=== PATIENT | male | born 1945 | race Caucasian/White ===

== ENCOUNTER → 2016-07-04 | Day surgery (SDC) | payer MEDICARE, BC ==
[2016-06-29 10:02] VITALS: BMI 27.8
[~2016-07-04] MED LIST: LACTATED RINGERS 1,000 ML IV SCH; PROPOFOL 10 MG/ML 20 ML VIAL IV ONE
[2016-07-04 11:37] VITALS: TEMP 97.5
--- NOTE | 2016-07-04 12:02 | P.PCN ---
Date of Procedure: 07/04/16 Procedure(s) Performed: BRIEF HISTORY: Patient is a 71-year-old pleasant white male, scheduled for an elective colonoscopy as a part of evaluation of prior history of colon polyps. His last colonoscopy was in 5 years ago. PROCEDURE PERFORMED: Colonoscopy. PREOPERATIVE DIAGNOSIS: History of colon polyps. IV sedation per Anesthesia. PROCEDURE: After informed consent was obtained, the patient, was brought into the endoscopy unit. IV conscious sedation was administered by Anesthesia under continuous monitoring. Digital rectal examination was normal. Initially the Olympus CF-160 flexible video colonoscope was then inserted in the rectum, gradually advanced into the cecum without any difficulty. Careful examination was performed as the scope was gradually being withdrawn. Ileocecal valve and the appendiceal orifice were visualized and appeared normal. Prep was excellent. Mucosa of the cecum, ascending colon, transverse colon, descending colon, sigmoid colon, and rectum appeared normal. Scattered sigmoid diverticulosis seen. Retroflexion was performed in the rectum and no lesions were seen. The patient tolerated the procedure well. IMPRESSION: Normal-appearing colon from rectum to cecum with no evidence of colorectal neoplasia . Scattered similar diverticulosis. RECOMMENDATIONS: Findings of this examination were discussed with the patient as well as his family. He was advised to have a repeat surveillance colonoscopy in 5 years.
[2016-07-04 14:55] VITALS: RESP 18
[2016-07-04 14:58] VITALS: BP 136/81; PULSE 66
== END ==
LOC: ORWHC2ENDO 10:16
PROVIDERS: ATTEND Internal Medicine Gastroenterology
DX: Z12.11 Encounter for screening for malignant neoplasm of colon (principal); Z86.010 Personal history of colon polyps; K57.30 Diverticulosis of large intestine without perforation or abscess without bleeding; K21.9 Gastro-esophageal reflux disease without esophagitis; E07.9 Disorder of thyroid, unspecified; Z79.82 Long term (current) use of aspirin; Z79.899 Other long term (current) drug therapy
CPT/HCPCS: J2704; G0105; 99153

== ENCOUNTER → 2016-08-04 | Outpatient (CLI) | payer MEDICARE, BC ==
[2016-08-04 08:48] LABS: Basophils % (A) 1 %; CH 33.1; CHCM 32.8; Eosinophils # (A) 0.2 k/uL (0-0.7); Eosinophils % (A) 4 %; HCT 48.6 % (39.0-53.0); HGB 15.2 gm/dL (13.0-17.5); Luc # (Auto) 0.15; Luc % (Auto) 3; Lymphocytes # (A) 1.1 k/uL (1.0-4.8); Lymphocytes % (A) 23 %; MCH 31.8 pg (25.0-35.0); MCHC 31.3 g/dL (31.0-37.0); MCV 101.8 fL (80.0-100.0); Macrocytosis Slight; Monocytes # (A) 0.4 k/uL (0-1.0); Monocytes % (A) 9 %; Neutrophils # (A) 2.9 k/uL (1.3-7.7); Neutrophils % (A) 60 %; RBC 4.77 m/uL (4.30-5.90); RDW 14.5 % (11.5-15.5); WBC 4.8 k/uL (3.8-10.6); WBC (Perox) 4.99
[2016-08-04 09:05] LABS: ALT 23 U/L (21-72); AST 21 U/L (17-59); Alkaline Phosphatase 46 U/L (38-126); Anion Gap 9 mmol/L; Blood Urea Nitrogen 13 mg/dL (9-20); Calcium 9.3 mg/dL (8.4-10.2); Carbon Dioxide 28 mmol/L (22-30); Chloride 103 mmol/L (98-107); Cholesterol 145 mg/dL (<200); Glucose 85 mg/dL (74-99); HDL Cholesterol 80 mg/dL (40-60); Non-African American GFR(MDRD) >60 (>60 ml/min/1.73 sqM); Potassium 4.8 mmol/L (3.5-5.1); Sodium 140 mmol/L (137-145); Total Bilirubin 0.9 mg/dL (0.2-1.3); Total Protein 6.8 g/dL (6.3-8.2); Triglycerides 48 mg/dL (<150); Uric Acid 3.9 mg/dL (3.5-8.5)
== END | disposition home or self-care (01) ==
LOC: LABWHC1 07:56
PROVIDERS: ATTEND Internal Medicine
DX: E03.9 Hypothyroidism, unspecified (principal); E78.5 Hyperlipidemia, unspecified; M10.9 Gout, unspecified
CPT/HCPCS: 36415; 80053; 80061; 84439; 84443; 84550; 85025

== ENCOUNTER → 2017-08-06 | Outpatient (CLI) | payer MEDICARE, BC ==
[2017-08-06 12:08] LABS: Basophils # (A) 0.1 k/uL (0-0.2); Basophils % (A) 1 %; Eosinophils # (A) 0.2 k/uL (0-0.7); Eosinophils % (A) 3 %; HCT 48.1 % (39.0-53.0); HGB 15.3 gm/dL (13.0-17.5); Lymphocytes # (A) 1.1 k/uL (1.0-4.8); Lymphocytes % (A) 20 %; MCH 32.9 pg (25.0-35.0); MCHC 31.9 g/dL (31.0-37.0); MCV 103.2 fL (80.0-100.0); Macrocytosis Slight; Mean Platelet Volume 7.7; Monocytes # (A) 0.4 k/uL (0-1.0); Monocytes % (A) 7 %; Neutrophils # (A) 3.5 k/uL (1.3-7.7); Neutrophils % (A) 66 %; Platelet Count 217 k/uL (150-450); RBC 4.66 m/uL (4.30-5.90); WBC 5.3 k/uL (3.8-10.6)
[2017-08-06 12:10] LABS: ALT 23 U/L (21-72); AST 26 U/L (17-59); Albumin 4.4 g/dL (3.5-5.0); Alkaline Phosphatase 56 U/L (38-126); Anion Gap 10 mmol/L; Blood Urea Nitrogen 11 mg/dL (9-20); Calcium 9.6 mg/dL (8.4-10.2); Carbon Dioxide 28 mmol/L (22-30); Chloride 102 mmol/L (98-107); Cholesterol 150 mg/dL (<200); Glucose 81 mg/dL (74-99); HDL Cholesterol 108 mg/dL (40-60); LDL Cholesterol,Calculated 33 mg/dL (0-99); Potassium 4.8 mmol/L (3.5-5.1); Sodium 140 mmol/L (137-145); Total Bilirubin 0.9 mg/dL (0.2-1.3); Total Protein 6.8 g/dL (6.3-8.2); Triglycerides 45 mg/dL (<150); Uric Acid 3.2 mg/dL (3.5-8.5)
[2017-08-06 12:23] LABS: T4, Free (Free Thyroxine) 0.98 ng/dL (0.78-2.19)
== END | disposition home or self-care (01) ==
LOC: LABWHC1 11:27
PROVIDERS: ATTEND Internal Medicine
DX: Z00.00 Encounter for general adult medical examination without abnormal findings (principal); E78.5 Hyperlipidemia, unspecified; T14.8XXA Other injury of unspecified body region, initial encounter; M10.9 Gout, unspecified; M19.90 Unspecified osteoarthritis, unspecified site
CPT/HCPCS: 36415; 80053; 80061; 84439; 84443; 84550; 85025

== ENCOUNTER → 2018-02-13 | Outpatient (CLI) | payer MEDICARE, BC ==
--- NOTE | 2018-02-13 17:30 | MR ---
EXAMINATION TYPE: MR knee RT wo con DATE OF EXAM: 02/13/2018 COMPARISON: Right knee 02/04/2018 HISTORY: Right knee pain TECHNIQUE: Multiplanar, multisequence imaging of the right knee is performed without IV contrast. FINDINGS: MEDIAL MENISCUS: Linear increased signal at the posterior horn of the medial meniscus extends the art icular surface, sagittal image #8 LATERAL MENISCUS: Some linear increased signal present within the body does not clearly communicate w ith the articular surface CRUCIATE LIGAMENTS: The anterior and posterior cruciate ligaments are intact and unremarkable. COLLATERAL LIGAMENTS: The medial collateral ligament and lateral collateral ligament complex are inta ct and unremarkable. EXTENSOR MECHANISM: Visualized quadriceps and patellar tendons are intact. EFFUSION: Minimal effusion POPLITEAL CYST: No popliteal/wheat cyst. TRICOMPARTMENT SPACES: Maintained CARTILAGE: Suspect some grade 3 to grade IV chondromalacia at the posterior patella, lateral femoral condyle BONE MARROW SIGNAL: No focal abnormal marrow signal is appreciated. OTHER: Possible small ganglion cysts present posterior to the posterior cruciate ligament measuring only 5 to 6 mm. IMPRESSION: Tear of the posterior horn of the medial meniscus. Osteoarthritis.
== END | disposition home or self-care (01) ==
LOC: RADMRIMAIN 05:54
PROVIDERS: ATTEND Orthopaedic Surgery
DX: M17.11 Unilateral primary osteoarthritis, right knee (principal); S83.241A Other tear of medial meniscus, current injury, right knee, initial encounter

== ENCOUNTER → 2018-03-18 | Outpatient (CLI) | payer MEDICARE, BC ==
[2018-03-18 11:30] LABS: Basophils # (A) 0.1 k/uL (0-0.2); Basophils % (A) 1 %; Eosinophils # (A) 0.2 k/uL (0-0.7); Eosinophils % (A) 4 %; HCT 48.1 % (39.0-53.0); HGB 15.7 gm/dL (13.0-17.5); Lymphocytes # (A) 1.1 k/uL (1.0-4.8); Lymphocytes % (A) 17 %; MCH 33.9 pg (25.0-35.0); MCHC 32.6 g/dL (31.0-37.0); MCV 104.1 fL (80.0-100.0); Macrocytosis Slight; Mean Platelet Volume 7.4; Monocytes # (A) 0.4 k/uL (0-1.0); Monocytes % (A) 7 %; Neutrophils # (A) 4.3 k/uL (1.3-7.7); Neutrophils % (A) 70 %; Platelet Count 219 k/uL (150-450); RBC 4.62 m/uL (4.30-5.90); RDW 14.2 % (11.5-15.5); WBC 6.2 k/uL (3.8-10.6)
[2018-03-18 11:49] LABS: Potassium 5.4 mmol/L (3.5-5.1)
== END | disposition home or self-care (01) ==
LOC: LABPAT 09:11
PROVIDERS: ATTEND Orthopaedic Surgery
DX: Z01.812 Encounter for preprocedural laboratory examination (principal); M23.91 Unspecified internal derangement of right knee
CPT/HCPCS: 36415; 80051; 85025

== ENCOUNTER 2018-03-20 11:15 | Day surgery (SDC) | payer MEDICARE, BC ==
[2018-03-17 09:58] VITALS: BMI 26.4
--- NOTE | 2018-03-19 19:28 | HP ---
HISTORY AND PHYSICAL DATE OF SURGERY: 03/20/2018 Bart Gentile is a 73-year-old patient seen with progressive right knee pain. After having treatment options discussed, he elected to proceed with arthroscopy. Consent was obtained. Clearance was provided by Dr. Delgado. PAST MEDICAL HISTORY: Hypothyroidism, hypertension. PAST SURGICAL HISTORY: Noncontributory. DAILY MEDICATIONS: Levothyroxine, Prilosec, Zyloprim. ALLERGIES: NONE REPORTED. SOCIAL HISTORY: Patient denies tobacco use. PHYSICAL EVALUATION OF THE RIGHT KNEE: His range of motion is 0 to 130 degrees. Tenderness, medial joint line. Positive medial Pablito's. Crepitus, medial patellofemoral compartment range of motion. Ligaments stable. Hip rotation without pain. Distal neurovascular exam intact. RADIOGRAPHS: Radiographs of the right knee revealed moderate osteoarthritis. An MRI of the right knee revealed a medial meniscal tear. IMPRESSION: Internal derangement of the right knee with medial meniscal tear. PLAN: Right knee arthroscopy with partial meniscectomy and debridement. MMODL / IJN: [id number] /
[~2018-03-20 11:15] MED LIST changes: -LACTATED RINGERS 1,000 ML IV SCH; -PROPOFOL 10 MG/ML 20 ML VIAL IV ONE; +ceFAZolin IN SWFI 2 GM/20 ML SYRINGE IVP ONE
[2018-03-20 12:12] VITALS: RESP 16
[2018-03-20] MEDS ORDERED: ONDANSETRON 4 MG/2 ML VIAL ONE (12:13)
[2018-03-20] MEDS ORDERED: LACTATED RINGERS 1,000 ML IV ONE ×3 (12:18→14:34)
[2018-03-20] MEDS ORDERED: LIDOCAINE 1% 20 ML VIAL (10MG/ML) FOR IV START INTRADERMA ONE (12:18)
[2018-03-20] MEDS ORDERED: ONDANSETRON 4 MG/2 ML VIAL IVP ONE (12:18)
[2018-03-20] MEDS ORDERED: DEXAMETHASONE SOD PHOSPHATE 10 MG/ML 1 ML VIAL IV ONE (12:19)
[2018-03-20] MEDS ORDERED: LIDOCAINE 1% INJ 10MG/ML (20 ML MDV) ONE (13:18)
[2018-03-20] MEDS ORDERED: MIDAZOLAM 2 MG/2 ML VIAL ONE (13:18)
[2018-03-20] MEDS ORDERED: KETOROLAC 30 MG/ML 1 ML VIAL ONE (13:18)
[2018-03-20] MEDS ORDERED: PROPOFOL 10 MG/ML 20 ML VIAL IV ONE (13:18)
[2018-03-20] MEDS ORDERED: fentaNYL (PF) 50 MCG/ML 2 ML AMP ONE (13:18)
[2018-03-20] MEDS ORDERED: BUPIVACAINE-EPI 0.5%-1:200,000 10 ML VIAL INTRAARTIC ONE (13:28)
--- NOTE | 2018-03-20 14:04 | P.OP ---
Date of Procedure: 03/20/18 Preoperative Diagnosis: Internal derangement right knee Postoperative Diagnosis: 1. Tear medial and lateral meniscus right knee 2. Grade 3 chondromalacia medial femoral condyle right knee 3. Grade 3 chondromalacia patella right knee 4. Reactive synovitis medial and suprapatellar compartments right knee Procedure(s) Performed: 1. Arthroscopic partial medial and lateral meniscectomy right knee 2. Arthroscopic chondroplasty medial femoral condyle right knee 3. Arthroscopic chondroplasty patella right knee 4. Arthroscopic partial synovectomy medial and suprapatellar compartments right knee Anesthesia: ARMENA, local Surgeon: Brian Ball Estimated Blood Loss (ml): 7 Pathology: none sent Condition: stable Disposition: PACU Indications for Procedure: 73-year-old patient seen with progressive right knee pain. After having treatment options discussed, he elected to proceed with arthroscopy. Operative Findings: See description of procedure Description of Procedure: Patient was taken to the operative suite. Patient underwent a general anesthetic by the department of anesthesia. Patient was given preoperative antibiotics. The right lower extremity was placed in a well-padded arthroscopic leg davalos. The right leg was prepped and draped in the normal sterile orthopedic fashion. A lateral parapatellar and suprapatellar incision was made. Trochars were inserted. Arthroscopy was initiated. Suprapatellar pouch revealed diffuse thick reactive synovitis. The patellofemoral joint appeared to articulate congruently. There was grade 3 chondromalacia of the patella with some osteochondral tears present. The scope was guided into the medial gutter. No loose bodies or plica were identified. The scope was then guided into the medial compartment. A medial parapatellar incision was made. Trocar inserted followed by probe. There was a radial tear posterior horn medial meniscus. There were grade 3 chondromalacia changes of the medial femoral condyle with osteochondral tears present. There was thick reactive synovitis anteriorly. I performed a partial medial meniscectomy down to stable tissue. I performed a chondroplasty of the medial femoral condyle down to stable tissue. I performed a partial synovectomy decompressing the reactive synovitis. The residual meniscus was stable. The residual osteochondral surface was stable. There was good decompression of the synovitis. Scope and probe were then guided into the intercondylar notch. Cruciates were identified , probed and found to be stable. The scope and probe were then guided into lateral compartment. There was a radial tear mid body lateral meniscus. There were mild grade 1 chondromalacia changes lateral compartment. No loose bodies. No synovitis. I performed a partial lateral meniscectomy down to stable tissue. The residual meniscus was found to be stable. The scope was in guided back into the suprapatellar compartment. I introduced a motorized shaver into the super patellar compartment. I debrided some piecemeal fragments of meniscus I encountered. I performed a chondroplasty of the patella down to stable tissue. I performed a partial synovectomy decompressing the reactive synovitis in the suprapatellar compartment. The residual osteochondral surface was stable. There was good decompression of the synovitis. Instruments were now removed from the joint. The joint was infiltrated with .25% Marcaine. Steri-Strips were applied to the portal sites. Sterile dressings were applied. The patient was placed into a CICI hose. No tourniquet was utilized. The patient was awakened, transferred to a bed and taken to recovery stable satisfactory condition.
[2018-03-20 14:15] VITALS: TEMP 97.4
[2018-03-20] MEDS: HYDROmorphone 1 MG/ML 1 ML SYRINGE IVP ONE ×2 (14:20→14:29)
[2018-03-20 15:28] VITALS: BP 133/79; PULSE 67
== END 2018-03-20 15:40 | disposition home or self-care (01) ==
LOC: OR 11:15
PROVIDERS: ATTEND Orthopaedic Surgery
DX: M23.321 Other meniscus derangements, posterior horn of medial meniscus, right knee (principal); M23.361 Other meniscus derangements, other lateral meniscus, right knee; M65.861 Other synovitis and tenosynovitis, right lower leg; M22.41 Chondromalacia patellae, right knee; E03.9 Hypothyroidism, unspecified; M10.9 Gout, unspecified; K21.9 Gastro-esophageal reflux disease without esophagitis; I45.2 Bifascicular block; M17.11 Unilateral primary osteoarthritis, right knee; M16.10 Unilateral primary osteoarthritis, unspecified hip; E78.5 Hyperlipidemia, unspecified; I10 Essential (primary) hypertension; Z79.890 Hormone replacement therapy; Z79.899 Other long term (current) drug therapy; Z79.891 Long term (current) use of opiate analgesic; Z79.82 Long term (current) use of aspirin; Z85.46 Personal history of malignant neoplasm of prostate; Z90.79 Acquired absence of other genital organ(s)
CPT/HCPCS: 29880; J2250; J1100; J2405; J2001; J3010; J1885; J1170; J2704

== ENCOUNTER → 2018-08-08 | Outpatient (CLI) | payer MEDICARE, BC ==
[2018-08-08 08:55] LABS: Basophils % (A) 1 %; Eosinophils # (A) 0.2 k/uL (0-0.7); Eosinophils % (A) 3 %; HGB 14.9 gm/dL (13.0-17.5); Lymphocytes # (A) 0.9 k/uL (1.0-4.8); Lymphocytes % (A) 19 %; MCH 34.1 pg (25.0-35.0); MCHC 32.4 g/dL (31.0-37.0); MCV 105.4 fL (80.0-100.0); Macrocytosis Moderate; Mean Platelet Volume 7.1; Monocytes # (A) 0.4 k/uL (0-1.0); Monocytes % (A) 8 %; Neutrophils # (A) 3.1 k/uL (1.3-7.7); Neutrophils % (A) 68 %; Platelet Count 211 k/uL (150-450); RBC 4.36 m/uL (4.30-5.90); RDW 15.1 % (11.5-15.5); WBC 4.5 k/uL (3.8-10.6)
[2018-08-08 10:51] LABS: Erythrocyte Sedimentation Rate 2 mm/hr (0-15)
[2018-08-08 18:38] LABS: ALT 19 U/L (10-49); AST 31 U/L (14-35); Albumin/Globulin Ratio 2.67 (1.60-3.17); Alkaline Phosphatase 54 U/L (41-126); Carbon Dioxide 25.2 mmol/L (21.6-31.8); Chloride 109 mmol/L (96-109); Cholesterol 125 mg/dL (0-200); Globulin 1.5 g/dL (1.6-3.3); Glucose 83 mg/dL (70-110); Potassium 4.7 mmol/L (3.5-5.5); Sodium 143 mmol/L (135-145); Total Bilirubin 0.6 mg/dL (0.2-1.2); Total Protein 5.5 g/dL (6.2-8.2); Triglycerides <50.0 mg/dL (0.0-149.0); Uric Acid 4.2 mg/dL (3.7-8.7); VLDL Calculation 9.98 mg/dL (5.00-40.00)
== END ==
LOC: LABWHC1 06:48
PROVIDERS: ATTEND Internal Medicine
DX: Z00.00 Encounter for general adult medical examination without abnormal findings (principal); M10.9 Gout, unspecified; M19.90 Unspecified osteoarthritis, unspecified site
CPT/HCPCS: 36415; 80053; 80061; 84439; 84443; 84550; 85025; 85652

== ENCOUNTER → 2018-09-10 | Outpatient (CLI) | payer MEDICARE, BC | LOC: LABPAT 10:02 | PROVIDERS: ATTEND Orthopaedic Surgery | DX: Z01.812 Encounter for preprocedural laboratory examination (principal) | CPT/HCPCS: 87070 ==

== ENCOUNTER → 2018-09-10 | Outpatient (CLI) | payer MEDICARE, BC ==
[2018-09-10 11:33] LABS: Basophils % (A) 1 %; Eosinophils # (A) 0.2 k/uL (0-0.7); Eosinophils % (A) 5 %; HCT 43.9 % (39.0-53.0); Lymphocytes # (A) 0.9 k/uL (1.0-4.8); Lymphocytes % (A) 19 %; MCHC 31.8 g/dL (31.0-37.0); MCV 103.9 fL (80.0-100.0); Macrocytosis Moderate; Mean Platelet Volume 7.8; Monocytes # (A) 0.4 k/uL (0-1.0); Monocytes % (A) 8 %; Neutrophils # (A) 3.2 k/uL (1.3-7.7); Neutrophils % (A) 65 %; Platelet Count 232 k/uL (150-450); RBC 4.22 m/uL (4.30-5.90); RDW 14.7 % (11.5-15.5); WBC 4.9 k/uL (3.8-10.6)
[2018-09-10 11:44] LABS: INR 0.9 (<1.2)
[2018-09-10 18:30] LABS: Potassium 4.6 mmol/L (3.5-5.5)
== END | disposition home or self-care (01) ==
LOC: LABWHC1 10:05
PROVIDERS: ATTEND Internal Medicine
DX: Z01.812 Encounter for preprocedural laboratory examination (principal); M19.90 Unspecified osteoarthritis, unspecified site; Z96.651 Presence of right artificial knee joint
CPT/HCPCS: 36415; 80048; 85025; 85610

== ENCOUNTER → 2018-09-23 | Outpatient (CLI) | payer MEDICARE, BC | END | disposition home or self-care (01) | LOC: LABWHC1 08:02 | PROVIDERS: ATTEND Orthopaedic Surgery | DX: Z01.818 Encounter for other preprocedural examination (principal); M17.12 Unilateral primary osteoarthritis, left knee | CPT/HCPCS: 93005 ==

== ENCOUNTER 2018-09-29 08:16 | Day surgery (SDC) | payer MEDICARE, BC ==
--- NOTE | 2018-09-28 12:32 | HP ---
HISTORY AND PHYSICAL REASON FOR ADMISSION: Surgery scheduled 09/29/2018 Bart Gentile is a 73-year-old patient seen with progressive right knee pain. We discussed treatment options. He elected to proceed with total knee arthroplasty. Consent regarding the procedure was obtained. Medical clearance was provided by Dr. Delgado. PAST MEDICAL HISTORY: Hypothyroidism, gastroesophageal reflux disease. PAST SURGICAL HISTORY: Noncontributory. DAILY MEDICATIONS: Aspirin, ibuprofen, levothyroxine, Prilosec, Zyloprim. ALLERGIES: None. SOCIAL HISTORY: He denies current tobacco use. PHYSICAL EXAMINATION: Evaluation of the right knee is range of motion 0 to 125 degrees. There is tenderness along the medial joint line. There is crepitus on the medial patellofemoral compartments with range of motion. Ligaments are stable. Hip rotation is without pain. Distal neurovascular exam is intact. RADIOGRAPHS: Radiographs of the right knee revealed osteoarthritic changes. IMPRESSION: 1. Right knee osteoarthritis. 2. Hypothyroidism. 3. Gastroesophageal reflux disease. PLAN: Right total knee arthroplasty. Surgery is scheduled for 09/29/2018. MMODL / IJN: [id number] /
[~2018-09-29 08:16] MED LIST changes: +ACETAMINOPHEN TAB 500 MG TAB PO ONE; +LIDOCAINE 1% 20 ML VIAL (10MG/ML) FOR IV START INTRADERMA PRN; +MELOXICAM 7.5 MG TAB PO ONE; +MIDAZOLAM 2 MG/2 ML VIAL IV PRN; +TRANEXAMIC ACID 1,000 MG in SODIUM CHLORIDE 0.9% 100 ML IVPB ONE; +fentaNYL (PF) 50 MCG/ML 2 ML AMP IV PRN
[2018-09-29] MEDS ORDERED: ONDANSETRON 4 MG/2 ML VIAL IVP ONE (09:00)
[2018-09-29] MEDS ORDERED: DEXAMETHASONE SOD PHOS (MDV) 100 MG/10 ML VIAL IVP ONE (09:00)
[2018-09-29 09:07] LABS: Glucose,Whole Blood 83 mg/dL (75-99)
[2018-09-29] MEDS: LACTATED RINGERS 1,000 ML IV SCH ×4 (09:11→22:14)
[2018-09-29] MEDS ORDERED: MIDAZOLAM (PF) 2 MG/2 ML VIAL IVP ONE (09:25)
[2018-09-29] MEDS ORDERED: ROPIVACAINE 1,100 MG, SODIUM CHLORIDE 0.9% 500 ML 330 ML MISCELLANE PRN ×2 (09:43)
--- NOTE | 2018-09-29 09:43 | P.ONQ ---
Anesthesiology Proc Note - PNB - Peripheral Nerve Block Performed Right Adductor Canal Infusion Time Out Performed: Yes Procedure Start Time: :25 Procedure Stop Time: :36 Indication: Acute Post-Operative Pain, Requested by physician (Dr Ball) Sedation Type: Sedate with meaningful contact maintained Preparation: Sterile Prep Position: Supine Catheter: Indwelling Needle Types: On-Q Needle Size: 100mm (4") Needle Gauge: 20 Technique: Ultrasound Injectate: 0.5% Ropivacaine (see comment for volume) (30 mls) Blood Aspirated: No Pain Paresthesia on Injection Noted: No Resistance on Injection: Normal Events: Uneventful and Well Tolerated
[2018-09-29] MEDS ORDERED: ROPIVACAINE 246.25 MG, EPINEPHrine 0.5 MG, KETOROLAC 30 MG, cloNIDine HCL/PF 80 MCG, WA... MISCELLANE ONE ×5 (09:58)
[2018-09-29] MEDS ORDERED: TRANEXAMIC ACID 1,000 MG/10 ML VIAL ONE (10:40)
[2018-09-29] MEDS ORDERED: PROPOFOL 10 MG/ML 20 ML VIAL IV ONE (10:40)
[2018-09-29] MEDS ORDERED: MIDAZOLAM 2 MG/2 ML VIAL ONE (10:40)
[2018-09-29] MEDS ORDERED: SODIUM CHLORIDE 0.9% 100 ML BAG ONE (10:40)
[2018-09-29] MEDS ORDERED: PHENYLEPHRINE-0.9% NACL SYG 1 MG/10 ML SYRINGE ONE (10:40)
[2018-09-29] MEDS ORDERED: fentaNYL (PF) 50 MCG/ML 2 ML AMP ONE (10:40)
[2018-09-29] MEDS ORDERED: ceFAZolin 3,000 MG in SODIUM CHLORIDE 0.9% IRRIGATIO 3,000 ML IRRIGATION ONE (11:17)
[2018-09-29] MEDS ORDERED: LACTATED RINGERS 1,000 ML IV ONE (12:21)
--- NOTE | 2018-09-29 12:28 | P.OP ---
Date of Procedure: 09/29/18 Preoperative Diagnosis: Right knee osteoarthritis Postoperative Diagnosis: Right knee osteoarthritis Procedure(s) Performed: Right total knee arthroplasty Implants: 1. Depuy Attune size 7 cruciate retaining cemented femur 2. Depuy Attune size 6 fixed bearing cemented tibial baseplate 3. Depuy Attune size 7 fixed-bearing 7 mm polyethylene tibial insert 4. Depuy Attune 41 mm all polyethylene patella Anesthesia: regional (Adductor canal catheter), local, spinal Surgeon: Brian Ball Boring And Filling Machine Operator #1: Vijay Alvarez Estimated Blood Loss (ml): 50 Pathology: other (Bone) Condition: stable Disposition: PACU Indications for Procedure: 73-year-old patient seen with symptomatic right knee osteoarthritis. After having treatment options discussed, he elected to proceed with total knee arthroplasty. Operative Findings: See description of procedure Description of Procedure: Patient was taken to the operative suite after having an adductor canal catheter placed by the department of anesthesia for postoperative pain management. Patient underwent a spinal anesthetic by the department of anesthesia. Patient was given preoperative IV intake antibiotics and TXA. A well-padded tourniquet was placed about the right lower extremity. The lower extremity was then prepped and draped in the normal sterile orthopedic fashion. The extremity was elevated, a tourniquet was insufflated to 300. A standard anterior incision was made sharply through skin. Dissection was taken down through the subcutaneous soft tissues down to the extensor mechanism. A medial arthrotomy was performed, patella was everted and knee was flexed. There was advanced osteoarthritis noted. I introduced my distal intramedullary femoral drill. I then introduced the distal femoral cutting jig. Tyler THOMPSON secured the cutting jig with 2 pins. I held retractors in position while Tyler THOMPSON performed the distal femoral resection through the guide area we now removed her distal femoral cutting guide. We now placed our 4-in-1 femoral cutting block and positioned and it was secured with 2 pins by Tyler THOMPSON while I held the block in position. The distal femoral finishing was now completed. A proximal tibial cutting guide was positioned. I held the guide in the appropriate position with both hands well Tyler THOMPSON inserted stabilizing pins into the guide. Proximal tibial cut was made. We now placed a trial femoral component into position, along with an appropriate size tibial tray and insert. We now took the knee through range of motion and had full extension good flexion and good overall soft tissue balance noted. The patella was everted and stabilized with 2 towel clips held by Tyler THOMPSON while I performed a flush with patellar quad tendon utilizing a fresh sawblade. We templated the patella, appropriate drill holes were made. An appropriate trial patella was positioned, knee was taken through full range of motion with the patella tracking very nicely. The trial patella was removed. Drill holes were made through the femoral component. All trial components were removed after marking off the appropriate rotation of the tibia. Retractors were now positioned along the proximal tibia. An appropriate keel punch was made with the appropriate size tibial guide by myself on Tyler THOMPSON assisted by holding retractors. At this point appropriate size implants were chosen and opened. The joint was irrigated copiously with pulse lavage mechanical irrigation. The posterior capsule was infiltrated with local analgesic. The wound was irrigated with pulse lavage mechanical irrigation. We mixed antibiotic methylmethacrylate. We placed the knee into flexion. We placed multiple retractors assisted by Tyler THOMPSON to expose the proximal tibia. Once the methyl methacrylate was ready, the tibial component was cemented into place removing any excess methylmethacrylate form by both myself and Tyler THOMPSON. The femoral component was cemented into place removing the removing any excess methylmethacrylate performed by both myself and Tyler THOMPSON. We then inserted the appropriate size polyethylene tibial insert. We made sure that it was locked into position. We took the knee into full extension, and then back in a flexion making sure we had removed any excess methylmethacrylate. The patellar component was then cemented down and secured with clamp. Excess methylmethacrylate removed. We kept the knee in full extension, patellar clamp in position until methylmethacrylate had hardened. Once it had hardened the patellar clamp was removed. The knee was taken through full range of motion. The patella tracked nicely. There was good soft tissue balancing. The tourniquet was now released. Additional hemostasis was achieved via electrocautery. A second gram of TXA was given. The wound again was irrigated with pulse lavage mechanical irrigation. The superficial soft tissues were infiltrated local analgesic. The extensor mechanism was repaired with Vicryl. We checked the repair with range of motion and it was stable. The subcutaneous soft tissues were repaired with Vicryl in layers. The skin was saida roximated with pernio/Dermabond. Sterile dressings were applied followed by loose web roll and Boy bandage. The patient was transferred to a bed, and taken to recovery in stable and satisfactory condition. Tyler THOMPSON assisted with this complex procedure.
[2018-09-29] MEDS ORDERED: HYDROcodone/APAP 5-325MG 1 EACH TAB PO PRN (12:30)
[2018-09-29] MEDS ORDERED: traMADol 50 MG TAB PO PRN (12:30)
[2018-09-29] MEDS ORDERED: HYDROmorphone 0.5 MG/0.5 ML SYRINGE IVP PRN ×3 (12:30)
[2018-09-29] MEDS ORDERED: NALOXONE 0.4 MG/ML 1 ML VIAL IV PRN (12:30)
[2018-09-29] MEDS ORDERED: ONDANSETRON 4 MG/2 ML VIAL IVP PRN (12:30)
--- NOTE | 2018-09-29 13:18 | XR ---
EXAMINATION TYPE: XR knee limited RT DATE OF EXAM: 09/29/2018 CLINICAL HISTORY: Postoperative evaluation Two views of the right knee are submitted. Identified are changes of total knee arthroplasty with femoral and tibial components appearing well seated. Postsurgical soft tissue changes are noted. Alignment is anatomic.
[2018-09-29 15:32] VITALS: BMI 26.4
[2018-09-29] MEDS ORDERED: clonazePAM 0.5 MG TAB PO PRN (16:31)
--- NOTE | 2018-09-29 16:31 | P.CNPUL ---
History of Present Illness Consult date: 09/29/18 Requesting physician: Brian Ball Reason for consult: other Chief complaint: Osteoarthritis, right knee pain, right total knee arthroplasty History of present illness: This is a 73-year-old white male patient who follows with Dr. Mascorro for primary care services, with past medical history of osteoarthritis, progressive right knee pain, gout, hypothyroidism, underwent elective right total knee arthroplasty today by Dr. Almonte. Patient was cleared for surgery by Dr. Mascorro. Patient is an ex-smoker, quit smoking 50 years ago. Other medical history includes prostate cancer with history of surgical resection. We were asked to see the patient in consultation for medical management. Patient is seen resting comfortably in bed, awake and alert, his is at the bedside, he denies any acute distress, currently on room air, pulse ox is 96%, afebrile, hemodynamically stable, lung sounds are clear, no complaints of shortness of breath or chest pain, right leg is Boy wrapped from foot to upper leg. No complaints of numbness or tingling, distal pulses are intact, no calf tenderness. Patient had the peripheral nerve block for pain control, and he currently denies any pain. Vital signs are stable, no specific. complaints. Review of Systems All systems: negative Constitutional: Denies chills, Denies fever Eyes: denies blurred vision, denies pain Ears, nose, mouth and throat: Denies headache, Denies sore throat Cardiovascular: Denies chest pain, Denies shortness of breath Respiratory: Denies cough Gastrointestinal: Denies abdominal pain, Denies diarrhea, Denies nausea, Denies vomiting Musculoskeletal: Denies myalgias Musculoskeletal: right: knee pain Integumentary: Denies pruritus, Denies rash Neurological: Denies numbness, Denies weakness Psychiatric: Denies anxiety, Denies depression Endocrine: Denies fatigue, Denies weight change Past Medical History Past Medical History: Cancer, Thyroid Disorder Additional Past Medical History / Comment(s): Prostate CA History of Any Multi-Drug Resistant Organisms: None Reported Past Surgical History: Prostate Surgery Additional Past Surgical History / Comment(s): mastoid surgery as child, vein stripping lt leg Past Anesthesia/Blood Transfusion Reactions: No Reported Reaction Past Psychological History: No Psychological Hx Reported Smoking Status: Former smoker Past Alcohol Use History: Daily Additional Past Alcohol Use History / Comment(s): smoker for 15 years <1ppd quit 1968 Past Drug Use History: None Reported - Past Family History Mother Family Medical History: No Reported History Father Family Medical History: No Reported History Medications and Allergies Home Medications Medication Instructions Recorded Confirmed Type Allopurinol [Zyloprim] 300 mg PO DAILY 01/18/14 09/29/18 History Levothyroxine Sodium [Synthroid] 50 mcg PO DAILY 01/18/14 09/29/18 History Aspirin [Adult Low Dose Aspirin EC] 81 mg PO DAILY 06/29/16 09/29/18 History Lysine 500 mg PO DAILY 06/29/16 09/29/18 History Ibuprofen [Motrin] 800 mg PO Q12HR PRN 03/17/18 09/29/18 History clonazePAM [KlonoPIN] 0.5 mg PO HS PRN 03/17/18 09/29/18 History Allergies Allergy/AdvReac Type Severity Reaction Status Date / Time No Known Allergies Allergy Verified 09/29/18 09:47 Physical Exam Vitals: Vital Signs Temp Pulse Resp BP Pulse Ox 09/29/18 13:27 73 16 113/60 96 09/29/18 13:13 83 16 120/70 97 09/29/18 13:00 87 16 116/61 96 09/29/18 12:49 97.6 F 86 18 112/61 95 09/29/18 09:40 69 16 115/75 97 09/29/18 08:46 97.3 F L 71 16 152/78 97 Intake and Output 09/29/18 09/29/18 09/29/18 06:59 14:59 22:59 Intake Total 1171 Output Total 50 Balance 1121 Intake: IV 1101 Intake, IV Titration 70 Amount Lactated Ringers 1,000 ml 70 @ 70 mls/hr IV .[id number] [facility] Rx#:[id number] Output: Estimated Blood Loss 50 GENERAL EXAM: Alert, pleasant, 73-year-old white male, comfortable in no apparent distress. HEAD: Normocephalic/atraumatic. EYES: Normal reaction of pupils, equal size. Conjunctiva pink, sclera white. NOSE: Clear with pink turbinates. THROAT: No erythema or exudates. NECK: No masses, no JVD, no thyroid enlargement, no adenopathy. CHEST: No chest wall deformity. Symmetrical expansion. LUNGS: Equal air entry with no crackles, wheeze, rhonchi or dullness. CVS: Regular rate and rhythm, normal S1 and S2, no gallops, no murmurs, no rubs ABDOMEN: Soft, nontender. No hepatosplenomegaly, normal bowel sounds, no guarding or rigidity. EXTREMITIES: No clubbing, no edema, no cyanosis, 2+ pulses and upper and lower extremities. Right leg is Boy wrapped, distal pulses are intact, no complaints of numbness or tingling in the foot. MUSCULOSKELETAL: Muscle strength and tone normal. SPINE: No scoliosis or deformity SKIN: No rashes CENTRAL NERVOUS SYSTEM: Alert and oriented -3. No focal deficits, tone is normal in all 4 extremities. PSYCHIATRIC: Alert and oriented -3. Appropriate affect. Intact judgment and insight. Assessment and Plan Plan: Assessment: #1. Right knee osteoarthritis, status post right total knee arthroplasty, postop day 0 #2. Hypothyroidism, on thyroid hormone replacement #3. Hyperlipidemia #4. History of malignant neoplasm of the prostate, status post surgical resection #5. GERD #6. Gout #7. Remote history of smoking, no history of COPD, preop PFTs were within normal limits, with FEV1 of 3.31 L, or 90% predicted Plan: Continue encouraging deep breathing and coughing, pain control, patient is calm and comfortable, denies any specific complaints, denies any shortness of breath or chest pain, no pain. Will reconcile patient's home medications. We'll continue to follow. I performed a history & physical examination of the patient and discussed their management with my nurse practitioner, Mirta Shannon. I reviewed the nurse practitioner's note and agree with the documented findings and plan of care. Lung sounds are positive for clear breath sounds. The findings and the impression was discussed with the patient. I attest to the documentation by the nurse practitioner. Time with Patient: Greater than 30
[2018-09-29] MEDS ORDERED: SENNOSIDES-DOCUSATE SODIUM 1 EACH TAB PO SCH (21:00)
[2018-09-29] MEDS: ceFAZolin IN SWFI 2 GM/20 ML SYRINGE IVP SCH (22:13)
[2018-09-29] MEDS: HYDROcodone/APAP 5-325MG 1 EACH TAB PO PRN (23:08)
[2018-09-30] MEDS: HYDROcodone/APAP 5-325MG 1 EACH TAB PO PRN ×2 (05:31→12:33)
[2018-09-30] MEDS: ceFAZolin IN SWFI 2 GM/20 ML SYRINGE IVP SCH (05:31)
[2018-09-30] MEDS ORDERED: LEVOTHYROXINE 50 MCG TAB PO SCH (06:30)
[2018-09-30 07:29] VITALS: BP 146/81; PULSE 75; RESP 14; TEMP 98
[2018-09-30 08:06] LABS: Basophils % (A) 0 %; Eosinophils # (A) 0.1 k/uL (0-0.7); Eosinophils % (A) 1 %; HCT 42.9 % (39.0-53.0); HGB 13.6 gm/dL (13.0-17.5); Lymphocytes % (A) 13 %; MCH 33.4 pg (25.0-35.0); MCHC 31.8 g/dL (31.0-37.0); MCV 104.9 fL (80.0-100.0); Macrocytosis Moderate; Mean Platelet Volume 7.9; Monocytes # (A) 0.5 k/uL (0-1.0); Monocytes % (A) 7 %; Neutrophils # (A) 6.2 k/uL (1.3-7.7); Neutrophils % (A) 78 %; Platelet Count 240 k/uL (150-450); RBC 4.09 m/uL (4.30-5.90); RDW 15.8 % (11.5-15.5)
[2018-09-30] MEDS: LACTATED RINGERS 1,000 ML IV SCH (08:33)
[2018-09-30] MEDS ORDERED: MELOXICAM 7.5 MG TAB PO SCH (09:00)
[2018-09-30] MEDS ORDERED: ASPIRIN 81 MG PO SCH (09:00)
[2018-09-30] MEDS ORDERED: ENOXAPARIN 30 MG/0.3 ML SYRINGE SQ SCH (09:00)
[2018-09-30] MEDS ORDERED: ALLOPURINOL 300 MG TAB PO SCH (09:00)
--- NOTE | 2018-09-30 10:17 | P.PN ---
Progress Note - Text 09/30 652am 73-year-old male status post total knee replacement by Dr. Ball. Patient has an On-Q pump for postop pain control with solution running at 8 mL an hour with a VAS of 4. Continue On-Q pain infusion for 3 days
--- NOTE | 2018-09-30 11:01 | P.PN ---
Subjective Progress Note Date: 09/30/18 Principal diagnosis: Right knee osteoarthritis, status post right total knee arthroplasty, postop day 1 This is a 73-year-old white male patient who follows with Dr. Mascorro for primary care services, with past medical history of osteoarthritis, progressive right knee pain, gout, hypothyroidism, underwent elective right total knee arthroplasty today by Dr. Almonte. Patient was cleared for surgery by Dr. Mascorro. Patient is an ex-smoker, quit smoking 50 years ago. Other medical history includes prostate cancer with history of surgical resection. We were asked to see the patient in consultation for medical management. Patient is seen resting comfortably in bed, awake and alert, his is at the bedside, he denies any acute distress, currently on room air, pulse ox is 96%, afebrile, hemodynamically stable, lung sounds are clear, no complaints of shortness of abdullahi ath or chest pain, right leg is Boy wrapped from foot to upper leg. No complaints of numbness or tingling, distal pulses are intact, no calf tenderness. Patient had the peripheral nerve block for pain control, and he currently denies any pain. Vital signs are stable, no specific. complaints. On 09/30/2017 patient seen in follow-up on medical surgical floor. He is awake and alert, in no acute distress, urine he has been up out of bed, ambulating. No acute distress, some tenderness in the right knee, patient still has the peripheral nerve block for pain control. Complains of difficulty breathing, no chest pain, vital signs are stable. Lung sounds are clear, he is working on the incentive spirometer. His labs have been noted. Objective - Vital Signs Vital signs: Vital Signs Temp 98.0 F 09/30/18 07:00 Pulse 75 09/30/18 07:00 Resp 14 09/30/18 07:00 BP 146/81 09/30/18 07:00 Pulse Ox 96 09/30/18 07:00 Intake & Output 09/29/18 09/30/18 09/30/18 18:59 06:59 18:59 Intake Total 1407 Output Total 50 Balance 1357 Intake: IV 1101 Intake, IV Titration 70 Amount Lactated Ringers 1,000 ml 70 @ 70 mls/hr IV .[id number] PENNIE Rx#:[id number] Oral 236 Output: Estimated Blood Loss 50 Other: # Voids 1 - Exam GENERAL EXAM: Alert, pleasant, 73-year-old white male, comfortable in no apparent distress. HEAD: Normocephalic/atraumatic. EYES: Normal reaction of pupils, equal size. Conjunctiva pink, sclera white. NOSE: Clear with pink turbinates. THROAT: No erythema or exudates. NECK: No masses, no JVD, no thyroid enlargement, no adenopathy. CHEST: No chest wall deformity. Symmetrical expansion. LUNGS: Equal air entry with no crackles, wheeze, rhonchi or dullness. CVS: Regular rate and rhythm, normal S1 and S2, no gallops, no murmurs, no rubs ABDOMEN: Soft, nontender. No hepatosplenomegaly, normal bowel sounds, no guarding or rigidity. EXTREMITIES: No clubbing, no edema, no cyanosis, 2+ pulses and upper and lower extremities. Right knee with ice pack,, distal pulses are intact, no complaints of numbness or tingling in the foot. Peripheral nerve block catheter is in place in the right upper thigh MUSCULOSKELETAL: Muscle strength and tone normal. SPINE: No scoliosis or deformity SKIN: No rashes CENTRAL NERVOUS SYSTEM: Alert and oriented -3. No focal deficits, tone is normal in all 4 extremities. PSYCHIATRIC: Alert and oriented -3. Appropriate affect. Intact judgment and insight. - Labs CBC & Chem 7: 09/30/18 07:25 Labs: Abnormal Lab Results - Last 24 Hours (Table) 09/30/18 Range/Units 07:25 RBC 4.09 L (4.30-5.90) m/uL MCV 104.9 H (80.0-100.0) fL RDW 15.8 H (11.5-15.5) % Assessment and Plan Plan: Assessment: #1. Right knee osteoarthritis, status post right total knee arthroplasty, postop day 1 #2. Hypothyroidism, on thyroid hormone replacement #3. Hyperlipidemia #4. History of malignant neoplasm of the prostate, status post surgical resection #5. GERD #6. Gout #7. Remote history of smoking, no history of COPD, preop PFTs were within normal limits, with FEV1 of 3.31 L, or 90% predicted Plan: Continue encouraging deep breathing and coughing, no specific complaints, his pain is well controlled. No shortness of breath or chest pain, vitals are stable. Anticipate discharge home today. Follow-up with Dr. Mascorro in the office in 7-10 days. I performed a history & physical examination of the patient and discussed their management with my nurse practitioner, Mirta Shannon. I reviewed the nurse practitioner's note and agree with the documented findings and plan of care. Lung sounds are positive for clear breath sounds. The findings and the impression was discussed with the patient. I attest to the documentation by the nurse practitioner. Time with Patient: Less than 30
--- NOTE | 2018-09-30 11:01 | P.PN ---
Subjective Progress Note Date: 09/30/18 Principal diagnosis: Status post right total knee arthroplasty Patient evaluated at bedside, as well as present. He's ambulate well with therapy. His pain is well-controlled. He denies any chest pain shortness of breath, fever chills. Objective - Vital Signs Vital signs: Vital Signs Temp 98.0 F 09/30/18 07:00 Pulse 75 09/30/18 07:00 Resp 14 09/30/18 07:00 BP 146/81 09/30/18 07:00 Pulse Ox 96 09/30/18 07:00 Intake & Output 09/29/18 09/30/18 09/30/18 18:59 06:59 18:59 Intake Total 1407 Output Total 50 Balance 1357 Intake: IV 1101 Intake, IV Titration 70 Amount Lactated Ringers 1,000 ml 70 @ 70 mls/hr IV .[id number] PENNIE Rx#:[id number] Oral 236 Output: Estimated Blood Loss 50 Other: # Voids 1 - Exam Right lower extremity: Incision is clean, dry, and intact. The exofin fusion tape is in good condition. There is minimal soft tissue swelling and ecchymosis surrounding the medial and lateral aspects of the incision. Calf is soft, no tenderness with pa lpation. Plantar flexion, dorsiflexion, EHL, FHL are intact. Sensory exam to light touch throughout the extremity is intact, dorsal pedis pulses 2+. - Labs CBC & Chem 7: 09/30/18 07:25 Labs: Abnormal Lab Results - Last 24 Hours (Table) 09/30/18 Range/Units 07:25 RBC 4.09 L (4.30-5.90) m/uL MCV 104.9 H (80.0-100.0) fL RDW 15.8 H (11.5-15.5) % Assessment and Plan Plan: Assessment: Postoperative day #1 status post right total knee arthroplasty Plan: Pain control, we'll discharge home on oral medication GI and DVT prophylaxis, aspirin 81 mg twice a day Wound care instructions discussed Home physical therapy and nursing Medical recommendations Patient will be discharged home today Time with Patient: Less than 30
--- NOTE | 2018-09-30 11:06 | P.DS ---
Providers Date of admission: 09/29/2018 Expected date of discharge: 09/30/18 Attending physician: Brian Ball Consults: 09/29/18 12:30 Consult Physician Routine Consulting Provider: Marilou Delgado Consult Reason/Comments: Medical management Do you want consulting provider notified?: Yes Primary care physician: Marilou Delgado [facility] Course: Date of admission: 09/29/2018 Date of discharge: 09/30/2018 Admission diagnosis: Status post right total knee arthroplasty Discharge diagnosis: Same Attending physician: Dr. Joiner Surgical procedures: Right total knee arthroplasty Brief history: Patient is a 73-year-old male with a history of with progressive primary right knee osteoarthritis. At this point patient has failed conservative treatment measures and has opted to proceed with a elective right total knee arthroplasty. Hospital course: Details of patient's surgery can be found in operative report. Patient tolerated the procedure well and was subsequently transported to orthopedic floor. Patient's orthopeidc and medical care was provided daily. Patient had daily laboratory tests performed for evaluation of overall blood counts. Patient had daily physical therapy to include strengthening range of motion as well as education with walker ambulation. Patient had daily CPM usage as part of their physical therapy program. Patient was treated with Lovenox for their postoperative DVT prophylaxis during their inpatient stay. Patient was noted to have a relatively uneventful postoperative course. Patient reported satisfactory pain control with oral pain medications by postoperative day 0. Patient showed satisfactory progress with physical therapy. Patient moved steadily through the program and had no difficulty meeting the goals by postoperative day 1. Given patient's otherwise satisfactory course and having met physical therapy goals, plan is to discharge patient home on postoperative day 1. Discharge condition/disposition: Patient will be discharged home in stable condition. Discharge medications: Instructions are given on resumption of patient's normal daily medications per primary care recommendation, in addition patient will be prescribed Windom 75 mg/325 mg, tramadol 50 mg, Colace 100 mg, aspirin 81 mg. Discharge instructions: 1. Wound care and infection precautions, keep incision dry and covered while showering, no lotions, creams, moisturizers. No soaking, tubs, pools, hottubs. Do not scrub over the incision. 2. Weight-bear as tolerated with walker / cane until follow-up. 3. Ice and elevate when necessary. Do not exceed 20 minutes per hour with ice pack. 4. Utilize compression sleeve until seen at first follow up appointment. 5. Visiting nursing care. 6. Home physical therapy including home CPM. 7. Pain meds and anticoagulants per prescription. 8. Pain medication has potential to cause constipation. Increase oral fluid and fiber intake. Contact primary care provider if you have not had a bowel movement within 48 hours after discharge 9. No anti-inflammatory medication until discussed at first post operative visit, this including Motrin, Aleve, Mobic, Diclofenac. 10. Follow up in office at 2 weeks postop with Tyler Alvarez PA-C 11. Follow up with your primary care doctor 7-10 days after discharge. 12. Contact [facility] with any questions, . Procedures: Right total knee arthroplasty Patient Condition at Discharge: Good Plan - Discharge Summary Discharge Rx Participant: No New Discharge Prescriptions: New Aspirin [Adult Low Dose Aspirin EC] 81 mg PO BID #60 tablet. Docusate [Colace] 100 mg PO DAILY #30 capsule HYDROcodone/APAP 7.5-325MG [Windom 7.5] 1 - 2 each PO Q6HR PRN #56 tab PRN Reason: Pain traMADol HCl [Ultram] 50 mg PO Q6H PRN #28 tab PRN Reason: Pain No Action Levothyroxine Sodium [Synthroid] 50 mcg PO DAILY Allopurinol [Zyloprim] 300 mg PO DAILY Lysine 500 mg PO DAILY clonazePAM [KlonoPIN] 0.5 mg PO HS PRN PRN Reason: sleep Ibuprofen [Motrin] 800 mg PO Q12HR PRN PRN Reason: Pain Discharge Medication List Allopurinol [Zyloprim] 300 mg PO DAILY 01/18/14 [History] Levothyroxine Sodium [Synthroid] 50 mcg PO DAILY 01/18/14 [History] Lysine 500 mg PO DAILY 06/29/16 [History] Ibuprofen [Motrin] 800 mg PO Q12HR PRN 03/17/18 [History] clonazePAM [KlonoPIN] 0.5 mg PO HS PRN 03/17/18 [History] Aspirin [Adult Low Dose Aspirin EC] 81 mg PO BID #60 tablet. 09/30/18 [Rx] Docusate [Colace] 100 mg PO DAILY #30 capsule 09/30/18 [Rx] HYDROcodone/APAP 7.5-325MG [Windom 7.5] 1 - 2 each PO Q6HR PRN #56 tab 09/30/18 [Rx] traMADol HCl [Ultram] 50 mg PO Q6H PRN #28 tab 09/30/18 [Rx] Follow up Appointment(s)/Referral(s): Marilou Delgado MD [Primary Care Provider] - 10/07/18 9:30 am [facility],Equipment [NON-STAFF] - As Needed (Walker and Continuous Passive Motion (CPM) knee machine) [facility], [NON-STAFF] - As Needed Vijay Alvarez PAC [PHYSICIAN BURRER MACHINE] - 10/15/18 2:30 pm Patient Instructions/Handouts: Knee Replacement (DC) Activity/Diet/Wound Care/Special Instructions: Orthopedic Discharge Instructions: 1. Wound care and infection precautions, keep incision dry and covered while showering, no lotions, creams, moisturizers. No soaking, pools, hot tubs. Do not scrub over incision. 2. Weight-bear as tolerated with walker / cane until follow-up. 3. Ice and elevate when necessary. Do not exceed 20 minutes per hour with ice pack. 4. Utilize compression sleeve until seen at first follow up appointment. 5. Pain meds and anticoagulants per prescription. 6. Pain medication has potential to cause constipation. Increase oral fluid and fiber intake. Contact primary care provider if you have not had a bowel movement within 48 hours after discharge. 7. No anti-inflammatory medication until discussed at first post operative visit, this including Motrin, Aleve, Mobic, Diclofenac. 8. Follow up in office at 2 weeks postop with Tyler Alvarez PA-C 9. Follow up with your primary care doctor 7-10 days after discharge. 10. Contact [facility] with any questions, . Discharge Disposition: HOME WITH HOME HEALTH SERVICES
== END 2018-09-30 13:35 | disposition home health service (06) ==
LOC: OR 08:16 → 4SSUR 12:57 → OR 09-30 13:35
PROVIDERS: ATTEND Orthopaedic Surgery
DX: M17.11 Unilateral primary osteoarthritis, right knee (principal); E03.9 Hypothyroidism, unspecified; K21.9 Gastro-esophageal reflux disease without esophagitis; E78.5 Hyperlipidemia, unspecified; M10.9 Gout, unspecified; Z87.891 Personal history of nicotine dependence; Z85.46 Personal history of malignant neoplasm of prostate; Z79.82 Long term (current) use of aspirin; Z79.1 Long term (current) use of non-steroidal anti-inflammatories (NSAID); Z79.890 Hormone replacement therapy; Z79.899 Other long term (current) drug therapy
CPT/HCPCS: 27447; 97161; 64448; 88305; 85025; 88311; 73560; C1776; C1713; C1772; J2250 ×2; J0171; J2405; J0690 ×3; J3010; J1885; J1650; J1100; J2795; J2370; J2704; J0735

== ENCOUNTER → 2018-10-17 | Outpatient (CLI) | payer MEDICARE, BC | END | disposition home or self-care (01) | LOC: LABWHC1 06:36 | PROVIDERS: ATTEND Urology | DX: R97.20 Elevated prostate specific antigen [PSA] (principal) | CPT/HCPCS: 36415; 84153 ==

== ENCOUNTER → 2020-01-29 | Outpatient (CLI) | payer MEDICARE, BC ==
[2020-01-29 11:19] LABS: Basophils % (A) 1 %; Eosinophils # (A) 0.2 k/uL (0-0.7); Eosinophils % (A) 5 %; HCT 43.1 % (39.0-53.0); HGB 13.5 gm/dL (13.0-17.5); Hypochromasia Slight; Lymphocytes # (A) 1.1 k/uL (1.0-4.8); Lymphocytes % (A) 25 %; MCH 33.3 pg (25.0-35.0); MCHC 31.3 g/dL (31.0-37.0); MCV 106.3 fL (80.0-100.0); Macrocytosis Moderate; Mean Platelet Volume 8.9; Monocytes # (A) 0.4 k/uL (0-1.0); Monocytes % (A) 9 %; Neutrophils # (A) 2.4 k/uL (1.3-7.7); Neutrophils % (A) 57 %; Platelet Count 194 k/uL (150-450); RBC 4.06 m/uL (4.30-5.90); WBC 4.3 k/uL (3.8-10.6)
[2020-01-29 16:44] LABS: ALT 14 U/L (10-49); AST 26 U/L (14-35); African American GFR (CKD) 100.6 (60.0-200.0); Albumin/Globulin Ratio 2.41 (1.60-3.17); Alkaline Phosphatase 62 U/L (41-126); BUN/Creat Ratio 13.75 Ratio (12.00-20.00); Calcium 9.2 mg/dL (8.7-10.3); Chloride 107 mmol/L (96-109); Chol/HDL Ratio 1.33; Cholesterol 141 mg/dL (0-200); Globulin 1.7 g/dL (1.6-3.3); Glucose 80 mg/dL (70-110); Non-African American GFR(CKD) 86.8 (60.0-200.0); Potassium 5.7 mmol/L (3.5-5.5); Sodium 141 mmol/L (135-145); Total Bilirubin 0.5 mg/dL (0.2-1.2); Total Protein 5.8 g/dL (6.2-8.2); Triglycerides <50.0 mg/dL (0.0-149.0)
== END | disposition home or self-care (01) ==
LOC: LABWHC1 09:05
PROVIDERS: ATTEND Internal Medicine
DX: Z00.00 Encounter for general adult medical examination without abnormal findings (principal); E78.5 Hyperlipidemia, unspecified
CPT/HCPCS: 36415; 80053; 80061; 84439; 84443; 85025

== ENCOUNTER → 2020-10-12 | Outpatient (CLI) | payer MEDICARE | END | disposition home or self-care (01) | LOC: LABWHC1 08:06 | PROVIDERS: ATTEND Urology | DX: C61 Malignant neoplasm of prostate (principal) | CPT/HCPCS: 36415; 84153 ==

== ENCOUNTER → 2021-05-06 | Outpatient (CLI) | payer MEDICARE ==
[2021-05-06 11:27] LABS: Basophils # (A) 0.07 X 10*3/uL (0.00-0.10); Basophils % (A) 1.5 %; Eosinophils # (A) 0.22 X 10*3/uL (0.04-0.35); Eosinophils % (A) 4.6 %; HCT 44.5 % (39.6-50.0); HGB 14.5 g/dL (13.0-17.0); Lymphocytes # (A) 1.46 X 10*3/uL (0.90-5.00); Lymphocytes % (A) 30.7 %; MCH 32.5 pg (27.0-32.0); MCHC 32.6 g/dL (32.0-37.0); MCV 99.8 fL (80.0-97.0); Mean Platelet Volume 11.4 fL (9.5-12.2); Monocytes # (A) 0.61 X 10*3/uL (0.20-1.00); Monocytes % (A) 12.8 %; Neutrophils # (A) 2.38 X 10*3/uL (1.80-7.70); Neutrophils % (A) 50.2 %; Platelet Count 236 X 10*3/uL (140-440); RBC 4.46 X 10*6/uL (4.40-5.60); WBC 4.75 X 10*3/uL (4.50-10.00)
[2021-05-07 05:41] LABS: Chol/HDL Ratio 1.6 Ratio; HDL Cholesterol 94.4 mg/dL (40.00-60.00); LDL Cholesterol,Calculated 47.6 mg/dL (0.0-131.0); Triglycerides 44.8 mg/dL (0.00-149.00); Uric Acid 3.4 mg/dL (3.7-8.7); VLDL Calculation 8.96 mg/dL (5.00-40.00)
[2021-05-07 05:52] LABS: LDL Cholesterol,Direct Reflex 50.8 mg/dL (0.00-129.00)
[2021-05-07 08:17] LABS: T4, Free (Free Thyroxine) 1.04 ng/dL (0.800-1.800)
[2021-05-07 08:28] LABS: African American GFR (CKD) 95.1 (60.0-200.0); Albumin 4.4 g/dL (3.8-4.9); Albumin/Globulin Ratio 2.32 (1.60-3.17); Anion Gap 12.5 mmol/L (10.00-18.00); BUN/Creat Ratio 21.22 Ratio (12.00-20.00); Blood Urea Nitrogen 19.1 mg/dL (9.0-27.0); Calcium 9.2 mg/dL (8.7-10.3); Carbon Dioxide 24.5 mmol/L (20.0-27.5); Globulin 1.9 g/dL (1.6-3.3); Non-African American GFR(CKD) 82.1 (60.0-200.0); Potassium 4.2 mmol/L (3.5-5.5); Total Bilirubin 0.5 mg/dL (0.30-1.20); Total Protein 6.3 g/dL (6.2-8.2)
== END ==
LOC: LABWHC1 08:01
PROVIDERS: ATTEND Internal Medicine
DX: Z00.00 Encounter for general adult medical examination without abnormal findings (principal); E78.5 Hyperlipidemia, unspecified; M10.9 Gout, unspecified
CPT/HCPCS: 36415; 80053; 80061; 83721; 84439; 84443; 84550; 85025

== ENCOUNTER → 2021-10-09 | Outpatient (CLI) | payer MEDICARE | END | disposition home or self-care (01) | LOC: LABWHC1 08:06 | PROVIDERS: ATTEND Urology | DX: C61 Malignant neoplasm of prostate (principal) | CPT/HCPCS: 36415; 84153 ==

== ENCOUNTER → 2022-10-08 | Outpatient (CLI) | payer MEDICARE | END | disposition home or self-care (01) | LOC: LABWHC1 07:54 | PROVIDERS: ATTEND Urology | DX: C61 Malignant neoplasm of prostate (principal) | CPT/HCPCS: 36415; 84153 ==

== ENCOUNTER → 2023-01-03 | Outpatient (CLI) | payer MEDICARE ==
[2023-01-03 18:22] LABS: Basophils # (A) 0.07 X 10*3/uL (0.00-0.10); Basophils % (A) 1.4 %; Eosinophils # (A) 0.08 X 10*3/uL (0.04-0.35); Eosinophils % (A) 1.6 %; HCT 43.6 % (39.6-50.0); HGB 14.5 d/dL (13.0-17.0); Lymphocytes # (A) 1.04 X 10*3/uL (0.90-5.00); Lymphocytes % (A) 21.2 %; MCH 33.8 pg (27.0-32.0); MCHC 33.3 d/dL (32.0-37.0); MCV 101.6 FL (80.0-97.0); Mean Platelet Volume 11.5 FL (9.5-12.2); Monocytes # (A) 0.67 X 10*3/uL (0.20-1.00); Monocytes % (A) 13.7 %; NRBC Per 100 WBC 0 X 10*3/uL (0.00-0.01); Neutrophils # (A) 3.03 X 10*3/uL (1.80-7.70); Neutrophils % (A) 61.9 %; Platelet Count 246 X 10*3/uL (140-440); RBC 4.29 X 10*6/uL (4.40-5.60); RDW 15.4 % (11.5-14.5)
[2023-01-03 18:49] LABS: ALT 13 U/L (10-49); AST 23 U/L (14-35); Albumin 4.4 d/dL (3.8-4.9); Albumin/Globulin Ratio 2.59 Ratio (1.60-3.17); Alkaline Phosphatase 52 U/L (41-126); BUN/Creat Ratio 11.44 Ratio (12.00-20.00); Blood Urea Nitrogen 10.3 mg/dL (9.0-27.0); Calcium 9.9 mg/dL (8.7-10.3); Carbon Dioxide 27.3 mmol/L (21.6-31.8); Chloride 104 mmol/L (96-109); Chol/HDL Ratio 1.32 Ratio; Globulin 1.7 d/dL (1.6-3.3); Glucose 95 mg/dL (70-110); LDL Cholesterol,Calculated 29.4 mg/dL (0.0-131.0); Potassium 5.5 mmol/L (3.5-5.5); Sodium 140 mmol/L (135-145); T4, Free (Free Thyroxine) 1.22 ng/dL (0.80-1.80); Total Bilirubin 0.5 mg/dL (0.3-1.2); Total Protein 6.1 d/dL (6.2-8.2); VLDL Calculation 6.56 mg/dL (5.00-40.00)
[2023-01-03 20:20] LABS: Vitamin B12 <150.0 pg/mL (200.0-944.0)
== END | disposition home or self-care (01) ==
LOC: LABWHC1 10:15
PROVIDERS: ATTEND Internal Medicine
DX: R53.1 Weakness (principal); R42 Dizziness and giddiness
CPT/HCPCS: 36415; 80053; 80061; 82306; 82533; 82607; 84439; 84443; 85025

== ENCOUNTER → 2023-07-15 | Outpatient (CLI) | payer MEDICARE ==
[2023-07-15 15:49] LABS: Basophils # (A) 0.05 X 10*3/uL (0.00-0.10); Basophils % (A) 1.1 %; Eosinophils # (A) 0.13 X 10*3/uL (0.04-0.35); Eosinophils % (A) 2.8 %; HCT 40.1 % (39.6-50.0); HGB 13.2 g/dL (13.0-17.0); Lymphocytes # (A) 0.95 X 10*3/uL (0.90-5.00); Lymphocytes % (A) 20.1 %; MCH 33.3 pg (27.0-32.0); MCHC 32.9 g/dL (32.0-37.0); MCV 101.3 FL (80.0-97.0); Mean Platelet Volume 12.3 FL (9.5-12.2); Monocytes # (A) 0.51 X 10*3/uL (0.20-1.00); Monocytes % (A) 10.8 %; NRBC Per 100 WBC 0 X 10*3/uL (0.00-0.01); Neutrophils # (A) 3.05 X 10*3/uL (1.80-7.70); Neutrophils % (A) 64.6 %; Platelet Count 259 X 10*3/uL (140-440); RBC 3.96 X 10*6/uL (4.40-5.60); RDW 14.6 % (11.5-14.5); WBC 4.72 X 10*3/uL (4.50-10.00)
== END | disposition home or self-care (01) ==
LOC: LABWHC1 09:46
PROVIDERS: ATTEND Internal Medicine
DX: D51.9 Vitamin B12 deficiency anemia, unspecified (principal)
CPT/HCPCS: 36415; 82607; 85025

== ENCOUNTER → 2023-10-09 | Outpatient (CLI) | payer MEDICARE | END | disposition home or self-care (01) | LOC: LABWHC1 08:01 | PROVIDERS: ATTEND Urology | DX: C61 Malignant neoplasm of prostate (principal) | CPT/HCPCS: 36415; 84153 ==

== ENCOUNTER → 2024-05-22 | Outpatient (CLI) | payer MEDICARE ==
[2024-05-22 15:35] LABS: ALT 12 U/L (10-49); AST 23 U/L (14-35); Albumin 4.5 g/dL (3.8-4.9); Albumin/Globulin Ratio 2.25 Ratio (1.60-3.17); Alkaline Phosphatase 72 U/L (41-126); Blood Urea Nitrogen 11.3 mg/dL (9.0-27.0); Calcium 9.4 mg/dL (8.7-10.3); Chloride 102 mmol/L (96-109); Chol/HDL Ratio 1.49 Ratio; Glucose 102 mg/dL (70-110); LDL Cholesterol,Calculated 37.8 mg/dL (0.0-131.0); Potassium 4.7 mmol/L (3.5-5.5); Sodium 140 mmol/L (135-145); T4, Free (Free Thyroxine) 1.14 ng/dL (0.80-1.80); Total Bilirubin 0.8 mg/dL (0.3-1.2); Total Protein 6.5 g/dL (6.2-8.2); VLDL Calculation 14.16 mg/dL (5.00-40.00)
[2024-05-22 17:07] LABS: Basophils # (A) 0.06 X 10*3/uL (0.00-0.10); Basophils % (A) 0.9 %; Eosinophils # (A) 0.13 X 10*3/uL (0.04-0.35); Eosinophils % (A) 1.9 %; HCT 46.9 % (39.6-50.0); HGB 15.9 g/dL (13.0-17.0); Lymphocytes # (A) 1.46 X 10*3/uL (0.90-5.00); Lymphocytes % (A) 21.5 %; MCH 34.3 pg (27.0-32.0); MCHC 33.9 g/dL (32.0-37.0); MCV 101.3 FL (80.0-97.0); Mean Platelet Volume 11.7 FL (9.5-12.2); Monocytes # (A) 0.73 X 10*3/uL (0.20-1.00); Monocytes % (A) 10.8 %; NRBC Per 100 WBC 0 X 10*3/uL (0.00-0.01); Neutrophils # (A) 4.37 X 10*3/uL (1.80-7.70); Neutrophils % (A) 64.5 %; Platelet Count 247 X 10*3/uL (140-440); RBC 4.63 X 10*6/uL (4.40-5.60); RDW 16.1 % (11.5-14.5); WBC 6.78 X 10*3/uL (4.50-10.00)
== END | disposition home or self-care (01) ==
LOC: LABWHC1 09:23
PROVIDERS: ATTEND Internal Medicine
DX: I10 Essential (primary) hypertension (principal); E78.5 Hyperlipidemia, unspecified; E55.9 Vitamin D deficiency, unspecified; D51.9 Vitamin B12 deficiency anemia, unspecified
CPT/HCPCS: 36415; 80053; 80061; 82306; 82607; 83036; 84439; 84443; 85025

== ENCOUNTER 2024-08-21 21:49 | Emergency (ER) | payer MEDICARE ==
[2024-08-21 21:57] VITALS: TEMP 98
[2024-08-21] MEDS: MORPHINE SULFATE 4 MG/ML SYRINGE IVP STA ×2 (22:11→23:03)
[2024-08-21] MEDS: ONDANSETRON 4 MG/2 ML VIAL IVP STA ×2 (22:11→23:03)
[2024-08-21 22:12] LABS: Glucose,Whole Blood 124 mg/dL (70-110)
--- NOTE | 2024-08-21 22:16 | ED ---
General Adult HPI - General Chief complaint: Abdominal Pain Stated complaint: chest pain Time Seen by Provider: 08/21/24 22:05 Source: patient Mode of arrival: ambulatory Limitations: no limitations - History of Present Illness Initial comments: Significantly patient is an 79-year-old gentleman presenting today for sudden onset left upper quadrant pain and bulging. 1 week ago patient took a Benadryl before bed, along with his home clonazepam, woke up in middle of the night tripped and fell in the dark. He did state he hit his left upper quadrant on something but is unsure what. He has had mild pain there over the last week however today upon standing up from the dinner table had sudden onset severe pain and bulging in the left upper quadrant. He denies chest pain or shortness of breath. Endorses nausea but no vomiting. Is not on blood thinners. - Related Data Home Medications Medication Instructions Recorded Confirmed Levothyroxine Sodium [Synthroid] 50 mcg PO DAILY 01/18/14 09/29/18 allopurinoL [Zyloprim] 300 mg PO DAILY 01/18/14 09/29/18 Lysine 500 mg PO DAILY 06/29/16 09/29/18 Ibuprofen [Motrin] 800 mg PO Q12HR PRN 03/17/18 09/29/18 clonazePAM [KlonoPIN] 0.5 mg PO HS PRN 03/17/18 09/29/18 Previous Rx's Medication Instructions Recorded Aspirin [Adult Low Dose Aspirin EC] 81 mg PO BID #60 tablet. 09/30/18 Docusate [Colace] 100 mg PO DAILY #30 capsule 09/30/18 HYDROcodone/APAP 7.5-325MG [[place] 1 - 2 each PO Q6HR PRN #56 tab 09/30/18 7.5] traMADol HCl [Ultram] 50 mg PO Q6H PRN #28 tab 09/30/18 Allergies Allergy/AdvReac Type Severity Reaction Status Date / Time No Known Allergies Allergy Verified 08/21/24 21:57 Review of Systems ROS Statement: Those systems with pertinent positive or pertinent negative responses have been documented in the HPI. ROS Other: All systems not noted in ROS Statement are negative. Past Medical History Past Medical History: Cancer, Thyroid Disorder Additional Past Medical History / Comment(s): Prostate CA History of Any Multi-Drug Resistant Organisms: None Reported Past Surgical History: Prostate Surgery Additional Past Surgical History / Comment(s): mastoid surgery as child, vein stripping lt leg Past Anesthesia/Blood Transfusion Reactions: No Reported Reaction Past Psychological History: No Psychological Hx Reported Smoking Status: Never smoker Past Alcohol Use History: Daily Past Drug Use History: None Reported - Past Family History Mother Family Medical History: No Reported History Father Family Medical History: No Reported History General Exam - General Exam Comments Initial Comments: PE: CONSTITUTIONAL: No apparent distress, uncomcortable appearing, not ill appearring nontoxic SKIN: Warm, dry, no jaundice, hives or petechiae no abrasions or hematomas EYES: Pupils are equally round, extraocular movements intact without nystagmus, clear conjunctiva, non-icteric sclera HENT: Normocephalic, atraumatic, moist mucus membranes, oropharynx clear without exudates NECK: , Full range of motion, normal appearance PULMONARY: Clear to auscultation without wheezes, rhonchi, or rales, normal excursion, no accessory muscle use and no stridor CARDIOVASCULAR: Tachycardia, irregularly irregular rhythm, normal S1 and S2. No appreciated murmurs, rubs or gallops. Strong radial pulses with intact distal perfusion. No lower extremity edema GASTROINTESTINAL: Firm palpable mass in the left upper quadrant, tender to palpation, nonpulsatile and is abdomen otherwise soft, active bowel sounds throughout, non-distended, No hepatomegaly GENITOURINARY: MUSCULOSKELETAL: Extremities have no gross deformity, no edema, redness, or swelling. NEUROLOGIC:_a/o x 3, GCS 15, normal mentation and speech. Moves all extremities x 4 without motor or sensory deficit PSYCHIATRIC:_normal mood and affect, thought process is clear and linear Limitations: no limitations Course Vital Signs 08/21/24 08/21/24 08/21/24 21:54 23:06 23:41 Temperature 98 F Pulse Rate 106 H 122 H 128 H Respiratory 20 18 16 Rate Blood Pressure 157/111 138/107 O2 Sat by Pulse 97 96 98 Oximetry 08/21/24 23:59 Temperature Pulse Rate 117 H Respiratory 16 Rate Blood Pressure 125/95 O2 Sat by Pulse 96 Oximetry EKG Findings - EKG Comments: EKG Findings:: A-fib with RVR, rate 157 bpm QT/QTc 307/395, left axis deviation, right bundle branch block, no STEMI Medical Decision Making - Medical Decision Making Was pt. sent in by a medical professional or institution (, PA, [employer], urgent care, hospital, or shelter...) When possible be specific @ -No Did you speak to anyone other than the patient for history (EMS, parent, family, police, friend...)? What history was obtained from this source Yes, patient's daughter assisted in providing history stating the patient typically takes on the clonazepam to help with sleep at night however last week took a Benadryl tablet Did you review nursing and triage notes (agree or disagree)? Why? @ -I reviewed nursing and triage notes triage note states that abdominal pain that goes into the chest, I disagree, patient abdominal pain is quadrant Were old charts reviewed (outside hosp., previous admission, EMS record, old EKG, old radiological studies, urgent care reports/EKG's, shelter records)? Report findings @ -Medical records reviewed- Differential Diagnosis (chest pain, altered mental status, abdominal pain women, abdominal pain men, vaginal bleeding, weakness, fever, dyspnea, syncope, headache, dizziness, GI bleed, back pain, seizure, CVA, palpatations, mental health, musculoskeletal)? Differential diagnose remains broad however top considerations include diaphragmatic rupture, pneumothorax, abdominal wall hernia, abdominal wall hematoma, splenic laceration, bowel obstruction, bowel perforation, this is not a inclusive list EKG interpreted by me (3pts min.). @ -As above X-rays interpreted by me (1pt min.). @ -None done CT interpreted by me (1pt min.). @Personally reviewed CT C/A/P, no pneumothorax, no hernia, visible Abdominal wall hematoma, Final read by radiologist states "Left rectus sheath hematoma without evidence of active arterial extravesation, contrast blush within the left rectus sheath hematoma closer to the superior arterial vasculature within the inferior of the contrast does not definitively track to a vessel". U/S interpreted by me (1pt. min.). @ -None done What testing was considered but not performed or refused? (CT, X-rays, U/S, labs)? Why? @Chest x-ray was considered however patient was not hypoxic, breath sounds are clear and equal bilaterally, bedside ultrasound showed positive lung sliding and patient was stable for and able to expediently taken for CT chest abdomen pelvis so chest x-ray is not necessary What meds were considered but not given or refused? Why? @Heparin drip was considered due to A-fib with RVR however per radiologist, patient has active contrast extravasation into abdominal wall hematoma and heparin would only worsen this. Full 0.25 mg/kg cardizem bolus was also considered however want to avoid sudden hypotension or labile BPs w/ patient potentially having active bleeding into hematoma Did you discuss the management of the patient with other professionals (professionals i.e. DrTin, PA, [employer], lab, RT, psych nurse, social insurance specialist, recep, teacher, grants officer, trimming caser)? Give summary Yes, Dr. Santana, radiology, called regarding CT, states active contrast extranvesation into abdomional wall hematoma, unable to identify source; Dr. Wheat, general surgery, states patient will likely need IR, so will need transfer, Dr. Fish cardiology, recs on cardizem bolus/gtt in setting of patient with recent traumatic injury, recommended proceeding with 5 mg cardizem bolus, gtt and increase to 10 mg cardizem bolus if needed Was smoking cessation discussed for >3mins.? @ -No Was critical care preformed (if so, how long)? @Yes, 45 minutes Were there social determinants of health that impacted care today? How? (Homelessness, low income, unemployed, alcoholism, drug addiction, transportation, low edu. Level, literacy, decrease access to med. care, residential, rehab)? @ -No Was there de-escalation of care discussed even if they declined (Discuss DNR or withdrawal of care, Hospice)? @ -No What co-morbidities impacted this encounter? (DM, HTN, Smoking, COPD, CAD, Cancer, CVA, ARF, Chemo, Hep., AIDS, mental health diagnosis, sleep apnea, morbid obesity)? @ -None Was patient admitted / discharged? Hospital course, mention meds given and route, prescriptions, significant lab abnormalities, going to OR and other pertinent info. @Transfer to [facility]- This is a pleasant 79-year-old gentleman no significant medical history presenting today for sudden onset left upper quadrant abdominal pain and swelling 1 week after trip and fall with resultant left abdominal injury. Patient not on thinners. Patient seen and assessed immediately in triage and moved to a trauma bay due to tachycardia and palpable firm swelling in the left upper quadrant. E-FAST exam negative. BP stable, 157/111, , tachycardia appears to be in a fib w/ RvR, no hx of the same, no respiratory distress, pulse ox w/in acceptable limits on room air, no hx a fib. Patient was taken for stat CT chest abdomen pelvis which appeared to show abdominal wall hematoma. I was called by radiologist, Dr. Santana regarding concern for active arterial extravasation into the hematoma. Patient was placed in abdominal binder, 1G TXA bolus and gtt ordered, discussed with Dr. Wheat, recommends transfer to facility with interventional radiology. Of note patient did arrive in A-fib with RVR, is not on blood thinners, at this time we will treat pain, injury and fluid resuscitate and will hold off on Cardizem administration. Blood pressure is mildly hypertensive but otherwise stable. Updated pt and family to findings on CT and likely need for transfer, they are understanding and agreeable w/ POC. Pt's pain improved but still present, additional pain control ordered. HR not improved with pain control and fluids. Considered cardizem gtt, however will reach out to cardiology, Dr. Fish, for further recs for rate control in setting of pt's current injury. Consulted w/ Dr. Fish, cardiology, recommends 5 mg Cardizem bolus, can progress to 10 mg if rate still not controlled and Cardizem drip. Pt's labs show hgb wnl, 16.1, lactic 1.3. Patient given 5 mg Cardizem bolus, on Cardizem drip, on my reassessment rate between 101- 120, blood pressure 125/ 95. Will hold on additional cardizem bolus at this time as pt's rate appears to be responding to first bolus and gtt. Patient is abdominal binder in place. On reassessment remainder of abdomen is soft, palpable firm hematoma, is not rapidly expanding and has not significantly changed since arrival. Patient endorses improvement in pain and is currently comfortable. Discussed with patient plan for transfer to [facility], he is agreeable plan of care. Case was discussed with Dr. Sanchez, [facility] ED, kindly accepts patient for transfer. Patient transferred to [facility] ED. Undiagnosed new problem with uncertain prognosis? @ -No Drug Therapy requiring intensive monitoring for toxicity (Heparin, Nitro, Insulin, Cardizem)? @ -No Were any procedures done? @ -No Diagnosis/symptom? @ -Rectus sheath hematoma, atrial fibrillation with RVR Acute, or Chronic, or Acute on Chronic? @Acute Uncomplicated (without systemic symptoms) or Complicated (systemic symptoms)? @Complicated Side effects of treatment? @ -No Exacerbation, Progression, or Severe Exacerbation? @ -No Poses a threat to life or bodily function? How? (Chest pain, [place], [place], pneumonia, PE, COPD, DKA, ARF, appy, cholecystitis, CVA, Diverticulitis, Homicidal, Suicidal, threat to staff... and all critical care pts) @Yes - Lab Data Result diagrams: 08/21/24 22:15 08/21/24 22:15 Lab Results 08/21/24 08/21/24 08/21/24 Range/Units 22:10 22:10 22:15 WBC 4.9 (3.8-10.6) k/uL RBC 4.85 (4.30-5.90) m/uL Hgb 16.0 (13.0-17.5) gm/dL Hct 49.9 (39.0-53.0) % MCV 102.9 H (80.0-100.0) fL MCH 33.0 (25.0-35.0) pg MCHC 32.1 (31.0-37.0) g/dL RDW 14.4 (11.5-15.5) % Plt Count 197 (150-450) k/uL MPV 8.9 Neutrophils % 54 % Lymphocytes % 33 % Monocytes % 8 % Eosinophils % 2 % Basophils % 0 % Neutrophils # 2.7 (1.3-7.7) k/uL Lymphocytes # 1.6 (1.0-4.8) k/uL Monocytes # 0.4 (0-1.0) k/uL Eosinophils # 0.1 (0-0.7) k/uL Basophils # 0.0 (0-0.2) k/uL Macrocytosis Slight PT (10.0-12.5) sec INR (<1.2) APTT (22.0-30.0) sec Sodium (137-145) mmol/L Potassium (3.5-5.1) mmol/L Chloride (98-107) mmol/L Carbon Dioxide (22-30) mmol/L Anion Gap mmol/L BUN (9-20) mg/dL Creatinine (0.66-1.25) mg/dL Est GFR (CKD-EPI)AfAm (>60 ml/min/1.73 sqM) Est GFR (CKD-EPI)NonAf (>60 ml/min/1.73 sqM) Glucose (74-99) mg/dL POC Glucose (mg/dL) 124 H (70-110) mg/dL POC Glu Drying Oven Attendant ID Dominic Shafer Plasma Lactic Acid Jake (0.7-2.0) mmol/L Calcium (8.4-10.2) mg/dL Magnesium (1.6-2.3) mg/dL Total Bilirubin (0.2-1.3) mg/dL AST (17-59) U/L ALT (4-49) U/L Alkaline Phosphatase (38-126) U/L Troponin I (0.000-0.034) ng/mL Total Protein (6.3-8.2) g/dL Albumin (3.5-5.0) g/dL Blood Type A Positive Blood Type Recheck A Pos Bld Type Recheck Status No Antibody Screen NEGATIVE Spec Expiration Date 08/24/2024 - 230908/21/24 08/21/24 08/21/24 Range/Units 22:15 22:15 22:15 WBC (3.8-10.6) k/uL RBC (4.30-5.90) m/uL Hgb (13.0-17.5) gm/dL Hct (39.0-53.0) % MCV (80.0-100.0) fL MCH (25.0-35.0) pg MCHC (31.0-37.0) g/dL RDW (11.5-15.5) % Plt Count (150-450) k/uL MPV Neutrophils % % Lymphocytes % % Monocytes % % Eosinophils % % Basophils % % Neutrophils # (1.3-7.7) k/uL Lymphocytes # (1.0-4.8) k/uL Monocytes # (0-1.0) k/uL Eosinophils # (0-0.7) k/uL Basophils # (0-0.2) k/uL Macrocytosis PT 10.4 (10.0-12.5) sec INR 0.9 (<1.2) APTT 24.2 (22.0-30.0) sec Sodium 136 L (137-145) mmol/L Potassium 4.3 (3.5-5.1) mmol/L Chloride 105 (98-107) mmol/L Carbon Dioxide 20 L (22-30) mmol/L Anion Gap 11 mmol/L BUN 11 (9-20) mg/dL Creatinine 0.64 L (0.66-1.25) mg/dL Est GFR (CKD-EPI)AfAm >90 (>60 ml/min/1.73 sqM) Est GFR (CKD-EPI)NonAf >90 (>60 ml/min/1.73 sqM) Glucose 128 H (74-99) mg/dL POC Glucose (mg/dL) (70-110) mg/dL POC Glu Drying Oven Attendant ID Plasma Lactic Acid Jake 1.3 (0.7-2.0) mmol/L Calcium 9.3 (8.4-10.2) mg/dL Magnesium (1.6-2.3) mg/dL Total Bilirubin 0.6 (0.2-1.3) mg/dL AST 60 H (17-59) U/L ALT 25 (4-49) U/L Alkaline Phosphatase 80 (38-126) U/L Troponin I (0.000-0.034) ng/mL Total Protein 6.7 (6.3-8.2) g/dL Albumin 4.2 (3.5-5.0) g/dL Blood Type Blood Type Recheck Bld Type Recheck Status Antibody Screen Spec Expiration Date 08/21/24 08/21/24 Range/Units 22:15 22:15 WBC (3.8-10.6) k/uL RBC (4.30-5.90) m/uL Hgb (13.0-17.5) gm/dL Hct (39.0-53.0) % MCV (80.0-100.0) fL MCH (25.0-35.0) pg MCHC (31.0-37.0) g/dL RDW (11.5-15.5) % Plt Count (150-450) k/uL MPV Neutrophils % % Lymphocytes % % Monocytes % % Eosinophils % % Basophils % % Neutrophils # (1.3-7.7) k/uL Lymphocytes # (1.0-4.8) k/uL Monocytes # (0-1.0) k/uL Eosinophils # (0-0.7) k/uL Basophils # (0-0.2) k/uL Macrocytosis PT (10.0-12.5) sec INR (<1.2) APTT (22.0-30.0) sec Sodium (137-145) mmol/L Potassium (3.5-5.1) mmol/L Chloride (98-107) mmol/L Carbon Dioxide (22-30) mmol/L Anion Gap mmol/L BUN (9-20) mg/dL Creatinine (0.66-1.25) mg/dL Est GFR (CKD-EPI)AfAm (>60 ml/min/1.73 sqM) Est GFR (CKD-EPI)NonAf (>60 ml/min/1.73 sqM) Glucose (74-99) mg/dL POC Glucose (mg/dL) (70-110) mg/dL POC Glu Drying Oven Attendant ID Plasma Lactic Acid Jake (0.7-2.0) mmol/L Calcium (8.4-10.2) mg/dL Magnesium 1.3 L (1.6-2.3) mg/dL Total Bilirubin (0.2-1.3) mg/dL AST (17-59) U/L ALT (4-49) U/L Alkaline Phosphatase (38-126) U/L Troponin I 0.019 (0.000-0.034) ng/mL Total Protein (6.3-8.2) g/dL Albumin (3.5-5.0) g/dL Blood Type Blood Type Recheck Bld Type Recheck Status Antibody Screen Spec Expiration Date Disposition Clinical Impression: Rectus sheath hematoma, Atrial fibrillation with RVR Disposition: OTHER INSTITUTION NOT DEFINED Condition: Stable Referrals: Marilou Delgado MD [Primary Care Provider] - 1-2 days - Out of Hospital Transfer - Req. Specs Out of Hospital Transfer - Requested Specifics: Other Emergency Center ([facility] ED)
[2024-08-21] MEDS: SODIUM CHLORIDE 0.9% 1,000 ML IV STA (22:20)
[2024-08-21 22:25] LABS: Basophils % (A) 0 %; Eosinophils # (A) 0.1 k/uL (0-0.7); Eosinophils % (A) 2 %; HCT 49.9 % (39.0-53.0); Lymphocytes # (A) 1.6 k/uL (1.0-4.8); Lymphocytes % (A) 33 %; MCHC 32.1 g/dL (31.0-37.0); MCV 102.9 fL (80.0-100.0); Macrocytosis Slight; Mean Platelet Volume 8.9; Monocytes # (A) 0.4 k/uL (0-1.0); Monocytes % (A) 8 %; Neutrophils # (A) 2.7 k/uL (1.3-7.7); Neutrophils % (A) 54 %; Platelet Count 197 k/uL (150-450); RBC 4.85 m/uL (4.30-5.90); RDW 14.4 % (11.5-15.5); WBC 4.9 k/uL (3.8-10.6)
[2024-08-21 22:35] LABS: INR 0.9 (<1.2); Partial Thromboplastin Time 24.2 sec (22.0-30.0); Prothrombin Time 10.4 sec (10.0-12.5)
[2024-08-21 23:03] LABS: ALT 25 U/L (4-49); AST 60 U/L (17-59); African American GFR (CKD) >90 (>60 ml/min/1.73 sqM); Albumin 4.2 g/dL (3.5-5.0); Alkaline Phosphatase 80 U/L (38-126); Anion Gap 11 mmol/L; Blood Urea Nitrogen 11 mg/dL (9-20); Calcium 9.3 mg/dL (8.4-10.2); Carbon Dioxide 20 mmol/L (22-30); Chloride 105 mmol/L (98-107); Glucose 128 mg/dL (74-99); Non-African American GFR(CKD) >90 (>60 ml/min/1.73 sqM); Potassium 4.3 mmol/L (3.5-5.1); Sodium 136 mmol/L (137-145); Total Bilirubin 0.6 mg/dL (0.2-1.3); Total Protein 6.7 g/dL (6.3-8.2)
--- NOTE | 2024-08-21 23:17 | CT ---
EXAMINATION TYPE: CT ChestAbdPelvis w con DATE OF EXAM: 08/21/2024 11:02 PM COMPARISON: 02/16/2010 CLINICAL INDICATION: Male, 79 years old with history of fall 1 week. stood, now pain, bulge LUQ; [facility], Upper abdominal pain that goes in the chest, fall 1 week. stood, now pain, bulge LUQ Technique: CT ChestAbdPelvis w con; Multiple axial images were obtained. Two-dimensional coronal and sagittal reconstructions were obtained. Contrast used:100ml mL of Isovue 300 with IV Contrast, (None if empty) Oral contrast used: without Oral Contrast CT DLP: 1104.4 mGycm, Automated exposure control for dose reduction was used. Findings: CHEST: LUNGS/ PLEURA: No focal consolidation, pneumothorax or pleural effusion. AIRWAY: Patent and unremarkable. HEART: Size within normal limits. No significant coronary artery calcifications. MEDIASTINUM: No gross evidence of adenopathy. VASCULATURE: No aortic aneurysm. MUSCULOSKELETAL: Moderate disc degeneration changes are present throughout the thoracolumbar spine. SOFT TISSUES/LYMPH NODES: Unremarkable. LOWER NECK: No significant findings. ABDOMEN: ABDOMEN LIVER: Unremarkable GALLBLADDER AND BILE DUCTS: Layering increased densities within the lumen consistent with gallstones are present. PANCREAS: Unremarkable. SPLEEN: Unremarkable. ADRENAL GLANDS: Unremarkable. KIDNEYS AND URETERS: No evidence of hydronephrosis or renal calculus. The ureters are unremarkable. Multiloculated complex right renal cyst. PELVIS BLADDER: Unremarkable REPRODUCTIVE: The prostate gland is surgically absent with surgical clips present. ABDOMEN & PELVIS STOMACH AND BOWEL: No evidence of bowel obstruction. PERITONEUM/RETROPERITONEUM: No evidence of pneumoperitoneum or free fluid. VASCULATURE: No evidence of aortic aneurysm. There is contrast blush within the left rectus sheath he matoma closer to the superior arterial vasculature, contrast does not definitively track back to a ar terial vessel however likely due to its diminutive size. Rectus sheath hematoma measuring up to 10.9 cm x 9.6 x 5.7 cm. MUSCULOSKELETAL: No acute osseous abnormalities. Moderate disc degeneration changes are present throu ghout the thoracolumbar spine. LYMPH NODES: No gross evidence for lymphadenopathy. SOFT TISSUE/ABDOMINAL WALL: Rectus sheath hematoma measuring up to 10.9 cm x 9.6 x 5.7 cm. IMPRESSION: 1. Left rectus sheath hematoma without evidence of active arterial extravasation.There is contrast b lush within the left rectus sheath hematoma closer to the superior arterial vasculature within the in ferior the contrast does not definitively track to a vessel however. 2. Cholelithiasis. 3. Right renal complicated cyst. 4. Postprostatomegaly changes. Findings communicated to Mily Ziegler MD on 08/21/2024 11:[address] Alexey Santana [facility], , 08/21/2024 11:14 PM
[2024-08-21] MEDS: TRANEXAMIC 1,000 MG/100ML-NACL 1,000 MG in SALINE 1 100ML.BAG IV STA (23:31)
[2024-08-21] MEDS: TRANEXAMIC ACID 1,000 MG in SODIUM CHLORIDE 0.9% 250 ML IV ONE (23:32)
[2024-08-21 23:42] VITALS: RESP 16
[2024-08-21] MEDS: DILTIAZEM 125 MG in SODIUM CHLORIDE 0.9% 100 ML IV SCH (23:46)
[2024-08-21] MEDS: DILTIAZEM DRIP BOLUS FROM BAG 1 MG SOLN IV ONE (23:46)
[2024-08-22 00:02] VITALS: BP 125/95; PULSE 117
[2024-08-22] MEDS: MORPHINE SULFATE 4 MG/ML SYRINGE IVP STA (00:17)
== END 2024-08-22 00:24 | disposition other institution (70) ==
LOC: EC 21:49
DX: S30.1XXA Contusion of abdominal wall, initial encounter (principal); I48.20 Chronic atrial fibrillation, unspecified; W01.190A Fall on same level from slipping, tripping and stumbling with subsequent striking against furniture, initial encounter
CPT/HCPCS: 36415; 93005; 86900; 86901; 80053; 83605; 83735; 84484; 85025; 85610; 85730; 86850; 71260; 74177; 99291; 96365; 96368; 96375 ×2; 96376 ×3; 96361; J2270 ×2; J2405; Q9967

== ENCOUNTER → 2024-09-01 | Outpatient (CLI) | payer MEDICARE ==
[2024-09-01 16:49] LABS: HCT 37.7 % (39.6-50.0); HGB 11.9 g/dL (13.0-17.0); MCH 33.4 pg (27.0-32.0); MCHC 31.6 g/dL (32.0-37.0); MCV 105.9 FL (80.0-97.0); Mean Platelet Volume 11.1 FL (9.5-12.2); NRBC Per 100 WBC 0 X 10*3/uL (0.00-0.01); Platelet Count 606 X 10*3/uL (140-440); RBC 3.56 X 10*6/uL (4.40-5.60); RDW 20.3 % (11.5-14.5); WBC 8.78 X 10*3/uL (4.50-10.00)
[2024-09-01 17:25] LABS: Basophils # (A) 0.06 X 10*3/uL (0.00-0.10); Basophils % (A) 0.7 %; Eosinophils # (A) 0.11 X 10*3/uL (0.04-0.35); Eosinophils % (A) 1.3 %; Lymphocytes # (A) 1.11 X 10*3/uL (0.90-5.00); Lymphocytes % (A) 12.6 %; Macrocytosis (M) 2+ (None Seen); Monocytes # (A) 0.78 X 10*3/uL (0.20-1.00); Monocytes % (A) 8.9 %; Neutrophils # (A) 6.68 X 10*3/uL (1.80-7.70)
[2024-09-01 22:54] LABS: ALT 28 U/L (10-49); AST 45 U/L (14-35); Albumin 4.2 g/dL (3.8-4.9); Albumin/Globulin Ratio 1.83 Ratio (1.60-3.17); Alkaline Phosphatase 124 U/L (41-126); BUN/Creat Ratio 9.46 Ratio (12.00-20.00); Blood Urea Nitrogen 12.3 mg/dL (9.0-27.0); Calcium 9.6 mg/dL (8.7-10.3); Carbon Dioxide 22.6 mmol/L (21.6-31.8); Chloride 102 mmol/L (96-109); Globulin 2.3 g/dL (1.6-3.3); Glucose 105 mg/dL (70-110); Sodium 137 mmol/L (135-145); Total Bilirubin 2.7 mg/dL (0.3-1.2); Total Protein 6.5 g/dL (6.2-8.2)
== END | disposition home or self-care (01) ==
LOC: LABWHC1 09:45
PROVIDERS: ATTEND Internal Medicine
DX: D62 Acute posthemorrhagic anemia (principal); R10.9 Unspecified abdominal pain; R29.6 Repeated falls
CPT/HCPCS: 36415; 80053; 85025

== ENCOUNTER → 2024-09-01 | Outpatient (CLI) | payer MEDICARE ==
--- NOTE | 2024-09-01 17:53 | CT ---
EXAMINATION TYPE: CT abdomen pelvis w con CT DLP: 964.3 mGycm, Automated exposure control for dose reduction was used. DATE OF EXAM: 09/01/2024 5:38 PM COMPARISON: CT chest abdomen and pelvis 08/21/2024 CLINICAL INDICATION:Male, 79 years old with history of R10.9 UNSPECIFIED ABDOMINAL PAIN; abdominal pa in, hematoma to left side, recent fall TECHNIQUE: Standard CT of the abdomen and pelvis following the administration of 100 cc of Isovue 3 00 IV contrast material and oral contrast. Coronal and sagittal reformats were performed. FINDINGS: LOWER CHEST: Development of trace left pleural effusion. Otherwise the visualized lung bases are mick r. No pericardial effusion. Metallic coil embolization clips densities the anterior left pericardial space. ABDOMEN LIVER: Unremarkable GALLBLADDER AND BILE DUCTS: Layering increased densities within the lumen consistent with gallstones are present. No biliary ductal dilatation. PANCREAS: Lipomatous pseudohypertrophy changes. SPLEEN: Unremarkable. ADRENAL GLANDS: Unremarkable. KIDNEYS AND URETERS: No evidence of hydronephrosis or renal calculus. The kidneys enhance symmetrical ly. Couple of adjacent right renal lower pole cyst measuring up to 3.1 cm. Contrast is demonstrated w ithin both collecting systems on the delayed phase. PELVIS BLADDER: Incompletely distended but grossly unremarkable. REPRODUCTIVE: Prostate is surgically absent. Additional surgical clips within the bilateral inguinal regions from lymph node resection. ABDOMEN & PELVIS STOMACH AND BOWEL: Stomach appears unremarkable. Small periampullary duodenal diverticulum. Enteric c ontrast reaches the mid to distal small bowel. No focal bowel wall thickening or surrounding inflamma tory changes. Distal colonic diverticulosis without evidence for acute diverticulitis. The appendix i s within normal limits. No evidence of bowel obstruction. PERITONEUM: No evidence of pneumoperitoneum or free fluid. VASCULATURE: No evidence of aortic aneurysm. MUSCULOSKELETAL: No acute osseous abnormalities LYMPH NODES: No evidence for lymphadenopathy. SOFT TISSUE/ABDOMINAL WALL: Increased size of left rectus sheath hematoma demonstrating heterogenous attenuation. No evidence for active extravasation. This measures grossly 16.8 x 7.2 x 18.9 cm in TV, AP, CC dimensions. Previously measured 9.6 x 5.7 x 10.9 cm. IMPRESSION: 1. Increasing size of large left rectus sheath hematoma without visualized active extravasation. 2. Colonic diverticulosis without evidence for acute diverticulitis. 3. Postsurgical changes. 4. Development of trace left pleural effusion. A [place] level critical message alert has been initiated for Marilou Delgado MD via the [facility] Critical Results System on 09/01/2024 5:51 PM. This message alert has been sent to Marilou Delgado MD via the preferences provided by the clinician for the receipt of Radiology Critical Findings. Message ID [id number]. [facility], , 09/01/2024 5:51 PM
== END | disposition home or self-care (01) ==
LOC: RADCTMAIN 15:32
PROVIDERS: ATTEND Internal Medicine
DX: S30.1XXA Contusion of abdominal wall, initial encounter (principal); K57.30 Diverticulosis of large intestine without perforation or abscess without bleeding; J90 Pleural effusion, not elsewhere classified; Z98.890 Other specified postprocedural states
CPT/HCPCS: 74177; Q9967

== ENCOUNTER 2024-09-14 | Inpatient (IN) | payer MEDICARE ==
[2024-09-14 00:44] LABS: Anisocytosis Slight; Basophils % (A) 0 %; Eosinophils # (A) 0.1 k/uL (0-0.7); Eosinophils % (A) 1 %; HCT 46.7 % (39.0-53.0); HGB 14.1 gm/dL (13.0-17.5); Hypochromasia Slight; Lymphocytes # (A) 0.7 k/uL (1.0-4.8); Lymphocytes % (A) 9 %; MCH 33.6 pg (25.0-35.0); MCHC 30.3 g/dL (31.0-37.0); Macrocytosis Marked; Mean Platelet Volume 9.7; Monocytes # (A) 0.3 k/uL (0-1.0); Monocytes % (A) 4 %; Neutrophils # (A) 7.3 k/uL (1.3-7.7); Neutrophils % (A) 85 %; Platelet Count 272 k/uL (150-450); RDW 17.9 % (11.5-15.5); WBC 8.6 k/uL (3.8-10.6)
[2024-09-14] MEDS ORDERED: DILTIAZEM 125 MG in SODIUM CHLORIDE 0.9% 100 ML IV SCH (00:45)
[2024-09-14] MEDS: SODIUM CHLORIDE 0.9% 500 ML 500 ML IV STA (00:48)
--- NOTE | 2024-09-14 00:52 | ED ---
Fall HPI - General Chief Complaint: Fall Stated Complaint: Weakness Time Seen by Provider: 09/14/24 00:18 Source: patient, EMS Mode of arrival: EMS - History of Present Illness Initial Comments: 79-year-old male presenting for evaluation post fall. Patient lives alone. He reports that he was feeling dizzy and this caused him to have a fall. When he fell he hit his right sided lower chest and upper abdomen. He is having some pain over this region. At 1 point he denied head injury but at another he admitted to head injury. He denies any loss of consciousness. He was taken off Xarelto by his PCP recently. He is also having some right shoulder pain. He denies nausea or vomiting. No lower extremity swelling. He reports that he has been feeling very weak. - Related Data Home Medications Medication Instructions Recorded Confirmed allopurinoL [Zyloprim] 300 mg PO DAILY 01/18/14 09/14/24 Lysine 1,000 mg PO DAILY 06/29/16 09/14/24 Ibuprofen [Motrin] 800 mg PO BID PRN 03/17/18 09/14/24 Acetaminophen Tab [Tylenol Tab] 1,000 mg PO Q6H PRN 09/14/24 09/14/24 Ascorbic Acid [Vitamin C] 250 mg PO BID 09/14/24 09/14/24 Cholecalciferol (Vitamin D3) 75 mcg PO DAILY 09/14/24 09/14/24 [Vitamin D3 (3000 Iu)] Cyanocobalamin (Vitamin B-12) 5,000 mcg PO WEEKLY 09/14/24 09/14/24 [Vitamin B-12] Escitalopram [Lexapro] 10 mg PO DAILY 09/14/24 09/14/24 Ferrous Sulfate [Feosol] 325 mg PO BID 09/14/24 09/14/24 Levothyroxine Sodium [Synthroid] 75 mcg PO DAILY 09/14/24 09/14/24 Metoprolol Tartrate [Lopressor] 50 mg PO BID 09/14/24 09/14/24 clonazePAM [KlonoPIN] 1 mg PO HS 09/14/24 09/14/24 Allergies Allergy/AdvReac Type Severity Reaction Status Date / Time No Known Allergies Allergy Verified 09/15/24 14:00 Review of Systems ROS Statement: Those systems with pertinent positive or pertinent negative responses have been documented in the HPI. ROS Other: All systems not noted in ROS Statement are negative. Past Medical History Past Medical History: Cancer, Thyroid Disorder Additional Past Medical History / Comment(s): Prostate CA History of Any Multi-Drug Resistant Organisms: None Reported Past Surgical History: Prostate Surgery Additional Past Surgical History / Comment(s): mastoid surgery as child, vein stripping lt leg Past Anesthesia/Blood Transfusion Reactions: No Reported Reaction Past Psychological History: No Psychological Hx Reported Smoking Status: Never smoker Past Alcohol Use History: Daily Past Drug Use History: None Reported - Past Family History Mother Family Medical History: No Reported History Father Family Medical History: No Reported History General Exam Limitations: no limitations General appearance: alert, in no apparent distress Head exam: Present: atraumatic, normocephalic, normal inspection Eye exam: Present: normal appearance, EOMI. Absent: periorbital swelling Neck exam: Present: normal inspection. Absent: meningismus Respiratory exam: Present: wheezes. Absent: respiratory distress, rales, rhonchi, stridor Cardiovascular Exam: Present: tachycardia, irregular rhythm, normal heart sounds. Absent: systolic murmur, diastolic murmur, rubs, gallop, clicks GI/Abdominal exam: Present: soft, tenderness (Right-sided). Absent: distended, guarding, rebound, rigid Extremities exam: Present: normal inspection. Absent: pedal edema Neurological exam: Present: alert, oriented X3 Psychiatric exam: Present: normal affect, normal mood Skin exam: Present: warm, dry, normal color Course Vital Signs 09/14/24 09/14/24 09/14/24 00:03 01:02 01:18 Temperature 97.8 F Pulse Rate 60 128 H 122 H Respiratory 18 16 16 Rate Blood Pressure 91/74 93/70 89/53 O2 Sat by Pulse 94 L 97 97 Oximetry 09/14/24 09/14/24 09/14/24 01:46 01:52 02:04 Temperature Pulse Rate 113 H 115 H 109 H Respiratory 16 16 16 Rate Blood Pressure 104/67 98/67 93/71 O2 Sat by Pulse 98 100 98 Oximetry 09/14/24 09/14/24 09/14/24 02:10 02:36 02:58 Temperature Pulse Rate 102 H 105 H 112 H Respiratory 16 18 16 Rate Blood Pressure 94/68 107/77 110/81 O2 Sat by Pulse 99 97 98 Oximetry 09/14/24 09/14/24 09/14/24 03:42 04:03 04:32 Temperature Pulse Rate 110 H 110 H 105 H Respiratory 16 16 16 Rate Blood Pressure 133/97 137/96 125/86 O2 Sat by Pulse 97 97 95 Oximetry 09/14/24 09/14/24 04:48 05:21 Temperature Pulse Rate 89 96 Respiratory 16 16 Rate Blood Pressure 114/83 120/73 O2 Sat by Pulse 95 97 Oximetry Medical Decision Making - Medical Decision Making Was pt. sent in by a medical professional or institution (, PA, CUT OFF WORKER, urgent care, hospital, or longterm...) When possible be specific @ -No Did you speak to anyone other than the patient for history (EMS, parent, family, police, friend...)? What history was obtained from this source @ -No Did you review nursing and triage notes (agree or disagree)? Why? @ -I reviewed and agree with nursing and triage notes Were old charts reviewed (outside hosp., previous admission, EMS record, old EKG, old radiological studies, urgent care reports/EKG's, longterm records)? Report findings @ -No old charts were reviewed Differential Diagnosis (chest pain, altered mental status, abdominal pain women, abdominal pain men, vaginal bleeding, weakness, fever, dyspnea, syncope, headache, dizziness, GI bleed, back pain, seizure, CVA, palpatations, mental health, musculoskeletal)? @ -MDM Differential Dizziness: Benign paroxysmal positional Vertigo, Meniere’s disease, otitis media, acoustic neuroma, vertebrobasilar insufficiency, cerebellar stroke, encephalitis, hypovolemic, arrhythmia, coronary artery syndrome, anemia… this is not meant to be an all-inclusive list EKG interpreted by me (3pts min.). @ -EKG shows A-fib with RVR ventricular rate 122. QRS 164. QT 369. QTc 442 X-rays interpreted by me (1pt min.). @ -None done CT interpreted by me (1pt min.). @ -CT shows no acute intracranial hemorrhage midline shift or mass effect. No acute fracture or subluxation of the cervical spine No acute findings in the chest. Cholelithiasis with gallbladder wall thickening findings concerning for acute cholecystitis. Large left abdominal wall intramuscular hematoma which measures approximately 11.6 x 15.3 x 5.3 cm no definite contrast blush to indicate active bleeding. Diverticulosis without acute diverticulitis. No small bowel obstruction. No free intraperitoneal air. U/S interpreted by me (1pt. min.). @ -None done What testing was considered but not performed or refused? (CT, X-rays, U/S, lab s)? Why? @ -None What meds were considered but not given or refused? Why? @ -None Did you discuss the management of the patient with other professionals (professionals i.e. DrTin, PA, CUT OFF WORKER, lab, RT, psych nurse, social insurance analyst, salesperson surgical appliances, teacher, dispatch officer, housing case manager)? Give summary @ -Spoke with Dr. Grant who states that the patient can be admitted to medicine with surgery on consult My attending spoke with the [facility] provider on-call who accepts admission Was smoking cessation discussed for >3mins.? @ -No Was critical care preformed (if so, how long)? @ -No Were there social determinants of health that impacted care today? How? (Homelessness, low income, unemployed, alcoholism, drug addiction, transportation, low edu. Level, literacy, decrease access to med. care, care home, rehab)? @ -No Was there de-escalation of care discussed even if they declined (Discuss DNR or withdrawal of care, Hospice)? DNR status @ -No What co-morbidities impacted this encounter? (DM, HTN, Smoking, COPD, CAD, Cancer, CVA, ARF, Chemo, Hep., AIDS, mental health diagnosis, sleep apnea, morbid obesity)? @ -None Was patient admitted / discharged? Hospital course, mention meds given and route, prescriptions, significant lab abnormalities, going to OR and other pertinent info. @ -79-year-old male presenting for evaluation after a fall. He was at home when he got dizzy causing him to fall. He is complaining of pain to the right sided abdomen. Patient was on Xarelto but taken off of it by his PCP after obtaining a large intramuscular hematoma. History and physical examination are conducted. Patient is in A-fib with RVR. We will not resume anticoagulation given the patient's recent falls and injuries. He is given 2 boluses of Cardizem and started on a drip at 10 mg/h. Negative CT of the brain and cervical spine. CT of the abdomen pelvis and chest does show evidence of cholelithiasis with evidence of cholecystitis. Patient is started on antibiotics. He will be admitted to medicine with surgery on consult. Patient is agreeable with this plan. I discussed this case with my attending Dr. Ziegler Undiagnosed new problem with uncertain prognosis? @ -No Drug Therapy requiring intensive monitoring for toxicity (Heparin, Nitro, Insulin, Cardizem)? @ -No Were any procedures done? @ -No Diagnosis/symptom? @ -A-fib with RVR, acute cholecystitis Acute, or Chronic, or Acute on Chronic? @ -Acute Uncomplicated (without systemic symptoms) or Complicated (systemic symptoms)? @ -Complicated Side effects of treatment? @ -No Exacerbation, Progression, or Severe Exacerbation? @ -No Poses a threat to life or bodily function? How? (Chest pain, [place], [place], pneumonia, PE, COPD, DKA, ARF, appy, cholecystitis, CVA, Diverticulitis, Homicidal, Suicidal, threat to staff... and all critical care pts) @ -Yes - Lab Data Result diagrams: 09/17/24 04:26 09/17/24 04:26 Lab Results 09/14/24 09/14/24 09/14/24 Range/Units 00:20 00:20 00:20 WBC 8.6 (3.8-10.6) k/uL RBC 4.20 L (4.30-5.90) m/uL Hgb 14.1 (13.0-17.5) gm/dL Hct 46.7 (39.0-53.0) % MCV 111.0 H D (80.0-100.0) fL MCH 33.6 (25.0-35.0) pg MCHC 30.3 L (31.0-37.0) g/dL RDW 17.9 H (11.5-15.5) % Plt Count 272 (150-450) k/uL MPV 9.7 Neutrophils % 85 % Lymphocytes % 9 % Monocytes % 4 % Eosinophils % 1 % Basophils % 0 % Neutrophils # 7.3 (1.3-7.7) k/uL Lymphocytes # 0.7 L (1.0-4.8) k/uL Monocytes # 0.3 (0-1.0) k/uL Eosinophils # 0.1 (0-0.7) k/uL Basophils # 0.0 (0-0.2) k/uL Manual Slide Review Performed Hypochromasia Slight Anisocytosis Slight Macrocytosis Marked A PT 11.1 (10.0-12.5) sec INR 1.0 (<1.2) Sodium 136 L (137-145) mmol/L Potassium 5.0 (3.5-5.1) mmol/L Chloride 103 (98-107) mmol/L Carbon Dioxide 21 L (22-30) mmol/L Anion Gap 12 mmol/L BUN 22 H (9-20) mg/dL Creatinine 1.17 (0.66-1.25) mg/dL Est GFR (CKD-EPI)AfAm 68 (>60 ml/min/1.73 sqM) Est GFR (CKD-EPI)NonAf 59 (>60 ml/min/1.73 sqM) Glucose 139 H (74-99) mg/dL Calcium 10.3 H (8.4-10.2) mg/dL Total Bilirubin 3.6 H (0.2-1.3) mg/dL AST 38 (17-59) U/L ALT 15 (4-49) U/L Alkaline Phosphatase 74 (38-126) U/L Troponin I (0.000-0.034) ng/mL Total Protein 7.1 (6.3-8.2) g/dL Albumin 4.3 (3.5-5.0) g/dL TSH (0.465-4.680) mIU/L Free T4 (0.78-2.19) ng/dL Urine Color Urine Appearance (Clear) Urine pH (5.0-8.0) Ur Specific [place] (1.001-1.035) Urine Protein (Negative) Urine Glucose (UA) (Negative) Urine Ketones (Negative) Urine Blood (Negative) Urine Nitrite (Negative) Urine Bilirubin (Negative) Urine Urobilinogen (<2.0) mg/dL Ur Leukocyte Esterase (Negative) Urine RBC (0-5) /hpf Urine WBC (0-5) /hpf Urine Mucus (None) /hpf 09/14/24 09/14/24 09/14/24 Range/Units 00:20 00:20 00:33 WBC (3.8-10.6) k/uL RBC (4.30-5.90) m/uL Hgb (13.0-17.5) gm/dL Hct (39.0-53.0) % MCV (80.0-100.0) fL MCH (25.0-35.0) pg MCHC (31.0-37.0) g/dL RDW (11.5-15.5) % Plt Count (150-450) k/uL MPV Neutrophils % % Lymphocytes % % Monocytes % % Eosinophils % % Basophils % % Neutrophils # (1.3-7.7) k/uL Lymphocytes # (1.0-4.8) k/uL Monocytes # (0-1.0) k/uL Eosinophils # (0-0.7) k/uL Basophils # (0-0.2) k/uL Manual Slide Review Hypochromasia Anisocytosis Macrocytosis PT (10.0-12.5) sec INR (<1.2) Sodium (137-145) mmol/L Potassium (3.5-5.1) mmol/L Chloride (98-107) mmol/L Carbon Dioxide (22-30) mmol/L Anion Gap mmol/L BUN (9-20) mg/dL Creatinine (0.66-1.25) mg/dL Est GFR (CKD-EPI)AfAm (>60 ml/min/1.73 sqM) Est GFR (CKD-EPI)NonAf (>60 ml/min/1.73 sqM) Glucose (74-99) mg/dL Calcium (8.4-10.2) mg/dL Total Bilirubin (0.2-1.3) mg/dL AST (17-59) U/L ALT (4-49) U/L Alkaline Phosphatase (38-126) U/L Troponin I 0.054 H* (0.000-0.034) ng/mL Total Protein (6.3-8.2) g/dL Albumin (3.5-5.0) g/dL TSH 20.000 H (0.465-4.680) mIU/L Free T4 1.38 (0.78-2.19) ng/dL Urine Color Yellow Urine Appearance Cloudy (Clear) Urine pH 5.5 (5.0-8.0) Ur Specific [place] 1.040 H (1.001-1.035) Urine Protein Trace H (Negative) Urine Glucose (UA) Negative (Negative) Urine Ketones Negative (Negative) Urine Blood Small H (Negative) Urine Nitrite Negative (Negative) Urine Bilirubin Negative (Negative) Urine Urobilinogen 2.0 (<2.0) mg/dL Ur Leukocyte Esterase Negative (Negative) Urine RBC 1 (0-5) /hpf Urine WBC 21 H (0-5) /hpf Urine Mucus Rare H (None) /hpf Disposition Clinical Impression: Atrial fibrillation with RVR, Acute cholecystitis Disposition: ADMITTED IP TO THIS HOSP Condition: Fair Time of Disposition: 04:35
[2024-09-14 00:53] LABS: Prothrombin Time 11.1 sec (10.0-12.5)
[2024-09-14] MEDS: DILTIAZEM 125 MG in SODIUM CHLORIDE 0.9% 100 ML IV SCH (01:02)
[2024-09-14 01:10] LABS: ALT 15 U/L (4-49); AST 38 U/L (17-59); African American GFR (CKD) 68 (>60 ml/min/1.73 sqM); Albumin 4.3 g/dL (3.5-5.0); Alkaline Phosphatase 74 U/L (38-126); Anion Gap 12 mmol/L; Blood Urea Nitrogen 22 mg/dL (9-20); Calcium 10.3 mg/dL (8.4-10.2); Carbon Dioxide 21 mmol/L (22-30); Chloride 103 mmol/L (98-107); Glucose 139 mg/dL (74-99); Non-African American GFR(CKD) 59 (>60 ml/min/1.73 sqM); Sodium 136 mmol/L (137-145); Total Bilirubin 3.6 mg/dL (0.2-1.3); Total Protein 7.1 g/dL (6.3-8.2)
[2024-09-14] MEDS: DILTIAZEM 5 MG/ML 5 ML VIAL IVP STA ×2 (01:50→04:32)
--- NOTE | 2024-09-14 01:54 | CT ---
EXAM: CT Head Without Intravenous Contrast CLINICAL HISTORY: ITS.REASON CT Reason: fall TECHNIQUE: Axial computed tomography images of the head/brain without intravenous contrast. CTDI is 22.6 mGy and DLP is 544 mGy-cm. This CT exam was performed using one or more of the following dose reduction techniques: automated exposure control, adjustment of the mA and/or kV according to patient size, and/or use of iterative reconstruction technique. COMPARISON: No relevant prior studies available. FINDINGS: No acute intracranial hemorrhage. No midline shift or mass effect. The territorial russo-white matter differentiation is maintained throughout. Age-related cerebral volume loss. Periventricular and subcortical white matter hypoattenuation, consistent with chronic microangiopathy. The visualized orbits appear grossly unremarkable. The calvarium is intact. The visualized paranasal sinuses and mastoid air cells are grossly clear. IMPRESSION: No acute intracranial hemorrhage, midline shift, or mass effect. EXAM: CT Cervical Spine Without Intravenous Contrast CLINICAL HISTORY: ITS.REASON CT Reason: fall TECHNIQUE: Axial computed tomography images of the cervical spine without intravenous contrast. CTDI is 22.6 mGy and DLP is 544 mGy-cm. This CT exam was performed using one or more of the following dose reduction techniques: automated exposure control, adjustment of the mA and/or kV according to patient size, and/or use of iterative reconstruction technique. COMPARISON: No relevant prior studies available. FINDINGS: The vertebral body heights are maintained. The craniocervical junction is intact. The atlanto-dens interval is maintained. The dens is intact. There is no spondylolisthesis. Multilevel cervical spondylosis and degenerative disc disease. Straightening of the cervical lordosis. IMPRESSION: No acute fracture or subluxation of the cervical spine.
[2024-09-14] MEDS: MORPHINE SULFATE 4 MG/ML SYRINGE IVP STA (02:56)
--- NOTE | 2024-09-14 04:13 | CT ---
EXAM: CT Chest With Intravenous Contrast CLINICAL HISTORY: ITS.REASON CT Reason: fall TECHNIQUE: Axial computed tomography images of the chest with intravenous contrast. CTDI is 4.4 mGy and DLP is 122.1 mGy-cm. This CT exam was performed using one or more of the following dose reduction techniques: automated exposure control, adjustment of the mA and/or kV according to patient size, and/or use of iterative reconstruction technique. COMPARISON: No relevant prior studies available. FINDINGS: Lungs: Unremarkable. No mass. No consolidation. Pleural space: Unremarkable. No pneumothorax. No significant effusion. Heart: Cardiomegaly. No significant pericardial effusion. No significant coronary artery calcifications. Bones/joints: Degenerative changes of the spine. No acute fracture. No dislocation. Soft tissues: Unremarkable. Vasculature: Atherosclerotic changes of the aorta. No thoracic aortic aneurysm. Lymph nodes: Unremarkable. No enlarged lymph nodes. IMPRESSION: No acute findings in the chest. EXAM: CT Abdomen and Pelvis With Intravenous Contrast CLINICAL HISTORY: ITS.REASON CT Reason: fall TECHNIQUE: Axial computed tomography images of the abdomen and pelvis with intravenous contrast. CTDI is 4.4 mGy and DLP is 122.1 mGy-cm. This CT exam was performed using one or more of the following dose reduction techniques: automated exposure control, adjustment of the mA and/or kV according to patient size, and/or use of iterative reconstruction technique. COMPARISON: No relevant prior studies available. FINDINGS: Lung bases: Unremarkable. No mass. No consolidation. ABDOMEN: Liver: Unremarkable. No mass. Gallbladder and bile ducts: Cholelithiasis with gallbladder wall thickening. Findings are concerning for acute cholecystitis. No ductal dilation. Pancreas: Unremarkable. No mass. No ductal dilation. Spleen: Unremarkable. No splenomegaly. Adrenals: Unremarkable. No mass. Kidneys and ureters: Unremarkable. No solid mass. No hydronephrosis. Stomach and bowel: Diverticulosis, without acute diverticulitis. No small bowel obstruction. No free intraperitoneal air. PELVIS: Appendix: No findings to suggest acute appendicitis. Bladder: Unremarkable. No mass. Reproductive: Unremarkable as visualized. ABDOMEN and PELVIS: Intraperitoneal space: Unremarkable. No free air. No significant fluid collection. Bones/joints: No acute fracture. No dislocation. Soft tissues: Large LEFT abdominal wall intramuscular hematoma, which measures approximately 11.6 x 15.3 x 5.3 cm. No definite contrast blush to indicate active bleed. Vasculature: Unremarkable. No abdominal aortic aneurysm. Lymph nodes: Unremarkable. No enlarged lymph nodes. IMPRESSION: 1. Cholelithiasis with gallbladder wall thickening. Findings are concerning for acute cholecystitis. 2. Large LEFT abdominal wall intramuscular hematoma, which measures approximately 11.6 x 15.3 x 5.3 cm. No definite contrast blush to indicate active bleed. 3. Diverticulosis, without acute diverticulitis. No small bowel obstruction. No free intraperitoneal air.
[2024-09-14] MEDS ORDERED: NALOXONE 0.4 MG/ML 1 ML VIAL IV PRN (04:33)
[2024-09-14] MEDS: PIPERACILLIN-TAZOBACTAM 3.375 GM in SODIUM CHLORIDE 0.9% 100 ML IVPB STA (04:48)
[2024-09-14] MEDS: SODIUM CHLORIDE 0.9% 1,000 ML IV SCH (04:48)
[2024-09-14 07:25] LABS: Appearance,Urine Cloudy (Clear); Bilirubin,Urine Negative (Negative); Blood,Urine Small (Negative); Color,Urine Yellow; Glucose,Urine (UA) Negative (Negative); Ketones,Urine Negative (Negative); Leukocyte Esterase,Urine Negative (Negative); Mucus,Urine Rare /hpf; Nitrite,Urine Negative (Negative); PH, Urine 5.5 (5.0-8.0); Protein,Urine Trace (Negative); RBC,Urine 1 /hpf (0-5); WBC,Urine 21 /hpf (0-5)
[2024-09-14] MEDS: FOLIC ACID 1 MG TAB PO SCH (09:27)
[2024-09-14] MEDS: METOPROLOL TARTRATE 50 MG TAB PO SCH (09:27)
[2024-09-14 09:46] LABS: ALT 14 U/L (4-49); AST 34 U/L (17-59); African American GFR (CKD) >90 (>60 ml/min/1.73 sqM); Albumin 3.7 g/dL (3.5-5.0); Alkaline Phosphatase 66 U/L (38-126); Anion Gap 8 mmol/L; Blood Urea Nitrogen 23 mg/dL (9-20); Calcium 9.4 mg/dL (8.4-10.2); Carbon Dioxide 21 mmol/L (22-30); Chloride 107 mmol/L (98-107); Glucose 130 mg/dL (74-99); Non-African American GFR(CKD) 81 (>60 ml/min/1.73 sqM); Potassium 3.9 mmol/L (3.5-5.1); Sodium 136 mmol/L (137-145); Total Bilirubin 3.9 mg/dL (0.2-1.3); Total Protein 6.4 g/dL (6.3-8.2)
[2024-09-14 09:51] LABS: Anisocytosis Slight; Basophils % (A) 0 %; Eosinophils % (A) 1 %; HCT 43.4 % (39.0-53.0); HGB 14.1 gm/dL (13.0-17.5); Hypochromasia Moderate; Lymphocytes # (A) 0.5 k/uL (1.0-4.8); Lymphocytes % (A) 8 %; MCH 34.8 pg (25.0-35.0); MCHC 32.4 g/dL (31.0-37.0); MCV 107.2 fL (80.0-100.0); Macrocytosis Marked; Monocytes # (A) 0.2 k/uL (0-1.0); Monocytes % (A) 4 %; Neutrophils # (A) 4.8 k/uL (1.3-7.7); Neutrophils % (A) 86 %; Platelet Count 256 k/uL (150-450); RBC 4.05 m/uL (4.30-5.90); RDW 17.3 % (11.5-15.5); WBC 5.6 k/uL (3.8-10.6)
[2024-09-14] MEDS: LEVOTHYROXINE 75 MCG TAB PO SCH (09:53)
[2024-09-14] MEDS: ASCORBIC ACID 500 MG TAB PO SCH (09:53)
[2024-09-14] MEDS: ESCITALOPRAM 10 MG TAB PO SCH (09:53)
[2024-09-14] MEDS: allopurinoL 300 MG TAB PO SCH (09:53)
[2024-09-14] MEDS: CHOLECALCIFEROL 25 MCG (1000 IU) TABLET PO SCH (09:53)
[2024-09-14] MEDS: FERROUS SULFATE 325 MG TAB PO SCH (09:53)
--- NOTE | 2024-09-14 10:57 | P.CRDCN ---
History of Present Illness Consult date: 09/14/24 Reason for Consult (text): Atrial fibrillation with RVR History of present illness: This is an 79-year-old male with past medical history of prostate cancer, arthritis, hypothyroidism GERD, RBBB. Patient does not follow with a release of information clerk. Previously seen Dr. Ann in 2018 for preop surgical clearance for knee surgery. Patient recently presented to [facility] emergency center on 08/21 at which time he had had a fall with pain in the abdomen. He underwent a CAT scan that showed a left rectus sheath hematoma without arterial extravasation. He was transferred to [facility] where he underwent angioembolization with IR on 08/23. Patient was also treated for new onset of A-fib with RVR and was started on Xarelto and metoprolol. He subsequently had an outpatient CT of the abdomen pelvis done on 09/01 ordered by his PCP, Dr. Delgado. This revealed increasing size of large left rectus sheath hematoma without active extravasation. Patient was taken off Xarelto by Dr. Delgado. Patient now presents because he has had another fall where he hit his right chest and right shoulder on the table. He was trying to grab a medication that had slipped and was falling out of his hand. He denies any loss of consciousness. He does complain of abdominal pain in the right lower quadrant mostly but also on the right upper quadrant. Patient states he has also had some nausea for the last couple of days. He complains of significant weakness and decreased appetite. He denies any cough, no fever no wheezing. He denies having blood in his stool or urine. Patient presented to the hospital was found to be in A-fib with RVR and was started on Cardizem drip. No anticoagulation was started. Patient also underwent CT of the abdomen pelvis that did show possible cholecystitis as well as the continued presence of the large left abdominal wall hematoma. He is currently n.p.o. status post IV antibiotics and a general surgery consult is in place. Regarding atrial fibrillation, heart rate is currently controlled. Patient drinks alcohol 6 beers every day but he has abstained for the past 10 days. He drinks 1 cup of coffee per day. He states that he is a non-smoker and has not been diagnosed with COPD. He denies history of diabetes and hypertension. Patient is status post Cardizem bolus of 15 mg and 18 mg and has been started on Cardizem drip at 5 mg/h. Patient remains in atrial fibrillation with rate controlled. Blood pressure 131/73, heart rate 98, pulse ox 95% on room air, afebrile. -EKG: Atrial fibrillation at 122 bpm, RBBB -Chest and abdominal CT: Cholelithiasis with gallbladder wall thickening concerning for acute cholecystitis. Large left abdominal wall intramuscular hematoma measuring 11.6 x 15.3 x 5.3. Diverticulosis. -CT of the head no acute findings. -Laboratory studies: Troponin 0.054. Hemoglobin 14.1. Sodium 136, potassium 3.9, BUN 23 creatinine 0.88. -Home cardiac medications: Metoprolol tartrate 50 mg twice daily, Xarelto was discontinued recently -Echocardiogram performed and Micahrony Elizalde on 08/22/2024 revealed EF of 60 to 65%, small left ventricular cavity, mild concentric left ventricular hypertrophy. Right atrial dilatation. Moderate left atrial dilatation. Mild mitral regurgitation. Mild tricuspid regurgitation. Review Of Systems: At the time of my exam: CONSTITUTIONAL: Denies fever or chills. HEENT: Denies blurred vision, vision changes, or eye pain. Denies hemoptysis CARDIOVASCULAR: Denies chest pain. Denies orthopnea. Denies PND. Denies palpitat ions RESPIRATORY: Denies shortness of breath. GASTROINTESTINAL: Reports abdominal pain. Denies nausea or vomiting. HEMATOLOGIC: Denies bleeding disorders. GENITOURINARY: Denies any blood in urine. SKIN: Denies puritis. Denies rash. Physical examination: Gen: This is an 79-year-old male in no acute respiratory distress. VS: reviewed HEENT: Head is atraumatic, normocephalic. Pupils equal, round. Sclerae is anicteric. NECK: Supple. No JVD. LUNGS: Clear to auscultation. No wheezes or rhonchi. No intercostal retractions. HEART: Irregular rate and rhythm. Systolic o murmur. ABDOMEN: Soft right upper quadrant and right lower quadrant tenderness. Ecchymosis to the left flank. EXTREMITIES: No pedal edema. No calf tenderness. NEUROLOGICAL: Patient is awake, alert and oriented x3. Assessment: Paroxysmal atrial fibrillation with RVR, currently rate controlled Acute cholecystitis Recent left rectus sheath hematoma following mechanical fall without loss of consciousness History of prostate cancer Arthritis Hypothyroidism GERD Right bundle branch block Daily alcohol use, 6 beers per day, last intake 10 days ago Plan: Resume patient's home medication of metoprolol 50 mg twice daily Continue Cardizem drip Hold on anticoagulation at this time Obtain TSH No need to repeat echocardiogram as this was done at [facility] last month Records have been obtained from [facility] and reviewed. Further recommendations to follow based upon clinical course Thank you kindly for this consultation. Nurse practitioner note has been reviewed, I agree with documented findings and plan of care. Patient was seen and examined. Past Medical History Past Medical History: Cancer, Thyroid Disorder Additional Past Medical History / Comment(s): Prostate CA History of Any Multi-Drug Resistant Organisms: None Reported Past Surgical History: Prostate Surgery Additional Past Surgical History / Comment(s): mastoid surgery as child, vein stripping lt leg, right knee replacement Past Anesthesia/Blood Transfusion Reactions: No Reported Reaction Past Psychological History: No Psychological Hx Reported Smoking Status: Never smoker Past Alcohol Use History: Daily Additional Past Alcohol Use History / Comment(s): smoker for 15 years <1ppd quit 1968 Past Drug Use History: None Reported - Past Family History Mother Family Medical History: No Reported History Father Family Medical History: No Reported History Medications and Allergies Home Medications Medication Instructions Recorded Confirmed Type allopurinoL [Zyloprim] 300 mg PO DAILY 01/18/14 09/14/24 History Lysine 1,000 mg PO DAILY 06/29/16 09/14/24 History Ibuprofen [Motrin] 800 mg PO BID PRN 03/17/18 09/14/24 History Acetaminophen Tab [Tylenol Tab] 1,000 mg PO Q6H PRN 09/14/24 09/14/24 History Ascorbic Acid [Vitamin C] 250 mg PO BID 09/14/24 09/14/24 History Cholecalciferol (Vitamin D3) 75 mcg PO DAILY 09/14/24 09/14/24 History [Vitamin D3 (3000 Iu)] Cyanocobalamin (Vitamin B-12) 5,000 mcg PO WEEKLY 09/14/24 09/14/24 History [Vitamin B-12] Escitalopram [Lexapro] 10 mg PO DAILY 09/14/24 09/14/24 History Ferrous Sulfate [Feosol] 325 mg PO BID 09/14/24 09/14/24 History Levothyroxine Sodium [Synthroid] 75 mcg PO DAILY 09/14/24 09/14/24 History Metoprolol Tartrate [Lopressor] 50 mg PO BID 09/14/24 09/14/24 History clonazePAM [KlonoPIN] 1 mg PO HS 09/14/24 09/14/24 History Allergies Allergy/AdvReac Type Severity Reaction Status Date / Time No Known Allergies Allergy Verified 09/14/24 06:31 Physical Exam Vitals: Vital Signs Temp Pulse Pulse Resp BP BP Pulse Ox 09/14/24 05:53 98 18 131/73 95 09/14/24 05:21 96 16 120/73 97 09/14/24 04:48 89 16 114/83 95 09/14/24 04:32 105 H 16 125/86 95 09/14/24 04:03 110 H 16 137/96 97 09/14/24 03:42 110 H 16 133/97 97 09/14/24 02:58 112 H 16 110/81 98 09/14/24 02:36 105 H 18 107/77 97 09/14/24 02:10 102 H 16 94/68 99 09/14/24 02:04 109 H 16 93/71 98 09/14/24 01:52 115 H 16 98/67 100 09/14/24 01:46 113 H 16 104/67 98 09/14/24 01:18 122 H 16 89/53 97 09/14/24 01:02 128 H 16 93/70 97 09/14/24 00:03 97.8 F 60 18 91/74 94 L Intake and Output 09/13/24 09/14/24 09/14/24 22:59 06:59 14:59 Intake Total 11.167 Output Total 300 Balance -288.833 Intake: Intake, IV Titration 11.167 Amount Diltiazem 125 mg In 11.167 Sodium Chloride 0.9% 100 ml @ 5 MG/HR 5 mls/hr IV .Q24H [facility] Rx#:[id number] Output: Urine 300 Other: Weight 73.482 kg Results 09/14/24 09:18 09/14/24 09:18 Cardiac Enzymes 09/14/24 09/14/24 Range/Units 00:20 00:20 AST 38 (17-59) U/L Troponin I 0.054 H* (0.000-0.034) ng/mL Coagulation 09/14/24 Range/Units 00:20 PT 11.1 (10.0-12.5) sec CBC 09/14/24 Range/Units 00:20 WBC 8.6 (3.8-10.6) k/uL RBC 4.20 L (4.30-5.90) m/uL Hgb 14.1 (13.0-17.5) gm/dL Hct 46.7 (39.0-53.0) % Plt Count 272 (150-450) k/uL Comprehensive Metabolic Panel 09/14/24 Range/Units 00:20 Sodium 136 L (137-145) mmol/L Potassium 5.0 (3.5-5.1) mmol/L Chloride 103 (98-107) mmol/L Carbon Dioxide 21 L (22-30) mmol/L BUN 22 H (9-20) mg/dL Creatinine 1.17 (0.66-1.25) mg/dL Glucose 139 H (74-99) mg/dL Calcium 10.3 H (8.4-10.2) mg/dL AST 38 (17-59) U/L ALT 15 (4-49) U/L Alkaline Phosphatase 74 (38-126) U/L Total Protein 7.1 (6.3-8.2) g/dL Albumin 4.3 (3.5-5.0) g/dL Current Medications Generic Name Dose Route Start Last Admin Trade Name Freq PRN Reason Stop Dose Admin Diltiazem HCl 125 mg/ Sodium 125 mls @ 5 mls/hr 09/14/24 00:55 09/14/24 03:16 Chloride IV 10 mg/hr .Q24H PENNIE 10 mls/hr Titration Protocol 5 MG/HR Sodium Chloride 1,000 mls @ 75 mls/hr 09/14/24 04:45 09/14/24 04:48 Saline 0.9% IV 75 mls/hr .[id number] PENNIE Administration Morphine Sulfate 4 mg 09/14/24 04:33 Morphine Sulfate 4 Mg/Ml Syringe IV Q4HR PRN Severe Pain (Scale 7 to 10) Naloxone HCl 0.2 mg 09/14/24 04:33 Naloxone 0.4 Mg/Ml 1 Ml Vial IV Q2M PRN Opioid Reversal Ondansetron HCl 4 mg 09/14/24 04:33 Ondansetron 4 Mg/2 Ml Vial IVP Q8HR PRN Nausea And Vomiting Intake and Output 09/13/24 09/14/24 09/14/24 22:59 06:59 14:59 Intake Total 11.167 Output Total 300 Balance -288.833 Intake: Intake, IV Titration 11.167 Amount Diltiazem 125 mg In 11.167 Sodium Chloride 0.9% 100 ml @ 5 MG/HR 5 mls/hr IV .Q24H [facility] Rx#:[id number] Output: Urine 300 Other: Weight 73.482 kg 09/14/24 00:20 09/14/24 00:20
--- NOTE | 2024-09-14 12:00 | P.PN ---
Progress Note - Text Progress Note Date: 09/14/24 The primary team notified me that Neurology is not needed and they will discontinue the consult.
--- NOTE | 2024-09-14 12:53 | P.GSCN ---
History of Present Illness Consult date: 09/14/24 History of present illness: CHIEF COMPLAINT: Fall with chest pain and abdominal pain HISTORY OF PRESENT ILLNESS: This is a 79-year-old male who lives alone. He presented to the hospital after having a couple of falls. He does report hitting the right side of his abdomen and chest. He complains of chest pain and right upper quadrant abdominal pain. Patient denies any nausea or vomiting. He had a CT scan abdomen pelvis completed that had reported gallstones and gallbladder wall thickening. Also had reported a large left abdominal wall hematoma. Total bilirubin was elevated at 3.6 and MRCP was ordered. Patient also followed by cardiology service in regards to his atrial fibrillation. Patient was complaining of a headache this morning. PAST MEDICAL HISTORY: Prostate cancer and thyroid disease PAST SURGICAL HISTORY: Prostate surgery MEDICATIONS: See below ALLERGIES: See below SOCIAL HISTORY: No illicit drug use. Daily EtOH use REVIEW OF SYSTEMS: CONSTITUTIONAL: Denies fever or chills. HEENT: Denies blurred vision, vision changes, or eye pain. Denies hemoptysis CARDIOVASCULAR: Denies chest pain or pressure. RESPIRATORY: No shortness of breath. GASTROINTESTINAL: See HPI for pertinent findings HEMATOLOGIC: Denies bleeding disorders. GENITOURINARY: Denies any blood in urine or increased urinary frequency. SKIN: Denies pruitis. Denies rash. PHYSICAL EXAM: VITAL SIGNS: Reviewed GENERAL: Well-developed in no acute distress. HEENT: No sclera icterus. Extraocular movements grossly intact. Moist buccal mucosa. Head is atraumatic, normocephalic. No nasal drainage. ABDOMEN: Soft. Nondistended. Tenderness with palpation to the right upper quadrant with guarding. Patient has ecchymosis noted along the left lower flank and left hip NEUROLOGIC: Alert and oriented. Cranial nerves II through XII grossly intact. LABORATORY DATA: WBCs 5.6 Hgb 14.1 platelets 256 Sodium is 136 potassium 3.9 creatinine 0.88 Total bilirubin 3.6 up to 3.9 AST and ALT normal alk phos normal Mildly elevated troponin IMAGING: CT scan chest abdomen pelvis reports no acute findings on the chest. Cholelithiasis with gallbladder wall thickening. Findings are concerning for acute cholecystitis. Large left abdominal wall intramuscular hematoma which measures 11.6 x 15.3 x 5.3 cm. No evidence of active bleeding. Diverticulosis without acute diverticulitis. ASSESSMENT: 1. Acute cholecystitis. CT reporting gallstones and gallbladder wall thickening 2. Elevated total bilirubin 3. Large left abdominal wall hematoma 4. Atrial fibrillation PLAN: - MRCP ordered for evaluation of choledocholithiasis - Continue antibiotics - Continue pain management. 1 dose of IV Tylenol ordered while patient is n.p.o. - Recommend neurology consult due to frequent falls - Keep patient n.p.o. for MRCP - Repeat labs in a.m. Physician Sourcing Coordinator note has been reviewed by physician. Signing provider agrees with the documented findings, assessment, and plan of care. Attestation Patient seen and examined at bedside on 09/14/2024 in early a.m. Patient admitted secondary to recent falls and patient states that he has let himself go after his has been in rehab facility. He does complain of some abdominal pain and appears to have significant pain in the epigastric and right upper quadrant. CT of the abdomen is showing concerning signs of acute cholecystitis and large left abdominal wall intramuscular hematoma. He is also found to be in atrial fibrillation. Cardiology is following and he is currently on Cardizem drip. Total bilirubin is quite elevated at 3.6. We will obtain an MRCP for further evaluation prior to any further surgical recommendations. Continue IV antibiotics. I do recommend cardiology clearance prior to any surgical intervention as well. Further recommendations based on patient's clinical progress. Adilene Grant DO Past Medical History Past Medical History: Cancer, Thyroid Disorder Additional Past Medical History / Comment(s): Prostate CA History of Any Multi-Drug Resistant Organisms: None Reported Past Surgical History: Prostate Surgery Additional Past Surgical History / Comment(s): mastoid surgery as child, vein stripping lt leg, right knee replacement Past Anesthesia/Blood Transfusion Reactions: No Reported Reaction Past Psychological History: No Psychological Hx Reported Smoking Status: Never smoker Past Alcohol Use History: Daily Additional Past Alcohol Use History / Comment(s): smoker for 15 years <1ppd quit 1969 Past Drug Use History: None Reported - Past Family History Mother Family Medical History: No Reported History Father Family Medical History: No Reported History Medications and Allergies Home Medications Medication Instructions Recorded Confirmed Type allopurinoL [Zyloprim] 300 mg PO DAILY 01/18/14 09/14/24 History Lysine 1,000 mg PO DAILY 06/29/16 09/14/24 History Ibuprofen [Motrin] 800 mg PO BID PRN 03/17/18 09/14/24 History Acetaminophen Tab [Tylenol Tab] 1,000 mg PO Q6H PRN 09/14/24 09/14/24 History Ascorbic Acid [Vitamin C] 250 mg PO BID 09/14/24 09/14/24 History Cholecalciferol (Vitamin D3) 75 mcg PO DAILY 09/14/24 09/14/24 History [Vitamin D3 (3000 Iu)] Cyanocobalamin (Vitamin B-12) 5,000 mcg PO WEEKLY 09/14/24 09/14/24 History [Vitamin B-12] Escitalopram [Lexapro] 10 mg PO DAILY 09/14/24 09/14/24 History Ferrous Sulfate [Feosol] 325 mg PO BID 09/14/24 09/14/24 History Levothyroxine Sodium [Synthroid] 75 mcg PO DAILY 09/14/24 09/14/24 History Metoprolol Tartrate [Lopressor] 50 mg PO BID 09/14/24 09/14/24 History clonazePAM [KlonoPIN] 1 mg PO HS 09/14/24 09/14/24 History Allergies Allergy/AdvReac Type Severity Reaction Status Date / Time No Known Allergies Allergy Verified 09/15/24 14:00 Surgical - Exam Osteopathic Statement: *. No significant issues noted on an osteopathic structural exam other than those noted in the History and Physical/Consult. Vital Signs Temp Pulse Resp BP Pulse Ox 97.8 F 60 18 91/74 94 L 09/14/24 00:03 09/14/24 00:03 09/14/24 00:03 09/14/24 00:03 09/14/24 00:03 Results - Labs 09/16/24 04:42 09/16/24 04:42 Abnormal Lab Results - Last 24 Hours (Table) 09/14/24 09/14/24 09/14/24 Range/Units 00:20 00:20 00:20 RBC 4.20 L (4.30-5.90) m/uL MCV 111.0 H D (80.0-100.0) fL MCHC 30.3 L (31.0-37.0) g/dL RDW 17.9 H (11.5-15.5) % Lymphocytes # 0.7 L (1.0-4.8) k/uL Macrocytosis Marked A Sodium 136 L (137-145) mmol/L Carbon Dioxide 21 L (22-30) mmol/L BUN 22 H (9-20) mg/dL Glucose 139 H (74-99) mg/dL Calcium 10.3 H (8.4-10.2) mg/dL Total Bilirubin 3.6 H (0.2-1.3) mg/dL Troponin I 0.054 H* (0.000-0.034) ng/mL Ur Specific [place] (1.001-1.035) Urine Protein (Negative) Urine Blood (Negative) Urine WBC (0-5) /hpf Urine Mucus (None) /hpf 09/14/24 09/14/24 09/14/24 Range/Units 00:33 09:18 09:18 RBC 4.05 L (4.30-5.90) m/uL MCV 107.2 H (80.0-100.0) fL MCHC (31.0-37.0) g/dL RDW 17.3 H (11.5-15.5) % Lymphocytes # 0.5 L (1.0-4.8) k/uL Macrocytosis Marked A Sodium 136 L (137-145) mmol/L Carbon Dioxide 21 L (22-30) mmol/L BUN 23 H (9-20) mg/dL Glucose 130 H (74-99) mg/dL Calcium (8.4-10.2) mg/dL Total Bilirubin 3.9 H (0.2-1.3) mg/dL Troponin I (0.000-0.034) ng/mL Ur Specific [place] 1.040 H (1.001-1.035) Urine Protein Trace H (Negative) Urine Blood Small H (Negative) Urine WBC 21 H (0-5) /hpf Urine Mucus Rare H (None) /hpf Diabetes panel 09/14/24 09/14/24 Range/Units 00:20 09:18 Sodium 136 L 136 L (137-145) mmol/L Potassium 5.0 3.9 (3.5-5.1) mmol/L Chloride 103 107 (98-107) mmol/L Carbon Dioxide 21 L 21 L (22-30) mmol/L BUN 22 H 23 H (9-20) mg/dL Creatinine 1.17 0.88 (0.66-1.25) mg/dL Glucose 139 H 130 H (74-99) mg/dL Calcium 10.3 H 9.4 (8.4-10.2) mg/dL AST 38 34 (17-59) U/L ALT 15 14 (4-49) U/L Alkaline Phosphatase 74 66 (38-126) U/L Total Protein 7.1 6.4 (6.3-8.2) g/dL Albumin 4.3 3.7 (3.5-5.0) g/dL Calcium panel 09/14/24 09/14/24 Range/Units 00:20 09:18 Calcium 10.3 H 9.4 (8.4-10.2) mg/dL Albumin 4.3 3.7 (3.5-5.0) g/dL Pituitary panel 09/14/24 09/14/24 Range/Units 00:20 09:18 Sodium 136 L 136 L (137-145) mmol/L Potassium 5.0 3.9 (3.5-5.1) mmol/L Chloride 103 107 (98-107) mmol/L Carbon Dioxide 21 L 21 L (22-30) mmol/L BUN 22 H 23 H (9-20) mg/dL Creatinine 1.17 0.88 (0.66-1.25) mg/dL Glucose 139 H 130 H (74-99) mg/dL Calcium 10.3 H 9.4 (8.4-10.2) mg/dL Adrenal panel 09/14/24 09/14/24 Range/Units 00:20 09:18 Sodium 136 L 136 L (137-145) mmol/L Potassium 5.0 3.9 (3.5-5.1) mmol/L Chloride 103 107 (98-107) mmol/L Carbon Dioxide 21 L 21 L (22-30) mmol/L BUN 22 H 23 H (9-20) mg/dL Creatinine 1.17 0.88 (0.66-1.25) mg/dL Glucose 139 H 130 H (74-99) mg/dL Calcium 10.3 H 9.4 (8.4-10.2) mg/dL Total Bilirubin 3.6 H 3.9 H (0.2-1.3) mg/dL AST 38 34 (17-59) U/L ALT 15 14 (4-49) U/L Alkaline Phosphatase 74 66 (38-126) U/L Total Protein 7.1 6.4 (6.3-8.2) g/dL Albumin 4.3 3.7 (3.5-5.0) g/dL
[2024-09-14] MEDS: ACETAMINOPHEN IV (For NPO) 1,000 MG in EMPTY BAG 1 BAG IVPB ONE (14:05)
--- NOTE | 2024-09-14 14:44 | MR ---
MR MRCP INDICATION: Patient age:Male; 79 years old; Reason for study: abdominal pain, acute tony, elevated total Bili; PHH. COMPARISON: CT chest abdomen and pelvis 09/14/2024, 08/21/2024, CT abdomen and pelvis 09/01/2024 TECHNIQUE: Multi planar, T2-weighted imaging with and without fat saturation and chemical shift imag ing was performed of the abdomen. Then, heavily T2 weighted imaging was utilized in order to study th e biliary system. Maximum intensity projection images were reconstructed from the original data of t he biliary tree. No Gadolinium given. FINDINGS: MRCP: The intrahepatic ducts have a normal appearance. The common bile duct at the level of the [place] creatic head measures 9 mm in size. The common hepatic duct measures 6 mm in size. No filling defects or strictures identified. The pancreatic duct is normal. The gallbladder appears mildly distended with circumferential wall thickening measuring up to 5 mm. M ultiple layering gallstones are identified. Abdomen: The liver, spleen, and adrenal glands have a normal noncontrast appearance. Mild atrophy of the pancreas. No hydronephrosis. Left renal upper pole 0.7 cm T2 hyperintense cyst. Complex right meron al lower pole cyst measuring up to 5.3 cm with thin septations versus abutting cysts. No mural nodula rity identified. Other: Redemonstration of heterogenous T1 hyperintense large left rectus sheath hematoma. This measur es grossly 16.4 x 5.4 cm in transverse and AP dimensions. It measures grossly 12.7 cm in CC dimension . Trace right pleural effusion. Trace ascites. IMPRESSION: 1. Prominent gallbladder with gallstones and circumferential wall thickening. Findings are concernin g for acute cholecystitis. This can be further evaluated with nuclear medicine HIDA scan as clinicall y indicated. 2. Borderline dilated extrahepatic biliary ducts for patient's age. No evidence to suggest ductal st ricture or choledocholithiasis. 3. Redemonstration of large left rectus sheath hematoma. 4. Bilateral renal cysts with a right renal lower pole complex cyst with thin septations versus abut ting cysts. (Bosniak IIF) . Follow-up CT or MR abdomen renal mass protocol in 6-12 months is recommen ded. 5. Trace ascites. 6. Trace right pleural effusion. [facility], , 09/14/2024 2:41 PM
[2024-09-14] MEDS: PIPERACILLIN-TAZOBACTAM 3.375 GM in SODIUM CHLORIDE 0.9% 100 ML IVPB SCH (14:48)
[2024-09-14 15:38] LABS: T4, Free (Free Thyroxine) 1.38 ng/dL (0.78-2.19)
[2024-09-14] MEDS: THIAMINE 100 MG TAB PO SCH (17:50)
--- NOTE | 2024-09-14 18:04 | P.HPIM ---
History of Present Illness H&P Date: 09/14/24 History of present illness; Patient is an 79-year-old male with history of alcohol use disorder, hypo thyroidism, anxiety depression, A-fib with RVR who presents after a fall. Patient states that yesterday he fell on his right shoulder after reaching for his medication while seated in his chair. He felt dizzy and lightheaded but reports he did not lose consciousness. He had no other symptoms at that time. He discontinued blood thinners roughly 1 month ago. He does admit to wanting a walker but only uses it intermittently. He also admits to having a poor appetite for some time since his last fall 1 month ago when he was transferred from this hospital to [facility]. He also notes that he began to have right-sided abdominal pain which he first noticed after he fell yesterday. He also states that he has roughly 8 beers daily, however has not had drink for the last 10 days. Patient reports absence of fever, chills, chest pain, palpitations, diaphoresis, dyspnea, cough, nausea, vomiting, myalgia, headache, and dysuria. Spoke with the ER physician, patient admission was accepted by internal medicine service for treatment. REVIEW OF SYSTEMS: Pertinent positives and negatives noted in HPI. PHYSICAL EXAMINATION: Vitals reviewed GENERAL: Resting comfortably in bed. EYES: PERRL, mild icterus. No gross vision loss HENT: Normocephalic, atraumatic, hearing grossly intact, moist mucous membranes NECK: No tracheal deviation, full range of motion. CARDIOVASCULAR: S1 and S2 present. No murmurs, rubs, or gallops. PULMONARY: Chest is clear to auscultation, no wheezing, rhonchi, or crackles. ABDOMEN: Soft, right upper quadrant tenderness, nondistended. No palpable organomegaly. MUSCULOSKELETAL: No apparent joint swelling and deformities. EXTREMITIES: No apparent cyanosis, clubbing. No pedal edema. NEUROLOGICAL: Alert and oriented. Gross neurological examination with no apparent focal deficits. SKIN: abdominal hematoma ER FINDINGS: Labs significant for hemoglobin 14.1, MCV 107.2, RDW 17.3, sodium 136, bicarb 21, BUN 23, glucose 130, total bilirubin 3.9, UA with specific gravity 1.040, TSH 20.0, free T4 1.38 EKG independently interpreted showed atrial fibrillation with RVR heart rate of 122, QTc 442, with right bundle uziel block and lateral and inferior leads, no ST segment elevation or depression seen, no T-wave inversions seen. CT chest abdomen pelvis independently interpreted reveals cholelithiasis with gallbladder wall thickening and large left abdominal wall intramuscular hematoma with no apparent active bleed, 11.6 X15.3X 5.[address] head independently interpreted showed no acute intracranial process. Assessment and Plan: In summary, patient is an 79-year-old male with history of alcohol use disorder, hypothyroidism, anxiety depression, A-fib with RVR who presents after a fall. #Pre-syncope without loss of consciousness #Recurrent fall, likely combination of orthostatic hypotension due to poor nutritional intake, vitamin deficiency, and A-fib with RVR #Left rectus sheath hematoma -TSH 20.0, free T4 1.38 WNL - UA specific gravity 1.040 - Fall precautions -continue IV NS at 130 ml/hr - No neurology consult needed - PT OT consulted Cardiology consulted #Acute cholecystitis CT abdomen with concern for acute cholecystitis Total bilirubin 3.9 Begin Zosyn 3.375 g IVPB every 8 hours Begin morphine 4 mg IV every 4 hours as needed for pain MRCP pending Surgery consulted Consider GI consultation for ERCP if indicated #Paroxysmal atrial fibrillation with RVR, currently rate controlled #Right bundle branch block #Elevated troponin Continue Cardizem drip Hold anticoagulation - Continue cardiac monitoring Resume home metoprolol 50 mg twice daily Cardiology consulted # Hypothyroidism -TSH 20.0, free T4 1.38 WNL Continue Synthroid 75 mcg daily #Alcohol use disorder #Macrocytic anemia Last intake 10 days ago Begin daily thiamine and folate supplementation Monitor CBC Chronic Medical Conditions #Anxiety/Depression #Arthritis Resume home medications DVT ppx: Subq Lovenox 40 meq daily Code status: No code F: IV Normal saline 130 mL/hr E: Replete as needed N: Clear liquid diet, n.p.o. after midnight A: Ambulatory uses walker at baseline, PT assessment Anticipated discharge place: Pending clinical course Anticipated discharge time: Pending clinical course Dictation was produced using [employer] dictation software. Please excuse any grammatical, word or spelling errors. Attestation I have seen and examined this patient with my resident , discussed the same with the resident/MAYA, and agree with the dictator's assessment and plan as written Dr. John ali Past Medical History Past Medical History: Cancer, Thyroid Disorder Additional Past Medical History / Comment(s): Prostate CA History of Any Multi-Drug Resistant Organisms: None Reported Past Surgical History: Prostate Surgery Additional Past Surgical History / Comment(s): mastoid surgery as child, vein stripping lt leg, right knee replacement Past Anesthesia/Blood Transfusion Reactions: No Reported Reaction Past Psychological History: No Psychological Hx Reported Smoking Status: Never smoker Past Alcohol Use History: Daily Additional Past Alcohol Use History / Comment(s): smoker for 15 years <1ppd quit 1968 Past Drug Use History: None Reported - Past Family History Mother Family Medical History: No Reported History Father Family Medical History: No Reported History Medications and Allergies Home Medications Medication Instructions Recorded Confirmed Type allopurinoL [Zyloprim] 300 mg PO DAILY 01/18/14 09/14/24 History Lysine 1,000 mg PO DAILY 06/29/16 09/14/24 History Ibuprofen [Motrin] 800 mg PO BID PRN 03/17/18 09/14/24 History Acetaminophen Tab [Tylenol] 1,000 mg PO Q6H PRN 09/14/24 09/14/24 History Ascorbic Acid [Vitamin C] 250 mg PO BID 09/14/24 09/14/24 History Cholecalciferol (Vitamin D3) 75 mcg PO DAILY 09/14/24 09/14/24 History [Vitamin D3 (3000 Iu)] Cyanocobalamin (Vitamin B-12) 5,000 mcg PO WEEKLY 09/14/24 09/14/24 History [Vitamin B-12] Escitalopram [Lexapro] 10 mg PO DAILY 09/14/24 09/14/24 History Ferrous Sulfate [Feosol] 325 mg PO BID 09/14/24 09/14/24 History Levothyroxine Sodium [Synthroid] 75 mcg PO DAILY 09/14/24 09/14/24 History clonazePAM [KlonoPIN] 1 mg PO HS 09/14/24 09/14/24 History Piperacillin-Tazobactam [Zosyn] 3.375 gm IVPB Q8HR #42 each 09/24/24 Rx Apixaban [Eliquis] 5 mg PO BID #60 tab 09/25/24 Rx Diltiazem Oral [Cardizem*] 60 mg PO TID #90 tab 09/25/24 Rx Fluconazole [Diflucan] 100 mg PO DAILY #14 tab 09/25/24 Rx Folic Acid 1 mg PO DAILY #30 tab 09/25/24 Rx Metoprolol Tartrate [Lopressor] 50 mg PO TID tab 09/25/24 Rx Thiamine [Vitamin B-1] 100 mg PO DAILY #30 tab 09/25/24 Rx Allergies Allergy/AdvReac Type Severity Reaction Status Date / Time No Known Allergies Allergy Verified 09/15/24 14:00 Physical Exam Vitals: Vital Signs Temp Pulse Pulse Resp BP BP Pulse Ox 09/14/24 08:00 97.7 F 113 H 18 124/77 98 09/14/24 05:53 98 18 131/73 95 09/14/24 05:21 96 16 120/73 97 09/14/24 04:48 89 16 114/83 95 09/14/24 04:32 105 H 16 125/86 95 09/14/24 04:03 110 H 16 137/96 97 09/14/24 03:42 110 H 16 133/97 97 09/14/24 02:58 112 H 16 110/81 98 09/14/24 02:36 105 H 18 107/77 97 09/14/24 02:10 102 H 16 94/68 99 09/14/24 02:04 109 H 16 93/71 98 09/14/24 01:52 115 H 16 98/67 100 09/14/24 01:46 113 H 16 104/67 98 09/14/24 01:18 122 H 16 89/53 97 09/14/24 01:02 128 H 16 93/70 97 09/14/24 00:03 97.8 F 60 18 91/74 94 L Intake and Output 09/14/24 09/14/24 09/14/24 06:59 14:59 22:59 Intake Total 11.167 108.333 Output Total 300 Balance -288.833 108.333 Intake: Intake, IV Titration 11.167 108.333 Amount Diltiazem 125 mg In 11.167 108.333 Sodium Chloride 0.9% 100 ml @ 5 MG/HR 5 mls/hr IV .Q24H [facility] Rx#:[id number] Output: Urine 300 Other: Voiding Method Toilet Urinal Weight 73.482 kg Results CBC & Chem 7: 09/25/24 05:46 09/25/24 05:46 Labs: Abnormal Lab Results - Last 24 Hours (Table) 09/14/24 09/14/24 09/14/24 Range/Units 00:20 00:20 00:20 RBC 4.20 L (4.30-5.90) m/uL MCV 111.0 H D (80.0-100.0) fL MCHC 30.3 L (31.0-37.0) g/dL RDW 17.9 H (11.5-15.5) % Lymphocytes # 0.7 L (1.0-4.8) k/uL Macrocytosis Marked A Sodium 136 L (137-145) mmol/L Carbon Dioxide 21 L (22-30) mmol/L BUN 22 H (9-20) mg/dL Glucose 139 H (74-99) mg/dL Calcium 10.3 H (8.4-10.2) mg/dL Total Bilirubin 3.6 H (0.2-1.3) mg/dL Troponin I 0.054 H* (0.000-0.034) ng/mL TSH (0.465-4.680) mIU/L Ur Specific [place] (1.001-1.035) Urine Protein (Negative) Urine Blood (Negative) Urine WBC (0-5) /hpf Urine Mucus (None) /hpf 09/14/24 09/14/24 09/14/24 Range/Units 00:20 00:33 09:18 RBC 4.05 L (4.30-5.90) m/uL MCV 107.2 H (80.0-100.0) fL MCHC (31.0-37.0) g/dL RDW 17.3 H (11.5-15.5) % Lymphocytes # 0.5 L (1.0-4.8) k/uL Macrocytosis Marked A Sodium (137-145) mmol/L Carbon Dioxide (22-30) mmol/L BUN (9-20) mg/dL Glucose (74-99) mg/dL Calcium (8.4-10.2) mg/dL Total Bilirubin (0.2-1.3) mg/dL Troponin I (0.000-0.034) ng/mL TSH 20.000 H (0.465-4.680) mIU/L Ur Specific [place] 1.040 H (1.001-1.035) Urine Protein Trace H (Negative) Urine Blood Small H (Negative) Urine WBC 21 H (0-5) /hpf Urine Mucus Rare H (None) /hpf 09/14/24 Range/Units 09:18 RBC (4.30-5.90) m/uL MCV (80.0-100.0) fL MCHC (31.0-37.0) g/dL RDW (11.5-15.5) % Lymphocytes # (1.0-4.8) k/uL Macrocytosis Sodium 136 L (137-145) mmol/L Carbon Dioxide 21 L (22-30) mmol/L BUN 23 H (9-20) mg/dL Glucose 130 H (74-99) mg/dL Calcium (8.4-10.2) mg/dL Total Bilirubin 3.9 H (0.2-1.3) mg/dL Troponin I (0.000-0.034) ng/mL TSH (0.465-4.680) mIU/L Ur Specific [place] (1.001-1.035) Urine Protein (Negative) Urine Blood (Negative) Urine WBC (0-5) /hpf Urine Mucus (None) /hpf Thrombosis Risk Factor Assmnt - Choose All That Apply Any of the Below Risk Factors Present?: No Other Risk Factors: Yes Each Risk Factor Represents 3 Points: Age 75 years or older Thrombosis Risk Factor Assessment Total Risk Factor Score: 3 Thrombosis Risk Factor Assessment Level: Moderate Risk
[2024-09-14] MEDS: ACETAMINOPHEN TAB 500 MG TAB PO PRN (19:53)
[2024-09-14] MEDS: clonazePAM 1 MG TAB PO SCH (19:53)
[2024-09-15] MEDS: MORPHINE SULFATE 4 MG/ML SYRINGE IV PRN (03:42)
[2024-09-15 07:40] LABS: HGB 12.3 g/dL (13.0-17.0); MCH 35.3 pg (27.0-32.0); MCHC 35.1 g/dL (32.0-37.0); MCV 100.6 fL (80.0-97.0); Mean Platelet Volume 11.9 fL (9.5-12.2); Platelet Count 236 10*3/uL (140-440); RBC 3.48 10*6/uL (4.40-5.60); RDW 19.8 % (11.5-14.5); WBC 6.13 10*3/uL (4.50-10.00)
[2024-09-15 08:01] LABS: ALT 11 U/L (4-49); AST 24 U/L (17-59); African American GFR (CKD) 65 (>60 ml/min/1.73 sqM); Alkaline Phosphatase 56 U/L (38-126); Anion Gap 8 mmol/L; Blood Urea Nitrogen 34 mg/dL (9-20); Calcium 9.2 mg/dL (8.4-10.2); Carbon Dioxide 21 mmol/L (22-30); Chloride 106 mmol/L (98-107); Glucose 107 mg/dL (74-99); Non-African American GFR(CKD) 56 (>60 ml/min/1.73 sqM); Potassium 4.1 mmol/L (3.5-5.1); Sodium 135 mmol/L (137-145); Total Protein 5.6 g/dL (6.3-8.2)
[2024-09-15 09:25] LABS: Band Neutrophils % 21 %; Basophils # (M) 0.06 k/uL (0-0.2); Lymphocytes # (M) 0.49 k/uL (1.0-4.8); Metamyelocytes # (M) 0.49 k/uL (0); Metamyelocytes % 8 %; Monocytes # (M) 0.12 k/uL (0-1.0); Myelocytes # (M) 0.06 k/uL (0); Myelocytes % 1 %; Neutrophils # (M) 5.08 k/uL (1.3-7.7); Neutrophils % (M) 62 %; Nucleated Red Blood Cells 0 /100 WBC (0-0); Total Cells Counted 200
[2024-09-15 09:26] LABS: Crenated RBC Present; Poikilocytosis (M) Present
[2024-09-15] MEDS: ENOXAPARIN 40 MG/0.4 ML SYRINGE SQ SCH (09:28)
[2024-09-15] MEDS: IV FLUID CONTINUATION 800 ML IV ONE (14:02)
[2024-09-15] MEDS: ONDANSETRON 4 MG/2 ML VIAL IVP PRN (14:29)
[2024-09-15] MEDS: DEXAMETHASONE SOD PHOSPHATE 4 MG/ML 1 ML VIAL IVP ONE (14:30)
--- NOTE | 2024-09-15 15:20 | P.PN ---
Subjective Progress Note Date: 09/15/24 Reason for Consult (text): Atrial fibrillation with RVR History of present illness: This is an 79-year-old male with past medical history of prostate cancer, arthritis, hypothyroidism GERD, RBBB. Patient does not follow with a padder. Previously seen Dr. Ann in 2018 for preop surgical clearance for knee surgery. Patient recently presented to [facility] emergency center on 08/21 at which time he had had a fall with pain in the abdomen. He underwent a CAT scan that showed a left rectus sheath hematoma without arterial extravasation. He was transferred to [facility] where he underwent angioembolization with IR on 08/23. Patient was also treated for new onset of A-fib with RVR and was started on Xarelto and metoprolol. He subsequently had an outpatient CT of the abdomen pelvis done on 09/01 ordered by his PCP, Dr. Delgado. This revealed increasing size of large left rectus sheath hematoma without active extravasation. Patient was taken off Xarelto by Dr. Delgado. Patient now presents because he has had another fall where he hit his right chest and right shoulder on the table. He was trying to grab a medication that had slipped and was falling out of his hand. He denies any loss of consciousness. He does complain of abdominal pain in the right lower quadrant mostly but also on the right upper quadrant. Patient states he has also had some nausea for the last couple of days. He complains of significant weakness and decreased appetite. He denies any cough, no fever no wheezing. He denies having blood in his stool or urine. Patient presented to the hospital was found to be in A-fib with RVR and was started on Cardizem drip. No anticoagulation was started. Patient also underwent CT of the abdomen pelvis that did show possible cholecystitis as well as the continued presence of the large left abdominal wall hematoma. He is currently n.p.o. status post IV antibiotics and a general surgery consult is in place. Regarding atrial fibrillation, heart rate is currently controlled. Patient drinks alcohol 6 beers every day but he has abstained for the past 10 days. He drinks 1 cup of coffee per day. He states that he is a non-smoker and has not been diagnosed with COPD. He denies history of diabetes and hypertension. Patient is status post Cardizem bolus of 15 mg and 18 mg and has been started on Cardizem drip at 5 mg/h. Patient remains in atrial fibrillation with rate controlled. Blood pressure 131/73, heart rate 98, pulse ox 95% on room air, afebrile. -EKG: Atrial fibrillation at 122 bpm, RBBB -Chest and abdominal CT: Cholelithiasis with gallbladder wall thickening lee rning for acute cholecystitis. Large left abdominal wall intramuscular hematoma measuring 11.6 x 15.3 x 5.3. Diverticulosis. -CT of the head no acute findings. -Laboratory studies: Troponin 0.054. Hemoglobin 14.1. Sodium 136, potassium 3.9, BUN 23 creatinine 0.88. -Home cardiac medications: Metoprolol tartrate 50 mg twice daily, Xarelto was discontinued recently -Echocardiogram performed and Micah Elizalde on 08/22/2024 revealed EF of 60 to 65%, small left ventricular cavity, mild concentric left ventricular hypertrophy. Right atrial dilatation. Moderate left atrial dilatation. Mild mitral regurgitation. Mild tricuspid regurgitation. 09/15 Patient seen and examined. He remains in atrial fibrillation with rate controlled. He states he is feeling more short of breath and having more abdominal pain. He is scheduled for cholecystectomy later this afternoon. Patient has been maintained on a Cardizem drip which we are planning to maintain until following surgery when he will be switched over to oral medications. Blood pressure 103/70, heart rate 104, pulse ox 97% on room air. Repeat blood work reveals WBC 6.1, hemoglobin 12.3, BUN 34 creatinine 1.21, sodium 135. Physical examination: Gen: This is an 79-year-old male in no acute respiratory distress. VS: reviewed HEENT: Head is atraumatic, normocephalic. Pupils equal, round. Sclerae is anicteric. NECK: Supple. No JVD. LUNGS: Clear to auscultation. No wheezes or rhonchi. No intercostal retractions. HEART: Irregular rate and rhythm. Systolic o murmur. ABDOMEN: Soft right upper quadrant and right lower quadrant tenderness. Ecchymosis to the left flank. EXTREMITIES: No pedal edema. No calf tenderness. NEUROLOGICAL: Patient is awake, alert and oriented x3. Assessment: Paroxysmal atrial fibrillation with RVR, currently rate controlled Acute cholecystitis Recent left rectus sheath hematoma following mechanical fall without loss of consciousness History of prostate cancer Arthritis Hypothyroidism GERD Right bundle branch block Daily alcohol use, 6 beers per day, last intake 10 days ago Plan: Resume patient's home medication of metoprolol 50 mg twice daily Continue Cardizem drip Hold on anticoagulation at this time Obtain TSH No need to repeat echocardiogram as this was done at [facility] last month Records have been obtained from [facility] and reviewed. Further recommendations to follow based upon clinical course Nurse practitioner note has been reviewed, I agree with documented findings and plan of care. Patient was seen and examined. Objective - Vital Signs Vital signs: Vital Signs Temp 97.4 F L 09/15/24 08:00 Pulse 86 09/15/24 08:00 Resp 18 09/15/24 08:00 BP 95/62 09/15/24 08:00 Pulse Ox 96 09/15/24 08:00 FiO2 Intake & Output 09/14/24 09/15/24 09/15/24 18:59 06:59 18:59 Intake Total 348.333 110.5 84.167 Output Total 250 300 Balance 98.333 -189.5 84.167 Weight 78.2 kg Intake: Intake, IV Titration 108.333 110.5 84.167 Amount Diltiazem 125 mg In 108.333 110.5 84.167 Sodium Chloride 0.9% 100 ml @ 5 MG/HR 5 mls/hr IV .Q24H [facility] Rx#:[id number] Oral 240 Output: Urine 250 300 Other: Voiding Method Toilet Toilet Urinal Urinal # Voids 2 - Labs CBC & Chem 7: 09/15/24 06:58 09/15/24 06:58 Labs: Abnormal Lab Results - Last 24 Hours (Table) 09/14/24 09/15/24 09/15/24 Range/Units 00:20 06:58 06:58 RBC 3.48 L (4.40-5.60) 10*6/uL Hgb 12.3 L (13.0-17.0) g/dL Hct 35.0 L (39.6-50.0) % MCV 100.6 H (80.0-97.0) fL MCH 35.3 H (27.0-32.0) pg Lymphocytes # (Manual) 0.49 L (1.0-4.8) k/uL Metamyelocytes # (Man) 0.49 H (0) k/uL Myelocytes # (Manual) 0.06 H (0) k/uL Sodium 135 L (137-145) mmol/L Carbon Dioxide 21 L (22-30) mmol/L BUN 34 H (9-20) mg/dL Glucose 107 H (74-99) mg/dL Total Bilirubin 3.0 H (0.2-1.3) mg/dL Total Protein 5.6 L (6.3-8.2) g/dL Albumin 3.0 L (3.5-5.0) g/dL TSH 20.000 H (0.465-4.680) mIU/L Microbiology - Last 24 Hours (Table) 09/14/24 00:33 Urine Culture - Final Urine,Voided
[2024-09-15] MEDS ORDERED: ROCURONIUM 10 MG/ML (5 ML VIAL) IV ONE (15:41)
[2024-09-15] MEDS ORDERED: SUCCINYLCHOLINE CHLORIDE 200 MG/10 ML VIAL IV ONE (15:41)
[2024-09-15] MEDS ORDERED: PHENYLEPHRINE 10 MG/ML VIAL ONE (15:41)
[2024-09-15] MEDS ORDERED: fentaNYL (PF) 50 MCG/ML 2 ML AMP ONE (15:41)
[2024-09-15] MEDS ORDERED: ALBUMIN HUMAN 5% (25gm) 500 ML VIAL IVPB ONE (15:41)
[2024-09-15] MEDS ORDERED: NEOSTIGMINE 1 MG/ML 10 ML VIAL ONE (15:41)
[2024-09-15] MEDS ORDERED: GLYCOPYRROLATE 0.2 MG/ML 2 ML VIAL ONE (15:41)
[2024-09-15] MEDS ORDERED: PROPOFOL 10 MG/ML 20 ML VIAL IV ONE (15:41)
[2024-09-15] MEDS ORDERED: LIDOCAINE 1% INJ 10MG/ML (20 ML MDV) ONE (15:41)
[2024-09-15] MEDS ORDERED: VASOPRESSIN 20 UNIT/ML 1 ML VIAL ONE (15:41)
[2024-09-15] MEDS ORDERED: LORazepam 1 MG TAB PO PRN ×2 (15:45)
[2024-09-15] MEDS: LIDOCAINE 1%-EPI 1:100,000 20 ML VIAL SQ ONE (16:13)
[2024-09-15 16:15] LABS: Bilirubin, Conjugated 0.6 mg/dL (0.0-0.3); Bilirubin,Unconjugated 1.2 mg/dL (0.0-1.1); Total Bilirubin 2.8 mg/dL (0.2-1.3)
[2024-09-15] MEDS: LACTATED RINGERS 1,000 ML IV ONE ×2 (17:15→18:15)
--- NOTE | 2024-09-15 17:49 | P.PN ---
Subjective Progress Note Date: 09/15/24 History of present illness; Patient is an 79-year-old male with history of alcohol use disorder, hypothyroi dism, anxiety depression, A-fib with RVR who presents after a fall. Patient states that yesterday he fell on his right shoulder after reaching for his medication while seated in his chair. He felt dizzy and lightheaded but reports he did not lose consciousness. He had no other symptoms at that time. He discontinued blood thinners roughly 1 month ago. He does admit to wanting a walker but only uses it intermittently. He also admits to having a poor appetite for some time since his last fall 1 month ago when he was transferred from this hospital to [facility]. He also notes that he began to have right-sided abdominal pain which he first noticed after he fell yesterday. He also states that he has roughly 8 beers daily, however has not had drink for the last 10 days. Patient reports absence of fever, chills, chest pain, palpitations, diaphoresis, dyspnea, cough, nausea, vomiting, myalgia, headache, and dysuria. 09/15/2024 Patient seen and examined at bedside. Plan for cholecystectomy today. He is having increased abdominal pain and shortness of breath. He remains in atrial fibrillation with rate controlled. REVIEW OF SYSTEMS: Pertinent positives and negatives noted in HPI. PHYSICAL EXAMINATION: Vitals reviewed GENERAL: Resting comfortably in bed. EYES: PERRL, mild icterus. No gross vision loss HENT: Normocephalic, atraumatic, hearing grossly intact, moist mucous membranes NECK: No tracheal deviation, full range of motion. CARDIOVASCULAR: S1 and S2 present. No murmurs, rubs, or gallops. PULMONARY: Chest is clear to auscultation, no wheezing, rhonchi, or crackles. ABDOMEN: Soft, right upper quadrant tenderness, nondistended. No palpable organomegaly. MUSCULOSKELETAL: No apparent joint swelling and deformities. EXTREMITIES: No apparent cyanosis, clubbing. No pedal edema. NEUROLOGICAL: Alert and oriented. Gross neurological examination with no appa rent focal deficits. SKIN: abdominal hematoma Today's significant findings: Labs significant for hemoglobin 12.3, MCV 100.6, sodium 135, bicarb 21, BUN 34, creatinine 1.21, glucose 107, total bilirubin 3.0 MRCP independently interpreted as prominent gallbladder with gallstones with circumferential wall thickening, borderline dilated extrahepatic biliary ducts, no evidence of choledocholithiasis, large left rectus sheath hematoma. Assessment and Plan: In summary, patient is an 79-year-old male with history of alcohol use disorder, hypothyroidism, anxiety depression, A-fib with RVR who presents after a fall. #Pre-syncope without loss of consciousness #Recurrent fall, likely combination of orthostatic hypotension due to poor nutritional intake, vitamin deficiency, and A-fib with RVR #Left rectus sheath hematoma -TSH 20.0, free T4 1.38 WNL - UA specific gravity 1.040 - Fall precautions - Continue IV NS at 75 ml/hr - No neurology consult needed - PT OT consulted Cardiology consulted #Acute cholecystitis CT abdomen with concern for acute cholecystitis Total bilirubin 3.9, fractionated bilirubin ordered Begin Zosyn 3.375 g IVPB every 8 hours Begin morphine 4 mg IV every 4 hours as needed for pain MRCP suggestive of acute cholecystitis, dilated extrahepatic biliary ducts, no evidence of choledocholithiasis Monitor CMP Surgery following #Paroxysmal atrial fibrillation with RVR, currently rate controlled #Right bundle branch block #Elevated troponin Discontinue Cardizem drip Hold anticoagulation - Continue cardiac monitoring Resume home metoprolol 50 mg twice daily Cardiology following # Hypothyroidism -TSH 20.0, free T4 1.38 WNL Continue Synthroid 75 mcg daily #Alcohol use disorder #Macrocytic anemia Last intake 10 days before admission Begin daily thiamine and folate supplementation CIWA protocol initiated, Ativan per protocol Monitor CBC Chronic Medical Conditions #Anxiety/Depression #Arthritis Resume home medications DVT ppx: Subq Lovenox 40 meq daily Code status: No code F: IV Normal saline 75 mL/hr E: Replete as needed N: n.p.o. after midnight A: Ambulatory uses walker at baseline, PT assessment Anticipated discharge place: Pending clinical course Anticipated discharge time: Pending clinical course Dictation was produced using [employer] dictation software. Please excuse any grammatical, word or spelling errors. Objective - Vital Signs Vital signs: Vital Signs Temp 97.6 F 09/15/24 03:33 Pulse 90 09/15/24 03:33 Resp 17 09/15/24 03:33 BP 105/68 09/15/24 03:33 Pulse Ox 96 09/15/24 03:33 FiO2 Intake & Output 09/14/24 09/15/24 09/15/24 18:59 06:59 18:59 Intake Total 348.333 110.5 Output Total 250 300 Balance 98.333 -189.5 Weight 78.2 kg Intake: Intake, IV Titration 108.333 110.5 Amount Diltiazem 125 mg In 108.333 110.5 Sodium Chloride 0.9% 100 ml @ 5 MG/HR 5 mls/hr IV .Q24H [facility] Rx#:[id number] Oral 240 Output: Urine 250 300 Other: Voiding Method Toilet Toilet Urinal Urinal # Voids 2 - Labs CBC & Chem 7: 09/15/24 06:58 09/15/24 06:58 Labs: Abnormal Lab Results - Last 24 Hours (Table) 09/14/24 09/14/24 09/14/24 Range/Units 00:20 09:18 09:18 RBC 4.05 L (4.30-5.90) m/uL MCV 107.2 H (80.0-100.0) fL RDW 17.3 H (11.5-15.5) % Lymphocytes # 0.5 L (1.0-4.8) k/uL Macrocytosis Marked A Sodium 136 L (137-145) mmol/L Carbon Dioxide 21 L (22-30) mmol/L BUN 23 H (9-20) mg/dL Glucose 130 H (74-99) mg/dL Total Bilirubin 3.9 H (0.2-1.3) mg/dL Total Protein (6.3-8.2) g/dL Albumin (3.5-5.0) g/dL TSH 20.000 H (0.465-4.680) mIU/L 09/15/24 Range/Units 06:58 RBC (4.30-5.90) m/uL MCV (80.0-100.0) fL RDW (11.5-15.5) % Lymphocytes # (1.0-4.8) k/uL Macrocytosis Sodium 135 L (137-145) mmol/L Carbon Dioxide 21 L (22-30) mmol/L BUN 34 H (9-20) mg/dL Glucose 107 H (74-99) mg/dL Total Bilirubin 3.0 H (0.2-1.3) mg/dL Total Protein 5.6 L (6.3-8.2) g/dL Albumin 3.0 L (3.5-5.0) g/dL TSH (0.465-4.680) mIU/L
[2024-09-15] MEDS: IV FLUID CONTINUATION 400 ML IV ONE (19:08)
--- NOTE | 2024-09-15 19:13 | XR ---
EXAMINATION TYPE: XR chest 1V portable DATE OF EXAM: 09/15/2024 7:05 PM COMPARISON: Chest radiographs from 09/11/2018, CT chest abdomen and pelvis 09/14/2024 TECHNIQUE: XR chest 1V portable Portable AP radiograph of the chest. CLINICAL INDICATION:Male, 79 years old with history of dyspnea; FINDINGS: Lungs/Pleura: There is no evidence of pleural effusion, focal consolidation, or pneumothorax. Elevat ion the right hemidiaphragm. Pulmonary vascularity: Unremarkable. Heart/mediastinum: Cardiomediastinal silhouette is enlarged. Atherosclerotic calcifications are seen in the aorta. Musculoskeletal: No acute osseous pathology. Other findings: Right lateral chest wall subcutaneous emphysema which extends into the right clavicul ar region. Surgical clips in the left upper quadrant from coil embolization. Lines/Tubes: Nasogastric tube with its distal tip and side-port projecting under the diaphragm and projecting over the gastric lumen. IMPRESSION: 1. Development of right lateral chest wall subcutaneous emphysema extending into the right clavicula r region. No discrete pneumothorax. Correlate for recent surgical intervention. 2. Cardiomegaly. [facility], , 09/15/2024 7:10 PM
[2024-09-15 20:32] LABS: Glucose,Whole Blood 114 mg/dL (70-110)
[2024-09-15] MEDS: DEXAMETHASONE SOD PHOSPHATE 4 MG/ML 1 ML VIAL IV ONE (21:33)
[2024-09-15] MEDS: LACTATED RINGERS 1,000 ML IV SCH (21:34)
[2024-09-15] MEDS: ONDANSETRON 4 MG/2 ML VIAL IVP ONE (21:34)
[2024-09-15] MEDS: PANTOPRAZOLE 40 MG/10 ML VIAL IVP SCH (21:52)
--- NOTE | 2024-09-15 22:26 | P.OP ---
Date of Procedure: 09/15/24 Preoperative Diagnosis: Acute cholecystitis Postoperative Diagnosis: Perforated acute cholecystitis Procedure(s) Performed: Robotic assisted and cholecystectomy Anesthesia: FABBY Surgeon: John Acosta Pathology: other (Gallbladder) Condition: stable Disposition: ICU Indications for Procedure: Acute cholecystitis Operative Findings: A large amount of bile sitting in the right upper quadrant and inflamed gallbladder Description of Procedure: Patient was brought to the operating suite where she was cleaned and draped in sterile fashion a timeout was performed and everyone agreed with the information recited next a 15 blade was used to make an incision in the left upper quadrant and a 5 mm Visiport was then used to gain access to the abdomen once the abdomen was insufflated 3 more 8 mm ports were placed and the 5 mm port was then exchanged for an 8 the robot was then docked. There was a large amount of bile in the right upper quadrant and the omentum was stuck over the liver. The omentum was taken down carefully and the gallbladder was identified the gallbladder was then grafts and retracted cephalad. We carefully dissected from lateral to medial. I skeletonized the cystic duct and artery once this was done identify the critical view of safety and verified with IC-Green I doubly clipped the cystic duct and artery distally and proximally and ligated using electrocautery the gallbladder was taken off of the gallbladder fossa in a co ntrolled manner there was some spillage and appeared to be purulent material. Once the gallbladder was taken off the gallbladder fossa was placed in Endo Catch bag and removed out of the patient's abdomen intact there was some stones left behind and this was cleaned up using suction fire technology instructor, grasper, placed in Endo Catch bag and removed out of the patient's abdomen intact. I suction the remaining bile out of the right upper quadrant I attempted to survey the small bowel however I was unable to do so with the robot I then discussed with the patient's family as I wanted to explore more of the reason why there was so much bile after getting permission I went back to the operating room and made a mini exploratory laparotomy incision of the which I surveyed the small bowel from terminal ileum to ligament of Treitz. There was no enterotomies or perforations identified the abdomen was then thoroughly irrigated with greater than 6 L of normal saline until clear I placed a MADDIE drain and closed the exploratory laparotomy incision using PDS suture in a cephalad to caudad in a caudad to cephalad fashion. The skin was closed using ronan and the patient was transported to ICU in stable condition
--- NOTE | 2024-09-15 22:27 | P.PN ---
Progress Note - Text The robotic gallbladder portion of the surgery went very well however I cannot explain why there was so was bile and converted to an open procedure after the gallbladder was removed. The small bowel was ran and there was no perforations or enterotomies identified the abdomen was irrigated and then a MADDIE drain was placed and then closed. Patient was transported to the ICU secondary to patient requiring pressor support and appearing septic.
--- NOTE | 2024-09-16 04:08 | P.CNPUL ---
History of Present Illness Consult date: 09/16/24 Requesting physician: Alexey Green Reason for consult: other (ICU management) Chief complaint: Frequent falls History of present illness: Patient is an 79-year-old male with past medical history significant for gout, prostate cancer, hypothyroidism, and alcohol abuse. Patient does follow-up with Dr. Mascorro for his primary care needs. Patient has been suffering from frequent falls, was evaluated emergency department back on 08/21/2024, found to have a traumatic large left rectus sheath hematoma. He was also found to be in new onset atrial fibrillation at this time. Transferred to [facility] for vascular embolization. Patient was discharged home on metoprolol and Xarelto. He was seen by Dr. Mascorro on 09/01/2024 in follow-up. CT of the abdomen and pelvis showing increasing size of large left rectus sheath hematoma without visualized active extravasation. Dr. Mascorro advised the patient to stop his Xarelto. Patient had a subsequent fall on 09/14/2024. Reportedly dizzy which caused him to fall. Also, endorsed some right-sided chest and abdominal pain. Appetite has been poor. Abdominal/pelvis CT showing cholelithiasis with gallbladder wall thickening concerning for acute cholecystitis. Redemonstration of the large left abdominal wall intramuscular hematoma measuring approximately 11.6 x 15.3 x 5.3 cm. No indication of active bleeding. Diverticulosis without acute diverticulitis. No small bowel obstructions. No free intraperitoneal air. Follow-up MRCP demonstrated prominent gallbladder with gallstones and circumferential wall thickening. Borderline dilated extrahepatic biliary ducts no evidence of choledocholithiasis. Last night patient was taken for robotic assisted cholecystectomy converted to open procedure with a large amount of bilious fluid collection. Did briefly require vasopressor support in the operating room. Patient was extubated in the postanesthesia care unit and transferred to the intensive care unit. Patient currently being evaluated in room 265. He is awake and alert. Heart rhythm is atrial fibrillation with rapid ventricular response ranging from 100 to 120 bpm. Cardizem is infusing at 5 mg/h. Blood pressure is normotensive. He did receive a 1 L LR bolus earlier. Normal saline continues at 75 mm/h. No longer requiring any vasopressor support. Endorsing some incisional abdominal pain, rated 7 on a 10 point n umerical scale. There is a midline abdominal incision with some additional laparoscopic incisions. Right upper quadrant MADDIE drain with small amount of serosanguineous output. Patient is on 2 L/min nasal cannula. Resting comfortably not in any respiratory distress. Chest x-ray with low lung volumes, right lateral chest wall subcutaneous emphysema extending the right clavicular region in the setting of recent laparoscopic procedure. No discrete pneumothorax. No pleural effusions. No focal consolidations. CBC: WBC count 6, hemoglobin 12, platelets 236. CMP: Sodium 135, potassium 4.1, chloride 106, serum bicarb 21, BUN 34, creatinine 1.21, glucose 107. Total bilirubin 2.8. AST 24, ALT 11, ALP 56. Troponin elevated 0.054. Patient empirically covered on Zosyn. Current vital signs: Afebrile, heart rate 108 bpm, blood pressure 108/74 mmHg, nontachypneic, on 2 L/min nasal cannula, SpO2 reading 97% on bedside monitor. Review of Systems REVIEW OF SYSTEMS: CONSTITUTIONAL: Endorses recent weight loss, reduced appetite, generalized fatigue EYES: Denies change in vision. EARS, NOSE, MOUTH, THROAT: Denies headaches, denies sore throat. CARDIOVASCULAR: Denies chest pain, palpitations or syncopal episodes. RESPIRATORY: Denies shortness of breath, cough, congestion or hemoptysis. GASTROINTESTINAL: Denies nausea and vomiting, or diarrhea. Postsurgical inci sional pain as described in HPI GENITOURINARY: Denies hematuria, denies infections. MUSKULOSKELETAL: Denies pain, denies swelling. INTEGUMENTARY: Denies rash, denies eczema. NEUROLOGICAL: Denies recent memory loss, no recent seizure activity. PSYCHIATRIC: Denies anxiety, denies depression. HEMATOLOGIC/LYMPHATIC: Denies anemia, denies enlarged lymph node Past Medical History Past Medical History: Cancer, Thyroid Disorder Additional Past Medical History / Comment(s): Prostate CA History of Any Multi-Drug Resistant Organisms: None Reported Past Surgical History: Prostate Surgery Additional Past Surgical History / Comment(s): mastoid surgery as child, vein stripping lt leg, right knee replacement Past Anesthesia/Blood Transfusion Reactions: No Reported Reaction Past Psychological History: No Psychological Hx Reported Smoking Status: Never smoker Past Alcohol Use History: Daily Additional Past Alcohol Use History / Comment(s): smoker for 15 years <1ppd quit 1969 Past Drug Use History: None Reported - Past Family History Mother Family Medical History: No Reported History Father Family Medical History: No Reported History Medications and Allergies Home Medications Medication Instructions Recorded Confirmed Type allopurinoL [Zyloprim] 300 mg PO DAILY 01/18/14 09/14/24 History Lysine 1,000 mg PO DAILY 06/29/16 09/14/24 History Ibuprofen [Motrin] 800 mg PO BID PRN 03/17/18 09/14/24 History Acetaminophen Tab [Tylenol Tab] 1,000 mg PO Q6H PRN 09/14/24 09/14/24 History Ascorbic Acid [Vitamin C] 250 mg PO BID 09/14/24 09/14/24 History Cholecalciferol (Vitamin D3) 75 mcg PO DAILY 09/14/24 09/14/24 History [Vitamin D3 (3000 Iu)] Cyanocobalamin (Vitamin B-12) 5,000 mcg PO WEEKLY 09/14/24 09/14/24 History [Vitamin B-12] Escitalopram [Lexapro] 10 mg PO DAILY 09/14/24 09/14/24 History Ferrous Sulfate [Feosol] 325 mg PO BID 09/14/24 09/14/24 History Levothyroxine Sodium [Synthroid] 75 mcg PO DAILY 09/14/24 09/14/24 History Metoprolol Tartrate [Lopressor] 50 mg PO BID 09/14/24 09/14/24 History clonazePAM [KlonoPIN] 1 mg PO HS 09/14/24 09/14/24 History Allergies Allergy/AdvReac Type Severity Reaction Status Date / Time No Known Allergies Allergy Verified 09/15/24 14:00 Physical Exam Vitals: Vital Signs Temp Pulse Pulse Resp BP BP Pulse Ox 09/15/24 19:50 95 22 115/76 97 09/15/24 19:35 101 H 24 122/71 94 L 09/15/24 19:20 93 24 119/71 99 09/15/24 19:05 96 22 133/74 99 09/15/24 18:51 107 H 16 128/76 93 L 09/15/24 18:36 98.1 F 100 15 121/72 98 09/15/24 14:41 110 H 15 106/64 97 09/15/24 14:00 97.8 F 110 H 15 103/70 97 09/15/24 11:05 97.6 F 90 17 102/69 90 L 09/15/24 08:00 97.4 F L 86 18 95/62 96 09/15/24 07:55 97.4 F L 86 17 95/62 96 09/15/24 03:33 97.6 F 90 17 105/68 96 Intake and Output 09/15/24 09/15/24 09/16/24 14:59 22:59 06:59 Intake Total 744.231 2614 Output Total 400 Balance 903.224 0578 Intake: IV 1950 Intake, IV Titration 100.750 Amount Diltiazem 125 mg In 100.750 Sodium Chloride 0.9% 100 ml @ 5 MG/HR 5 mls/hr IV .Q24H [facility] Rx#:[id number] Output: Urine 350 Estimated Blood Loss 50 GENERAL EXAM: Alert, 79-year-old male, fairly comfortable in no apparent distress. HEAD: Normocephalic and atraumatic EYES: Normal reaction of pupils, equal size. NOSE: Clear with pink turbinates. Nasogastric tube to low intermittent suction with small amount of green bilious drainage THROAT: No erythema or exudates. NECK: No masses, no JVD. CHEST: Right lateral chest subcutaneous emphysema. No crepitus or deformities noted. LUNGS: Equal air entry with no crackles, wheeze, rhonchi or dullness. On 2 L/min nasal cannula. No conversational dyspnea or accessory muscle use.. CVS: S1 and S2 normal with no audible murmur, irregular rhythm. No extra heart sounds ABDOMEN: Postsurgical abdomen with midline abdominal incision and laparoscopic incisions with postsurgical dressings clean, dry, intact. Right upper quadrant MADDIE drain with bulb compressed and minimal amount of serosanguineous output. Hypoactive bowel sounds. Abdomen is soft. No guarding or rigidity. SPINE: No scoliosis or deformity SKIN: Scrotal ecchymosis. CENTRAL NERVOUS SYSTEM: No focal deficits, tone is normal in all 4 extremities. EXTREMITIES: There is no peripheral edema, clubbing, or cyanosis. Peripheral pulses are intact. SCDs on. Results - Laboratory Findings CBC and BMP: 09/15/24 06:58 09/15/24 06:58 PT/INR, D-dimer PT 11.1 sec (10.0-12.5) 09/14/24 00:20 INR 1.0 (<1.2) 09/14/24 00:20 Abnormal lab findings: Abnormal Labs 09/14/24 09/14/24 09/14/24 00:20 00:20 00:20 RBC 4.20 L Hgb Hct MCV 111.0 H D MCH MCHC 30.3 L RDW 17.9 H Lymphocytes # 0.7 L Lymphocytes # (Manual) Metamyelocytes # (Man) Myelocytes # (Manual) Macrocytosis Marked A Sodium 136 L Carbon Dioxide 21 L BUN 22 H Glucose 139 H POC Glucose (mg/dL) Calcium 10.3 H Total Bilirubin 3.6 H Conjugated Bilirubin Unconjugated Bilirubin Delta Bilirubin Troponin I 0.054 H* Total Protein Albumin TSH Ur Specific [facility] Urine Protein Urine Blood Urine WBC Urine Mucus 09/14/24 09/14/24 09/14/24 00:20 00:33 09:18 RBC 4.05 L Hgb Hct MCV 107.2 H MCH MCHC RDW 17.3 H Lymphocytes # 0.5 L Lymphocytes # (Manual) Metamyelocytes # (Man) Myelocytes # (Manual) Macrocytosis Marked A Sodium Carbon Dioxide BUN Glucose POC Glucose (mg/dL) Calcium Total Bilirubin Conjugated Bilirubin Unconjugated Bilirubin Delta Bilirubin Troponin I Total Protein Albumin TSH 20.000 H Ur Specific [facility] 1.040 H Urine Protein Trace H Urine Blood Small H Urine WBC 21 H Urine Mucus Rare H 09/14/24 09/15/24 09/15/24 09:18 06:58 06:58 RBC 3.48 L Hgb 12.3 L Hct 35.0 L MCV 100.6 H MCH 35.3 H MCHC RDW Lymphocytes # Lymphocytes # (Manual) 0.49 L Metamyelocytes # (Man) 0.49 H Myelocytes # (Manual) 0.06 H Macrocytosis Sodium 136 L 135 L Carbon Dioxide 21 L 21 L BUN 23 H 34 H Glucose 130 H 107 H POC Glucose (mg/dL) Calcium Total Bilirubin 3.9 H 3.0 H Conjugated Bilirubin Unconjugated Bilirubin Delta Bilirubin Troponin I Total Protein 5.6 L Albumin 3.0 L TSH Ur Specific [facility] Urine Protein Urine Blood Urine WBC Urine Mucus 09/15/24 09/15/24 06:58 20:31 RBC Hgb Hct MCV MCH MCHC RDW Lymphocytes # Lymphocytes # (Manual) Metamyelocytes # (Man) Myelocytes # (Manual) Macrocytosis Sodium Carbon Dioxide BUN Glucose POC Glucose (mg/dL) 114 H Calcium Total Bilirubin 2.8 H Conjugated Bilirubin 0.6 H Unconjugated Bilirubin 1.2 H Delta Bilirubin 1.0 H Troponin I Total Protein Albumin TSH Ur Specific [facility] Urine Protein Urine Blood Urine WBC Urine Mucus - Diagnostic Findings Chest x-ray: image reviewed Assessment and Plan Assessment: Acute complicated cholecystitis status post robotic assisted cholecystectomy converted to open procedure and evacuation of large amount of bilious drainage in the right upper quadrant. Atrial fibrillation with rapid ventricular response, currently on Cardizem infusion at 5 mg/h Large left rectus sheath hematoma redemonstrated and measuring approximately 11.6 x 15.3 x 5.3 cm. No indication of active bleeding. Xarelto previously placed on hold. Previous reported vascular embolization performed at [facility] Frequent falls Acute hypoxemic respiratory failure, currently on 2 L/min nasal cannula, chest x-ray showing low lung volumes, right lateral chest wall subcutaneous emphysema extending the right clavicular region in the setting of recent laparoscopic procedure. No discrete pneumothorax. No pleural effusions. No focal consolidations. History of gout History of prostate cancer History of hypothyroidism History of alcohol abuse, last reported drink approximately 10 days ago Anxiety/depression Plan: Patient transferred to the intensive care unit following surgical procedure, reported hypotension while in the OR, and briefly requiring vasopressors which is subsequently been weaned off. Continues to be in atrial fibrillation with RVR and Cardizem is infusing at 5 mg/h. Xarelto is currently on hold. Continue empiric antibiotics Monitor MADDIE drain output Analgesia ordered for postoperative pain Encourage incentive spirometer and pulmonary toileting Monitor CIWA per protocol SCDs on and Lovenox was ordered for DVT prophylaxis GI prophylaxis: Protonix We will continue to follow patient while in the intensive care unit. I have personally seen and examined the patient, performed the documentation and the assessment and plan as written. Number of minutes spent on the visit:20 Time with Patient: Greater than 30
[2024-09-16 05:08] LABS: Basophils # (A) 0.02 10*3/uL (0.00-0.10); Basophils % (A) 0.3 %; HCT 34.3 % (39.6-50.0); HGB 11.5 g/dL (13.0-17.0); Lymphocytes # (A) 0.35 10*3/uL (0.90-5.00); MCH 34.8 pg (27.0-32.0); MCHC 33.5 g/dL (32.0-37.0); MCV 103.9 fL (80.0-97.0); Mean Platelet Volume 11.8 fL (9.5-12.2); Monocytes # (A) 0.28 10*3/uL (0.20-1.00); Monocytes % (A) 4.8 %; Neutrophils # (A) 5.15 10*3/uL (1.80-7.70); Neutrophils % (A) 88.6 %; Platelet Count 189 10*3/uL (140-440); RDW 20.1 % (11.5-14.5); WBC 5.82 10*3/uL (4.50-10.00)
[2024-09-16 05:29] LABS: ALT 17 U/L (4-49); AST 48 U/L (17-59); African American GFR (CKD) >90 (>60 ml/min/1.73 sqM); Albumin 2.8 g/dL (3.5-5.0); Alkaline Phosphatase 49 U/L (38-126); Anion Gap 7 mmol/L; Blood Urea Nitrogen 32 mg/dL (9-20); Calcium 8.8 mg/dL (8.4-10.2); Carbon Dioxide 21 mmol/L (22-30); Chloride 110 mmol/L (98-107); Glucose 103 mg/dL (74-99); Magnesium 1.4 mg/dL (1.6-2.3); Non-African American GFR(CKD) 85 (>60 ml/min/1.73 sqM); Potassium 3.8 mmol/L (3.5-5.1); Sodium 138 mmol/L (137-145); Total Bilirubin 2.3 mg/dL (0.2-1.3); Total Protein 5.1 g/dL (6.3-8.2)
[2024-09-16] MEDS ORDERED: Potassium Replacement Protocol 1 EACH MISC MISCELLANE PRN (05:55)
[2024-09-16] MEDS ORDERED: Magnesium Replacement Protocol 1 EACH MISC MISCELLANE PRN (05:55)
--- NOTE | 2024-09-16 06:34 | XR ---
EXAMINATION TYPE: XR chest 1V portable DATE OF EXAM: 09/16/2024 CLINICAL INDICATION: Male, 79 years old with history of ICU, post op emphysema re check, progress roya dy. TECHNIQUE: Single AP portable semiupright view of the chest is obtained. COMPARISON: Chest x-ray from one day earlier FINDINGS: Stable nasogastric tube. Improving right-sided subcutaneous emphysema. Persistent cardiomegaly with central vascular congestio n and small right greater than left pleural effusions. Osseous structures are intact. Surgical suture s epigastric region are redemonstrated. IMPRESSION: Findings suggest continued CHF exacerbation/fluid overload state. Correlate clinically. I mproving right-sided subcutaneous emphysema noted. [facility], , 09/16/2024 6:32 AM
[2024-09-16] MEDS: MAGNESIUM SULFATE-D5W PMX 1 GM in DEXTROSE/WATER 1 100ML.BAG IVPB SCH (06:38)
[2024-09-16] MEDS: POTASSIUM CHLORIDE 10 MEQ in WATER FOR INJECTION 1 100ML.BAG IVPB SCH (06:43)
[2024-09-16] MEDS ORDERED: HYDROmorphone 0.5 MG/0.5 ML SYRINGE IVP PRN (07:00)
--- NOTE | 2024-09-16 08:16 | P.PN ---
Subjective Progress Note Date: 09/16/24 PROGRESS NOTE The patient is an 79-year-old male who presented with abdominal discomfort, had a recent left rectus sheath hematoma with arterial extravasation underwent angioembolization on August 23 was diagnosed with acute cholecystitis and underwent cholecystectomy yesterday. He is extubated and feels better today. He continues to have some abdominal discomfort but improved. He continues to be in atrial fibrillation, on IV Cardizem, with controlled ventricular response. He denies any dyspnea, dizziness or palpitations. He has an NG tube in place. He denies any nausea or vomiting. His echocardiogram showed a preserved systolic function with mild mitral and tricuspid regurgitation. He is off anticoagulation because of the recent bleed. He has a prior history of alcohol intake but has not had any drink for over 10 days. Medications: IV Cardizem,Lovenox, metoprolol tartrate 50 mg twice a day, Protonix, thiamine, Lexapro PHYSICAL EXAMINATION: Blood pressure 104/70 heart rate 90-110, afebrile LUNGS: Clear to auscultation HEART: Irregular rate and rhythm, S1, S2. No S3. Systolic ejection murmur ABDOMEN: Soft, dressing in place, dry and clean, no organomegaly EXTREMETIES: No edema LAB: Hemoglobin 11.5, potassium 3.8, BUN 32, creatinine 0.79. Magnesium 1.4. IMPRESSION: 1. Status post open cholecystectomy 2. Atrial fibrillation with episodes of rapid ventricular response, not anticoagulated because of recent bleed 3. Recent rectus sheath hematoma with angioembolization, following a fall. 4. Prior history of alcohol intake PLAN: 1. Continue IV Cardizem for now 2. If rate is stable stop IV Cardizem and continue beta-livier 3. Initiate anticoagulation when agreeable with surgery 4. Depending on his progress further recommendations will be made Objective - Vital Signs Vital signs: Vital Signs Temp 97.5 F L 09/16/24 07:00 Pulse 101 H 09/16/24 07:00 Resp 19 09/16/24 07:00 BP 104/75 09/16/24 07:00 Pulse Ox 96 09/16/24 07:00 FiO2 Intake & Output 09/15/24 09/16/24 09/16/24 18:59 06:59 18:59 Intake Total 5521.347 0730 169.167 Output Total 50 1145 50 Balance 1850.750 -95 119.167 Intake: IV 1800 150 Intake, IV Titration 100.750 900 169.167 Amount Diltiazem 125 mg In 100.750 94.167 Sodium Chloride 0.9% 100 ml @ 5 MG/HR 5 mls/hr IV .Q24H [facility] Rx#:[id number] Magnesium Sulfate-D5w Pmx 100 1 gm In Dextrose/Water 1 100ml.bag @ 100 mls/hr IVPB Q1H [facility] Rx#: [id number] Piperacillin-Tazobactam 3 100 .375 gm In Sodium Chloride 0.9% 100 ml @ 25 mls/hr IVPB Q8H [facility] Rx#: [id number] Potassium Chloride 10 meq 100 In Water For Injection 1 100ml.bag @ 100 mls/hr IVPB Q1H [facility] Rx#: [id number] Sodium Chloride 0.9% 1, 600 75 000 ml @ 75 mls/hr IV . [id number] [facility] Rx#:[id number] Output: Gastric Drainage 200 Drainage 30 0 Right Medial Abdomen 30 0 Urine 915 50 Estimated Blood Loss 50 Other: Voiding Method Indwelling Catheter - Labs CBC & Chem 7: 09/16/24 04:42 09/16/24 04:42 Labs: Abnormal Lab Results - Last 24 Hours (Table) 09/15/24 09/15/24 09/15/24 Range/Units 06:58 06:58 20:31 RBC 3.48 L (4.40-5.60) 10*6/uL Hgb 12.3 L (13.0-17.0) g/dL Hct 35.0 L (39.6-50.0) % MCV 100.6 H (80.0-97.0) fL MCH 35.3 H (27.0-32.0) pg Lymphocytes # (0.90-5.00) 10*3/uL Lymphocytes # (Manual) 0.49 L (1.0-4.8) k/uL Eosinophils # (0.04-0.35) 10*3/uL Metamyelocytes # (Man) 0.49 H (0) k/uL Myelocytes # (Manual) 0.06 H (0) k/uL Chloride (98-107) mmol/L Carbon Dioxide (22-30) mmol/L BUN (9-20) mg/dL Glucose (74-99) mg/dL POC Glucose (mg/dL) 114 H (70-110) mg/dL Magnesium (1.6-2.3) mg/dL Total Bilirubin 2.8 H (0.2-1.3) mg/dL Conjugated Bilirubin 0.6 H (0.0-0.3) mg/dL Unconjugated Bilirubin 1.2 H (0.0-1.1) mg/dL Delta Bilirubin 1.0 H (0.0-0.2) mg/dL Total Protein (6.3-8.2) g/dL Albumin (3.5-5.0) g/dL 09/16/24 09/16/24 Range/Units 04:42 04:42 RBC 3.30 L (4.40-5.60) 10*6/uL Hgb 11.5 L (13.0-17.0) g/dL Hct 34.3 L (39.6-50.0) % MCV 103.9 H (80.0-97.0) fL MCH 34.8 H (27.0-32.0) pg Lymphocytes # 0.35 L (0.90-5.00) 10*3/uL Lymphocytes # (Manual) (1.0-4.8) k/uL Eosinophils # 0.00 L (0.04-0.35) 10*3/uL Metamyelocytes # (Man) (0) k/uL Myelocytes # (Manual) (0) k/uL Chloride 110 H (98-107) mmol/L Carbon Dioxide 21 L (22-30) mmol/L BUN 32 H (9-20) mg/dL Glucose 103 H (74-99) mg/dL POC Glucose (mg/dL) (70-110) mg/dL Magnesium 1.4 L (1.6-2.3) mg/dL Total Bilirubin 2.3 H (0.2-1.3) mg/dL Conjugated Bilirubin (0.0-0.3) mg/dL Unconjugated Bilirubin (0.0-1.1) mg/dL Delta Bilirubin (0.0-0.2) mg/dL Total Protein 5.1 L (6.3-8.2) g/dL Albumin 2.8 L (3.5-5.0) g/dL Microbiology - Last 24 Hours (Table) 09/14/24 04:40 Blood Culture - Preliminary Blood 09/14/24 00:33 Urine Culture - Final Urine,Voided
[2024-09-16] MEDS: ACETAMINOPHEN IV (For NPO) 1,000 MG in EMPTY BAG 1 BAG IVPB SCH (10:34)
--- NOTE | 2024-09-16 13:11 | P.PN ---
Progress Note - Text Progress Note Date: 09/16/24 Patient seen and examined. No acute events overnight. Patient denies fevers and chills. Abdominal pain is controlled. Patient is not passing gas. MADDIE is serosang VSS General-NAD CVS-RRR Lungs-NLB Abdomen-soft, NTND 79 year old s/p Robotic Cholecystectomy -NPO -NGT-LIS -Zosyn -Monitor MADDIE drain -ICU care [facility] [phone]
--- NOTE | 2024-09-16 16:23 | P.PN ---
Subjective Progress Note Date: 09/16/24 History of present illness; Patient is an 79-year-old male with history of alcohol use disorder, hypothyroi dism, anxiety depression, A-fib with RVR who presents after a fall. Patient states that yesterday he fell on his right shoulder after reaching for his medication while seated in his chair. He felt dizzy and lightheaded but reports he did not lose consciousness. He had no other symptoms at that time. He discontinued blood thinners roughly 1 month ago. He does admit to wanting a walker but only uses it intermittently. He also admits to having a poor appetite for some time since his last fall 1 month ago when he was transferred from this hospital to [facility]. He also notes that he began to have right-sided abdominal pain which he first noticed after he fell yesterday. He also states that he has roughly 8 beers daily, however has not had drink for the last 10 days. Patient reports absence of fever, chills, chest pain, palpitations, diaphoresis, dyspnea, cough, nausea, vomiting, myalgia, headache, and dysuria. REVIEW OF SYSTEMS: Pertinent positives and negatives noted in HPI. 09/15/2024 Patient seen and examined at bedside. Plan for cholecystectomy today. He is having increased abdominal pain and shortness of breath. He remains in atrial fibrillation with rate controlled. 09/16/2024 Patient seen and examined at bedside. He has a mild abdominal pain but otherwise is feeling well. He is postop day 1 laparoscopic cholecystectomy which was converted to open procedure. Postprocedure patient became hypotensive and appeared septic. He was placed on pressors for short time, and is now, off pressor support. PHYSICAL EXAMINATION: Vitals reviewed GENERAL: Resting comfortably in bed. NG tube in place EYES: PERRL, mild icterus. No gross vision loss HENT: Normocephalic, atraumatic, hearing grossly intact, moist mucous membranes NECK: No tracheal deviation, full range of motion. CARDIOVASCULAR: S1 and S2 present. No murmurs, rubs, or gallops. PULMONARY: Chest is clear to auscultation, no wheezing, rhonchi, or crackles. ABDOMEN: Soft, nontender, nondistended. No palpable organomegaly. MADDIE drain serosanguineous fluid MUSCULOSKELETAL: No apparent joint swelling and deformities. EXTREMITIES: No apparent cyanosis, clubbing. No pedal edema. NEUROLOGICAL: Alert and oriented. Gross neurological examination with no apparent focal deficits. SKIN: abdominal hematoma Today's significant findings: Labs significant for hemoglobin 11.5, chloride 110, bicarb 21, BUN 32, glucose 1 3, magnesium 1.4, total bilirubin 2.3 Chest x-ray independently interpreted with findings of continued CHF exacerbation fluid overload state. Improving right sided subcutaneous emphysema noted. Assessment and Plan: In summary, patient is an 79-year-old male with history of alcohol use disorder, hypothyroidism, anxiety depression, A-fib with RVR who presents after a fall. #Pre-syncope without loss of consciousness #Recurrent fall, likely combination of orthostatic hypotension due to poor nutritional intake, vitamin deficiency, and A-fib with RVR #Left rectus sheath hematoma -TSH 20.0, free T4 1.38 WNL - UA specific gravity 1.040 - Fall precautions - Continue IV normal saline - PT OT consulted Cardiology consulted #Acute cholecystitis, status post cholecystectomy on 09/15/2024 CT abdomen with concern for acute cholecystitis Total bilirubin 3.9, fractionated bilirubin ordered Continue Zosyn 3.375 g IVPB every 8 hours Continue morphine 4 mg IV every 4 hours as needed for pain MRCP suggestive of acute cholecystitis, dilated extrahepatic biliary ducts, no evidence of choledocholithiasis Monitor CMP Surgery following #Paroxysmal atrial fibrillation with RVR, currently rate controlled #Right bundle branch block #Elevated troponin Continue Cardizem drip Hold anticoagulation - Continue cardiac monitoring Resume home metoprolol 50 mg twice daily Cardiology following # Hypothyroidism -TSH 20.0, free T4 1.38 WNL Continue Synthroid 75 mcg daily #Alcohol use disorder #Macrocytic anemia Last intake 10 days before admission Begin daily thiamine and folate supplementation CIWA protocol initiated, Ativan per protocol Monitor CBC Chronic Medical Conditions #Anxiety/Depression #Arthritis Resume home medications DVT ppx: Subq Lovenox 40 meq daily Code status: No code F: IV Normal saline E: Replete as needed N: n.p.o. A: Ambulatory uses walker at baseline, PT assessment Anticipated discharge place: Pending clinical course Anticipated discharge time: Pending clinical course Dictation was produced using [employer] dictation software. Please excuse any grammatical, word or spelling errors. Objective - Vital Signs Vital signs: Vital Signs Temp 97.5 F L 09/16/24 07:00 Pulse 101 H 09/16/24 07:00 Resp 19 09/16/24 07:00 BP 104/75 09/16/24 07:00 Pulse Ox 96 09/16/24 07:00 FiO2 Intake & Output 09/15/24 09/16/24 09/16/24 18:59 06:59 18:59 Intake Total 1067.562 9558 169.167 Output Total 50 1145 50 Balance 1850.750 -95 119.167 Intake: IV 1800 150 Intake, IV Titration 100.750 900 169.167 Amount Diltiazem 125 mg In 100.750 94.167 Sodium Chloride 0.9% 100 ml @ 5 MG/HR 5 mls/hr IV .Q24H [facility] Rx#:[id number] Magnesium Sulfate-D5w Pmx 100 1 gm In Dextrose/Water 1 100ml.bag @ 100 mls/hr IVPB Q1H [facility] Rx#: [id number] Piperacillin-Tazobactam 3 100 .375 gm In Sodium Chloride 0.9% 100 ml @ 25 mls/hr IVPB Q8H [facility] Rx#: [id number] Potassium Chloride 10 meq 100 In Water For Injection 1 100ml.bag @ 100 mls/hr IVPB Q1H [facility] Rx#: [id number] Sodium Chloride 0.9% 1, 600 75 000 ml @ 75 mls/hr IV . [id number] [facility] Rx#:[id number] Output: Gastric Drainage 200 Drainage 30 0 Right Medial Abdomen 30 0 Urine 915 50 Estimated Blood Loss 50 Other: Voiding Method Indwelling Catheter - Labs CBC & Chem 7: 09/16/24 04:42 09/16/24 04:42 Labs: Abnormal Lab Results - Last 24 Hours (Table) 09/15/24 09/15/24 09/15/24 Range/Units 06:58 06:58 20:31 RBC 3.48 L (4.40-5.60) 10*6/uL Hgb 12.3 L (13.0-17.0) g/dL Hct 35.0 L (39.6-50.0) % MCV 100.6 H (80.0-97.0) fL MCH 35.3 H (27.0-32.0) pg Lymphocytes # (0.90-5.00) 10*3/uL Lymphocytes # (Manual) 0.49 L (1.0-4.8) k/uL Eosinophils # (0.04-0.35) 10*3/uL Metamyelocytes # (Man) 0.49 H (0) k/uL Myelocytes # (Manual) 0.06 H (0) k/uL Chloride (98-107) mmol/L Carbon Dioxide (22-30) mmol/L BUN (9-20) mg/dL Glucose (74-99) mg/dL POC Glucose (mg/dL) 114 H (70-110) mg/dL Magnesium (1.6-2.3) mg/dL Total Bilirubin 2.8 H (0.2-1.3) mg/dL Conjugated Bilirubin 0.6 H (0.0-0.3) mg/dL Unconjugated Bilirubin 1.2 H (0.0-1.1) mg/dL Delta Bilirubin 1.0 H (0.0-0.2) mg/dL Total Protein (6.3-8.2) g/dL Albumin (3.5-5.0) g/dL 09/16/24 09/16/24 Range/Units 04:42 04:42 RBC 3.30 L (4.40-5.60) 10*6/uL Hgb 11.5 L (13.0-17.0) g/dL Hct 34.3 L (39.6-50.0) % MCV 103.9 H (80.0-97.0) fL MCH 34.8 H (27.0-32.0) pg Lymphocytes # 0.35 L (0.90-5.00) 10*3/uL Lymphocytes # (Manual) (1.0-4.8) k/uL Eosinophils # 0.00 L (0.04-0.35) 10*3/uL Metamyelocytes # (Man) (0) k/uL Myelocytes # (Manual) (0) k/uL Chloride 110 H (98-107) mmol/L Carbon Dioxide 21 L (22-30) mmol/L BUN 32 H (9-20) mg/dL Glucose 103 H (74-99) mg/dL POC Glucose (mg/dL) (70-110) mg/dL Magnesium 1.4 L (1.6-2.3) mg/dL Total Bilirubin 2.3 H (0.2-1.3) mg/dL Conjugated Bilirubin (0.0-0.3) mg/dL Unconjugated Bilirubin (0.0-1.1) mg/dL Delta Bilirubin (0.0-0.2) mg/dL Total Protein 5.1 L (6.3-8.2) g/dL Albumin 2.8 L (3.5-5.0) g/dL Microbiology - Last 24 Hours (Table) 09/14/24 04:40 Blood Culture - Preliminary Blood 09/14/24 00:33 Urine Culture - Final Urine,Voided
--- NOTE | 2024-09-16 22:23 | P.CONS ---
History of Present Illness - Reason for Consult Consult date: 09/16/24 Sepsis Requesting physician: Faith Kasper - Chief Complaint Weakness and fall x 1 day on admission - History of Present Illness Patient is a 79-year-old male with a past medical history significant for prostate cancer hypothyroidism, who was brought into the hospital after the patient did have a fall at home patient complaining of weakness and did have multiple falls recently with the symptoms that the patient has been evaluated on presentation to the hospital patient was afebrile and no fever have recorded subsequently patient was tachycardic not hypotensive mildly hypoxic currently on 2 L nasal oxygen patient did have white count of 5.6 creatinine is 1.21 liver enzymes mildly elevated urine has been negative patient did have chest abdominal pelvis CT no acute findings in the chest abdominal pelvis CT was concerning for cholelithiasis with gallbladder wall thickening left abdominal wall intramuscular hematoma and diverticulosis patient did have a MRCP, this was suggestive of acute cholecystitis patient subsequently was taken to the OR last night and the patient is status post robotic assisted cholecystectomy with evidence of perforated acute cholecystitis patient has been started on Zosyn infectious disease was consulted today for further management of antibiotic therapy patient did have blood cultures on admission currently pending no OR culture has been done at the time of evaluation the patient denies having any fever or any chills has been breathing comfortably patient denies having any chest pain or cough did have a mild abdominal pain some nausea but no vomiting or diarrhea no urinary symptoms Review of Systems Positive point and negatives has been mentioned in the HPI, complete review of systems was performed and all other systems are negative Past Medical History Past Medical History: Cancer, Thyroid Disorder Additional Past Medical History / Comment(s): Prostate CA History of Any Multi-Drug Resistant Organisms: None Reported Past Surgical History: Prostate Surgery Additional Past Surgical History / Comment(s): mastoid surgery as child, vein stripping lt leg, right knee replacement Past Anesthesia/Blood Transfusion Reactions: No Reported Reaction Past Psychological History: No Psychological Hx Reported Smoking Status: Never smoker Past Alcohol Use History: Daily Additional Past Alcohol Use History / Comment(s): smoker for 15 years <1ppd quit 1968 Past Drug Use History: None Reported - Past Family History Mother Family Medical History: No Reported History Father Family Medical History: No Reported History Medications and Allergies Home Medications Medication Instructions Recorded Confirmed Type allopurinoL [Zyloprim] 300 mg PO DAILY 01/18/14 09/14/24 History Lysine 1,000 mg PO DAILY 06/29/16 09/14/24 History Ibuprofen [Motrin] 800 mg PO BID PRN 03/17/18 09/14/24 History Acetaminophen Tab [Tylenol Tab] 1,000 mg PO Q6H PRN 09/14/24 09/14/24 History Ascorbic Acid [Vitamin C] 250 mg PO BID 09/14/24 09/14/24 History Cholecalciferol (Vitamin D3) 75 mcg PO DAILY 09/14/24 09/14/24 History [Vitamin D3 (3000 Iu)] Cyanocobalamin (Vitamin B-12) 5,000 mcg PO WEEKLY 09/14/24 09/14/24 History [Vitamin B-12] Escitalopram [Lexapro] 10 mg PO DAILY 09/14/24 09/14/24 History Ferrous Sulfate [Feosol] 325 mg PO BID 09/14/24 09/14/24 History Levothyroxine Sodium [Synthroid] 75 mcg PO DAILY 09/14/24 09/14/24 History Metoprolol Tartrate [Lopressor] 50 mg PO BID 09/14/24 09/14/24 History clonazePAM [KlonoPIN] 1 mg PO HS 09/14/24 09/14/24 History Allergies Allergy/AdvReac Type Severity Reaction Status Date / Time No Known Allergies Allergy Verified 09/15/24 14:00 Physical Exam Vitals: Vital Signs Temp Pulse Pulse Pulse Resp BP BP 09/16/24 10:30 106 H 26 H 118/82 09/16/24 10:00 96 20 113/83 09/16/24 09:30 97 18 123/78 09/16/24 09:00 112 H 15 112/70 09/16/24 08:30 92 20 111/71 09/16/24 08:00 92 18 111/77 09/16/24 07:30 98 19 111/77 09/16/24 07:00 97.5 F L 101 H 19 104/75 09/16/24 06:00 97.5 F L 103 H 18 110/76 09/16/24 05:00 107 H 18 119/76 09/16/24 04:00 101 H 22 113/72 09/16/24 03:29 104 H 16 09/16/24 03:00 101 H 21 108/73 09/16/24 02:00 101 H 23 108/74 09/16/24 01:30 109 H 21 108/74 09/16/24 01:00 97.7 F 97 21 121/77 09/16/24 00:00 116 H 111 H 16 123/71 09/15/24 23:30 96 19 09/15/24 23:00 96 18 123/86 09/15/24 22:30 106 H 17 123/82 09/15/24 22:00 89 24 118/71 09/15/24 21:30 90 24 123/72 09/15/24 21:00 98 23 127/102 09/15/24 20:30 98.4 F 107 H 25 H 120/77 09/15/24 19:50 95 22 09/15/24 19:35 101 H 24 09/15/24 19:20 93 24 09/15/24 19:05 96 22 09/15/24 18:51 107 H 16 09/15/24 18:36 98.1 F 100 15 09/15/24 14:41 110 H 15 106/64 09/15/24 14:00 97.8 F 110 H 15 103/70 BP Pulse Ox 09/16/24 10:30 95 09/16/24 10:00 97 09/16/24 09:30 96 09/16/24 09:00 95 09/16/24 08:30 96 09/16/24 08:00 96 09/16/24 07:30 96 09/16/24 07:00 96 09/16/24 06:00 96 09/16/24 05:00 96 09/16/24 04:00 98 09/16/24 03:29 09/16/24 03:00 97 09/16/24 02:00 97 09/16/24 01:30 97 09/16/24 01:00 97 09/16/24 00:00 97 09/15/24 23:30 97 09/15/24 23:00 96 09/15/24 22:30 96 09/15/24 22:00 96 09/15/24 21:30 96 09/15/24 21:00 96 09/15/24 20:30 96 09/15/24 19:50 115/76 97 09/15/24 19:35 122/71 94 L 09/15/24 19:20 119/71 99 09/15/24 19:05 133/74 99 09/15/24 18:51 128/76 93 L 09/15/24 18:36 121/72 98 09/15/24 14:41 97 09/15/24 14:00 97 Intake and Output 09/15/24 09/16/24 09/16/24 22:59 06:59 14:59 Intake Total 2100 750 594.167 Output Total 580 615 215 Balance 1520 135 379.167 Intake: IV 1950 Intake, IV Titration 150 750 594.167 Amount Diltiazem 125 mg In 94.167 Sodium Chloride 0.9% 100 ml @ 5 MG/HR 5 mls/hr IV .Q24H [facility] Rx#:[id number] Magnesium Sulfate-D5w Pmx 100 100 1 gm In Dextrose/Water 1 100ml.bag @ 100 mls/hr IVPB Q1H [facility] Rx#: [id number] Piperacillin-Tazobactam 3 100 .375 gm In Sodium Chloride 0.9% 100 ml @ 25 mls/hr IVPB Q8H [facility] Rx#: [id number] Potassium Chloride 10 meq 100 100 In Water For Injection 1 100ml.bag @ 100 mls/hr IVPB Q1H [facility] Rx#: [id number] Sodium Chloride 0.9% 1, 150 450 300 000 ml @ 75 mls/hr IV . [id number] [facility] Rx#:[id number] Output: Gastric Drainage 50 150 Drainage 20 10 0 Right Medial Abdomen 20 10 0 Urine 460 455 215 Estimated Blood Loss 50 Other: Voiding Method Indwelling Catheter Indwelling Catheter GENERAL DESCRIPTION: Elderly male lying in bed, no distress. No tachypnea or accessory muscle of respiration use. HEENT: Shows Pallor , no scleral icterus. Oral mucous membrane is dry. NECK: Trachea central, no thyromegaly. LUNGS: Unlabored breathing. Decreased breath sound at the base HEART: S1, S2, regular rate and rhythm. No loud murmur ABDOMEN: Soft, mild tenderness EXTREMITIES: No edema of feet. SKIN: No rash, no masses palpable. NEUROLOGICAL: The patient is awake, alert, oriented x3, mood and affect normal. Results CBC & Chem 7: 09/16/24 04:42 09/16/24 04:42 Labs: Abnormal Lab Results - Last 24 Hours (Table) 09/15/24 09/15/24 09/16/24 Range/Units 06:58 20:31 04:42 RBC 3.30 L (4.40-5.60) 10*6/uL Hgb 11.5 L (13.0-17.0) g/dL Hct 34.3 L (39.6-50.0) % MCV 103.9 H (80.0-97.0) fL MCH 34.8 H (27.0-32.0) pg Lymphocytes # 0.35 L (0.90-5.00) 10*3/uL Eosinophils # 0.00 L (0.04-0.35) 10*3/uL Chloride (98-107) mmol/L Carbon Dioxide (22-30) mmol/L BUN (9-20) mg/dL Glucose (74-99) mg/dL POC Glucose (mg/dL) 114 H (70-110) mg/dL Magnesium (1.6-2.3) mg/dL Total Bilirubin 2.8 H (0.2-1.3) mg/dL Conjugated Bilirubin 0.6 H (0.0-0.3) mg/dL Unconjugated Bilirubin 1.2 H (0.0-1.1) mg/dL Delta Bilirubin 1.0 H (0.0-0.2) mg/dL Total Protein (6.3-8.2) g/dL Albumin (3.5-5.0) g/dL 09/16/24 Range/Units 04:42 RBC (4.40-5.60) 10*6/uL Hgb (13.0-17.0) g/dL Hct (39.6-50.0) % MCV (80.0-97.0) fL MCH (27.0-32.0) pg Lymphocytes # (0.90-5.00) 10*3/uL Eosinophils # (0.04-0.35) 10*3/uL Chloride 110 H (98-107) mmol/L Carbon Dioxide 21 L (22-30) mmol/L BUN 32 H (9-20) mg/dL Glucose 103 H (74-99) mg/dL POC Glucose (mg/dL) (70-110) mg/dL Magnesium 1.4 L (1.6-2.3) mg/dL Total Bilirubin 2.3 H (0.2-1.3) mg/dL Conjugated Bilirubin (0.0-0.3) mg/dL Unconjugated Bilirubin (0.0-1.1) mg/dL Delta Bilirubin (0.0-0.2) mg/dL Total Protein 5.1 L (6.3-8.2) g/dL Albumin 2.8 L (3.5-5.0) g/dL Microbiology - Last 24 Hours (Table) 09/14/24 04:40 Blood Culture - Preliminary Blood 09/14/24 00:33 Urine Culture - Final Urine,Voided Assessment and Plan (1) Peritonitis Current Visit: Yes Status: Acute Code(s): K65.9 - PERITONITIS, UNSPECIFIED SNOMED Code(s): 45955204 (2) Acute cholecystitis Current Visit: Yes Status: Acute Code(s): K81.0 - ACUTE CHOLECYSTITIS SNOMED Code(s): 46578103 Plan: 1patient presented to hospital with weakness and a fall on a workup did have evidence of acute cholecystitis that was seen on the CT as well as MRCP in this patient who is status post cholecystectomy completed on 09/15/2024 with operative report mention perforated acute cholecystitis no operative culture blood cultures are currently pending likely arguably recovery with enteric gram- negative more likely anaerobes and less likely anaerobes 2-patient was empirically treated with Zosyn while waiting for the condition to stabilize Multiple question concern answered We will follow on clinical condition and cultures to further adjust medication if needed Thank you for this consultation we will follow the patient along with you Dictation was produced using [employer] dictation software. please excuse any grammatical, word or spelling errors. Time with Patient: Greater than 30
[2024-09-17 05:09] LABS: Basophils # (A) 0.01 10*3/uL (0.00-0.10); Basophils % (A) 0.1 %; Eosinophils # (A) 0.01 10*3/uL (0.04-0.35); Eosinophils % (A) 0.1 %; HCT 32.7 % (39.6-50.0); HGB 10.8 g/dL (13.0-17.0); Lymphocytes # (A) 0.42 10*3/uL (0.90-5.00); Lymphocytes % (A) 5.7 %; MCH 34.4 pg (27.0-32.0); MCV 104.1 fL (80.0-97.0); Mean Platelet Volume 11.6 fL (9.5-12.2); Monocytes # (A) 0.52 10*3/uL (0.20-1.00); Neutrophils # (A) 6.39 10*3/uL (1.80-7.70); Neutrophils % (A) 86.3 %; Platelet Count 198 10*3/uL (140-440); RBC 3.14 10*6/uL (4.40-5.60); RDW 20.1 % (11.5-14.5); WBC 7.41 10*3/uL (4.50-10.00)
[2024-09-17] MEDS ORDERED: Potassium Replacement Protocol 1 EACH MISC MISCELLANE PRN (05:15)
[2024-09-17 05:36] LABS: ALT 21 U/L (4-49); AST 46 U/L (17-59); African American GFR (CKD) >90 (>60 ml/min/1.73 sqM); Albumin 2.6 g/dL (3.5-5.0); Alkaline Phosphatase 57 U/L (38-126); Anion Gap 5 mmol/L; Blood Urea Nitrogen 31 mg/dL (9-20); Calcium 8.9 mg/dL (8.4-10.2); Carbon Dioxide 23 mmol/L (22-30); Chloride 110 mmol/L (98-107); Glucose 96 mg/dL (74-99); Magnesium 1.9 mg/dL (1.6-2.3); Non-African American GFR(CKD) 88 (>60 ml/min/1.73 sqM); Potassium 3.9 mmol/L (3.5-5.1); Sodium 138 mmol/L (137-145); Total Bilirubin 1.9 mg/dL (0.2-1.3); Total Protein 4.9 g/dL (6.3-8.2)
[2024-09-17] MEDS ORDERED: Magnesium Replacement Protocol 1 EACH MISC MISCELLANE PRN (05:43)
[2024-09-17] MEDS: MAGNESIUM SULFATE-D5W PMX 1 GM in DEXTROSE/WATER 1 100ML.BAG IVPB ONE (05:50)
[2024-09-17] MEDS: POTASSIUM BICARBONATE/CIT AC 20 MEQ TABLET.EFF NG-TUBE SCH (05:51)
--- NOTE | 2024-09-17 07:53 | P.PN ---
Subjective Progress Note Date: 09/17/24 PROGRESS NOTE The patient is an 79-year-old male who presented with abdominal discomfort, had a recent left rectus sheath hematoma with arterial extravasation underwent angioembolization on August 23 was diagnosed with acute cholecystitis and underwent cholecystectomy yesterday. He is extubated and feels better today. He continues to have some abdominal discomfort but improved. He continues to be in atrial fibrillation, on IV Cardizem, with controlled ventricular response. He denies any dyspnea, dizziness or palpitations. He has an NG tube in place. He denies any nausea or vomiting. His echocardiogram showed a preserved systolic function with mild mitral and tricuspid regurgitation. He is off anticoagulation because of the recent bleed. He has a prior history of alcohol intake but has not had any drink for over 10 days. September 17: The patient is feeling better today, he has some dryness in the throat. He continues to be in atrial fibrillation on IV Cardizem and his rate is controlled . He denies any chest discomfort, dizziness or palpitations. He denies any nausea or vomiting. He has no flatus yet. He was up in the chair yesterday. He is on no vasopressors. He continues to be on IV Cardizem 5 mg an hour drip. Medications: IV Cardizem,Lovenox, metoprolol tartrate 50 mg twice a day, Protonix, thiamine, Lexapro PHYSICAL EXAMINATION: Blood pressure 127/70 heart rate 85, afebrile LUNGS: Clear to auscultation HEART: Irregular rate and rhythm, S1, S2. No S3. Systolic ejection murmur ABDOMEN: Soft, dressing in place, dry and clean, no organomegaly EXTREMETIES: No edema LAB: Hemoglobin 10.8, potassium 3.9, BUN 31, creatinine 0.73 IMPRESSION: 1. Status post open cholecystectomy 2. Atrial fibrillation with episodes of rapid ventricular response, not anticoagulated because of recent bleed 3. Recent rectus sheath hematoma with angioembolization, following a fall. 4. Prior history of alcohol intake PLAN: 1. Start oral Cardizem and stop IV Cardizem 2. Start anticoagulation if acceptable by surgery 3. Increase physical activity 4. Incentive spirometry Objective - Vital Signs Vital signs: Vital Signs Temp 97.4 F L 09/17/24 04:00 Pulse 85 09/17/24 07:00 Resp 18 09/17/24 07:00 BP 127/74 09/17/24 07:00 Pulse Ox 98 09/17/24 07:00 FiO2 Intake & Output 09/16/24 09/17/24 09/17/24 18:59 06:59 18:59 Intake Total 2068.115 6796 300 Output Total 885 540 30 Balance 809.167 860 270 Weight 86.4 kg Intake: Intake, IV Titration 4218.652 8728 300 Amount ACETAMINOPHEN IV (For NPO 200 100 100 ) 1,000 mg In Empty Bag 1 bag @ 400 mls/hr IVPB Q6H [facility] Rx#:[id number] Diltiazem 125 mg In 94.167 Sodium Chloride 0.9% 100 ml @ 5 MG/HR 5 mls/hr IV .Q24H [facility] Rx#:[id number] Magnesium Sulfate-D5w Pmx 100 1 gm In Dextrose/Water 1 100ml.bag @ 100 mls/hr IVPB ONCE ONE Rx#: [id number] Magnesium Sulfate-D5w Pmx 100 1 gm In Dextrose/Water 1 100ml.bag @ 100 mls/hr IVPB Q1H [facility] Rx#: [id number] Piperacillin-Tazobactam 3 100 100 .375 gm In Sodium Chloride 0.9% 100 ml @ 25 mls/hr IVPB Q8H [facility] Rx#: [id number] Potassium Chloride 10 meq 100 In Water For Injection 1 100ml.bag @ 100 mls/hr IVPB Q1H [facility] Rx#: [id number] Sodium Chloride 0.9% 1, 1100 1200 100 000 ml @ 100 mls/hr IV . Q10H [facility] Rx#:[id number] Output: Gastric Drainage 300 Drainage 30 30 Right Medial Abdomen 30 30 Urine 555 510 30 Other: Voiding Method Indwelling Catheter Indwelling Catheter - Labs CBC & Chem 7: 09/17/24 04:26 09/17/24 04:26 Labs: Abnormal Lab Results - Last 24 Hours (Table) 09/17/24 09/17/24 Range/Units 04:26 04:26 RBC 3.14 L (4.40-5.60) 10*6/uL Hgb 10.8 L (13.0-17.0) g/dL Hct 32.7 L (39.6-50.0) % MCV 104.1 H (80.0-97.0) fL MCH 34.4 H (27.0-32.0) pg Immature Gran # 0.06 H (0.00-0.04) 10*3/uL Lymphocytes # 0.42 L (0.90-5.00) 10*3/uL Eosinophils # 0.01 L (0.04-0.35) 10*3/uL Chloride 110 H (98-107) mmol/L BUN 31 H (9-20) mg/dL Total Bilirubin 1.9 H (0.2-1.3) mg/dL Total Protein 4.9 L (6.3-8.2) g/dL Albumin 2.6 L (3.5-5.0) g/dL Microbiology - Last 24 Hours (Table) 09/14/24 04:40 Blood Culture - Preliminary Blood
[2024-09-17] MEDS: DILTIAZEM ORAL 30 MG TAB PO SCH (08:20)
[2024-09-17] MEDS: ACETAMINOPHEN IV (For NPO) 1,000 MG in EMPTY BAG 1 BAG IVPB SCH (11:39)
[2024-09-17] MEDS: DOCUSATE 283 MG/5 ML ENEMA RECTAL PRN (12:16)
--- NOTE | 2024-09-17 13:15 | P.PN ---
Subjective Progress Note Date: 09/17/24 Principal diagnosis: Acute cholecystitis status post robotic assisted cholecystectomy converted to open procedure and evacuation of large amount of bilious drainage in the right upper quadrant. Patient is an 79-year-old male with past medical history significant for gout, prostate cancer, hypothyroidism, and alcohol abuse. Patient does follow-up with Dr. Mascorro for his primary care needs. Patient has been suffering from frequent falls, was evaluated emergency department back on 08/21/2024, found to have a traumatic large left rectus sheath hematoma. He was also found to be in new onset atrial fibrillation at this time. Transferred to [facility] for vascular embolization. Patient was discharged home on metoprolol and Xarelto. He was seen by Dr. Mascorro on 09/01/2024 in follow-up. CT of the abdomen and pelvis showing increasing size of large left rectus sheath hematoma without visualized active extravasation. Dr. Mascorro advised the patient to stop his Xar elto. Patient had a subsequent fall on 09/14/2024. Reportedly dizzy which caused him to fall. Also, endorsed some right-sided chest and abdominal pain. Appetite has been poor. Abdominal/pelvis CT showing cholelithiasis with gallbladder wall thickening concerning for acute cholecystitis. Redemonstration of the large left abdominal wall intramuscular hematoma measuring approximately 11.6 x 15.3 x 5.3 cm. No indication of active bleeding. Diverticulosis without acute diverticulitis. No small bowel obstructions. No free intraperitoneal air. Follow-up MRCP demonstrated prominent gallbladder with gallstones and circumferential wall thickening. Borderline dilated extrahepatic biliary ducts no evidence of choledocholithiasis. Last night patient was taken for robotic assisted cholecystectomy converted to open procedure with a large amount of bilious fluid collection. Did briefly require vasopressor support in the operating room. Patient was extubated in the postanesthesia care unit and transferred to the intensive care unit. Patient currently being evaluated in room 265. He is awake and alert. Heart rhythm is atrial fibrillation with rapid ventricular response ranging from 100 to 120 bpm. Cardizem is infusing at 5 mg/h. Blood pressure is normotensive. He did receive a 1 L LR bolus earlier. Normal saline continues at 75 mm/h. No longer requiring any vasopressor suppo rt. Endorsing some incisional abdominal pain, rated 7 on a 10 point numerical scale. There is a midline abdominal incision with some additional laparoscopic incisions. Right upper quadrant MADDIE drain with small amount of serosanguineous output. Patient is on 2 L/min nasal cannula. Resting comfortably not in any respiratory distress. Chest x-ray with low lung volumes, right lateral chest wall subcutaneous emphysema extending the right clavicular region in the setting of recent laparoscopic procedure. No discrete pneumothorax. No pleural effusions. No focal consolidations. CBC: WBC count 6, hemoglobin 12, platelets 236. CMP: Sodium 135, potassium 4.1, chloride 106, serum bicarb 21, BUN 34, creatinine 1.21, glucose 107. Total bilirubin 2.8. AST 24, ALT 11, ALP 56. Troponin elevated 0.054. Patient empirically covered on Zosyn. Current vital signs: Afebrile, heart rate 108 bpm, blood pressure 108/74 mmHg, nontachypneic, on 2 L/min nasal cannula, SpO2 reading 97% on bedside monitor. Patient was seen today on 09/17/2024, remains in the ICU, patient is feeling better today compared to yesterday and the day prior. No shortness of breath, complaining mostly of dry sore throat, continues to have nasogastric tube in place, patient was transition from IV Cardizem to oral Cardizem, his atrial fibrillation seems to be controlled. Rate is in the 80s. Patient remains on CIWA protocol for his history of alcoholism. Overall I believe the patient is doing well, and I will plan to transfer the patient out of the ICU to a monitored bed and selective. WBC count is 7.4 hemoglobin 10.8, basic metabolic profile is normal renal profile is normal Objective - Vital Signs Vital signs: Vital Signs Temp 97.4 F L 09/17/24 04:00 Pulse 79 09/17/24 12:00 Resp 19 09/17/24 12:00 BP 134/85 09/17/24 12:00 Pulse Ox 97 09/17/24 12:00 FiO2 Intake & Output 09/16/24 09/17/24 09/17/24 18:59 06:59 18:59 Intake Total 3918.346 1318 1123.083 Output Total 885 540 320 Balance 809.167 860 803.083 Weight 86.4 kg Intake: Intake, IV Titration 7009.191 1341 1123.083 Amount ACETAMINOPHEN IV (For NPO 200 100 100 ) 1,000 mg In Empty Bag 1 bag @ 400 mls/hr IVPB Q6H [facility] Rx#:[id number] ACETAMINOPHEN IV (For NPO 100 ) 1,000 mg In Empty Bag 1 bag @ 400 mls/hr IVPB Q6HR [facility] Rx#:[id number] Diltiazem 125 mg In 94.167 123.083 Sodium Chloride 0.9% 100 ml @ 5 MG/HR 5 mls/hr IV .Q24H [facility] Rx#:[id number] Magnesium Sulfate-D5w Pmx 100 1 gm In Dextrose/Water 1 100ml.bag @ 100 mls/hr IVPB ONCE ONE Rx#: [id number] Magnesium Sulfate-D5w Pmx 100 1 gm In Dextrose/Water 1 100ml.bag @ 100 mls/hr IVPB Q1H [facility] Rx#: [id number] Piperacillin-Tazobactam 3 100 100 100 .375 gm In Sodium Chloride 0.9% 100 ml @ 25 mls/hr IVPB Q8H [facility] Rx#: [id number] Potassium Chloride 10 meq 100 In Water For Injection 1 100ml.bag @ 100 mls/hr IVPB Q1H [facility] Rx#: [id number] Sodium Chloride 0.9% 1, 1100 1200 600 000 ml @ 100 mls/hr IV . Q10H [facility] Rx#:[id number] Output: Gastric Drainage 300 Drainage 30 30 Right Medial Abdomen 30 30 Urine 555 510 320 Other: Voiding Method Indwelling Catheter Indwelling Catheter Indwelling Catheter - Exam GENERAL EXAM: Revealed 79-year-old white male in no distress, daughter is at bedside. HEAD: Normocephalic and atraumatic EYES: Normal reaction of pupils, equal size. NOSE: Clear with pink turbinates. Nasogastric tube to low intermittent suction with small amount of green bilious drainage THROAT: No erythema or exudates. NECK: No masses, no JVD. CHEST: Right lateral chest subcutaneous emphysema. No crepitus or deformities noted. LUNGS: Equal air entry with no crackles, wheeze, rhonchi or dullness. On 2 L/min nasal cannula. No conversational dyspnea or accessory muscle use.. CVS: S1 and S2 normal with no audible murmur, irregular rhythm. No extra heart sounds ABDOMEN: Postsurgical abdomen with midline abdominal incision and laparoscopic incisions with postsurgical dressings clean, dry, intact. Right upper quadrant MADDIE drain with bulb compressed and minimal amount of serosanguineous output. Hypoactive bowel sounds. Abdomen is soft. No guarding or rigidity. SKIN: Scrotal ecchymosis. CENTRAL NERVOUS SYSTEM: Alert and oriented x 3 no gross focal deficit EXTREMITIES: Trace of bipedal edema no clubbing or cyanosis - Labs CBC & Chem 7: 09/17/24 04:26 09/17/24 04:26 Labs: Abnormal Lab Results - Last 24 Hours (Table) 09/17/24 09/17/24 Range/Units 04:26 04:26 RBC 3.14 L (4.40-5.60) 10*6/uL Hgb 10.8 L (13.0-17.0) g/dL Hct 32.7 L (39.6-50.0) % MCV 104.1 H (80.0-97.0) fL MCH 34.4 H (27.0-32.0) pg Immature Gran # 0.06 H (0.00-0.04) 10*3/uL Lymphocytes # 0.42 L (0.90-5.00) 10*3/uL Eosinophils # 0.01 L (0.04-0.35) 10*3/uL Chloride 110 H (98-107) mmol/L BUN 31 H (9-20) mg/dL Total Bilirubin 1.9 H (0.2-1.3) mg/dL Total Protein 4.9 L (6.3-8.2) g/dL Albumin 2.6 L (3.5-5.0) g/dL Microbiology - Last 24 Hours (Table) 09/14/24 04:40 Blood Culture - Preliminary Blood Assessment and Plan Assessment: Impression: Acute complicated cholecystitis status post robotic assisted cholecystectomy converted to open procedure and evacuation of large amount of bilious drainage in the right upper quadrant. Atrial fibrillation with rapid ventricular response, on oral Cardizem, rate seems to be better controlled today Large left rectus sheath hematoma redemonstrated and measuring approximately 11 .6 x 15.3 x 5.3 cm. No indication of active bleeding. Xarelto previously placed on hold. Previous reported vascular embolization performed at [facility] Frequent falls Acute hypoxemic respiratory failure, currently on 2 L/min nasal cannula, chest x-ray showing low lung volumes, right lateral chest wall subcutaneous emphysema extending the right clavicular region in the setting of recent laparoscopic procedure. No discrete pneumothorax. No pleural effusions. No focal consolidations. History of gout History of prostate cancer History of hypothyroidism History of alcohol abuse, last reported drink approximately 10 days ago Anxiety/depression Recommendation: Continue present supportive care measures Continue oral Cardizem Continue antibiotics Continue pain control management Continue CIWA protocol Continue GI DVT prophylaxis Transfer patient to a monitored bed and selective today/cardiac floor Discussed and updated his daughter who is at bedside and his overall clinical condition Will continue to follow Time with Patient: Less than 30
--- NOTE | 2024-09-17 14:05 | P.PN ---
Subjective Progress Note Date: 09/17/24 History of present illness; Patient is an 79-year-old male with history of alcohol use disorder, hypothyroi dism, anxiety depression, A-fib with RVR who presents after a fall. Patient states that yesterday he fell on his right shoulder after reaching for his medication while seated in his chair. He felt dizzy and lightheaded but reports he did not lose consciousness. He had no other symptoms at that time. He discontinued blood thinners roughly 1 month ago. He does admit to wanting a walker but only uses it intermittently. He also admits to having a poor appetite for some time since his last fall 1 month ago when he was transferred from this hospital to [facility]. He also notes that he began to have right-sided abdominal pain which he first noticed after he fell yesterday. He also states that he has roughly 8 beers daily, however has not had drink for the last 10 days. Patient reports absence of fever, chills, chest pain, palpitations, diaphoresis, dyspnea, cough, nausea, vomiting, myalgia, headache, and dysuria. REVIEW OF SYSTEMS: Pertinent positives and negatives noted in HPI. 09/15/2024 Patient seen and examined at bedside. Plan for cholecystectomy today. He is having increased abdominal pain and shortness of breath. He remains in atrial fibrillation with rate controlled. 09/16/2024 Patient seen and examined at bedside. He has a mild abdominal pain but otherwise is feeling well. He is postop day 1 laparoscopic cholecystectomy which was converted to open procedure. Postprocedure patient became hypotensive and appeared septic. He was placed on pressors for short time, and is now, off pressor support. 09/17/2024 Patient seen and examined at bedside in the ICU. He continues to have dry sore throat with irritation with nasogastric tube in place. MADDIE drain in place with serosanguineous fluid. He is transition from IV to oral Cardizem. Abdominal pain is improved. Likely transfer out of ICU. No other complaints. PHYSICAL EXAMINATION: Vitals reviewed GENERAL: Resting comfortably in bed. NG tube in place CARDIOVASCULAR: S1 and S2 present. No murmurs, rubs, or gallops. PULMONARY: Chest is clear to auscultation, no wheezing, rhonchi, or crackles. ABDOMEN: Soft, nontender, nondistended. No palpable organomegaly. MADDIE drain serosanguineous fluid EXTREMITIES: No apparent cyanosis, clubbing. No pedal edema. NEUROLOGICAL: Alert and oriented. Gross neurological examination with no apparent focal deficits. SKIN: abdominal hematoma Today's significant findings: Labs significant for hemoglobin 10.8, MCV 104.1, BUN 31, creatinine 0.73, bilirubin 1.9. Urine culture negative, blood culture negative. No new imaging Assessment and Plan: In summary, patient is an 79-year-old male with history of alcohol use disorder, hypothyroidism, anxiety depression, A-fib with RVR who presents after a fall. #Pre-syncope without loss of consciousness #Recurrent fall, likely due to hypotension #Left rectus sheath hematoma - Fall precautions - Continue IV normal saline - PT OT following Cardiology consulted #Acute cholecystitis, status post cholecystectomy on 09/15/2024 CT abdomen with concern for acute cholecystitis Initial total bilirubin 3.9, conjugated 0.6, unconjugated 1.2, delta 1.0, now downtrending Continue Zosyn 3.375 g IVPB every 8 hours Continue morphine 4 mg IV every 4 hours as needed for pain MRCP suggestive of acute cholecystitis, dilated extrahepatic biliary ducts, no evidence of choledocholithiasis Monitor CMP Surgery following #Paroxysmal atrial fibrillation with RVR, currently rate controlled #Right bundle branch block #Elevated troponin Begin oral Cardizem Hold anticoagulation - Continue cardiac monitoring Resume home metoprolol 50 mg twice daily Cardiology following # Hypothyroidism -TSH 20.0, free T4 1.38 WNL Continue Synthroid 75 mcg daily #Alcohol use disorder #Macrocytic anemia Last intake 10 days before admission Begin daily thiamine and folate supplementation CIWA protocol initiated, Ativan per protocol Monitor CBC Chronic Medical Conditions #Anxiety/Depression #Arthritis Resume home medications DVT ppx: Subq Lovenox 40 meq daily Code status: No code F: IV Normal saline E: Replete as needed N: n.p.o. A: Ambulatory uses walker at baseline, PT assessment Anticipated discharge place: ECF versus home with home care Anticipated discharge time: Pending clinical course Dictation was produced using [employer] software. Please excuse any gramma tical, word or spelling errors. Objective - Vital Signs Vital signs: Vital Signs Temp 97.4 F L 09/17/24 04:00 Pulse 85 09/17/24 07:00 Resp 18 09/17/24 07:00 BP 127/74 09/17/24 07:00 Pulse Ox 98 09/17/24 07:00 FiO2 Intake & Output 09/16/24 09/17/24 09/17/24 18:59 06:59 18:59 Intake Total 5753.810 2928 300 Output Total 885 540 30 Balance 809.167 860 270 Weight 86.4 kg Intake: Intake, IV Titration 5922.198 6638 300 Amount ACETAMINOPHEN IV (For NPO 200 100 100 ) 1,000 mg In Empty Bag 1 bag @ 400 mls/hr IVPB Q6H [facility] Rx#:[id number] Diltiazem 125 mg In 94.167 Sodium Chloride 0.9% 100 ml @ 5 MG/HR 5 mls/hr IV .Q24H [facility] Rx#:[id number] Magnesium Sulfate-D5w Pmx 100 1 gm In Dextrose/Water 1 100ml.bag @ 100 mls/hr IVPB ONCE ONE Rx#: [id number] Magnesium Sulfate-D5w Pmx 100 1 gm In Dextrose/Water 1 100ml.bag @ 100 mls/hr IVPB Q1H [facility] Rx#: [id number] Piperacillin-Tazobactam 3 100 100 .375 gm In Sodium Chloride 0.9% 100 ml @ 25 mls/hr IVPB Q8H [facility] Rx#: [id number] Potassium Chloride 10 meq 100 In Water For Injection 1 100ml.bag @ 100 mls/hr IVPB Q1H [facility] Rx#: [id number] Sodium Chloride 0.9% 1, 1100 1200 100 000 ml @ 100 mls/hr IV . Q10H [facility] Rx#:[id number] Output: Gastric Drainage 300 Drainage 30 30 Right Medial Abdomen 30 30 Urine 555 510 30 Other: Voiding Method Indwelling Catheter Indwelling Catheter - Labs CBC & Chem 7: 09/17/24 04:26 09/17/24 04:26 Labs: Abnormal Lab Results - Last 24 Hours (Table) 09/17/24 09/17/24 Range/Units 04:26 04:26 RBC 3.14 L (4.40-5.60) 10*6/uL Hgb 10.8 L (13.0-17.0) g/dL Hct 32.7 L (39.6-50.0) % MCV 104.1 H (80.0-97.0) fL MCH 34.4 H (27.0-32.0) pg Immature Gran # 0.06 H (0.00-0.04) 10*3/uL Lymphocytes # 0.42 L (0.90-5.00) 10*3/uL Eosinophils # 0.01 L (0.04-0.35) 10*3/uL Chloride 110 H (98-107) mmol/L BUN 31 H (9-20) mg/dL Total Bilirubin 1.9 H (0.2-1.3) mg/dL Total Protein 4.9 L (6.3-8.2) g/dL Albumin 2.6 L (3.5-5.0) g/dL Microbiology - Last 24 Hours (Table) 09/14/24 04:40 Blood Culture - Preliminary Blood
--- NOTE | 2024-09-17 14:43 | P.PN ---
Subjective Progress Note Date: 09/17/24 SURGICAL PROGRESS NOTE CHIEF COMPLAINT: Fall HISTORY OF PRESENT ILLNESS: Postop day #2 status post robotic cholecystectomy with exploratory laparotomy with washout. Patient remains in the ICU. He has NG tube in place with 300 mL bilious output. MADDIE drain 30 mL serosanguineous output. Patient does complain of abdominal pain at the incision site. He does report that the IV Tylenol helped yesterday. He denies any nausea. He is not having any flatus or BM. Patient usually takes a Dulcolax depository daily at home. Afebrile. WBC 7.4 Hgb 10.8 total bilirubin is down from 2.3-1.9. PHYSICAL EXAM: VITAL SIGNS: Reviewed. GENERAL: Well-developed in no acute distress. ABDOMEN: Soft. Nondistended. Tender at incision site. Midline incision dressing clean dry and intact. MADDIE drain serosanguineous NEUROLOGIC: Alert and oriented. Cranial nerves II through XII grossly intact. ASSESSMENT: 1. Perforated acute cholecystitis PLAN: - Recommend to hold off restarting oral anticoagulation for another 24 hours - IV Tylenol restarted for pain management - Encourage patient to increase activity level - Encourage patient to use incentive spirometer - Repeat labs in a.m. - Continue NG tube to low intermittent suction - Agree with Dulcolax suppository Physician Supervisor [employer] note has been reviewed by physician. Signing provider agrees with the documented findings, assessment, and plan of care. Attestation Patient seen and examined at bedside in the ICU on 09/17/2024. Status post robotic cholecystectomy and exploratory laparotomy. Overall, patient doing well. Nasogastric tube in place and no bowel function as of yet. MADDIE drain with minimal serosanguineous output. Recommended increasing activity. Total bilirubin downward trending. No leukocytosis. Continue IV antibiotics. Continue pain management. Shishirley Grant, DO Objective - Vital Signs Vital signs: Vital Signs Temp 97.4 F L 09/17/24 04:00 Pulse 82 09/17/24 13:00 Resp 18 09/17/24 13:00 BP 128/84 09/17/24 13:00 Pulse Ox 98 09/17/24 13:00 FiO2 Intake & Output 09/16/24 09/17/24 09/17/24 18:59 06:59 18:59 Intake Total 2265.677 4166 1223.083 Output Total 885 540 380 Balance 809.167 860 843.083 Weight 86.4 kg Intake: Intake, IV Titration 4002.061 4541 1223.083 Amount ACETAMINOPHEN IV (For NPO 200 100 100 ) 1,000 mg In Empty Bag 1 bag @ 400 mls/hr IVPB Q6H [facility] Rx#:[id number] ACETAMINOPHEN IV (For NPO 100 ) 1,000 mg In Empty Bag 1 bag @ 400 mls/hr IVPB Q6HR [facility] Rx#:[id number] Diltiazem 125 mg In 94.167 123.083 Sodium Chloride 0.9% 100 ml @ 5 MG/HR 5 mls/hr IV .Q24H [facility] Rx#:[id number] Magnesium Sulfate-D5w Pmx 100 1 gm In Dextrose/Water 1 100ml.bag @ 100 mls/hr IVPB ONCE ONE Rx#: [id number] Magnesium Sulfate-D5w Pmx 100 1 gm In Dextrose/Water 1 100ml.bag @ 100 mls/hr IVPB Q1H [facility] Rx#: [id number] Piperacillin-Tazobactam 3 100 100 100 .375 gm In Sodium Chloride 0.9% 100 ml @ 25 mls/hr IVPB Q8H [facility] Rx#: [id number] Potassium Chloride 10 meq 100 In Water For Injection 1 100ml.bag @ 100 mls/hr IVPB Q1H [facility] Rx#: [id number] Sodium Chloride 0.9% 1, 1100 1200 700 000 ml @ 100 mls/hr IV . Q10H [facility] Rx#:[id number] Output: Gastric Drainage 300 Drainage 30 30 Right Medial Abdomen 30 30 Urine 555 510 380 Other: Voiding Method Indwelling Catheter Indwelling Catheter Indwelling Catheter - Labs CBC & Chem 7: 09/18/24 06:09 09/18/24 06:09 Labs: Abnormal Lab Results - Last 24 Hours (Table) 09/17/24 09/17/24 Range/Units 04:26 04:26 RBC 3.14 L (4.40-5.60) 10*6/uL Hgb 10.8 L (13.0-17.0) g/dL Hct 32.7 L (39.6-50.0) % MCV 104.1 H (80.0-97.0) fL MCH 34.4 H (27.0-32.0) pg Immature Gran # 0.06 H (0.00-0.04) 10*3/uL Lymphocytes # 0.42 L (0.90-5.00) 10*3/uL Eosinophils # 0.01 L (0.04-0.35) 10*3/uL Chloride 110 H (98-107) mmol/L BUN 31 H (9-20) mg/dL Total Bilirubin 1.9 H (0.2-1.3) mg/dL Total Protein 4.9 L (6.3-8.2) g/dL Albumin 2.6 L (3.5-5.0) g/dL Microbiology - Last 24 Hours (Table) 09/14/24 04:40 Blood Culture - Preliminary Blood
[2024-09-17] MEDS: METOCLOPRAMIDE 5 MG/ML 2 ML VIAL IVP SCH (16:25)
[2024-09-18 07:08] LABS: HCT 35.6 % (39.6-50.0); HGB 11.5 g/dL (13.0-17.0); MCH 34.4 pg (27.0-32.0); MCHC 32.3 g/dL (32.0-37.0); MCV 106.6 fL (80.0-97.0); Mean Platelet Volume 11.5 fL (9.5-12.2); Platelet Count 243 10*3/uL (140-440); RBC 3.34 10*6/uL (4.40-5.60); WBC 8.13 10*3/uL (4.50-10.00)
[2024-09-18 07:56] LABS: African American GFR (CKD) >90 (>60 ml/min/1.73 sqM); Anion Gap 5 mmol/L; Blood Urea Nitrogen 22 mg/dL (9-20); Calcium 8.6 mg/dL (8.4-10.2); Carbon Dioxide 24 mmol/L (22-30); Chloride 110 mmol/L (98-107); Glucose 77 mg/dL (74-99); Non-African American GFR(CKD) >90 (>60 ml/min/1.73 sqM); Sodium 139 mmol/L (137-145)
[2024-09-18 09:34] LABS: Albumin 2.5 g/dL (3.5-5.0); Bilirubin, Delta 0.8 mg/dL (0.0-0.2); Bilirubin,Unconjugated 0.8 mg/dL (0.0-1.1); Total Bilirubin 1.6 mg/dL (0.2-1.3); Total Protein 4.9 g/dL (6.3-8.2)
--- NOTE | 2024-09-18 13:39 | P.PN ---
Subjective Progress Note Date: 09/18/24 History of present illness; Patient is an 79-year-old male with history of alcohol use disorder, hypothyroi dism, anxiety depression, A-fib with RVR who presents after a fall. Patient states that yesterday he fell on his right shoulder after reaching for his medication while seated in his chair. He felt dizzy and lightheaded but reports he did not lose consciousness. He had no other symptoms at that time. He discontinued blood thinners roughly 1 month ago. He does admit to wanting a walker but only uses it intermittently. He also admits to having a poor appetite for some time since his last fall 1 month ago when he was transferred from this hospital to [facility]. He also notes that he began to have right-sided abdominal pain which he first noticed after he fell yesterday. He also states that he has roughly 8 beers daily, however has not had drink for the last 10 days. Patient reports absence of fever, chills, chest pain, palpitations, diaphoresis, dyspnea, cough, nausea, vomiting, myalgia, headache, and dysuria. REVIEW OF SYSTEMS: Pertinent positives and negatives noted in HPI. 09/15/2024 Patient seen and examined at bedside. Plan for cholecystectomy today. He is having increased abdominal pain and shortness of breath. He remains in atrial fibrillation with rate controlled. 09/16/2024 Patient seen and examined at bedside. He has a mild abdominal pain but otherwise is feeling well. He is postop day 1 laparoscopic cholecystectomy which was converted to open procedure. Postprocedure patient became hypotensive and appeared septic. He was placed on pressors for short time, and is now, off pressor support. 09/17/2024 Patient seen and examined at bedside in the ICU. He continues to have dry sore throat with irritation with nasogastric tube in place. MADDIE drain in place with serosanguineous fluid. He is transition from IV to oral Cardizem. Abdominal pain is improved. Likely transfer out of ICU. No other complaints. 09/18/2024 Patient seen and examined at bedside. He continues to have dry sore throat with irritation with nasogastric tube in place. MADDIE drain in place with serosanguineous fluid. Abdominal pain improved and now passing gas. PHYSICAL EXAMINATION: Vitals reviewed GENERAL: Resting comfortably in bed. NG tube in place CARDIOVASCULAR: S1 and S2 present. Irregular pulse. No murmurs, rubs, or gallops. PULMONARY: Chest is clear to auscultation, no wheezing, rhonchi, or crackles. ABDOMEN: Soft, nontender, nondistended. No palpable organomegaly. MADDIE drain serosanguineous fluid EXTREMITIES: No apparent cyanosis, clubbing. No pedal edema. NEUROLOGICAL: Alert and oriented. Gross neurological examination with no apparent focal deficits. SKIN: Abdominal hematoma Today's significant findings: Labs significant for hemoglobin 11.5, MCV 106.6, BUN 22, creatinine 0.58 No new imaging Assessment and Plan: In summary, patient is an 79-year-old male with history of alcohol use disorder, hypothyroidism, anxiety depression, A-fib with RVR who presents after a fall. #Pre-syncope without loss of consciousness #Recurrent fall, likely due to hypotension #Left rectus sheath hematoma - Fall precautions - Continue IV normal saline - PT OT following #Acute cholecystitis, status post cholecystectomy on 09/15/2024 Continue Zosyn 3.375 g IVPB every 8 hours Continue morphine 4 mg IV every 4 hours as needed for pain NG tube in place Monitor CMP Surgery following #Paroxysmal atrial fibrillation with RVR, currently rate controlled #Right bundle branch block #Elevated troponin Continue oral Cardizem Hold anticoagulation - Continue cardiac monitoring Resume home metoprolol 50 mg twice daily Cardiology following # Hypothyroidism -TSH 20.0, free T4 1.38 WNL Continue Synthroid 75 mcg daily #Alcohol use disorder #Macrocytic anemia Last intake 10 days before admission Begin daily thiamine and folate supplementation CIWA protocol initiated, Ativan per protocol Monitor CBC Chronic Medical Conditions #Anxiety/Depression #Arthritis Resume home medications DVT ppx: Subq Lovenox 40 meq daily Code status: No code F: IV Normal saline E: Replete as needed N: n.p.o. A: Ambulatory uses walker at baseline, PT assessment Anticipated discharge place: ECF versus home with home care Anticipated discharge time: Pending clinical course Dr. Bronson seen patient with resident, present during exam, and agreed with findings. Dictation was produced using [employer] dictation software. Please excuse any grammatical, word or spelling errors. Objective - Vital Signs Vital signs: Vital Signs Temp 98.5 F 09/17/24 19:50 Pulse 103 H 09/18/24 04:51 Resp 17 09/18/24 04:51 BP 138/96 09/18/24 04:51 Pulse Ox 100 09/18/24 04:51 FiO2 Intake & Output 09/17/24 09/18/24 09/18/24 18:59 06:59 18:59 Intake Total 2323.083 240 Output Total 1240 500 Balance 1083.083 -260 Intake: IV 1100 ACETAMINOPHEN IV (For NPO 400 ) 1,000 mg In Empty Bag 1 bag @ 400 mls/hr IVPB Q6H [facility] Rx#:[id number] Piperacillin-Tazobactam 3 100 .375 gm In Sodium Chloride 0.9% 100 ml @ 25 mls/hr IVPB Q8H [facility] Rx#: [id number] Sodium Chloride 0.9% 1, 600 000 ml @ 100 mls/hr IV . Q10H [facility] Rx#:[id number] Intake, IV Titration 1223.083 Amount ACETAMINOPHEN IV (For NPO 100 ) 1,000 mg In Empty Bag 1 bag @ 400 mls/hr IVPB Q6H [facility] Rx#:[id number] ACETAMINOPHEN IV (For NPO 100 ) 1,000 mg In Empty Bag 1 bag @ 400 mls/hr IVPB Q6HR [facility] Rx#:[id number] Diltiazem 125 mg In 123.083 Sodium Chloride 0.9% 100 ml @ 5 MG/HR 5 mls/hr IV .Q24H [facility] Rx#:[id number] Magnesium Sulfate-D5w Pmx 100 1 gm In Dextrose/Water 1 100ml.bag @ 100 mls/hr IVPB ONCE ONE Rx#: [id number] Piperacillin-Tazobactam 3 100 .375 gm In Sodium Chloride 0.9% 100 ml @ 25 mls/hr IVPB Q8H [facility] Rx#: [id number] Sodium Chloride 0.9% 1, 700 000 ml @ 100 mls/hr IV . Q10H [facility] Rx#:[id number] Oral 240 Output: Gastric Drainage 450 Drainage 40 Right Medial Abdomen 40 Urine 750 500 Other: Voiding Method Indwelling Catheter Indwelling Catheter - Labs CBC & Chem 7: 09/18/24 06:09 09/18/24 06:09 Labs: Abnormal Lab Results - Last 24 Hours (Table) 09/18/24 09/18/24 Range/Units 06:09 06:09 RBC 3.34 L (4.40-5.60) 10*6/uL Hgb 11.5 L (13.0-17.0) g/dL Hct 35.6 L (39.6-50.0) % MCV 106.6 H (80.0-97.0) fL MCH 34.4 H (27.0-32.0) pg Chloride 110 H (98-107) mmol/L BUN 22 H (9-20) mg/dL Creatinine 0.58 L (0.66-1.25) mg/dL Microbiology - Last 24 Hours (Table) 09/14/24 04:40 Blood Culture - Preliminary Blood
--- NOTE | 2024-09-18 14:40 | P.PN ---
Subjective Progress Note Date: 09/18/24 SURGICAL PROGRESS NOTE CHIEF COMPLAINT: Fall HISTORY OF PRESENT ILLNESS: Postop day #3 status post robotic cholecystectomy with exploratory laparotomy with washout. Patient was transferred out of the ICU to the cardiac floor. He is having flatus. No bowel movement. Denies any nausea. No output through NG tube. Pain is controlled. MADDIE drain 40 mL serosanguineous output. Afebrile. WBCs 8 hemoglobin 11 total bilirubin is down from 1.9-1.6. LFTs are normal. PHYSICAL EXAM: VITAL SIGNS: Reviewed. GENERAL: Well-developed in no acute distress. ABDOMEN: Soft. Nondistended. Tender at incision site. Midline incision dressing clean dry and intact. MADDIE drain serosanguineous NEUROLOGIC: Alert and oriented. Cranial nerves II through XII grossly intact. ASSESSMENT: 1. Perforated acute cholecystitis 2. Abdominal ileus PLAN: - Discontinue NG tube - Start clear liquid diet - Add oral [place] for pain management. Also option of oral Tylenol - Okay to start oral anticoagulation from surgical standpoint - Encourage patient to increase activity level - Encourage patient to use incentive spirometer - Repeat labs in a.m. - Continue Reglan for ileus - Continue antibiotics - DVT prophylaxis Lovenox Physician Sawyer Cork Slabs note has been reviewed by physician. Signing provider agrees with the documented findings, assessment, and plan of care. Attestation Patient seen and examined at bedside. Having flatus. Appears to be improving. Plan for discontinuing nasogastric tube and starting on clear liquid diet today. Bilirubin continues to downtrend. Leukocytosis resolved. Recommending in creasing activity for the patient. Adilene Grant, Objective - Vital Signs Vital signs: Vital Signs Temp 97.6 F 09/18/24 11:30 Pulse 99 09/18/24 11:30 Resp 22 09/18/24 11:30 BP 131/87 09/18/24 11:30 Pulse Ox 100 09/18/24 11:30 FiO2 Intake & Output 09/17/24 09/18/24 09/18/24 18:59 06:59 18:59 Intake Total 2323.083 240 Output Total 1240 500 Balance 1083.083 -260 Weight 86.4 kg Intake: IV 1100 ACETAMINOPHEN IV (For NPO 400 ) 1,000 mg In Empty Bag 1 bag @ 400 mls/hr IVPB Q6H [facility] Rx#:[id number] Piperacillin-Tazobactam 3 100 .375 gm In Sodium Chloride 0.9% 100 ml @ 25 mls/hr IVPB Q8H [facility] Rx#: [id number] Sodium Chloride 0.9% 1, 600 000 ml @ 100 mls/hr IV . Q10H [facility] Rx#:[id number] Intake, IV Titration 1223.083 Amount ACETAMINOPHEN IV (For NPO 100 ) 1,000 mg In Empty Bag 1 bag @ 400 mls/hr IVPB Q6H [facility] Rx#:[id number] ACETAMINOPHEN IV (For NPO 100 ) 1,000 mg In Empty Bag 1 bag @ 400 mls/hr IVPB Q6HR [facility] Rx#:[id number] Diltiazem 125 mg In 123.083 Sodium Chloride 0.9% 100 ml @ 5 MG/HR 5 mls/hr IV .Q24H [facility] Rx#:[id number] Magnesium Sulfate-D5w Pmx 100 1 gm In Dextrose/Water 1 100ml.bag @ 100 mls/hr IVPB ONCE ONE Rx#: [id number] Piperacillin-Tazobactam 3 100 .375 gm In Sodium Chloride 0.9% 100 ml @ 25 mls/hr IVPB Q8H [facility] Rx#: [id number] Sodium Chloride 0.9% 1, 700 000 ml @ 100 mls/hr IV . Q10H [facility] Rx#:[id number] Oral 240 Output: Gastric Drainage 450 Drainage 40 Right Medial Abdomen 40 Urine 750 500 Other: Voiding Method Indwelling Catheter Indwelling Catheter Indwelling Catheter - Labs CBC & Chem 7: 09/18/24 06:09 09/18/24 06:09 Labs: Abnormal Lab Results - Last 24 Hours (Table) 09/18/24 09/18/24 09/18/24 Range/Units 06:09 06:09 08:21 RBC 3.34 L (4.40-5.60) 10*6/uL Hgb 11.5 L (13.0-17.0) g/dL Hct 35.6 L (39.6-50.0) % MCV 106.6 H (80.0-97.0) fL MCH 34.4 H (27.0-32.0) pg Chloride 110 H (98-107) mmol/L BUN 22 H (9-20) mg/dL Creatinine 0.58 L (0.66-1.25) mg/dL Total Bilirubin 1.6 H (0.2-1.3) mg/dL Delta Bilirubin 0.8 H (0.0-0.2) mg/dL Total Protein 4.9 L (6.3-8.2) g/dL Albumin 2.5 L (3.5-5.0) g/dL Microbiology - Last 24 Hours (Table) 09/14/24 04:40 Blood Culture - Preliminary Blood
--- NOTE | 2024-09-18 14:48 | P.PN ---
Subjective Progress Note Date: 09/18/24 Principal diagnosis: Reason for follow-up is acute ruptured cholecystitis and peritonitis Patient is a 79-year-old male with a past medical history significant for prostate cancer hypothyroidism, who was brought into the hospital after the patient did have a fall at home patient has been diagnosed with a ruptured cholecystitis status post cholecystectomy. On today's evaluation that is 09/18/2024, the patient continues to be afebrile, the patient is on 3 L current oxygen and breathing comfortably, the Pt denies having any chest pain or cough, the patient denies having any abdominal pain no vomiting or any diarrhea, has been complaining of feeling weak. Patient white count is 8.13 creatinine 0.58 blood culture negative Objective - Vital Signs Vital signs: Vital Signs Temp 97.6 F 09/18/24 11:30 Pulse 99 09/18/24 11:30 Resp 22 09/18/24 11:30 BP 131/87 09/18/24 11:30 Pulse Ox 100 09/18/24 11:30 FiO2 Intake & Output 09/17/24 09/18/24 09/18/24 18:59 06:59 18:59 Intake Total 2323.083 240 Output Total 1240 500 Balance 1083.083 -260 Intake: IV 1100 ACETAMINOPHEN IV (For NPO 400 ) 1,000 mg In Empty Bag 1 bag @ 400 mls/hr IVPB Q6H [facility] Rx#:[id number] Piperacillin-Tazobactam 3 100 .375 gm In Sodium Chloride 0.9% 100 ml @ 25 mls/hr IVPB Q8H [facility] Rx#: [id number] Sodium Chloride 0.9% 1, 600 000 ml @ 100 mls/hr IV . Q10H [facility] Rx#:[id number] Intake, IV Titration 1223.083 Amount ACETAMINOPHEN IV (For NPO 100 ) 1,000 mg In Empty Bag 1 bag @ 400 mls/hr IVPB Q6H [facility] Rx#:[id number] ACETAMINOPHEN IV (For NPO 100 ) 1,000 mg In Empty Bag 1 bag @ 400 mls/hr IVPB Q6HR [facility] Rx#:[id number] Diltiazem 125 mg In 123.083 Sodium Chloride 0.9% 100 ml @ 5 MG/HR 5 mls/hr IV .Q24H [facility] Rx#:[id number] Magnesium Sulfate-D5w Pmx 100 1 gm In Dextrose/Water 1 100ml.bag @ 100 mls/hr IVPB ONCE ONE Rx#: [id number] Piperacillin-Tazobactam 3 100 .375 gm In Sodium Chloride 0.9% 100 ml @ 25 mls/hr IVPB Q8H [facility] Rx#: [id number] Sodium Chloride 0.9% 1, 700 000 ml @ 100 mls/hr IV . Q10H [facility] Rx#:[id number] Oral 240 Output: Gastric Drainage 450 Drainage 40 Right Medial Abdomen 40 Urine 750 500 Other: Voiding Method Indwelling Catheter Indwelling Catheter Indwelling Catheter - Exam GENERAL DESCRIPTION: An elderly male lying in bed in no distress RESPIRATORY SYSTEM: Unlabored breathing , decreased breath sounds at bases HEART: S1 S2 regular rate and rhythm , ABDOMEN: Soft , no tenderness EXTREMITIES: No edema feet - Labs CBC & Chem 7: 09/18/24 06:09 09/18/24 06:09 Labs: Abnormal Lab Results - Last 24 Hours (Table) 09/18/24 09/18/24 09/18/24 Range/Units 06:09 06:09 08:21 RBC 3.34 L (4.40-5.60) 10*6/uL Hgb 11.5 L (13.0-17.0) g/dL Hct 35.6 L (39.6-50.0) % MCV 106.6 H (80.0-97.0) fL MCH 34.4 H (27.0-32.0) pg Chloride 110 H (98-107) mmol/L BUN 22 H (9-20) mg/dL Creatinine 0.58 L (0.66-1.25) mg/dL Total Bilirubin 1.6 H (0.2-1.3) mg/dL Delta Bilirubin 0.8 H (0.0-0.2) mg/dL Total Protein 4.9 L (6.3-8.2) g/dL Albumin 2.5 L (3.5-5.0) g/dL Microbiology - Last 24 Hours (Table) 09/14/24 04:40 Blood Culture - Preliminary Blood Assessment and Plan (1) Peritonitis Current Visit: Yes Status: Acute Code(s): K65.9 - PERITONITIS, UNSPECIFIED SNOMED Code(s): 95483314 (2) Acute cholecystitis Current Visit: Yes Status: Acute Code(s): K81.0 - ACUTE CHOLECYSTITIS SNOMED Code(s): 29514881 Plan: 1patient presented to hospital with weakness and a fall on a workup did have evidence of acute cholecystitis that was seen on the CT as well as MRCP in this patient who is status post cholecystectomy completed on 09/15/2024 with operative report mention perforated acute cholecystitis no operative culture blood cultures are currently pending likely arguably recovery with enteric gram- negative more likely anaerobes and less likely anaerobes 2- patient is afebrile and white count is normal blood cultures has been negative so far 3patient will be treated with the Zosyn while inpatient hopefully transition to oral antibiotic on discharge Dictation was produced using [employer] dictation software. please excuse any grammatical, word or spelling errors. Time with Patient: Less than 30
--- NOTE | 2024-09-18 14:48 | P.PN ---
Subjective Progress Note Date: 09/17/24 Principal diagnosis: Reason for follow-up is acute ruptured cholecystitis and peritonitis Patient is a 79-year-old male with a past medical history significant for prostate cancer hypothyroidism, who was brought into the hospital after the patient did have a fall at home patient has been diagnosed with a ruptured cholecystitis status post cholecystectomy. On today's evaluation that is 09/17/2024,the patient remains to be afebrile, patient is requiring 3 L nasal cannula supplemental oxygen and denies any shortness of breath no chest pain or cough.Patient denies having any nausea or vomiting, no abdominal pain and no diarrhea has been reported. Patient white count 7.41, creatinine 0.73 Objective - Vital Signs Vital signs: Vital Signs Temp 98.5 F 09/17/24 19:50 Pulse 83 09/17/24 20:00 Resp 17 09/17/24 19:50 BP 115/81 09/17/24 16:00 Pulse Ox 100 09/17/24 19:50 FiO2 Intake & Output 09/17/24 09/17/24 09/18/24 06:59 18:59 06:59 Intake Total 1400 2323.083 Output Total 540 1240 Balance 860 1083.083 Weight 86.4 kg Intake: IV 1100 ACETAMINOPHEN IV (For NPO 400 ) 1,000 mg In Empty Bag 1 bag @ 400 mls/hr IVPB Q6H [facility] Rx#:[id number] Piperacillin-Tazobactam 3 100 .375 gm In Sodium Chloride 0.9% 100 ml @ 25 mls/hr IVPB Q8H [facility] Rx#: [id number] Sodium Chloride 0.9% 1, 600 000 ml @ 100 mls/hr IV . Q10H [facility] Rx#:[id number] Intake, IV Titration 1400 1223.083 Amount ACETAMINOPHEN IV (For NPO 100 100 ) 1,000 mg In Empty Bag 1 bag @ 400 mls/hr IVPB Q6H [facility] Rx#:[id number] ACETAMINOPHEN IV (For NPO 100 ) 1,000 mg In Empty Bag 1 bag @ 400 mls/hr IVPB Q6HR [facility] Rx#:[id number] Diltiazem 125 mg In 123.083 Sodium Chloride 0.9% 100 ml @ 5 MG/HR 5 mls/hr IV .Q24H [facility] Rx#:[id number] Magnesium Sulfate-D5w Pmx 100 1 gm In Dextrose/Water 1 100ml.bag @ 100 mls/hr IVPB ONCE ONE Rx#: [id number] Piperacillin-Tazobactam 3 100 100 .375 gm In Sodium Chloride 0.9% 100 ml @ 25 mls/hr IVPB Q8H [facility] Rx#: [id number] Sodium Chloride 0.9% 1, 1200 700 000 ml @ 100 mls/hr IV . Q10H [facility] Rx#:[id number] Output: Gastric Drainage 450 Drainage 30 40 Right Medial Abdomen 30 40 Urine 510 750 Other: Voiding Method Indwelling Catheter Indwelling Catheter Indwelling Catheter - Exam GENERAL DESCRIPTION: An elderly male lying in bed in no distress RESPIRATORY SYSTEM: Unlabored breathing , decreased breath sounds at bases HEART: S1 S2 regular rate and rhythm , ABDOMEN: Soft , no tenderness EXTREMITIES: No edema feet - Labs CBC & Chem 7: 09/18/24 06:09 09/18/24 06:09 Labs: Abnormal Lab Results - Last 24 Hours (Table) 09/17/24 09/17/24 Range/Units 04:26 04:26 RBC 3.14 L (4.40-5.60) 10*6/uL Hgb 10.8 L (13.0-17.0) g/dL Hct 32.7 L (39.6-50.0) % MCV 104.1 H (80.0-97.0) fL MCH 34.4 H (27.0-32.0) pg Immature Gran # 0.06 H (0.00-0.04) 10*3/uL Lymphocytes # 0.42 L (0.90-5.00) 10*3/uL Eosinophils # 0.01 L (0.04-0.35) 10*3/uL Chloride 110 H (98-107) mmol/L BUN 31 H (9-20) mg/dL Total Bilirubin 1.9 H (0.2-1.3) mg/dL Total Protein 4.9 L (6.3-8.2) g/dL Albumin 2.6 L (3.5-5.0) g/dL Microbiology - Last 24 Hours (Table) 09/14/24 04:40 Blood Culture - Preliminary Blood Assessment and Plan (1) Peritonitis Current Visit: Yes Status: Acute Code(s): K65.9 - PERITONITIS, UNSPECIFIED SNOMED Code(s): 86324606 (2) Acute cholecystitis Current Visit: Yes Status: Acute Code(s): K81.0 - ACUTE CHOLECYSTITIS SNOMED Code(s): 76021600 Plan: 1patient presented to hospital with weakness and a fall on a workup did have evidence of acute cholecystitis that was seen on the CT as well as MRCP in this patient who is status post cholecystectomy completed on 09/15/2024 with operative report mention perforated acute cholecystitis no operative culture blood cultures are currently pending likely arguably recovery with enteric gram- negative more likely anaerobes and less likely anaerobes 2- patient is afebrile and white count is normal blood cultures pending we will treat with Zosyn and monitor clinical course closely Dictation was produced using [employer] dictation software. please excuse any grammatical, word or spelling errors. Time with Patient: Less than 30
--- NOTE | 2024-09-18 14:59 | P.PN ---
Subjective Progress Note Date: 09/18/24 PROGRESS NOTE The patient is an 79-year-old male who presented with abdominal discomfort, had a recent left rectus sheath hematoma with arterial extravasation underwent angioembolization on August 23 was diagnosed with acute cholecystitis and underwent cholecystectomy yesterday. He is extubated and feels better today. He continues to have some abdominal discomfort but improved. He continues to be in atrial fibrillation, on IV Cardizem, with controlled ventricular response. He denies any dyspnea, dizziness or palpitations. He has an NG tube in place. He denies any nausea or vomiting. His echocardiogram showed a preserved systolic function with mild mitral and tricuspid regurgitation. He is off anticoagulation because of the recent bleed. He has a prior history of alcohol intake but has not had any drink for over 10 days. September 17: The patient is feeling better today, he has some dryness in the throat. He continues to be in atrial fibrillation on IV Cardizem and his rate is controlled . He denies any chest discomfort, dizziness or palpitations. He denies any nausea or vomiting. He has no flatus yet. He was up in the chair yesterday. He is on no vasopressors. He continues to be on IV Cardizem 5 mg an hour drip. 09/18 Patient has been transferred out of the intensive care unit and seen today on the cardiac stepdown unit. He continues to have NG tube in place. He states he is passing gas. He denies chest pain or chest pressure. Shortness of breath is stable. He states he has not been out of bed. Blood pressure 131/91, heart rate 106, pulse ox 100% on 3 L nasal cannula. Repeat blood work reveals hemoglobin 9.5, BUN 22 creatinine 0.58, sodium 139 and potassium 4. Yesterday IV Cardizem was discontinued patient started on oral. General surgery has cleared the patient to start anticoagulation. Medications: P.o. Cardizem,Lovenox, metoprolol tartrate 50 mg twice a day, Protonix, thiamine, Lexapro PHYSICAL EXAMINATION: Vital signs reviewed LUNGS: Clear to auscultation HEART: Irregular rate and rhythm, S1, S2. No S3. Systolic ejection murmur ABDOMEN: Soft, dressing in place, dry and clean, no organomegaly EXTREMETIES: No edema LAB: Hemoglobin 10.8, potassium 3.9, BUN 31, creatinine 0.73 IMPRESSION: 1. Status post open cholecystectomy 2. Atrial fibrillation with episodes of rapid ventricular response, not anticoagulated because of recent bleed 3. Recent rectus sheath hematoma with angioembolization, following a fall. 4. Prior history of alcohol intake PLAN: 1. Continue oral Cardizem 2. Start Eliquis 5 mg twice daily 3. Increase physical activity 4. Incentive spirometry Nurse practitioner note has been reviewed, I agree with documented findings and plan of care. Patient was seen and examined. Objective - Vital Signs Vital signs: Vital Signs Temp 97.1 F L 09/18/24 07:10 Pulse 107 H 09/18/24 08:50 Resp 16 09/18/24 08:50 BP 131/91 09/18/24 07:10 Pulse Ox 100 09/18/24 07:10 FiO2 Intake & Output 09/17/24 09/18/24 09/18/24 18:59 06:59 18:59 Intake Total 2323.083 240 Output Total 1240 500 Balance 1083.083 -260 Intake: IV 1100 ACETAMINOPHEN IV (For NPO 400 ) 1,000 mg In Empty Bag 1 bag @ 400 mls/hr IVPB Q6H [facility] Rx#:[id number] Piperacillin-Tazobactam 3 100 .375 gm In Sodium Chloride 0.9% 100 ml @ 25 mls/hr IVPB Q8H [facility] Rx#: [id number] Sodium Chloride 0.9% 1, 600 000 ml @ 100 mls/hr IV . Q10H [facility] Rx#:[id number] Intake, IV Titration 1223.083 Amount ACETAMINOPHEN IV (For NPO 100 ) 1,000 mg In Empty Bag 1 bag @ 400 mls/hr IVPB Q6H [facility] Rx#:[id number] ACETAMINOPHEN IV (For NPO 100 ) 1,000 mg In Empty Bag 1 bag @ 400 mls/hr IVPB Q6HR [facility] Rx#:[id number] Diltiazem 125 mg In 123.083 Sodium Chloride 0.9% 100 ml @ 5 MG/HR 5 mls/hr IV .Q24H [facility] Rx#:[id number] Magnesium Sulfate-D5w Pmx 100 1 gm In Dextrose/Water 1 100ml.bag @ 100 mls/hr IVPB ONCE ONE Rx#: [id number] Piperacillin-Tazobactam 3 100 .375 gm In Sodium Chloride 0.9% 100 ml @ 25 mls/hr IVPB Q8H [facility] BEDS AT [facility] Rx#: [id number] Sodium Chloride 0.9% 1, 700 000 ml @ 100 mls/hr IV . Q10H [facility] Rx#:[id number] Oral 240 Output: Gastric Drainage 450 Drainage 40 Right Medial Abdomen 40 Urine 750 500 Other: Voiding Method Indwelling Catheter Indwelling Catheter Indwelling Catheter - Labs CBC & Chem 7: 09/18/24 06:09 09/18/24 06:09 Labs: Abnormal Lab Results - Last 24 Hours (Table) 09/18/24 09/18/24 09/18/24 Range/Units 06:09 06:09 08:21 RBC 3.34 L (4.40-5.60) 10*6/uL Hgb 11.5 L (13.0-17.0) g/dL Hct 35.6 L (39.6-50.0) % MCV 106.6 H (80.0-97.0) fL MCH 34.4 H (27.0-32.0) pg Chloride 110 H (98-107) mmol/L BUN 22 H (9-20) mg/dL Creatinine 0.58 L (0.66-1.25) mg/dL Total Bilirubin 1.6 H (0.2-1.3) mg/dL Delta Bilirubin 0.8 H (0.0-0.2) mg/dL Total Protein 4.9 L (6.3-8.2) g/dL Albumin 2.5 L (3.5-5.0) g/dL Microbiology - Last 24 Hours (Table) 09/14/24 04:40 Blood Culture - Preliminary Blood
--- NOTE | 2024-09-18 15:01 | P.PN ---
Subjective Progress Note Date: 09/18/24 Principal diagnosis: Acute cholecystitis status post robotic assisted cholecystectomy converted to open procedure and evacuation of large amount of bilious drainage in the right upper quadrant. Patient is an 79-year-old male with past medical history significant for gout, prostate cancer, hypothyroidism, and alcohol abuse. Patient does follow-up with Dr. Mascorro for his primary care needs. Patient has been suffering from frequent falls, was evaluated emergency department back on 08/21/2024, found to have a traumatic large left rectus sheath hematoma. He was also found to be in new onset atrial fibrillation at this time. Transferred to [facility] for vascular embolization. Patient was discharged home on metoprolol and Xarelto. He was seen by Dr. Mascorro on 09/01/2024 in follow-up. CT of the abdomen and pelvis showing increasing size of large left rectus sheath hematoma without visualized active extravasation. Dr. Mascorro advised the patient to stop his Xar elto. Patient had a subsequent fall on 09/14/2024. Reportedly dizzy which caused him to fall. Also, endorsed some right-sided chest and abdominal pain. Appetite has been poor. Abdominal/pelvis CT showing cholelithiasis with gallbladder wall thickening concerning for acute cholecystitis. Redemonstration of the large left abdominal wall intramuscular hematoma measuring approximately 11.6 x 15.3 x 5.3 cm. No indication of active bleeding. Diverticulosis without acute diverticulitis. No small bowel obstructions. No free intraperitoneal air. Follow-up MRCP demonstrated prominent gallbladder with gallstones and circumferential wall thickening. Borderline dilated extrahepatic biliary ducts no evidence of choledocholithiasis. Last night patient was taken for robotic assisted cholecystectomy converted to open procedure with a large amount of bilious fluid collection. Did briefly require vasopressor support in the operating room. Patient was extubated in the postanesthesia care unit and transferred to the intensive care unit. Patient currently being evaluated in room 265. He is awake and alert. Heart rhythm is atrial fibrillation with rapid ventricular response ranging from 100 to 120 bpm. Cardizem is infusing at 5 mg/h. Blood pressure is normotensive. He did receive a 1 L LR bolus earlier. Normal saline continues at 75 mm/h. No longer requiring any vasopressor suppo rt. Endorsing some incisional abdominal pain, rated 7 on a 10 point numerical scale. There is a midline abdominal incision with some additional laparoscopic incisions. Right upper quadrant MADDIE drain with small amount of serosanguineous output. Patient is on 2 L/min nasal cannula. Resting comfortably not in any respiratory distress. Chest x-ray with low lung volumes, right lateral chest wall subcutaneous emphysema extending the right clavicular region in the setting of recent laparoscopic procedure. No discrete pneumothorax. No pleural effusions. No focal consolidations. CBC: WBC count 6, hemoglobin 12, platelets 236. CMP: Sodium 135, potassium 4.1, chloride 106, serum bicarb 21, BUN 34, creatinine 1.21, glucose 107. Total bilirubin 2.8. AST 24, ALT 11, ALP 56. Troponin elevated 0.054. Patient empirically covered on Zosyn. Current vital signs: Afebrile, heart rate 108 bpm, blood pressure 108/74 mmHg, nontachypneic, on 2 L/min nasal cannula, SpO2 reading 97% on bedside monitor. Patient was seen today on 09/17/2024, remains in the ICU, patient is feeling better today compared to yesterday and the day prior. No shortness of breath, complaining mostly of dry sore throat, continues to have nasogastric tube in place, patient was transition from IV Cardizem to oral Cardizem, his atrial fibrillation seems to be controlled. Rate is in the 80s. Patient remains on CIWA protocol for his history of alcoholism. Overall I believe the patient is doing well, and I will plan to transfer the patient out of the ICU to a monitored bed and selective. WBC count is 7.4 hemoglobin 10.8, basic metabolic profile is normal renal profile is normal Patient was seen today on 09/18/2024, doing well, continues to have nasogastric tube in place, does not seem to be in any distress, remains on the CIWA protocol. Patient is passing some gas, however no bowel movements yet, nasogastric tube is being addressed by surgery on the case, I believe he will be started on clear liquid diet today, and the nasogastric tube will likely be removed today, he is also on oral [place] for pain, he is compliant with incentive spirometry, and he remains on antibiotics as per ID on the case. No active pulmonary symptoms no cough no wheezing no shortness of breath. WBC count is 8.13 hemoglobin 11.5 electrolytes are normal renal profile is normal Objective - Vital Signs Vital signs: Vital Signs Temp 97.6 F 04/11/25 11:30 Pulse 99 09/18/24 11:30 Resp 22 09/18/24 11:30 BP 131/87 09/18/24 11:30 Pulse Ox 100 09/18/24 11:30 FiO2 Intake & Output 09/17/24 09/18/24 09/18/24 18:59 06:59 18:59 Intake Total 2323.083 240 Output Total 1240 500 Balance 1083.083 -260 Weight 86.4 kg Intake: IV 1100 ACETAMINOPHEN IV (For NPO 400 ) 1,000 mg In Empty Bag 1 bag @ 400 mls/hr IVPB Q6H [facility] Rx#:[id number] Piperacillin-Tazobactam 3 100 .375 gm In Sodium Chloride 0.9% 100 ml @ 25 mls/hr IVPB Q8H [facility] Rx#: [id number] Sodium Chloride 0.9% 1, 600 000 ml @ 100 mls/hr IV . Q10H [facility] Rx#:[id number] Intake, IV Titration 1223.083 Amount ACETAMINOPHEN IV (For NPO 100 ) 1,000 mg In Empty Bag 1 bag @ 400 mls/hr IVPB Q6H [facility] Rx#:[id number] ACETAMINOPHEN IV (For NPO 100 ) 1,000 mg In Empty Bag 1 bag @ 400 mls/hr IVPB Q6HR [facility] Rx#:[id number] Diltiazem 125 mg In 123.083 Sodium Chloride 0.9% 100 ml @ 5 MG/HR 5 mls/hr IV .Q24H [facility] Rx#:[id number] Magnesium Sulfate-D5w Pmx 100 1 gm In Dextrose/Water 1 100ml.bag @ 100 mls/hr IVPB ONCE ONE Rx#: [id number] Piperacillin-Tazobactam 3 100 .375 gm In Sodium Chloride 0.9% 100 ml @ 25 mls/hr IVPB Q8H [facility] Rx#: [id number] Sodium Chloride 0.9% 1, 700 000 ml @ 100 mls/hr IV . Q10H [facility] Rx#:[id number] Oral 240 Output: Gastric Drainage 450 Drainage 40 Right Medial Abdomen 40 Urine 750 500 Other: Voiding Method Indwelling Catheter Indwelling Catheter Indwelling Catheter - Exam GENERAL EXAM: Revealed 79-year-old white male in no distress HEAD: Normocephalic and atraumatic EYES: Normal reaction of pupils, equal size. NOSE: Clear with pink turbinates. Nasogastric tube to low intermittent suction THROAT: No erythema or exudates. NECK: No masses, no JVD. CHEST: Right lateral chest subcutaneous emphysema. No crepitus or deformities noted. LUNGS: Equal air entry with no crackles, wheeze, rhonchi or dullness. On 2 L/min nasal cannula. No conversational dyspnea or accessory muscle use.. CVS: S1 and S2 normal with no audible murmur, irregular rhythm. No extra heart sounds ABDOMEN: Postsurgical abdomen with midline abdominal incision and laparoscopic incisions with postsurgical dressings clean, dry, intact. Right upper quadrant MADDIE drain with bulb compressed and minimal amount of serosanguineous output. Hypoactive bowel sounds. Abdomen is soft. No guarding or rigidity. SKIN: Scrotal ecchymosis. CENTRAL NERVOUS SYSTEM: Alert and oriented x 3 no gross focal deficit EXTREMITIES: Trace of bipedal edema no clubbing or cyanosis - Labs CBC & Chem 7: 09/18/24 06:09 09/18/24 06:09 Labs: Abnormal Lab Results - Last 24 Hours (Table) 09/18/24 09/18/24 09/18/24 Range/Units 06:09 06:09 08:21 RBC 3.34 L (4.40-5.60) 10*6/uL Hgb 11.5 L (13.0-17.0) g/dL Hct 35.6 L (39.6-50.0) % MCV 106.6 H (80.0-97.0) fL MCH 34.4 H (27.0-32.0) pg Chloride 110 H (98-107) mmol/L BUN 22 H (9-20) mg/dL Creatinine 0.58 L (0.66-1.25) mg/dL Total Bilirubin 1.6 H (0.2-1.3) mg/dL Delta Bilirubin 0.8 H (0.0-0.2) mg/dL Total Protein 4.9 L (6.3-8.2) g/dL Albumin 2.5 L (3.5-5.0) g/dL Microbiology - Last 24 Hours (Table) 09/14/24 04:40 Blood Culture - Preliminary Blood Assessment and Plan Assessment: Impression: Acute complicated cholecystitis status post robotic assisted cholecystectomy converted to open procedure and evacuation of large amount of bilious drainage in the right upper quadrant. Atrial fibrillation with rapid ventricular response, on oral Cardizem, rate seems to be better controlled today Large left rectus sheath hematoma redemonstrated and measuring approximately 11.6 x 15.3 x 5.3 cm. No indication of active bleeding. Xarelto previously placed on hold. Previous reported vascular embolization performed at [facility] Frequent falls Acute hypoxemic respiratory failure, currently on 2 L/min nasal cannula, chest x-ray showing low lung volumes, right lateral chest wall subcutaneous emphysema extending the right clavicular region in the setting of recent laparoscopic procedure. No discrete pneumothorax. No pleural effusions. No focal consolidations. History of gout History of prostate cancer History of hypothyroidism History of alcohol abuse, last reported drink approximately 10 days ago Anxiety/depression Recommendation: Patient will likely have his nasogastric tube removed today by surgery and then he can be placed on clear liquid diet Continue present supportive care measures Continue oral Cardizem Continue antibiotics Continue pain control management Continue CIWA protocol Continue GI DVT prophylaxis Will continue to follow Time with Patient: Less than 30
[2024-09-18] MEDS: MAGNESIUM SULFATE-D5W PMX 1 GM in DEXTROSE/WATER 1 100ML.BAG IVPB ONE (16:55)
[2024-09-18] MEDS: APIXABAN 5 MG TAB PO SCH (20:24)
[2024-09-19] MEDS: HYDROcodone/APAP 5-325MG 1 EACH TAB PO PRN (05:42)
[2024-09-19 07:28] LABS: Basophils # (A) 0.02 10*3/uL (0.00-0.10); Basophils % (A) 0.2 %; Eosinophils # (A) 0.22 10*3/uL (0.04-0.35); Eosinophils % (A) 2.7 %; HGB 11.1 g/dL (13.0-17.0); Lymphocytes # (A) 0.64 10*3/uL (0.90-5.00); MCHC 33.6 g/dL (32.0-37.0); MCV 104.1 fL (80.0-97.0); Mean Platelet Volume 11.1 fL (9.5-12.2); Monocytes # (A) 0.74 10*3/uL (0.20-1.00); Monocytes % (A) 9.2 %; Neutrophils # (A) 6.25 10*3/uL (1.80-7.70); Platelet Count 276 10*3/uL (140-440); RBC 3.17 10*6/uL (4.40-5.60); RDW 19.1 % (11.5-14.5); WBC 8.02 10*3/uL (4.50-10.00)
[2024-09-19 08:21] LABS: ALT 19 U/L (4-49); AST 29 U/L (17-59); African American GFR (CKD) >90 (>60 ml/min/1.73 sqM); Albumin 2.3 g/dL (3.5-5.0); Alkaline Phosphatase 118 U/L (38-126); Anion Gap 4 mmol/L; Blood Urea Nitrogen 11 mg/dL (9-20); Carbon Dioxide 25 mmol/L (22-30); Chloride 105 mmol/L (98-107); Glucose 85 mg/dL (74-99); Non-African American GFR(CKD) >90 (>60 ml/min/1.73 sqM); Potassium 3.4 mmol/L (3.5-5.1); Sodium 134 mmol/L (137-145); Total Bilirubin 1.7 mg/dL (0.2-1.3); Total Protein 4.5 g/dL (6.3-8.2)
[2024-09-19] MEDS: POTASSIUM CHLORIDE ER 20 MEQ TAB.ER PO STA (09:03)
--- NOTE | 2024-09-19 12:45 | P.PN ---
Subjective Progress Note Date: 09/19/24 History of present illness; Patient is an 79-year-old male with history of alcohol use disorder, hypothyroi dism, anxiety depression, A-fib with RVR who presents after a fall. Patient states that yesterday he fell on his right shoulder after reaching for his medication while seated in his chair. He felt dizzy and lightheaded but reports he did not lose consciousness. He had no other symptoms at that time. He discontinued blood thinners roughly 1 month ago. He does admit to wanting a walker but only uses it intermittently. He also admits to having a poor appetite for some time since his last fall 1 month ago when he was transferred from this hospital to [facility]. He also notes that he began to have right-sided abdominal pain which he first noticed after he fell yesterday. He also states that he has roughly 8 beers daily, however has not had drink for the last 10 days. Patient reports absence of fever, chills, chest pain, palpitations, diaphoresis, dyspnea, cough, nausea, vomiting, myalgia, headache, and dysuria. REVIEW OF SYSTEMS: Pertinent positives and negatives noted in HPI. 09/15/2024 Patient seen and examined at bedside. Plan for cholecystectomy today. He is having increased abdominal pain and shortness of breath. He remains in atrial fibrillation with rate controlled. 09/16/2024 Patient seen and examined at bedside. He has a mild abdominal pain but otherwise is feeling well. He is postop day 1 laparoscopic cholecystectomy which was converted to open procedure. Postprocedure patient became hypotensive and appeared septic. He was placed on pressors for short time, and is now, off pressor support. 09/17/2024 Patient seen and examined at bedside in the ICU. He continues to have dry sore throat with irritation with nasogastric tube in place. MADDIE drain in place with serosanguineous fluid. He is transition from IV to oral Cardizem. Abdominal pain is improved. Likely transfer out of ICU. No other complaints. 09/18/2024 Patient seen and examined at bedside. He continues to have dry sore throat with irritation with nasogastric tube in place. MADDIE drain in place with serosanguineous fluid. Abdominal pain improved and now passing gas. 09/19/2024 Patient seen and examined at bedside. NG tube removed. Tolerating liquid diet well. Abdominal pain improved and now passing gas, no bowel movement. MADDIE drain in place with serosanguineous fluid. Continue with PT. PHYSICAL EXAMINATION: Vitals reviewed GENERAL: Resting comfortably in bed. CARDIOVASCULAR: S1 and S2 present. Irregular pulse. No murmurs, rubs, or gallops. PULMONARY: Chest is clear to auscultation, no wheezing, rhonchi, or crackles. ABDOMEN: Soft, nontender, nondistended. No palpable organomegaly. MADDIE drain serosanguineous fluid EXTREMITIES: No apparent cyanosis, clubbing. No pedal edema. NEUROLOGICAL: Alert and oriented. Gross neurological examination with no apparent focal deficits. SKIN: Abdominal hematoma Today's significant findings: Labs significant for hemoglobin 11.1, MCV 104.1, sodium 134, potassium 3.4, tot al bilirubin 1.7 No new imaging Assessment and Plan: In summary, patient is an 79-year-old male with history of alcohol use disorder, hypothyroidism, anxiety depression, A-fib with RVR who presents after a fall. #Pre-syncope without loss of consciousness #Recurrent fall, likely due to hypotension #Left rectus sheath hematoma - Fall precautions - Continue IV normal saline - PT OT following #Acute cholecystitis, status post cholecystectomy on 09/15/2024 Continue Zosyn 3.375 g IVPB every 8 hours Continue morphine 4 mg IV every 4 hours as needed for pain Monitor CMP Surgery following #Hypokalemia Given potassium chloride 40 mEq Monitor CMP #Paroxysmal atrial fibrillation with RVR, currently rate controlled #Right bundle branch block #Elevated troponin Continue oral Cardizem Hold anticoagulation - Continue cardiac monitoring Resume home metoprolol 50 mg twice daily Cardiology following # Hypothyroidism -TSH 20.0, free T4 1.38 WNL Continue Synthroid 75 mcg daily #Alcohol use disorder #Macrocytic anemia Last intake 10 days before admission Begin daily thiamine and folate supplementation CIWA protocol initiated, Ativan per protocol Monitor CBC Chronic Medical Conditions #Anxiety/Depression #Arthritis Resume home medications DVT ppx: Subq Lovenox 40 meq daily Code status: No code F: IV Normal saline E: Replete as needed N: n.p.o. A: Ambulatory uses walker at baseline, PT assessment Anticipated discharge place: ECF versus home with home care Anticipated discharge time: Pending clinical course Dr. Bronson seen patient with resident, present during exam, and agreed with findings. Dictation was produced using [employer] dictation software. Please excuse any grammatical, word or spelling errors. Objective - Vital Signs Vital signs: Vital Signs Temp 97.7 F 09/19/24 08:00 Pulse 113 H 09/19/24 08:00 Resp 16 09/19/24 08:00 BP 128/83 09/19/24 08:00 Pulse Ox 98 09/19/24 08:00 FiO2 Intake & Output 09/18/24 09/19/24 09/19/24 18:59 06:59 18:59 Intake Total 600 Output Total 625 600 Balance -25 -600 Weight 86.4 kg 86 kg Intake: Oral 600 Output: Urine 625 600 Other: Voiding Method Indwelling Catheter Indwelling Catheter - Labs CBC & Chem 7: 09/19/24 06:49 09/19/24 06:49 Labs: Abnormal Lab Results - Last 24 Hours (Table) 09/18/24 09/19/24 09/19/24 Range/Units 08:21 06:49 06:49 RBC 3.17 L (4.40-5.60) 10*6/uL Hgb 11.1 L (13.0-17.0) g/dL Hct 33.0 L (39.6-50.0) % MCV 104.1 H (80.0-97.0) fL MCH 35.0 H (27.0-32.0) pg Immature Gran # 0.15 H (0.00-0.04) 10*3/uL Lymphocytes # 0.64 L (0.90-5.00) 10*3/uL Sodium 134 L (137-145) mmol/L Potassium 3.4 L (3.5-5.1) mmol/L Creatinine 0.51 L (0.66-1.25) mg/dL Calcium 8.0 L (8.4-10.2) mg/dL Total Bilirubin 1.6 H 1.7 H (0.2-1.3) mg/dL Delta Bilirubin 0.8 H (0.0-0.2) mg/dL Total Protein 4.9 L 4.5 L (6.3-8.2) g/dL Albumin 2.5 L 2.3 L (3.5-5.0) g/dL
--- NOTE | 2024-09-19 13:22 | P.PN ---
Subjective Progress Note Date: 09/19/24 Principal diagnosis: Acute cholecystitis status post robotic assisted cholecystectomy converted to open procedure and evacuation of large amount of bilious drainage in the right upper quadrant. Patient is an 79-year-old male with past medical history significant for gout, prostate cancer, hypothyroidism, and alcohol abuse. Patient does follow-up with Dr. Mascorro for his primary care needs. Patient has been suffering from frequent falls, was evaluated emergency department back on 08/21/2024, found to have a traumatic large left rectus sheath hematoma. He was also found to be in new onset atrial fibrillation at this time. Transferred to [facility] for vascular embolization. Patient was discharged home on metoprolol and Xarelto. He was seen by Dr. Mascorro on 09/01/2024 in follow-up. CT of the abdomen and pelvis showing increasing size of large left rectus sheath hematoma without visualized active extravasation. Dr. Mascorro advised the patient to stop his Xar elto. Patient had a subsequent fall on 09/14/2024. Reportedly dizzy which caused him to fall. Also, endorsed some right-sided chest and abdominal pain. Appetite has been poor. Abdominal/pelvis CT showing cholelithiasis with gallbladder wall thickening concerning for acute cholecystitis. Redemonstration of the large left abdominal wall intramuscular hematoma measuring approximately 11.6 x 15.3 x 5.3 cm. No indication of active bleeding. Diverticulosis without acute diverticulitis. No small bowel obstructions. No free intraperitoneal air. Follow-up MRCP demonstrated prominent gallbladder with gallstones and circumferential wall thickening. Borderline dilated extrahepatic biliary ducts no evidence of choledocholithiasis. Last night patient was taken for robotic assisted cholecystectomy converted to open procedure with a large amount of bilious fluid collection. Did briefly require vasopressor support in the operating room. Patient was extubated in the postanesthesia care unit and transferred to the intensive care unit. Patient currently being evaluated in room 265. He is awake and alert. Heart rhythm is atrial fibrillation with rapid ventricular response ranging from 100 to 120 bpm. Cardizem is infusing at 5 mg/h. Blood pressure is normotensive. He did receive a 1 L LR bolus earlier. Normal saline continues at 75 mm/h. No longer requiring any vasopressor suppo rt. Endorsing some incisional abdominal pain, rated 7 on a 10 point numerical scale. There is a midline abdominal incision with some additional laparoscopic incisions. Right upper quadrant MADDIE drain with small amount of serosanguineous output. Patient is on 2 L/min nasal cannula. Resting comfortably not in any respiratory distress. Chest x-ray with low lung volumes, right lateral chest wall subcutaneous emphysema extending the right clavicular region in the setting of recent laparoscopic procedure. No discrete pneumothorax. No pleural effusions. No focal consolidations. CBC: WBC count 6, hemoglobin 12, platelets 236. CMP: Sodium 135, potassium 4.1, chloride 106, serum bicarb 21, BUN 34, creatinine 1.21, glucose 107. Total bilirubin 2.8. AST 24, ALT 11, ALP 56. Troponin elevated 0.054. Patient empirically covered on Zosyn. Current vital signs: Afebrile, heart rate 108 bpm, blood pressure 108/74 mmHg, nontachypneic, on 2 L/min nasal cannula, SpO2 reading 97% on bedside monitor. Patient was seen today on 09/17/2024, remains in the ICU, patient is feeling better today compared to yesterday and the day prior. No shortness of breath, complaining mostly of dry sore throat, continues to have nasogastric tube in place, patient was transition from IV Cardizem to oral Cardizem, his atrial fibrillation seems to be controlled. Rate is in the 80s. Patient remains on CIWA protocol for his history of alcoholism. Overall I believe the patient is doing well, and I will plan to transfer the patient out of the ICU to a monitored bed and selective. WBC count is 7.4 hemoglobin 10.8, basic metabolic profile is normal renal profile is normal Patient was seen today on 09/18/2024, doing well, continues to have nasogastric tube in place, does not seem to be in any distress, remains on the CIWA protocol. Patient is passing some gas, however no bowel movements yet, nasogastric tube is being addressed by surgery on the case, I believe he will be started on clear liquid diet today, and the nasogastric tube will likely be removed today, he is also on oral [place] for pain, he is compliant with incentive spirometry, and he remains on antibiotics as per ID on the case. No active pulmonary symptoms no cough no wheezing no shortness of breath. WBC count is 8.13 hemoglobin 11.5 electrolytes are normal renal profile is normal Patient was seen today on 09/19/2024, his nasogastric tube was removed yesterday, patient is doing much better today, he is generally weak, remains on CIWA protocol, denies any significant abdominal pain, patient denies any shortness of breath or cough or wheezing. Labs today were reviewed WBC count is 8 hemoglobin 11.1 electrolytes are normal potassium 3.4 BUN is 11 creatinine 0.51 Objective - Vital Signs Vital signs: Vital Signs Temp 97.8 F 09/19/24 12:00 Pulse 106 H 09/19/24 12:00 Resp 18 09/19/24 12:00 BP 113/76 09/19/24 12:00 Pulse Ox 97 09/19/24 12:00 FiO2 Intake & Output 09/18/24 09/19/24 09/19/24 18:59 06:59 18:59 Intake Total 600 Output Total 625 600 500 Balance -25 -600 -500 Weight 86.4 kg 86 kg Intake: Oral 600 Output: Urine 625 600 500 Other: Voiding Method Indwelling Catheter Indwelling Catheter - Exam GENERAL EXAM: Revealed 79-year-old white male in no distress, on room air HEAD: Normocephalic and atraumatic EYES: Normal reaction of pupils, equal size. NOSE: Clear with pink turbinates. Nasogastric tube to low intermittent suction THROAT: No erythema or exudates. NECK: No masses, no JVD. CHEST: Symmetrical chest expansion LUNGS: Equal air entry with no crackles, no crackles rhonchi or wheezes CVS: S1 and S2 normal with no audible murmur, irregular rhythm. No extra heart sounds ABDOMEN: Postsurgical abdomen soft nontender No rebound no guarding SKIN: Scrotal ecchymosis. CENTRAL NERVOUS SYSTEM: Alert and oriented x 3 no gross focal deficit EXTREMITIES: Trace of bipedal edema no clubbing or cyanosis - Labs CBC & Chem 7: 09/19/24 06:49 09/19/24 06:49 Labs: Abnormal Lab Results - Last 24 Hours (Table) 09/19/24 09/19/24 Range/Units 06:49 06:49 RBC 3.17 L (4.40-5.60) 10*6/uL Hgb 11.1 L (13.0-17.0) g/dL Hct 33.0 L (39.6-50.0) % MCV 104.1 H (80.0-97.0) fL MCH 35.0 H (27.0-32.0) pg Immature Gran # 0.15 H (0.00-0.04) 10*3/uL Lymphocytes # 0.64 L (0.90-5.00) 10*3/uL Sodium 134 L (137-145) mmol/L Potassium 3.4 L (3.5-5.1) mmol/L Creatinine 0.51 L (0.66-1.25) mg/dL Calcium 8.0 L (8.4-10.2) mg/dL Total Bilirubin 1.7 H (0.2-1.3) mg/dL Total Protein 4.5 L (6.3-8.2) g/dL Albumin 2.3 L (3.5-5.0) g/dL Microbiology - Last 24 Hours (Table) 09/14/24 04:40 Blood Culture - Final Blood Assessment and Plan Assessment: Impression: Acute complicated cholecystitis status post robotic assisted cholecystectomy converted to open procedure and evacuation of large amount of bilious drainage in the right upper quadrant. Atrial fibrillation with rapid ventricular response, on oral Cardizem, rate seem s to be better controlled today Large left rectus sheath hematoma redemonstrated and measuring approximately 11.6 x 15.3 x 5.3 cm. No indication of active bleeding. Xarelto previously placed on hold. Previous reported vascular embolization performed at [facility] Frequent falls Acute hypoxemic respiratory failure, currently on 2 L/min nasal cannula, chest x-ray showing low lung volumes, right lateral chest wall subcutaneous emphysema extending the right clavicular region in the setting of recent laparoscopic procedure. No discrete pneumothorax. No pleural effusions. No focal consolid ations. History of gout History of prostate cancer History of hypothyroidism History of alcohol abuse, last reported drink approximately 10 days ago Anxiety/depression Recommendation: Continue present supportive care measures Continue incentive spirometry Continue oral Cardizem Continue antibiotics Continue pain control management Continue CIWA protocol Continue GI DVT prophylaxis Patient may need rehab placement sometime early next week Will continue to follow Time with Patient: Less than 30
--- NOTE | 2024-09-19 14:08 | P.PN ---
Subjective HISTORY OF PRESENT ILLNESS: The patient is an 79-year-old male who presented with abdominal discomfort, had a recent left rectus sheath hematoma with arterial extravasation underwent angioembolization on August 23 was diagnosed with acute cholecystitis and underwent cholecystectomy yesterday. He is extubated and feels better today. He continues to have some abdominal discomfort but improved. He continues to be in atrial fibrillation, on IV Cardizem, with controlled ventricular response. He denies any dyspnea, dizziness or palpitations. He has an NG tube in place. He denies any nausea or vomiting. His echocardiogram showed a preserved systolic function with mild mitral and tricuspid regurgitation. He is off anticoagulation because of the recent bleed. He has a prior history of alcohol intake but has not had any drink for over 10 days. September 17: The patient is feeling better today, he has some dryness in the throat. He continues to be in atrial fibrillation on IV Cardizem and his rate is controlled. He denies any chest discomfort, dizziness or palpitations. He denies any nausea or vomiting. He has no flatus yet. He was up in the chair yesterday. He is on no vasopressors. He continues to be on IV Cardizem 5 mg an hour drip. 09/18 Patient has been transferred out of the intensive care unit and seen today on the cardiac stepdown unit. He continues to have NG tube in place. He states he is passing gas. He denies chest pain or chest pressure. Shortness of breath is stable. He states he has not been out of bed. Blood pressure 131/91, heart rate 106, pulse ox 100% on 3 L nasal cannula. Repeat blood work reveals hemoglobin 9.5, BUN 22 creatinine 0.58, sodium 139 and potassium 4. Yesterday IV Cardizem was discontinued patient started on oral. General surgery has cleared the patient to start anticoagulation. 09/19/2024 Patient examined this morning at the bedside. Patient is sitting up in the chair. Patient currently denies chest pain or pressure. He denies shortness of breath. He remains in atrial fibrillation with a heart rate around 110. PHYSICAL EXAM: VITAL SIGNS: Reviewed. GENERAL: Well-developed in no acute distress. NECK: Supple. No JVD or thyromegaly LUNGS: Respirations even and unlabored. Lungs essentially clear to auscultation bilaterally. HEART: Irregular rate and rhythm. S1 and S2 heard. Systolic murmur noted. EXTREMITIES: Normal range of motion. No clubbing or cyanosis. Peripheral pulses intact. Minimal lower extremity edema ASSESSMENT: 1. Status post open cholecystectomy 2. Persistent atrial fibrillation with episodes of rapid ventricular response, not anticoagulated because of recent bleed 3. Recent rectus sheath hematoma with angioembolization, following a fall. 4. Prior history of alcohol intake PLAN: Continue current cardiac medications including Eliquis, Cardizem, and metoprolol Increase oral Cardizem to 60 mg 3 times daily Continue telemetry monitoring Further recommendations pending patient course Nurse practitioner note has been reviewed by physician. Signing provider agrees with the documented findings, assessment, and plan of care documented by CLINICAL DATA MANAGEMENT MANAGER as a scribe. Objective - Vital Signs Vital signs: Vital Signs Temp 97.8 F 09/19/24 12:00 Pulse 106 H 09/19/24 12:00 Resp 18 09/19/24 12:00 BP 113/76 09/19/24 12:00 Pulse Ox 97 09/19/24 12:00 FiO2 Intake & Output 09/18/24 09/19/24 09/19/24 18:59 06:59 18:59 Intake Total 600 Output Total 625 600 500 Balance -25 -600 -500 Weight 86.4 kg 86 kg Intake: Oral 600 Output: Urine 625 600 500 Other: Voiding Method Indwelling Catheter Indwelling Catheter - Labs CBC & Chem 7: 09/19/24 06:49 09/19/24 06:49 Labs: Abnormal Lab Results - Last 24 Hours (Table) 09/19/24 09/19/24 Range/Units 06:49 06:49 RBC 3.17 L (4.40-5.60) 10*6/uL Hgb 11.1 L (13.0-17.0) g/dL Hct 33.0 L (39.6-50.0) % MCV 104.1 H (80.0-97.0) fL MCH 35.0 H (27.0-32.0) pg Immature Gran # 0.15 H (0.00-0.04) 10*3/uL Lymphocytes # 0.64 L (0.90-5.00) 10*3/uL Sodium 134 L (137-145) mmol/L Potassium 3.4 L (3.5-5.1) mmol/L Creatinine 0.51 L (0.66-1.25) mg/dL Calcium 8.0 L (8.4-10.2) mg/dL Total Bilirubin 1.7 H (0.2-1.3) mg/dL Total Protein 4.5 L (6.3-8.2) g/dL Albumin 2.3 L (3.5-5.0) g/dL Microbiology - Last 24 Hours (Table) 09/14/24 04:40 Blood Culture - Final Blood
--- NOTE | 2024-09-19 14:33 | P.PN ---
Subjective Pt seen and evaluated at bedside. Patient doing well, no issues, pain controlled. Objective - Vital Signs Vital signs: Vital Signs Temp 97.8 F 09/19/24 12:00 Pulse 106 H 09/19/24 12:00 Resp 18 09/19/24 12:00 BP 113/76 09/19/24 12:00 Pulse Ox 97 09/19/24 12:00 FiO2 Intake & Output 09/18/24 09/19/24 09/19/24 18:59 06:59 18:59 Intake Total 600 Output Total 625 600 500 Balance -25 -600 -500 Weight 86.4 kg 86 kg Intake: Oral 600 Output: Urine 625 600 500 Other: Voiding Method Indwelling Catheter Indwelling Catheter - Exam gen: nad cv: rrr pul: non labored breathing abd: soft, mild distention, no guarding or rebound tenderness, surgical incision c/d/i - Labs CBC & Chem 7: 09/19/24 06:49 09/19/24 06:49 Labs: Abnormal Lab Results - Last 24 Hours (Table) 09/19/24 09/19/24 Range/Units 06:49 06:49 RBC 3.17 L (4.40-5.60) 10*6/uL Hgb 11.1 L (13.0-17.0) g/dL Hct 33.0 L (39.6-50.0) % MCV 104.1 H (80.0-97.0) fL MCH 35.0 H (27.0-32.0) pg Immature Gran # 0.15 H (0.00-0.04) 10*3/uL Lymphocytes # 0.64 L (0.90-5.00) 10*3/uL Sodium 134 L (137-145) mmol/L Potassium 3.4 L (3.5-5.1) mmol/L Creatinine 0.51 L (0.66-1.25) mg/dL Calcium 8.0 L (8.4-10.2) mg/dL Total Bilirubin 1.7 H (0.2-1.3) mg/dL Total Protein 4.5 L (6.3-8.2) g/dL Albumin 2.3 L (3.5-5.0) g/dL Microbiology - Last 24 Hours (Table) 09/14/24 04:40 Blood Culture - Final Blood Assessment and Plan Assessment: 1. Perforated acute cholecystitis 2. Abdominal ileus PLAN: - Advance diet as tolerated - Add oral [place] for pain management. Also option of oral Tylenol - Okay to start oral anticoagulation from surgical standpoint - Encourage patient to increase activity level - Encourage patient to use incentive spirometer - Repeat labs in a.m. - Continue Reglan for ileus - Continue antibiotics Time with Patient: Less than 30
[2024-09-19] MEDS: DILTIAZEM ORAL 60 MG TAB PO SCH (17:06)
[2024-09-20 07:27] LABS: Basophils # (A) 0.06 10*3/uL (0.00-0.10); Basophils % (A) 0.5 %; Eosinophils # (A) 0.27 10*3/uL (0.04-0.35); Eosinophils % (A) 2.3 %; HCT 37.8 % (39.6-50.0); Lymphocytes # (A) 0.92 10*3/uL (0.90-5.00); Lymphocytes % (A) 7.7 %; MCH 34.9 pg (27.0-32.0); MCHC 34.4 g/dL (32.0-37.0); MCV 101.3 fL (80.0-97.0); Mean Platelet Volume 11.4 fL (9.5-12.2); Monocytes # (A) 0.81 10*3/uL (0.20-1.00); Monocytes % (A) 6.8 %; Neutrophils # (A) 9.62 10*3/uL (1.80-7.70); Neutrophils % (A) 80.3 %; Platelet Count 378 10*3/uL (140-440); RBC 3.73 10*6/uL (4.40-5.60); RDW 18.5 % (11.5-14.5); WBC 11.97 10*3/uL (4.50-10.00)
[2024-09-20 08:05] LABS: ALT 21 U/L (4-49); AST 35 U/L (17-59); African American GFR (CKD) >90 (>60 ml/min/1.73 sqM); Albumin 2.7 g/dL (3.5-5.0); Alkaline Phosphatase 154 U/L (38-126); Anion Gap 4 mmol/L; Blood Urea Nitrogen 9 mg/dL (9-20); Calcium 8.4 mg/dL (8.4-10.2); Carbon Dioxide 26 mmol/L (22-30); Chloride 104 mmol/L (98-107); Glucose 100 mg/dL (74-99); Non-African American GFR(CKD) >90 (>60 ml/min/1.73 sqM); Sodium 134 mmol/L (137-145); Total Bilirubin 2.1 mg/dL (0.2-1.3); Total Protein 5.1 g/dL (6.3-8.2)
--- NOTE | 2024-09-20 11:48 | P.PN ---
Subjective Pt seen and evaluated at bedside. Patient doing well, no issues, pain controlled. Objective - Vital Signs Vital signs: Vital Signs Temp 98.0 F 09/20/24 08:16 Pulse 115 H 09/20/24 09:39 Resp 16 09/20/24 09:39 BP 103/65 09/20/24 08:16 Pulse Ox 98 09/20/24 08:16 FiO2 Intake & Output 09/19/24 09/20/24 09/20/24 18:59 06:59 18:59 Intake Total 330 740 Output Total 535 150 Balance -205 590 Weight 84.7 kg Intake: IV 200 Piperacillin-Tazobactam 3 200 .375 gm In Sodium Chloride 0.9% 100 ml @ 25 mls/hr IVPB Q8H [facility] Rx#: [id number] Oral 330 540 Output: Drainage 35 Right Medial Abdomen 35 Urine 500 150 Other: Voiding Method Indwelling Catheter Toilet Toilet Urinal Urinal # Voids 1 - Exam gen: nad cv: rrr pul: non labored breathing abd: soft, mild distention, no guarding or rebound tenderness, surgical incision c/d/i - Labs CBC & Chem 7: 09/20/24 06:49 09/20/24 06:49 Labs: Abnormal Lab Results - Last 24 Hours (Table) 09/20/24 09/20/24 Range/Units 06:49 06:49 WBC 11.97 H (4.50-10.00) 10*3/uL RBC 3.73 L (4.40-5.60) 10*6/uL Hct 37.8 L (39.6-50.0) % MCV 101.3 H (80.0-97.0) fL MCH 34.9 H (27.0-32.0) pg Immature Gran # 0.29 H (0.00-0.04) 10*3/uL Neutrophils # 9.62 H (1.80-7.70) 10*3/uL Sodium 134 L (137-145) mmol/L Creatinine 0.49 L (0.66-1.25) mg/dL Glucose 100 H (74-99) mg/dL Total Bilirubin 2.1 H (0.2-1.3) mg/dL Alkaline Phosphatase 154 H (38-126) U/L Total Protein 5.1 L (6.3-8.2) g/dL Albumin 2.7 L (3.5-5.0) g/dL Microbiology - Last 24 Hours (Table) 09/14/24 04:40 Blood Culture - Final Blood Assessment and Plan Assessment: 1. Perforated acute cholecystitis 2. Abdominal ileus PLAN: - Advance diet as tolerated - Add oral [place] for pain management. Also option of oral Tylenol - Okay to start oral anticoagulation from surgical standpoint - Encourage patient to increase activity level - Encourage patient to use incentive spirometer - Continue Reglan for ileus - Continue antibiotics Patient needs more ambulation and up to chair this morning
--- NOTE | 2024-09-20 12:15 | P.PN ---
Subjective Progress Note Date: 09/20/24 Patient is an 79-year-old male with past medical history significant for gout, prostate cancer, hypothyroidism, and alcohol abuse. Patient does follow-up with Dr. Mascorro for his primary care needs. Patient has been suffering from frequent falls, was evaluated emergency department back on 08/21/2024, found to have a traumatic large left rectus sheath hematoma. He was also found to be in new onset atrial fibrillation at this time. Transferred to [facility] for vascular embolization. Patient was discharged home on metoprolol and Xarelto. He was seen by Dr. Mascorro on 09/01/2024 in follow-up. CT of the abdomen and pelvis showing increasing size of large left rectus sheath hematoma without vis ualized active extravasation. Dr. Mascorro advised the patient to stop his Xarelto. Patient had a subsequent fall on 09/14/2024. Reportedly dizzy which caused him to fall. Also, endorsed some right-sided chest and abdominal pain. Appetite has been poor. Abdominal/pelvis CT showing cholelithiasis with gallbladder wall thickening concerning for acute cholecystitis. Redemonstration of the large left abdominal wall intramuscular hematoma measuring approximately 11.6 x 15.3 x 5.3 cm. No indication of active bleeding. Diverticulosis without acute diverticulitis. No small bowel obstructions. No free intraperitoneal air. Follow-up MRCP demonstrated prominent gallbladder with gallstones and circumferential wall thickening. Borderline dilated extrahepatic biliary ducts no evidence of choledocholithiasis. Last night patient was taken for robotic assisted cholecystectomy converted to open procedure with a large amount of bilious fluid collection. Did briefly require vasopressor support in the operating room. Patient was extubated in the postanesthesia care unit and transferred to the intensive care unit. Patient currently being evaluated in room 265. He is awake and alert. Heart rhythm is atrial fibrillation with rapid ventricular response ranging from 100 to 120 bpm. Cardizem is infusing at 5 mg/h. Blood pressure is normotensive. He did receive a 1 L LR bolus earlier. Normal saline continues at 75 mm/h. No longer requiring any vasopressor support. Endorsing some incisional abdominal pain, rated 7 on a 10 point numerical scale. There is a midline abdominal incision with some additional laparoscopic incisions. Right upper quadrant MADDIE drain with small amount of s erosanguineous output. Patient is on 2 L/min nasal cannula. Resting comfortably not in any respiratory distress. Chest x-ray with low lung volumes, right lateral chest wall subcutaneous emphysema extending the right clavicular region in the setting of recent laparoscopic procedure. No discrete p neumothorax. No pleural effusions. No focal consolidations. CBC: WBC count 6, hemoglobin 12, platelets 236. CMP: Sodium 135, potassium 4.1, chloride 106, serum bicarb 21, BUN 34, creatinine 1.21, glucose 107. Total bilirubin 2.8. AST 24, ALT 11, ALP 56. Troponin elevated 0.054. Patient empirically covered on Zosyn. Current vital signs: Afebrile, heart rate 108 bpm, blood pressure 108/74 mmHg, nontachypneic, on 2 L/min nasal cannula, SpO2 reading 97% on bedside monitor. Patient was seen today on 09/17/2024, remains in the ICU, patient is feeling better today compared to yesterday and the day prior. No shortness of breath, complaining mostly of dry sore throat, continues to have nasogastric tube in place, patient was transition from IV Cardizem to oral Cardizem, his atrial fibrillation seems to be controlled. Rate is in the 80s. Patient remains on CIWA protocol for his history of alcoholism. Overall I believe the patient is doing well, and I will plan to transfer the patient out of the ICU to a monitored bed and selective. WBC count is 7.4 hemoglobin 10.8, basic metabolic profile is normal renal profile is normal Patient was seen today on 09/18/2024, doing well, continues to have nasogastric tube in place, does not seem to be in any distress, remains on the CIWA protoco l. Patient is passing some gas, however no bowel movements yet, nasogastric tube is being addressed by surgery on the case, I believe he will be started on clear liquid diet today, and the nasogastric tube will likely be removed today, he is also on oral [place] for pain, he is compliant with incentive spirometry, and he remains on antibiotics as per ID on the case. No active pulmonary symptoms no cough no wheezing no shortness of breath. WBC count is 8.13 hemoglobin 11.5 electrolytes are normal renal profile is normal Patient was seen today on 09/19/2024, his nasogastric tube was removed yesterday, patient is doing much better today, he is generally weak, remains on CIWA protocol, denies any significant abdominal pain, patient denies any shortness of breath or cough or wheezing. Labs today were reviewed WBC count is 8 hemoglobin 11.1 electrolytes are normal potassium 3.4 BUN is 11 creatinine 0.51 The patient is seen today September 20, 2024 in follow-up on the selective care unit. He is currently up ambulating in his room with assistance. He took a shower this morning. He is maintaining good O2 saturations in the 90s on room air. He denies any worsening shortness of breath, cough or congestion. Blood culture revealed no growth. Urine culture revealed no growth. White count 11.9. Hemoglobin 13.0. Platelets 378. Sodium 134. Potassium 4.0. Bicarb 26. BUN 9. Creatinine 0.49. Glucose 100. He is anticoagulated with Eliquis. Remains on Zosyn. Tolerating a full liquid diet. Objective - Vital Signs Vital signs: Vital Signs Temp 98.0 F 09/20/24 08:16 Pulse 78 09/20/24 12:04 Resp 16 09/20/24 12:04 BP 107/69 09/20/24 12:04 Pulse Ox 97 09/20/24 12:04 FiO2 Intake & Output 09/19/24 09/20/24 09/20/24 18:59 06:59 18:59 Intake Total 330 740 Output Total 535 150 Balance -205 590 Weight 84.7 kg Intake: IV 200 Piperacillin-Tazobactam 3 200 .375 gm In Sodium Chloride 0.9% 100 ml @ 25 mls/hr IVPB Q8H [facility] Rx#: [id number] Oral 330 540 Output: Drainage 35 Right Medial Abdomen 35 Urine 500 150 Other: Voiding Method Indwelling Catheter Toilet Toilet Urinal Urinal # Voids 1 - Exam GENERAL EXAM: Alert, active, 79-year-old male patient, on room air, fairly comfortable in no apparent distress. HEAD: Normocephalic. EYES: Normal reaction of pupils, equal size. NOSE: Clear with pink turbinates. THROAT: No erythema or exudates. NECK: No masses, no JVD. CHEST: No chest wall deformity. LUNGS: Equal air entry with no crackles, wheeze, rhonchi or dullness. CVS: S1 and S2 normal with no audible murmur, regular rhythm. ABDOMEN: Surgical incision clean dry and well-approximated. No hepatosplenomegaly, normal bowel sounds, no guarding or rigidity. SPINE: No scoliosis or deformity SKIN: No rashes CENTRAL NERVOUS SYSTEM: No focal deficits, tone is normal in all 4 extremities. EXTREMITIES: There is no peripheral edema. No clubbing, no cyanosis. Peripheral pulses are intact. - Labs CBC & Chem 7: 09/20/24 06:49 09/20/24 06:49 Labs: Abnormal Lab Results - Last 24 Hours (Table) 09/20/24 09/20/24 Range/Units 06:49 06:49 WBC 11.97 H (4.50-10.00) 10*3/uL RBC 3.73 L (4.40-5.60) 10*6/uL Hct 37.8 L (39.6-50.0) % MCV 101.3 H (80.0-97.0) fL MCH 34.9 H (27.0-32.0) pg Immature Gran # 0.29 H (0.00-0.04) 10*3/uL Neutrophils # 9.62 H (1.80-7.70) 10*3/uL Sodium 134 L (137-145) mmol/L Creatinine 0.49 L (0.66-1.25) mg/dL Glucose 100 H (74-99) mg/dL Total Bilirubin 2.1 H (0.2-1.3) mg/dL Alkaline Phosphatase 154 H (38-126) U/L Total Protein 5.1 L (6.3-8.2) g/dL Albumin 2.7 L (3.5-5.0) g/dL Microbiology - Last 24 Hours (Table) 09/14/24 04:40 Blood Culture - Final Blood Assessment and Plan Assessment: Acute complicated cholecystitis status post robotic assisted cholecystectomy converted to open procedure and evacuation of large amount of bilious drainage in the right upper quadrant on September 15, 2024 Atrial fibrillation with rapid ventricular response, on oral Cardizem, rate seems to be better controlled Large left rectus sheath hematoma redemonstrated and measuring approximately 11.6 x 15.3 x 5.3 cm. No indication of active bleeding. Previous reported vascular embolization performed at [facility] Frequent falls Acute hypoxemic respiratory failure, currently on 2 L/min nasal cannula, chest x-ray showing low lung volumes, right lateral chest wall subcutaneous emphysema extending the right clavicular region in the setting of recent laparoscopic procedure. No discrete pneumothorax. No pleural effusions. No focal consolidations. History of gout History of prostate cancer History of hypothyroidism History of alcohol abuse, last reported drink approximately 11 days ago Anxiety/depression Plan: The patient was seen and evaluated Labs and medications reviewed Stable and on room air oxygen Up with assistance to the shower Remains on oral Cardizem Anticoagulated with Eliquis Remains on Protonix Remains on Zosyn Tolerating a full liquid diet Increase his activity as tolerated We will continue to follow I have personally seen and examined the patient, performed the documentation and the assessment and plan as written. Number of minutes spent on the visit: 10 Dictation was produced using [employer] dictation software. Please excuse any grammatical, word or spelling errors.
--- NOTE | 2024-09-20 12:39 | P.PN ---
Subjective HISTORY OF PRESENT ILLNESS: The patient is an 79-year-old male who presented with abdominal discomfort, had a recent left rectus sheath hematoma with arterial extravasation underwent angioembolization on August 23 was diagnosed with acute cholecystitis and underwent cholecystectomy yesterday. He is extubated and feels better today. He continues to have some abdominal discomfort but improved. He continues to be in atrial fibrillation, on IV Cardizem, with controlled ventricular response. He denies any dyspnea, dizziness or palpitations. He has an NG tube in place. He denies any nausea or vomiting. His echocardiogram showed a preserved systolic function with mild mitral and tricuspid regurgitation. He is off anticoagulation because of the recent bleed. He has a prior history of alcohol intake but has not had any drink for over 10 days. September 17: The patient is feeling better today, he has some dryness in the throat. He continues to be in atrial fibrillation on IV Cardizem and his rate is controlled. He denies any chest discomfort, dizziness or palpitations. He denies any nausea or vomiting. He has no flatus yet. He was up in the chair yesterday. He is on no vasopressors. He continues to be on IV Cardizem 5 mg an hour drip. 09/18 Patient has been transferred out of the intensive care unit and seen today on the cardiac stepdown unit. He continues to have NG tube in place. He states he is passing gas. He denies chest pain or chest pressure. Shortness of breath is stable. He states he has not been out of bed. Blood pressure 131/91, heart rate 106, pulse ox 100% on 3 L nasal cannula. Repeat blood work reveals hemoglobin 9.5, BUN 22 creatinine 0.58, sodium 139 and potassium 4. Yesterday IV Cardizem was discontinued patient started on oral. General surgery has cleared the patient to start anticoagulation. 09/19/2024 Patient examined this morning at the bedside. Patient is sitting up in the chair. Patient currently denies chest pain or pressure. He denies shortness of breath. He remains in atrial fibrillation with a heart rate around 110. 09/20/2024 Patient examined this morning at the bedside. Patient is currently sitting up in the chair. Patient denies chest pain or pressure. He denies shortness of breath. He reports he is passing gas but has not yet had a bowel movement. He remains in atrial fibrillation with heart rates in the 80s. Blood pressure is stable. PHYSICAL EXAM: VITAL SIGNS: Reviewed. GENERAL: Well-developed in no acute distress. NECK: Supple. No JVD or thyromegaly LUNGS: Respirations even and unlabored. Lungs essentially clear to auscultation bilaterally. HEART: Irregular rate and rhythm. S1 and S2 heard. Systolic murmur noted. EXTREMITIES: Normal range of motion. No clubbing or cyanosis. Peripheral pulses intact. Minimal lower extremity edema ASSESSMENT: 1. Status post open cholecystectomy 2. Persistent atrial fibrillation with episodes of rapid ventricular response 3. Recent rectus sheath hematoma with angioembolization, following a fall. 4. Prior history of alcohol intake PLAN: Continue current cardiac medications including Eliquis, Cardizem, and metoprolol Continue telemetry monitoring Patient is currently stable from a cardiac standpoint Further recommendations pending patient course Nurse practitioner note has been reviewed by physician. Signing provider agrees with the documented findings, assessment, and plan of care documented by BUSINESS DEVELOPMENT COORDINATOR as a scribe. Objective - Vital Signs Vital signs: Vital Signs Temp 98.0 F 09/20/24 08:16 Pulse 78 09/20/24 12:04 Resp 16 09/20/24 12:04 BP 107/69 09/20/24 12:04 Pulse Ox 97 09/20/24 12:04 FiO2 Intake & Output 09/19/24 09/20/24 09/20/24 18:59 06:59 18:59 Intake Total 330 740 Output Total 535 150 Balance -205 590 Weight 84.7 kg Intake: IV 200 Piperacillin-Tazobactam 3 200 .375 gm In Sodium Chloride 0.9% 100 ml @ 25 mls/hr IVPB Q8H [facility] Rx#: [id number] Oral 330 540 Output: Drainage 35 Right Medial Abdomen 35 Urine 500 150 Other: Voiding Method Indwelling Catheter Toilet Toilet Urinal Urinal # Voids 1 - Labs CBC & Chem 7: 09/20/24 06:49 09/20/24 06:49 Labs: Abnormal Lab Results - Last 24 Hours (Table) 09/20/24 09/20/24 Range/Units 06:49 06:49 WBC 11.97 H (4.50-10.00) 10*3/uL RBC 3.73 L (4.40-5.60) 10*6/uL Hct 37.8 L (39.6-50.0) % MCV 101.3 H (80.0-97.0) fL MCH 34.9 H (27.0-32.0) pg Immature Gran # 0.29 H (0.00-0.04) 10*3/uL Neutrophils # 9.62 H (1.80-7.70) 10*3/uL Sodium 134 L (137-145) mmol/L Creatinine 0.49 L (0.66-1.25) mg/dL Glucose 100 H (74-99) mg/dL Total Bilirubin 2.1 H (0.2-1.3) mg/dL Alkaline Phosphatase 154 H (38-126) U/L Total Protein 5.1 L (6.3-8.2) g/dL Albumin 2.7 L (3.5-5.0) g/dL Microbiology - Last 24 Hours (Table) 09/14/24 04:40 Blood Culture - Final Blood
--- NOTE | 2024-09-20 22:13 | P.PN ---
Subjective Progress Note Date: 09/20/24 Patient is eval today in follow-up on the medical floor. Patient is postoperative day #5 cholecystectomy. MADDIE drain remains in place with 35 mL of output documented in last 24 hours. Patient has been up ambulating without difficulty. NG tube has been discontinued. He is on a full liquid diet and currently tolerating. States that he is passing gas but not having a bowel movement yet no other acute complaints at this time. Labs today reveal a white blood cell count of 1.97, hemoglobin 13.0, sodium 134, potassium 4.0, BUN of 9 creatinine 0.49. Review of Systems Constitutional: Denied any fatigue denied any fever. Cardio vascular: denied any chest pain, palpitations Gastrointestinal: denied any nausea, vomiting, diarrhea Pulmonary: Denied any shortness of breath cough Neurologic denied any new focal deficits All inpatient medications were reviewed and appropriate changes in these medications as dictated in the interval history and assessment and plan. PHYSICAL EXAMINATION: GENERAL: The patient is alert and oriented x3, not in any acute distress. Well developed, well nourished. HEENT: Pupils are round and equally reacting to light. EOMI. No scleral icterus. No conjunctival pallor. Normocephalic, atraumatic. No pharyngeal erythema. No thyromegaly. CARDIOVASCULAR: S1 and S2 present. No murmurs, rubs, or gallops. PULMONARY: Chest is clear to auscultation, no wheezing or crackles. ABDOMEN: Soft, nontender, nondistended, normoactive bowel sounds. No palpable organomegaly. Abdominal dressing intact, MADDIE drain in place MUSCULOSKELETAL: No joint swelling or deformity. EXTREMITIES: No cyanosis, clubbing, or pedal edema. NEUROLOGICAL: Gross neurological examination did not reveal any focal deficits. Generalized weakness SKIN: No rashes. Assessment and plan Presyncope without loss of consciousness Recurrent falls due to the hypotension Acute cholecystitis status post open cholecystectomy Left rectus sheath hematoma with a arterial extravasation and angioembolization on August 23 Persistent atrial fibrillation currently rate controlled patient does continue to have episodes of RVR Hypothyroidism Alcohol use disorder Macrocytic anemia on thiamine and folate supplementation Anxiety/depression Arthritis DVT prophylaxis No code Continue current cardiac medications on oral Cardizem, oral metoprolol. Pain management in place with IV morphine and oral [place]. Patient is anticoagulated with Eliquis Patient continues on IV Zosyn. Patient to continue on a full liquid diet per general surgery. Continue to encourage incentive spirometry 10 times an hour while awake Continue to monitor for any acute alcohol withdrawal. The impression and plan of care has been dictated by Jeanine Palomo, Nurse Practitioner as directed. Dr. Audie MD I have performed a history and physical examination and medical decision making of this patient, discussed the same with the dictator, and agree with the dictators assessment and plan as written, documented as a scribe. Based on total visit time, I have performed more than 50% of this visit. Objective - Vital Signs Vital signs: Vital Signs Temp 98.0 F 09/20/24 08:16 Pulse 78 09/20/24 12:04 Resp 16 09/20/24 12:04 BP 107/69 09/20/24 12:04 Pulse Ox 97 09/20/24 12:04 FiO2 Intake & Output 09/19/24 09/20/24 09/20/24 18:59 06:59 18:59 Intake Total 330 740 Output Total 535 150 Balance -205 590 Weight 84.7 kg Intake: IV 200 Piperacillin-Tazobactam 3 200 .375 gm In Sodium Chloride 0.9% 100 ml @ 25 mls/hr IVPB Q8H [facility] Rx#: [id number] Oral 330 540 Output: Drainage 35 Right Medial Abdomen 35 Urine 500 150 Other: Voiding Method Indwelling Catheter Toilet Toilet Urinal Urinal # Voids 1 - Labs CBC & Chem 7: 09/20/24 06:49 09/20/24 06:49 Labs: Abnormal Lab Results - Last 24 Hours (Table) 09/20/24 09/20/24 Range/Units 06:49 06:49 WBC 11.97 H (4.50-10.00) 10*3/uL RBC 3.73 L (4.40-5.60) 10*6/uL Hct 37.8 L (39.6-50.0) % MCV 101.3 H (80.0-97.0) fL MCH 34.9 H (27.0-32.0) pg Immature Gran # 0.29 H (0.00-0.04) 10*3/uL Neutrophils # 9.62 H (1.80-7.70) 10*3/uL Sodium 134 L (137-145) mmol/L Creatinine 0.49 L (0.66-1.25) mg/dL Glucose 100 H (74-99) mg/dL Total Bilirubin 2.1 H (0.2-1.3) mg/dL Alkaline Phosphatase 154 H (38-126) U/L Total Protein 5.1 L (6.3-8.2) g/dL Albumin 2.7 L (3.5-5.0) g/dL Microbiology - Last 24 Hours (Table) 09/14/24 04:40 Blood Culture - Final Blood Assessment and Plan Time with Patient: Less than 30
--- NOTE | 2024-09-20 22:39 | P.PN ---
Subjective Progress Note Date: 09/19/24 Principal diagnosis: Reason for follow-up is acute ruptured cholecystitis and peritonitis Patient is a 79-year-old male with a past medical history significant for prostate cancer hypothyroidism, who was brought into the hospital after the patient did have a fall at home patient has been diagnosed with a ruptured cholecystitis status post cholecystectomy. On today's evaluation that is 09/19/2024, patient did not have any fever and denies any chills, patient is breathing comfortably on room air, patient with no chest pain or cough patient did not have any abdominal pain nausea vomiting or any loose stools has been complaining of mostly weakness. Patient white count is 8.02, creatinine 0.51 Objective - Vital Signs Vital signs: Vital Signs Temp 97.8 F 09/19/24 12:00 Pulse 106 H 09/19/24 12:00 Resp 18 09/19/24 12:00 BP 113/76 09/19/24 12:00 Pulse Ox 97 09/19/24 12:00 FiO2 Intake & Output 09/18/24 09/19/24 09/19/24 18:59 06:59 18:59 Intake Total 600 Output Total 625 600 Balance -25 -600 Weight 86.4 kg 86 kg Intake: Oral 600 Output: Urine 625 600 Other: Voiding Method Indwelling Catheter Indwelling Catheter - Exam GENERAL DESCRIPTION: An elderly male lying in bed in no distress RESPIRATORY SYSTEM: Unlabored breathing , decreased breath sounds at bases HEART: S1 S2 regular rate and rhythm , ABDOMEN: Soft , no tenderness EXTREMITIES: No edema feet - Labs CBC & Chem 7: 09/20/24 06:49 09/20/24 06:49 Labs: Abnormal Lab Results - Last 24 Hours (Table) 09/19/24 09/19/24 Range/Units 06:49 06:49 RBC 3.17 L (4.40-5.60) 10*6/uL Hgb 11.1 L (13.0-17.0) g/dL Hct 33.0 L (39.6-50.0) % MCV 104.1 H (80.0-97.0) fL MCH 35.0 H (27.0-32.0) pg Immature Gran # 0.15 H (0.00-0.04) 10*3/uL Lymphocytes # 0.64 L (0.90-5.00) 10*3/uL Sodium 134 L (137-145) mmol/L Potassium 3.4 L (3.5-5.1) mmol/L Creatinine 0.51 L (0.66-1.25) mg/dL Calcium 8.0 L (8.4-10.2) mg/dL Total Bilirubin 1.7 H (0.2-1.3) mg/dL Total Protein 4.5 L (6.3-8.2) g/dL Albumin 2.3 L (3.5-5.0) g/dL Assessment and Plan (1) Peritonitis Current Visit: Yes Status: Acute Code(s): K65.9 - PERITONITIS, UNSPECIFIED SNOMED Code(s): 25574017 (2) Acute cholecystitis Current Visit: Yes Status: Acute Code(s): K81.0 - ACUTE CHOLECYSTITIS SNOMED Code(s): 51403385 Plan: 1patient presented to hospital with weakness and a fall on a workup did have evidence of acute cholecystitis that was seen on the CT as well as MRCP in this patient who is status post cholecystectomy completed on 09/15/2024 with operative report mention perforated acute cholecystitis no operative culture blood cultures are currently pending likely arguably recovery with enteric gram- negative more likely anaerobes and less likely anaerobes 2- patient is afebrile and white count is normal blood cultures has been negative so far 3patient to continue with the Zosyn while inpatient and monitor clinical course closely Dictation was produced using [employer] dictation software. please excuse any grammatical, word or spelling errors. Time with Patient: Less than 30
--- NOTE | 2024-09-20 22:40 | P.PN ---
Subjective Progress Note Date: 09/20/24 Principal diagnosis: Reason for follow-up is acute ruptured cholecystitis and peritonitis Patient is a 79-year-old male with a past medical history significant for prostate cancer hypothyroidism, who was brought into the hospital after the patient did have a fall at home patient has been diagnosed with a ruptured cholecystitis status post cholecystectomy. On today's evaluation that is 09/20/2024, Patient is afebrile patient is currently on room air and denies having any shortness of breath, the patient denies any chest pain or cough, the patient denies any nausea vomiting did not have any abdominal pain and no diarrhea. The patient white count is 11.97 creatinine 0.49 blood and urine has been negative so far Objective - Vital Signs Vital signs: Vital Signs Temp 98.0 F 09/20/24 08:16 Pulse 105 H 09/20/24 16:15 Resp 16 09/20/24 16:15 BP 118/79 09/20/24 16:15 Pulse Ox 97 09/20/24 16:15 FiO2 Intake & Output 09/20/24 09/20/24 09/21/24 06:59 18:59 06:59 Intake Total 740 Output Total 150 Balance 590 Weight 84.7 kg Intake: IV 200 Piperacillin-Tazobactam 3 200 .375 gm In Sodium Chloride 0.9% 100 ml @ 25 mls/hr IVPB Q8H [facility] Rx#: [id number] Oral 540 Output: Urine 150 Other: Voiding Method Toilet Toilet Urinal Urinal # Voids 1 - Exam GENERAL DESCRIPTION: An elderly male lying in bed in no distress RESPIRATORY SYSTEM: Unlabored breathing , decreased breath sounds at bases HEART: S1 S2 regular rate and rhythm , ABDOMEN: Soft , no tenderness EXTREMITIES: No edema feet - Labs CBC & Chem 7: 09/20/24 06:49 09/20/24 06:49 Labs: Abnormal Lab Results - Last 24 Hours (Table) 09/20/24 09/20/24 Range/Units 06:49 06:49 WBC 11.97 H (4.50-10.00) 10*3/uL RBC 3.73 L (4.40-5.60) 10*6/uL Hct 37.8 L (39.6-50.0) % MCV 101.3 H (80.0-97.0) fL MCH 34.9 H (27.0-32.0) pg Immature Gran # 0.29 H (0.00-0.04) 10*3/uL Neutrophils # 9.62 H (1.80-7.70) 10*3/uL Sodium 134 L (137-145) mmol/L Creatinine 0.49 L (0.66-1.25) mg/dL Glucose 100 H (74-99) mg/dL Total Bilirubin 2.1 H (0.2-1.3) mg/dL Alkaline Phosphatase 154 H (38-126) U/L Total Protein 5.1 L (6.3-8.2) g/dL Albumin 2.7 L (3.5-5.0) g/dL Assessment and Plan (1) Peritonitis Current Visit: Yes Status: Acute Code(s): K65.9 - PERITONITIS, UNSPECIFIED SNOMED Code(s): 59903583 (2) Acute cholecystitis Current Visit: Yes Status: Acute Code(s): K81.0 - ACUTE CHOLECYSTITIS SNOMED Code(s): 37855217 Plan: 1patient presented to hospital with weakness and a fall on a workup did have evidence of acute cholecystitis that was seen on the CT as well as MRCP in this patient who is status post cholecystectomy completed on 09/15/2024 with operative report mention perforated acute cholecystitis no operative culture. 2- patient is afebrile and white count is normal blood cultures has been negative so far 3patient to continue with the Zosyn while inpatient and short course of Ceftin and Flagyl on discharge Dictation was produced using [employer] dictation software. please excuse any grammatical, word or spelling errors. Time with Patient: Less than 30
[2024-09-21 06:38] LABS: Basophils # (A) 0.02 10*3/uL (0.00-0.10); Basophils % (A) 0.1 %; Eosinophils # (A) 0.26 10*3/uL (0.04-0.35); Eosinophils % (A) 1.9 %; HGB 11.1 g/dL (13.0-17.0); Lymphocytes % (A) 5.8 %; MCH 34.8 pg (27.0-32.0); MCHC 33.6 g/dL (32.0-37.0); MCV 103.4 fL (80.0-97.0); Mean Platelet Volume 11.1 fL (9.5-12.2); Monocytes % (A) 5.8 %; Neutrophils # (A) 11.55 10*3/uL (1.80-7.70); Neutrophils % (A) 83.5 %; Platelet Count 348 10*3/uL (140-440); RBC 3.19 10*6/uL (4.40-5.60); RDW 18.5 % (11.5-14.5); WBC 13.83 10*3/uL (4.50-10.00)
[2024-09-21 07:12] LABS: ALT 19 U/L (4-49); AST 28 U/L (17-59); African American GFR (CKD) >90 (>60 ml/min/1.73 sqM); Albumin 2.3 g/dL (3.5-5.0); Alkaline Phosphatase 137 U/L (38-126); Anion Gap 2 mmol/L; Blood Urea Nitrogen 9 mg/dL (9-20); Carbon Dioxide 29 mmol/L (22-30); Chloride 101 mmol/L (98-107); Glucose 83 mg/dL (74-99); Non-African American GFR(CKD) >90 (>60 ml/min/1.73 sqM); Potassium 3.7 mmol/L (3.5-5.1); Sodium 132 mmol/L (137-145); Total Bilirubin 1.8 mg/dL (0.2-1.3); Total Protein 4.6 g/dL (6.3-8.2)
[2024-09-21] MEDS: LACTULOSE 20 GM/30 ML CUP PO ONE (11:50)
[2024-09-21] MEDS: DOCUSATE 100 MG CAP PO SCH (11:51)
[2024-09-21] MEDS ORDERED: ACETAMINOPHEN IV (For NPO) 1,000 MG in EMPTY BAG 1 BAG IVPB SCH (12:00)
--- NOTE | 2024-09-21 12:52 | XR ---
EXAMINATION TYPE: XR chest 1V portable DATE OF EXAM: 09/21/2024 12:46 PM COMPARISON: Chest radiographs from 09/16/2024 TECHNIQUE: XR chest 1V portable Portable AP radiograph of the chest. CLINICAL INDICATION:Male, 79 years old with history of dyspnea; FINDINGS: Lungs/Pleura: No pneumothorax or focal consolidation. Chronic elevation right hemidiaphragm. Decrease d right pleural effusion from prior exam. Pulmonary vascularity: Unremarkable. Heart/mediastinum: Cardiomediastinal silhouette is prominent in size. Atherosclerotic calcifications are seen in the aorta. Musculoskeletal: No acute osseous pathology. High riding bilateral humeral head suggesting chronic ro tator cuff tears. Other: Improving right sided chest wall subcutaneous emphysema. IMPRESSION: Decreased small right pleural effusion and right chest wall subcutaneous emphysema. [facility], , 09/21/2024 12:49 PM
--- NOTE | 2024-09-21 13:23 | P.PN ---
Subjective HISTORY OF PRESENT ILLNESS: The patient is an 79-year-old male who presented with abdominal discomfort, had a recent left rectus sheath hematoma with arterial extravasation underwent angioembolization on August 23 was diagnosed with acute cholecystitis and underwent cholecystectomy yesterday. He is extubated and feels better today. He continues to have some abdominal discomfort but improved. He continues to be in atrial fibrillation, on IV Cardizem, with controlled ventricular response. He denies any dyspnea, dizziness or palpitations. He has an NG tube in place. He denies any nausea or vomiting. His echocardiogram showed a preserved systolic function with mild mitral and tricuspid regurgitation. He is off anticoagulation because of the recent bleed. He has a prior history of alcohol intake but has not had any drink for over 10 days. September 17: The patient is feeling better today, he has some dryness in the throat. He continues to be in atrial fibrillation on IV Cardizem and his rate is controlled. He denies any chest discomfort, dizziness or palpitations. He denies any nausea or vomiting. He has no flatus yet. He was up in the chair yesterday. He is on no vasopressors. He continues to be on IV Cardizem 5 mg an hour drip. 09/18 Patient has been transferred out of the intensive care unit and seen today on the cardiac stepdown unit. He continues to have NG tube in place. He states he is passing gas. He denies chest pain or chest pressure. Shortness of breath is stable. He states he has not been out of bed. Blood pressure 131/91, heart rate 106, pulse ox 100% on 3 L nasal cannula. Repeat blood work reveals hemoglobin 9.5, BUN 22 creatinine 0.58, sodium 139 and potassium 4. Yesterday IV Cardizem was discontinued patient started on oral. General surgery has cleared the patient to start anticoagulation. 09/19/2024 Patient examined this morning at the bedside. Patient is sitting up in the chair. Patient currently denies chest pain or pressure. He denies shortness of breath. He remains in atrial fibrillation with a heart rate around 110. 09/20/2024 Patient examined this morning at the bedside. Patient is currently sitting up in the chair. Patient denies chest pain or pressure. He denies shortness of breath. He reports he is passing gas but has not yet had a bowel movement. He remains in atrial fibrillation with heart rates in the 80s. Blood pressure is stable. 09/21/2024 Patient examined this morning at the bedside. Patient denies chest pain or pressure. Reports mild shortness of breath. Patient has been using his incentive spirometer. Telemetry reveals atrial fibrillation with controlled ventricular rate. PHYSICAL EXAM: VITAL SIGNS: Reviewed. GENERAL: Well-developed in no acute distress. NECK: Supple. No JVD or thyromegaly LUNGS: Respirations even and unlabored. Lungs essentially clear to auscultation bilaterally. HEART: Irregular rate and rhythm. S1 and S2 heard. Systolic murmur noted. EXTREMITIES: Normal range of motion. No clubbing or cyanosis. Peripheral pulses intact. Minimal lower extremity edema ASSESSMENT: 1. Status post open cholecystectomy 2. Persistent atrial fibrillation with episodes of rapid ventricular response 3. Recent rectus sheath hematoma with angioembolization, following a fall. 4. Prior history of alcohol intake PLAN: Continue current cardiac medications including Eliquis, Cardizem, and metoprolol Continue telemetry monitoring Patient is currently stable from a cardiac standpoint We will sign off. Please reconsult if needed. Nurse practitioner note has been reviewed by physician. Signing provider agrees with the documented findings, assessment, and plan of care documented by DATA ANALYSIS ASSISTANT as a scribe. Objective - Vital Signs Vital signs: Vital Signs Temp 98 F 09/21/24 08:22 Pulse 105 H 09/21/24 08:22 Resp 16 09/21/24 08:22 BP 110/75 09/21/24 08:22 Pulse Ox 95 09/21/24 08:22 FiO2 Intake & Output 09/20/24 09/21/24 09/21/24 18:59 06:59 18:59 Output Total 600 500 Balance -600 -500 Weight 86.3 kg Output: Urine 600 500 Other: Voiding Method Toilet Toilet Urinal Urinal # Voids 1 - Labs CBC & Chem 7: 09/21/24 06:04 09/21/24 06:04 Labs: Abnormal Lab Results - Last 24 Hours (Table) 09/21/24 09/21/24 Range/Units 06:04 06:04 WBC 13.83 H (4.50-10.00) 10*3/uL RBC 3.19 L (4.40-5.60) 10*6/uL Hgb 11.1 L (13.0-17.0) g/dL Hct 33.0 L (39.6-50.0) % MCV 103.4 H (80.0-97.0) fL MCH 34.8 H (27.0-32.0) pg Immature Gran # 0.40 H (0.00-0.04) 10*3/uL Neutrophils # 11.55 H (1.80-7.70) 10*3/uL Lymphocytes # 0.80 L (0.90-5.00) 10*3/uL Sodium 132 L (137-145) mmol/L Creatinine 0.52 L (0.66-1.25) mg/dL Calcium 8.0 L (8.4-10.2) mg/dL Total Bilirubin 1.8 H (0.2-1.3) mg/dL Alkaline Phosphatase 137 H (38-126) U/L Total Protein 4.6 L (6.3-8.2) g/dL Albumin 2.3 L (3.5-5.0) g/dL
--- NOTE | 2024-09-21 13:37 | P.PN ---
Subjective Progress Note Date: 09/21/24 SURGICAL PROGRESS NOTE CHIEF COMPLAINT: Fall HISTORY OF PRESENT ILLNESS: Postop day #6 status post robotic cholecystectomy with exploratory laparotomy with washout. Patient is sitting up in bedside chair. He does complain of constipation. No bowel movement since surgery per patient. He is having flatus. Per nursing staff he is having urinary retention and will be straight cathed. He is on a full liquid diet. Afebrile. WBC is up from 11.9-13.8 Hgb 11.1 platelets 348 total bilirubin 2.1 down to 1.8 PHYSICAL EXAM: VITAL SIGNS: Reviewed. GENERAL: Well-developed in no acute distress. ABDOMEN: Soft. Nondistended. Tender at incision site. Midline incision dressing clean dry and intact. MADDIE drain serosanguineous NEUROLOGIC: Alert and oriented. Cranial nerves II through XII grossly intact. ASSESSMENT: 1. Acute cholecystitis 2. Abdominal ileus PLAN: -Colace, lactulose and Dulcolax suppository ordered for constipation -Encourage patient to increase activity level -Continue pain management -Continue antibiotics -Continue full liquid diet -Discharge planning in progress. ECF placement versus home with home care. center human resources manager following. -DVT prophylaxis on [facility] Wheelchair [employer] Driver note has been reviewed by physician. Signing provider agrees with the documented findings, assessment, and plan of care. Objective - Vital Signs Vital signs: Vital Signs Temp 97.8 F 09/21/24 11:41 Pulse 92 09/21/24 11:41 Resp 14 09/21/24 11:41 BP 102/70 09/21/24 11:41 Pulse Ox 99 09/21/24 11:41 FiO2 Intake & Output 09/20/24 09/21/24 09/21/24 18:59 06:59 18:59 Output Total 600 500 Balance -600 -500 Weight 86.3 kg Output: Urine 600 500 Other: Voiding Method Toilet Toilet Toilet Urinal Urinal Urinal # Voids 1 - Labs CBC & Chem 7: 09/21/24 06:04 09/21/24 06:04 Labs: Abnormal Lab Results - Last 24 Hours (Table) 09/21/24 09/21/24 Range/Units 06:04 06:04 WBC 13.83 H (4.50-10.00) 10*3/uL RBC 3.19 L (4.40-5.60) 10*6/uL Hgb 11.1 L (13.0-17.0) g/dL Hct 33.0 L (39.6-50.0) % MCV 103.4 H (80.0-97.0) fL MCH 34.8 H (27.0-32.0) pg Immature Gran # 0.40 H (0.00-0.04) 10*3/uL Neutrophils # 11.55 H (1.80-7.70) 10*3/uL Lymphocytes # 0.80 L (0.90-5.00) 10*3/uL Sodium 132 L (137-145) mmol/L Creatinine 0.52 L (0.66-1.25) mg/dL Calcium 8.0 L (8.4-10.2) mg/dL Total Bilirubin 1.8 H (0.2-1.3) mg/dL Alkaline Phosphatase 137 H (38-126) U/L Total Protein 4.6 L (6.3-8.2) g/dL Albumin 2.3 L (3.5-5.0) g/dL
--- NOTE | 2024-09-21 14:17 | P.PN ---
Subjective Progress Note Date: 09/21/24 Patient is an 79-year-old male with past medical history significant for gout, prostate cancer, hypothyroidism, and alcohol abuse. Patient does follow-up with Dr. Mascorro for his primary care needs. Patient has been suffering from frequent falls, was evaluated emergency department back on 08/21/2024, found to have a traumatic large left rectus sheath hematoma. He was also found to be in new onset atrial fibrillation at this time. Transferred to [facility] for vascular embolization. Patient was discharged home on metoprolol and Xarelto. He was seen by Dr. Mascorro on 09/01/2024 in follow-up. CT of the abdomen and pelvis showing increasing size of large left rectus sheath hematoma without vis ualized active extravasation. Dr. Mascorro advised the patient to stop his Xarelto. Patient had a subsequent fall on 09/14/2024. Reportedly dizzy which caused him to fall. Also, endorsed some right-sided chest and abdominal pain. Appetite has been poor. Abdominal/pelvis CT showing cholelithiasis with gallbladder wall thickening concerning for acute cholecystitis. Redemonstration of the large left abdominal wall intramuscular hematoma measuring approximately 11.6 x 15.3 x 5.3 cm. No indication of active bleeding. Diverticulosis without acute diverticulitis. No small bowel obstructions. No free intraperitoneal air. Follow-up MRCP demonstrated prominent gallbladder with gallstones and circumferential wall thickening. Borderline dilated extrahepatic biliary ducts no evidence of choledocholithiasis. Last night patient was taken for robotic assisted cholecystectomy converted to open procedure with a large amount of bilious fluid collection. Did briefly require vasopressor support in the operating room. Patient was extubated in the postanesthesia care unit and transferred to the intensive care unit. Patient currently being evaluated in room 265. He is awake and alert. Heart rhythm is atrial fibrillation with rapid ventricular response ranging from 100 to 120 bpm. Cardizem is infusing at 5 mg/h. Blood pressure is normotensive. He did receive a 1 L LR bolus earlier. Normal saline continues at 75 mm/h. No longer requiring any vasopressor support. Endorsing some incisional abdominal pain, rated 7 on a 10 point numerical scale. There is a midline abdominal incision with some additional laparoscopic incisions. Right upper quadrant MADDIE drain with small amount of s erosanguineous output. Patient is on 2 L/min nasal cannula. Resting comfortably not in any respiratory distress. Chest x-ray with low lung volumes, right lateral chest wall subcutaneous emphysema extending the right clavicular region in the setting of recent laparoscopic procedure. No discrete p neumothorax. No pleural effusions. No focal consolidations. CBC: WBC count 6, hemoglobin 12, platelets 236. CMP: Sodium 135, potassium 4.1, chloride 106, serum bicarb 21, BUN 34, creatinine 1.21, glucose 107. Total bilirubin 2.8. AST 24, ALT 11, ALP 56. Troponin elevated 0.054. Patient empirically covered on Zosyn. Current vital signs: Afebrile, heart rate 108 bpm, blood pressure 108/74 mmHg, nontachypneic, on 2 L/min nasal cannula, SpO2 reading 97% on bedside monitor. Patient was seen today on 09/17/2024, remains in the ICU, patient is feeling better today compared to yesterday and the day prior. No shortness of breath, complaining mostly of dry sore throat, continues to have nasogastric tube in place, patient was transition from IV Cardizem to oral Cardizem, his atrial fibrillation seems to be controlled. Rate is in the 80s. Patient remains on CIWA protocol for his history of alcoholism. Overall I believe the patient is doing well, and I will plan to transfer the patient out of the ICU to a monitored bed and selective. WBC count is 7.4 hemoglobin 10.8, basic metabolic profile is normal renal profile is normal Patient was seen today on 09/18/2024, doing well, continues to have nasogastric tube in place, does not seem to be in any distress, remains on the CIWA protoco l. Patient is passing some gas, however no bowel movements yet, nasogastric tube is being addressed by surgery on the case, I believe he will be started on clear liquid diet today, and the nasogastric tube will likely be removed today, he is also on oral [place] for pain, he is compliant with incentive spirometry, and he remains on antibiotics as per ID on the case. No active pulmonary symptoms no cough no wheezing no shortness of breath. WBC count is 8.13 hemoglobin 11.5 electrolytes are normal renal profile is normal Patient was seen today on 09/19/2024, his nasogastric tube was removed yesterday, patient is doing much better today, he is generally weak, remains on CIWA protocol, denies any significant abdominal pain, patient denies any shortness of breath or cough or wheezing. Labs today were reviewed WBC count is 8 hemoglobin 11.1 electrolytes are normal potassium 3.4 BUN is 11 creatinine 0.51 The patient is seen today September 20, 2024 in follow-up on the selective care unit. He is currently up ambulating in his room with assistance. He took a shower this morning. He is maintaining good O2 saturations in the 90s on room air. He denies any worsening shortness of breath, cough or congestion. Blood culture revealed no growth. Urine culture revealed no growth. White count 11.9. Hemoglobin 13.0. Platelets 378. Sodium 134. Potassium 4.0. Bicarb 26. BUN 9. Creatinine 0.49. Glucose 100. He is anticoagulated with Eliquis. Remains on Zosyn. Tolerating a full liquid diet. The patient is seen today September 21, 2024 and follow-up on the selective care unit. He is currently sitting up in bed. Awake and alert in no acute distress. Maintaining O2 saturations in the upper 90s on room air. He has been afebrile. Hemodynamically stable. Chest x-ray shows improvement in the right pleural effusion. Urine culture revealed no growth. Blood culture revealed no growth. White count 13.8. Hemoglobin 11.1. Platelets 348. Sodium 132. Potassium 3.7. Bicarb 29. BUN 9. Creatinine 0.52. Glucose 83. He is anticoagulated with Eliquis. Remains on Zosyn. Remains on normal saline at 75 mL/h. Objective - Vital Signs Vital signs: Vital Signs Temp 97.8 F 09/21/24 11:41 Pulse 92 09/21/24 11:41 Resp 14 09/21/24 11:41 BP 102/70 09/21/24 11:41 Pulse Ox 99 09/21/24 11:41 FiO2 Intake & Output 09/20/24 09/21/24 09/21/24 18:59 06:59 18:59 Output Total 600 500 Balance -600 -500 Weight 86.3 kg Output: Urine 600 500 Other: Voiding Method Toilet Toilet Toilet Urinal Urinal Urinal # Voids 1 - Exam GENERAL EXAM: Alert, frail 79-year-old male patient, on room air, comfortable in no apparent distress. HEAD: Normocephalic. EYES: Normal reaction of pupils, equal size. NOSE: Clear with pink turbinates. THROAT: No erythema or exudates. NECK: No masses, no JVD. CHEST: No chest wall deformity. LUNGS: Equal air entry with no crackles, wheeze, rhonchi or dullness. CVS: S1 and S2 normal with no audible murmur, regular rhythm. ABDOMEN: Surgical incision clean dry and well-approximated. No hep atosplenomegaly, normal bowel sounds, no guarding or rigidity. SPINE: No scoliosis or deformity SKIN: No rashes CENTRAL NERVOUS SYSTEM: No focal deficits, tone is normal in all 4 extremities. EXTREMITIES: There is no peripheral edema. No clubbing, no cyanosis. Peripheral pulses are intact. - Labs CBC & Chem 7: 09/21/24 06:04 09/21/24 06:04 Labs: Abnormal Lab Results - Last 24 Hours (Table) 09/21/24 09/21/24 Range/Units 06:04 06:04 WBC 13.83 H (4.50-10.00) 10*3/uL RBC 3.19 L (4.40-5.60) 10*6/uL Hgb 11.1 L (13.0-17.0) g/dL Hct 33.0 L (39.6-50.0) % MCV 103.4 H (80.0-97.0) fL MCH 34.8 H (27.0-32.0) pg Immature Gran # 0.40 H (0.00-0.04) 10*3/uL Neutrophils # 11.55 H (1.80-7.70) 10*3/uL Lymphocytes # 0.80 L (0.90-5.00) 10*3/uL Sodium 132 L (137-145) mmol/L Creatinine 0.52 L (0.66-1.25) mg/dL Calcium 8.0 L (8.4-10.2) mg/dL Total Bilirubin 1.8 H (0.2-1.3) mg/dL Alkaline Phosphatase 137 H (38-126) U/L Total Protein 4.6 L (6.3-8.2) g/dL Albumin 2.3 L (3.5-5.0) g/dL Assessment and Plan Assessment: Acute complicated cholecystitis status post robotic assisted cholecystectomy converted to open procedure and evacuation of large amount of bilious drainage in the right upper quadrant on September 15, 2024 Atrial fibrillation with rapid ventricular response, on oral Cardizem, rate seems to be better controlled Large left rectus sheath hematoma redemonstrated and measuring approximately 11.6 x 15.3 x 5.3 cm. No indication of active bleeding. Previous reported vascular embolization performed at [facility] Frequent falls Acute hypoxemic respiratory failure, currently on 2 L/min nasal cannula, chest x-ray showing low lung volumes, right lateral chest wall subcutaneous emphysema extending the right clavicular region in the setting of recent laparoscopic procedure. No discrete pneumothorax. No pleural effusions. No focal consolidations. History of gout History of prostate cancer History of hypothyroidism History of alcohol abuse, last reported drink approximately 11 days ago Anxiety/depression Plan: The patient was seen and evaluated Labs and medications reviewed Stable and on room air oxygen Remains on oral Cardizem Anticoagulated with Eliquis Remains on Protonix Remains on Zosyn Tolerating a dysphagia level 1 pured diet Increase his activity as tolerated May require subacute rehab at discharge I have personally seen and examined the patient, performed the documentation and the assessment and plan as written. Number of minutes spent on the visit: 10 Dictation was produced using [employer] dictation software. Please excuse any grammatical, word or spelling errors.
[2024-09-21] MEDS: bisacodyL 10 MG SUPP RECTAL STA (14:24)
--- NOTE | 2024-09-21 14:27 | P.PN ---
Subjective Progress Note Date: 09/21/24 Patient is eval today in follow-up on the medical floor. Patient is postoperative day #5 cholecystectomy. MADDIE drain remains in place with 35 mL of output documented in last 24 hours. Patient has been up ambulating without difficulty. NG tube has been discontinued. He is on a full liquid diet and currently tolerating. States that he is passing gas but not having a bowel movement yet no other acute complaints at this time. Labs today reveal a white blood cell count of 1.97, hemoglobin 13.0, sodium 134, potassium 4.0, BUN of 9 creatinine 0.49. 09/21/2024 Patient seen and examined at bedside. Postop day 6 cholecystectomy. MADDIE drain in place with serosanguineous output. He is ambulating well. Full liquid diet, advance as tolerated. He has not had a bowel movement yet, but is passing gas. WBC 13.8, hemoglobin 11.1, sodium 132, creatinine 0.52, ALP 137. Chest x-ray with decreased small right-sided pleural effusion. All inpatient medications were reviewed and appropriate changes in these medications as dictated in the interval history and assessment and plan. PHYSICAL EXAMINATION: Vitals reviewed GENERAL: The patient is alert and oriented x3, not in any acute distress. Well developed, well nourished. CARDIOVASCULAR: S1 and S2 present. No murmurs, rubs, or gallops. PULMONARY: Chest is clear to auscultation, no wheezing or crackles. ABDOMEN: Soft, nontender, nondistended, normoactive bowel sounds. No palpable organomegaly. Abdominal dressing intact, MADDIE drain in place MUSCULOSKELETAL: No joint swelling or deformity. EXTREMITIES: No cyanosis, clubbing, or pedal edema. NEUROLOGICAL: Gross neurological examination did not reveal any focal deficits. Generalized weakness Assessment and plan Presyncope without loss of consciousness Recurrent falls due to the hypotension Acute cholecystitis status post open cholecystectomy Left rectus sheath hematoma with a arterial extravasation and angioembolization on August 23 Persistent atrial fibrillation currently rate controlled patient does continue to have episodes of RVR Hypothyroidism Alcohol use disorder Macrocytic anemia on thiamine and folate supplementation Anxiety/depression Arthritis DVT prophylaxis No code Continue current cardiac medications on oral Cardizem, oral metoprolol. Pain management in place with IV morphine and oral [place]. Patient is anticoagulated with Eliquis Patient continues on IV Zosyn. Patient to continue on a full liquid diet per general surgery. Continue to encourage incentive spirometry 10 times an hour while awake Continue to monitor for any acute alcohol withdrawal. Continue IV fluids Likely discharge to home with home health tomorrow Dr. Bronson seen patient with resident, present during exam, and agreed with findings. Objective - Vital Signs Vital signs: Vital Signs Temp 98 F 09/21/24 08:22 Pulse 105 H 09/21/24 08:22 Resp 16 09/21/24 08:22 BP 110/75 09/21/24 08:22 Pulse Ox 95 09/21/24 08:22 FiO2 Intake & Output 09/20/24 09/21/24 09/21/24 18:59 06:59 18:59 Output Total 600 Balance -600 Weight 86.3 kg Output: Urine 600 Other: Voiding Method Toilet Toilet Urinal Urinal # Voids 1 - Labs CBC & Chem 7: 09/21/24 06:04 09/21/24 06:04 Labs: Abnormal Lab Results - Last 24 Hours (Table) 09/21/24 09/21/24 Range/Units 06:04 06:04 WBC 13.83 H (4.50-10.00) 10*3/uL RBC 3.19 L (4.40-5.60) 10*6/uL Hgb 11.1 L (13.0-17.0) g/dL Hct 33.0 L (39.6-50.0) % MCV 103.4 H (80.0-97.0) fL MCH 34.8 H (27.0-32.0) pg Immature Gran # 0.40 H (0.00-0.04) 10*3/uL Neutrophils # 11.55 H (1.80-7.70) 10*3/uL Lymphocytes # 0.80 L (0.90-5.00) 10*3/uL Sodium 132 L (137-145) mmol/L Creatinine 0.52 L (0.66-1.25) mg/dL Calcium 8.0 L (8.4-10.2) mg/dL Total Bilirubin 1.8 H (0.2-1.3) mg/dL Alkaline Phosphatase 137 H (38-126) U/L Total Protein 4.6 L (6.3-8.2) g/dL Albumin 2.3 L (3.5-5.0) g/dL
[2024-09-21 15:14] LABS: Influenza A Not Detected (Not Detectd); Influenza B Not Detected (Not Detectd); RSV Not Detected (Not Detectd)
--- NOTE | 2024-09-21 21:17 | P.PN ---
Subjective Progress Note Date: 09/21/24 Principal diagnosis: Reason for follow-up is acute ruptured cholecystitis and peritonitis Patient is a 79-year-old male with a past medical history significant for prostate cancer hypothyroidism, who was brought into the hospital after the patient did have a fall at home patient has been diagnosed with a ruptured cholecystitis status post cholecystectomy. On today's evaluation that is 09/21/2024, patient has been afebrile, patient is breathing comfortably and is currently on room air, patient denies having any chest pain and cough, patient denies nausea vomiting or diarrhea and no abdominal pain. Patient white count is 13.83 creatinine 0.52 Objective - Vital Signs Vital signs: Vital Signs Temp 97.8 F 09/21/24 11:41 Pulse 92 09/21/24 11:41 Resp 14 09/21/24 11:41 BP 102/70 09/21/24 11:41 Pulse Ox 99 09/21/24 11:41 FiO2 Intake & Output 09/20/24 09/21/24 09/21/24 18:59 06:59 18:59 Output Total 600 500 Balance -600 -500 Weight 86.3 kg Output: Urine 600 500 Other: Voiding Method Toilet Toilet Urinal Urinal # Voids 1 - Exam GENERAL DESCRIPTION: An elderly male lying in bed in no distress RESPIRATORY SYSTEM: Unlabored breathing , decreased breath sounds at bases HEART: S1 S2 regular rate and rhythm , ABDOMEN: Soft , no tenderness EXTREMITIES: No edema feet - Labs CBC & Chem 7: 09/21/24 06:04 09/21/24 06:04 Labs: Abnormal Lab Results - Last 24 Hours (Table) 09/21/24 09/21/24 Range/Units 06:04 06:04 WBC 13.83 H (4.50-10.00) 10*3/uL RBC 3.19 L (4.40-5.60) 10*6/uL Hgb 11.1 L (13.0-17.0) g/dL Hct 33.0 L (39.6-50.0) % MCV 103.4 H (80.0-97.0) fL MCH 34.8 H (27.0-32.0) pg Immature Gran # 0.40 H (0.00-0.04) 10*3/uL Neutrophils # 11.55 H (1.80-7.70) 10*3/uL Lymphocytes # 0.80 L (0.90-5.00) 10*3/uL Sodium 132 L (137-145) mmol/L Creatinine 0.52 L (0.66-1.25) mg/dL Calcium 8.0 L (8.4-10.2) mg/dL Total Bilirubin 1.8 H (0.2-1.3) mg/dL Alkaline Phosphatase 137 H (38-126) U/L Total Protein 4.6 L (6.3-8.2) g/dL Albumin 2.3 L (3.5-5.0) g/dL Assessment and Plan (1) Peritonitis Current Visit: Yes Status: Acute Code(s): K65.9 - PERITONITIS, UNSPECIFIED SNOMED Code(s): 40718618 (2) Acute cholecystitis Current Visit: Yes Status: Acute Code(s): K81.0 - ACUTE CHOLECYSTITIS SNOMED Code(s): 66407908 Plan: 1patient presented to hospital with weakness and a fall on a workup did have evidence of acute cholecystitis that was seen on the CT as well as MRCP in this patient who is status post cholecystectomy completed on 09/15/2024 with operative report mention perforated acute cholecystitis no operative culture. 2- patient is afebrile and white count is slightly up need to be monitored closely for now continue Zosyn and watch his clinical course closely repeat his CBC with a.m. lab Dictation was produced using [employer] dictation software. please excuse any grammatical, word or spelling errors. Time with Patient: Less than 30
[2024-09-22 06:53] LABS: Basophils # (A) 0.04 10*3/uL (0.00-0.10); Basophils % (A) 0.3 %; Eosinophils # (A) 0.21 10*3/uL (0.04-0.35); Eosinophils % (A) 1.4 %; HCT 30.1 % (39.6-50.0); HGB 10.3 g/dL (13.0-17.0); Lymphocytes # (A) 0.74 10*3/uL (0.90-5.00); Lymphocytes % (A) 5.1 %; MCH 34.3 pg (27.0-32.0); MCHC 34.2 g/dL (32.0-37.0); MCV 100.3 fL (80.0-97.0); Mean Platelet Volume 11.1 fL (9.5-12.2); Monocytes # (A) 0.82 10*3/uL (0.20-1.00); Monocytes % (A) 5.6 %; Neutrophils # (A) 12.53 10*3/uL (1.80-7.70); Neutrophils % (A) 85.5 %; Platelet Count 400 10*3/uL (140-440); RDW 17.9 % (11.5-14.5); WBC 14.65 10*3/uL (4.50-10.00)
[2024-09-22 07:07] LABS: ALT 15 U/L (4-49); AST 22 U/L (17-59); African American GFR (CKD) >90 (>60 ml/min/1.73 sqM); Albumin 2.1 g/dL (3.5-5.0); Alkaline Phosphatase 146 U/L (38-126); Anion Gap 5 mmol/L; Blood Urea Nitrogen 8 mg/dL (9-20); Calcium 7.9 mg/dL (8.4-10.2); Carbon Dioxide 27 mmol/L (22-30); Chloride 101 mmol/L (98-107); Glucose 84 mg/dL (74-99); Non-African American GFR(CKD) >90 (>60 ml/min/1.73 sqM); Potassium 3.4 mmol/L (3.5-5.1); Sodium 133 mmol/L (137-145); Total Bilirubin 1.4 mg/dL (0.2-1.3); Total Protein 4.3 g/dL (6.3-8.2)
[2024-09-22] MEDS: POTASSIUM CHLORIDE ER 20 MEQ TAB.ER PO STA (09:32)
[2024-09-22 10:09] LABS: Appearance,Urine Clear (Clear); Bilirubin,Urine Negative (Negative); Blood,Urine Negative (Negative); Color,Urine Yellow; Glucose,Urine (UA) Negative (Negative); Ketones,Urine Negative (Negative); Leukocyte Esterase,Urine Negative (Negative); Nitrite,Urine Negative (Negative); PH, Urine 5.5 (5.0-8.0); Protein,Urine Negative (Negative); Specific Gravity,Urine 1.018 (1.001-1.035)
--- NOTE | 2024-09-22 12:50 | P.PN ---
Subjective Progress Note Date: 09/22/24 Patient is an 79-year-old male with past medical history significant for gout, prostate cancer, hypothyroidism, and alcohol abuse. Patient does follow-up with Dr. Mascorro for his primary care needs. Patient has been suffering from frequent falls, was evaluated emergency department back on 08/21/2024, found to have a traumatic large left rectus sheath hematoma. He was also found to be in new onset atrial fibrillation at this time. Transferred to [facility] for vascular embolization. Patient was discharged home on metoprolol and Xarelto. He was seen by Dr. Mascorro on 09/01/2024 in follow-up. CT of the abdomen and pelvis showing increasing size of large left rectus sheath hematoma without vis ualized active extravasation. Dr. Mascorro advised the patient to stop his Xarelto. Patient had a subsequent fall on 09/14/2024. Reportedly dizzy which caused him to fall. Also, endorsed some right-sided chest and abdominal pain. Appetite has been poor. Abdominal/pelvis CT showing cholelithiasis with gallbladder wall thickening concerning for acute cholecystitis. Redemonstration of the large left abdominal wall intramuscular hematoma measuring approximately 11.6 x 15.3 x 5.3 cm. No indication of active bleeding. Diverticulosis without acute diverticulitis. No small bowel obstructions. No free intraperitoneal air. Follow-up MRCP demonstrated prominent gallbladder with gallstones and circumferential wall thickening. Borderline dilated extrahepatic biliary ducts no evidence of choledocholithiasis. Last night patient was taken for robotic assisted cholecystectomy converted to open procedure with a large amount of bilious fluid collection. Did briefly require vasopressor support in the operating room. Patient was extubated in the postanesthesia care unit and transferred to the intensive care unit. Patient currently being evaluated in room 265. He is awake and alert. Heart rhythm is atrial fibrillation with rapid ventricular response ranging from 100 to 120 bpm. Cardizem is infusing at 5 mg/h. Blood pressure is normotensive. He did receive a 1 L LR bolus earlier. Normal saline continues at 75 mm/h. No longer requiring any vasopressor support. Endorsing some incisional abdominal pain, rated 7 on a 10 point numerical scale. There is a midline abdominal incision with some additional laparoscopic incisions. Right upper quadrant MADDIE drain with small amount of s erosanguineous output. Patient is on 2 L/min nasal cannula. Resting comfortably not in any respiratory distress. Chest x-ray with low lung volumes, right lateral chest wall subcutaneous emphysema extending the right clavicular region in the setting of recent laparoscopic procedure. No discrete p neumothorax. No pleural effusions. No focal consolidations. CBC: WBC count 6, hemoglobin 12, platelets 236. CMP: Sodium 135, potassium 4.1, chloride 106, serum bicarb 21, BUN 34, creatinine 1.21, glucose 107. Total bilirubin 2.8. AST 24, ALT 11, ALP 56. Troponin elevated 0.054. Patient empirically covered on Zosyn. Current vital signs: Afebrile, heart rate 108 bpm, blood pressure 108/74 mmHg, nontachypneic, on 2 L/min nasal cannula, SpO2 reading 97% on bedside monitor. Patient was seen today on 09/17/2024, remains in the ICU, patient is feeling better today compared to yesterday and the day prior. No shortness of breath, complaining mostly of dry sore throat, continues to have nasogastric tube in place, patient was transition from IV Cardizem to oral Cardizem, his atrial fibrillation seems to be controlled. Rate is in the 80s. Patient remains on CIWA protocol for his history of alcoholism. Overall I believe the patient is doing well, and I will plan to transfer the patient out of the ICU to a monitored bed and selective. WBC count is 7.4 hemoglobin 10.8, basic metabolic profile is normal renal profile is normal Patient was seen today on 09/18/2024, doing well, continues to have nasogastric tube in place, does not seem to be in any distress, remains on the CIWA protoco l. Patient is passing some gas, however no bowel movements yet, nasogastric tube is being addressed by surgery on the case, I believe he will be started on clear liquid diet today, and the nasogastric tube will likely be removed today, he is also on oral [place] for pain, he is compliant with incentive spirometry, and he remains on antibiotics as per ID on the case. No active pulmonary symptoms no cough no wheezing no shortness of breath. WBC count is 8.13 hemoglobin 11.5 electrolytes are normal renal profile is normal Patient was seen today on 09/19/2024, his nasogastric tube was removed yesterday, patient is doing much better today, he is generally weak, remains on CIWA protocol, denies any significant abdominal pain, patient denies any shortness of breath or cough or wheezing. Labs today were reviewed WBC count is 8 hemoglobin 11.1 electrolytes are normal potassium 3.4 BUN is 11 creatinine 0.51 The patient is seen today September 20, 2024 in follow-up on the selective care unit. He is currently up ambulating in his room with assistance. He took a shower this morning. He is maintaining good O2 saturations in the 90s on room air. He denies any worsening shortness of breath, cough or congestion. Blood culture revealed no growth. Urine culture revealed no growth. White count 11.9. Hemoglobin 13.0. Platelets 378. Sodium 134. Potassium 4.0. Bicarb 26. BUN 9. Creatinine 0.49. Glucose 100. He is anticoagulated with Eliquis. Remains on Zosyn. Tolerating a full liquid diet. The patient is seen today September 21, 2024 and follow-up on the selective care unit. He is currently sitting up in bed. Awake and alert in no acute distress. Maintaining O2 saturations in the upper 90s on room air. He has been afebrile. Hemodynamically stable. Chest x-ray shows improvement in the right pleural effusion. Urine culture revealed no growth. Blood culture revealed no growth. White count 13.8. Hemoglobin 11.1. Platelets 348. Sodium 132. Potassium 3.7. Bicarb 29. BUN 9. Creatinine 0.52. Glucose 83. He is anticoagulated with Eliquis. Remains on Zosyn. Remains on normal saline at 75 mL/h. The patient is seen today September 22, 2024 in follow-up on the selective care unit. He is currently up in a chair at the bedside. Awake and alert in no acute distress. Denies any worsening shortness of breath, cough or congestion. Maintaining good O2 saturations in the 90s on room air. Blood and urine cultures revealed no growth. White count 14.6. Hemoglobin 10.3. Platelets 400. Sodium 133. Potassium 3.4. Bicarb 27. BUN 8. Creatinine 0.49. Glucose 84. Urinalysis clean. Viral screen again negative. He is anticoagulated with Eliquis. Remains on Diflucan. Remains on Zosyn. Continued on normal saline at 75 mL/h. Objective - Vital Signs Vital signs: Vital Signs Temp 98.0 F 04/15/25 11:06 Pulse 105 H 09/22/24 11:06 Resp 16 09/22/24 11:06 BP 115/74 09/22/24 11:06 Pulse Ox 95 09/22/24 11:06 FiO2 Intake & Output 09/21/24 09/22/24 09/22/24 18:59 06:59 18:59 Intake Total 240 480 Output Total 520 670 Balance -280 -190 Weight 86.3 kg 87 kg Intake: Oral 240 480 Output: Drainage 20 20 Right Medial Abdomen 20 20 Urine 500 650 Other: Voiding Method Toilet Toilet Toilet Urinal Urinal Urinal # Voids 3 0 # Bowel Movements 3 - Exam GENERAL EXAM: Alert, frail 79-year-old male patient, up in a chair, on room air, comfortable in no apparent distress. HEAD: Normocephalic. EYES: Normal reaction of pupils, equal size. NOSE: Clear with pink turbinates. THROAT: No erythema or exudates. NECK: No masses, no JVD. CHEST: No chest wall deformity. LUNGS: Equal air entry with no crackles, wheeze, rhonchi or dullness. CVS: S1 and S2 normal with no audible murmur, regular rhythm. ABDOMEN: Surgical incision clean dry and well-approximated. No hepatosple nomegaly, normal bowel sounds, no guarding or rigidity. SPINE: No scoliosis or deformity SKIN: No rashes CENTRAL NERVOUS SYSTEM: No focal deficits, tone is normal in all 4 extremities. EXTREMITIES: There is no peripheral edema. No clubbing, no cyanosis. Peripheral pulses are intact. - Labs CBC & Chem 7: 09/22/24 05:36 09/22/24 05:36 Labs: Abnormal Lab Results - Last 24 Hours (Table) 09/22/24 09/22/24 Range/Units 05:36 05:36 WBC 14.65 H (4.50-10.00) 10*3/uL RBC 3.00 L (4.40-5.60) 10*6/uL Hgb 10.3 L (13.0-17.0) g/dL Hct 30.1 L (39.6-50.0) % MCV 100.3 H (80.0-97.0) fL MCH 34.3 H (27.0-32.0) pg Immature Gran # 0.31 H (0.00-0.04) 10*3/uL Neutrophils # 12.53 H (1.80-7.70) 10*3/uL Lymphocytes # 0.74 L (0.90-5.00) 10*3/uL Sodium 133 L (137-145) mmol/L Potassium 3.4 L (3.5-5.1) mmol/L BUN 8 L (9-20) mg/dL Creatinine 0.49 L (0.66-1.25) mg/dL Calcium 7.9 L (8.4-10.2) mg/dL Total Bilirubin 1.4 H (0.2-1.3) mg/dL Alkaline Phosphatase 146 H (38-126) U/L Total Protein 4.3 L (6.3-8.2) g/dL Albumin 2.1 L (3.5-5.0) g/dL Assessment and Plan Assessment: Acute complicated cholecystitis status post robotic assisted cholecystectomy converted to open procedure and evacuation of large amount of bilious drainage in the right upper quadrant on September 15, 2024 Atrial fibrillation with rapid ventricular response, on oral Cardizem, rate seems to be better controlled Large left rectus sheath hematoma redemonstrated and measuring approximately 11.6 x 15.3 x 5.3 cm. No indication of active bleeding. Previous reported vascular embolization performed at [facility] Frequent falls Acute hypoxemic respiratory failure, currently on 2 L/min nasal cannula, chest x-ray showing low lung volumes, right lateral chest wall subcutaneous emphysema extending the right clavicular region in the setting of recent laparoscopic procedure. No discrete pneumothorax. No pleural effusions. No focal consolidations. History of gout History of prostate cancer History of hypothyroidism History of alcohol abuse, last reported drink approximately 11 days ago Anxiety/depression Plan: The patient was seen and evaluated Labs and medications reviewed Stable and on room air oxygen Anticoagulated with Eliquis Remains on Protonix Remains on Zosyn Tolerating a dysphagia level 1 pured diet Increase his activity as tolerated Cleared for discharge once cleared by surgical services Plan is for home with home care at discharge I have personally seen and examined the patient, performed the documentation and the assessment and plan as written. Number of minutes spent on the visit: 10 Dictation was produced using [employer] software. Please excuse any grammatical, word or spelling errors.
[2024-09-22] MEDS: FLUCONAZOLE 100 MG TAB PO ONE (13:20)
--- NOTE | 2024-09-22 14:32 | P.PN ---
Subjective Progress Note Date: 09/22/24 Principal diagnosis: Reason for follow-up is acute ruptured cholecystitis and peritonitis Patient is a 79-year-old male with a past medical history significant for prostate cancer hypothyroidism, who was brought into the hospital after the patient did have a fall at home patient has been diagnosed with a ruptured cholecystitis status post cholecystectomy. On today's evaluation that is 09/22/2024, Patient is afebrile this morning patient denies having any chest pain shortness of breath or cough, the patient is currently on room air, patient denies any abdominal pain no diarrhea no nausea no vomiting. Patient white count is up to 14.65, creatinine 0.49 UA has been negative blood culture has been negative chest x-ray with decreasing small right effusion right chest wall subcutaneous emphysema Objective - Vital Signs Vital signs: Vital Signs Temp 98.0 F 09/22/24 11:06 Pulse 105 H 09/22/24 11:06 Resp 16 09/22/24 11:06 BP 115/74 09/22/24 11:06 Pulse Ox 95 09/22/24 11:06 FiO2 Intake & Output 09/21/24 09/22/24 09/22/24 18:59 06:59 18:59 Intake Total 240 480 Output Total 520 670 Balance -280 -190 Weight 86.3 kg 87 kg Intake: Oral 240 480 Output: Drainage 20 20 Right Medial Abdomen 20 20 Urine 500 650 Other: Voiding Method Toilet Toilet Toilet Urinal Urinal Urinal # Voids 3 0 # Bowel Movements 3 - Exam GENERAL DESCRIPTION: An elderly male lying in bed in no distress RESPIRATORY SYSTEM: Unlabored breathing , decreased breath sounds at bases HEART: S1 S2 regular rate and rhythm , ABDOMEN: Soft , no tenderness EXTREMITIES: No edema feet - Labs CBC & Chem 7: 09/22/24 05:36 09/22/24 05:36 Labs: Abnormal Lab Results - Last 24 Hours (Table) 09/22/24 09/22/24 Range/Units 05:36 05:36 WBC 14.65 H (4.50-10.00) 10*3/uL RBC 3.00 L (4.40-5.60) 10*6/uL Hgb 10.3 L (13.0-17.0) g/dL Hct 30.1 L (39.6-50.0) % MCV 100.3 H (80.0-97.0) fL MCH 34.3 H (27.0-32.0) pg Immature Gran # 0.31 H (0.00-0.04) 10*3/uL Neutrophils # 12.53 H (1.80-7.70) 10*3/uL Lymphocytes # 0.74 L (0.90-5.00) 10*3/uL Sodium 133 L (137-145) mmol/L Potassium 3.4 L (3.5-5.1) mmol/L BUN 8 L (9-20) mg/dL Creatinine 0.49 L (0.66-1.25) mg/dL Calcium 7.9 L (8.4-10.2) mg/dL Total Bilirubin 1.4 H (0.2-1.3) mg/dL Alkaline Phosphatase 146 H (38-126) U/L Total Protein 4.3 L (6.3-8.2) g/dL Albumin 2.1 L (3.5-5.0) g/dL Assessment and Plan (1) Peritonitis Current Visit: Yes Status: Acute Code(s): K65.9 - PERITONITIS, UNSPECIFIED SNOMED Code(s): 86676198 (2) Acute cholecystitis Current Visit: Yes Status: Acute Code(s): K81.0 - ACUTE CHOLECYSTITIS SNOMED Code(s): 06874709 Plan: 1patient presented to hospital with weakness and a fall on a workup did have evidence of acute cholecystitis that was seen on the CT as well as MRCP in this patient who is status post cholecystectomy completed on 09/15/2024 with operative report mention perforated acute cholecystitis no operative culture. 2- patient is afebrile and white count is trending up question of possible oropharyngeal candidiasis will add Diflucan continue Zosyn repeat CBC with a.m. lab Dictation was produced using [employer] mobile dictation software. please excuse any grammatical, word or spelling errors. Time with Patient: Less than 30
--- NOTE | 2024-09-22 14:44 | P.PN ---
Subjective Progress Note Date: 09/22/24 Patient is eval today in follow-up on the medical floor. Patient is postoperative day #5 cholecystectomy. MADDIE drain remains in place with 35 mL of output documented in last 24 hours. Patient has been up ambulating without difficulty. NG tube has been discontinued. He is on a full liquid diet and currently tolerating. States that he is passing gas but not having a bowel movement yet no other acute complaints at this time. Labs today reveal a white blood cell count of 1.97, hemoglobin 13.0, sodium 134, potassium 4.0, BUN of 9 creatinine 0.49. 09/21/2024 Patient seen and examined at bedside. Postop day 6 cholecystectomy. MADDIE drain in place with serosanguineous output. He is ambulating well. Full liquid diet, advance as tolerated. He has not had a bowel movement yet, but is passing gas. WBC 13.8, hemoglobin 11.1, sodium 132, creatinine 0.52, ALP 137. Chest x-ray with decreased small right-sided pleural effusion. 09/22/2024 Patient seen and examined at bedside. Patient is postop day 7. MADDIE drain still in place with serosanguineous output 20 mL. He attests to passing gas and bowel movement. He is able to tolerate soft diet without nausea or vomiting. Advance diet as tolerated. Discussed need for rehab facility, however patient declined and would prefer to go home with home health services. Labs today WBC 14.6, hemoglobin 10.3, sodium 133, potassium 3.4, total bilirubin 1.4, ALP 146,, UA negative, chest x-ray no acute process. All inpatient medications were reviewed and appropriate changes in these medications as dictated in the interval history and assessment and plan. PHYSICAL EXAMINATION: Vitals reviewed GENERAL: The patient is alert and oriented x3, not in any acute distress. Well developed, well nourished. CARDIOVASCULAR: S1 and S2 present. No murmurs, rubs, or gallops. PULMONARY: Chest is clear to auscultation, no wheezing or crackles. ABDOMEN: Soft, nontender, nondistended, normoactive bowel sounds. No palpable organomegaly. Abdominal dressing intact, MADDIE drain in place MUSCULOSKELETAL: No joint swelling or deformity. EXTREMITIES: No cyanosis, clubbing, or pedal edema. NEUROLOGICAL: Gross neurological examination did not reveal any focal deficits. Generalized weakness Assessment and plan Presyncope without loss of consciousness Recurrent falls due to the hypotension Acute cholecystitis status post open cholecystectomy Left rectus sheath hematoma with a arterial extravasation and angioembolization on August 23 Persistent atrial fibrillation currently rate controlled patient does continue to have episodes of RVR Leukocytosis Hypothyroidism Alcohol use disorder Macrocytic anemia on thiamine and folate supplementation Anxiety/depression Arthritis DVT prophylaxis No code Continue current cardiac medications on oral Cardizem, oral metoprolol. Pain management in place with IV morphine and oral [place]. Patient is anticoagulated with Eliquis Patient continues on IV Zosyn, add Diflucan Heart healthy diet Continue to encourage incentive spirometry 10 times an hour while awake Continue IV fluids Likely discharge to home with home health tomorrow Dr. Bronson seen patient with resident, present during exam, and agreed with findings. Objective - Vital Signs Vital signs: Vital Signs Temp 98.0 F 09/22/24 11:06 Pulse 105 H 09/22/24 13:34 Resp 16 09/22/24 13:34 BP 115/74 09/22/24 11:06 Pulse Ox 95 09/22/24 11:06 FiO2 Intake & Output 09/21/24 09/22/24 09/22/24 18:59 06:59 18:59 Intake Total 240 480 Output Total 520 870 Balance -280 -390 Weight 86.3 kg 87 kg Intake: Oral 240 480 Output: Drainage 20 20 Right Medial Abdomen 20 20 Urine 500 850 Other: Voiding Method Toilet Toilet Toilet Urinal Urinal Urinal # Voids 3 0 # Bowel Movements 3 - Labs CBC & Chem 7: 09/22/24 05:36 09/22/24 05:36 Labs: Abnormal Lab Results - Last 24 Hours (Table) 09/22/24 09/22/24 Range/Units 05:36 05:36 WBC 14.65 H (4.50-10.00) 10*3/uL RBC 3.00 L (4.40-5.60) 10*6/uL Hgb 10.3 L (13.0-17.0) g/dL Hct 30.1 L (39.6-50.0) % MCV 100.3 H (80.0-97.0) fL MCH 34.3 H (27.0-32.0) pg Immature Gran # 0.31 H (0.00-0.04) 10*3/uL Neutrophils # 12.53 H (1.80-7.70) 10*3/uL Lymphocytes # 0.74 L (0.90-5.00) 10*3/uL Sodium 133 L (137-145) mmol/L Potassium 3.4 L (3.5-5.1) mmol/L BUN 8 L (9-20) mg/dL Creatinine 0.49 L (0.66-1.25) mg/dL Calcium 7.9 L (8.4-10.2) mg/dL Total Bilirubin 1.4 H (0.2-1.3) mg/dL Alkaline Phosphatase 146 H (38-126) U/L Total Protein 4.3 L (6.3-8.2) g/dL Albumin 2.1 L (3.5-5.0) g/dL
--- NOTE | 2024-09-22 15:22 | P.PN ---
Subjective Progress Note Date: 09/22/24 SURGICAL PROGRESS NOTE CHIEF COMPLAINT: Fall HISTORY OF PRESENT ILLNESS: Postop day #7 status post robotic cholecystectomy with exploratory laparotomy with washout. Patient is sitting up in bedside chair. Patient's constipation has improved he did have multiple bowel movements. Urinary retention improved. He is urinating without difficulty. MADDIE drain 20 mL serosanguineous output. Afebrile. Patient reports his abdominal pain is controlled. White count did increase from 13-14. Minimal tachycardia heart rate 101. Afebrile. PHYSICAL EXAM: VITAL SIGNS: Reviewed. GENERAL: Well-developed in no acute distress. ABDOMEN: Soft. Nondistended. Dressing pulled back. Incision site clean dry a nd intact. NEUROLOGIC: Alert and oriented. Cranial nerves II through XII grossly intact. ASSESSMENT: 1. Acute cholecystitis 2. Abdominal ileus improved PLAN: -CT scan abdomen pelvis ordered for evaluation of increased white count. -Repeat CBC in a.m. -Continue antibiotics -Continue pain management -Patient is planned to return home with home care -Advance diet to heart healthy -DVT prophylaxis on [facility] Physician Swing Ride Operator note has been reviewed by physician. Signing provider agrees with the documented findings, assessment, and plan of care. Attestation Patient seen and examined at bedside on 09/22/2024. Patient noted to have some elevation in leukocytosis today. Secondary to this, we will plan for CT of the abdomen and pelvis. Continue IV antibiotics. Patient is denying any abdominal pain. Afebrile. Adilene Grant, DO Objective - Vital Signs Vital signs: Vital Signs Temp 98.0 F 09/22/24 11:06 Pulse 105 H 09/22/24 13:34 Resp 16 09/22/24 13:34 BP 115/74 09/22/24 11:06 Pulse Ox 95 09/22/24 11:06 FiO2 Intake & Output 09/21/24 09/22/24 09/22/24 18:59 06:59 18:59 Intake Total 240 480 Output Total 520 870 Balance -280 -390 Weight 86.3 kg 87 kg Intake: Oral 240 480 Output: Drainage 20 20 Right Medial Abdomen 20 20 Urine 500 850 Other: Voiding Method Toilet Toilet Toilet Urinal Urinal Urinal # Voids 3 0 # Bowel Movements 3 - Labs CBC & Chem 7: 09/23/24 05:41 09/23/24 05:41 Labs: Abnormal Lab Results - Last 24 Hours (Table) 09/22/24 09/22/24 Range/Units 05:36 05:36 WBC 14.65 H (4.50-10.00) 10*3/uL RBC 3.00 L (4.40-5.60) 10*6/uL Hgb 10.3 L (13.0-17.0) g/dL Hct 30.1 L (39.6-50.0) % MCV 100.3 H (80.0-97.0) fL MCH 34.3 H (27.0-32.0) pg Immature Gran # 0.31 H (0.00-0.04) 10*3/uL Neutrophils # 12.53 H (1.80-7.70) 10*3/uL Lymphocytes # 0.74 L (0.90-5.00) 10*3/uL Sodium 133 L (137-145) mmol/L Potassium 3.4 L (3.5-5.1) mmol/L BUN 8 L (9-20) mg/dL Creatinine 0.49 L (0.66-1.25) mg/dL Calcium 7.9 L (8.4-10.2) mg/dL Total Bilirubin 1.4 H (0.2-1.3) mg/dL Alkaline Phosphatase 146 H (38-126) U/L Total Protein 4.3 L (6.3-8.2) g/dL Albumin 2.1 L (3.5-5.0) g/dL
--- NOTE | 2024-09-22 15:39 | CT ---
EXAMINATION TYPE: CT abdomen pelvis w con DATE OF EXAM: 09/22/2024 COMPARISON: 09/01/2024 CLINICAL INDICATION: Male, 79 years old with history of abdominal pain, leukocytosis; PHH, abdominal pain, leukocytosis TECHNIQUE: Performed without Oral Contrast and with IV Contrast, patient injected with 100ml mL of Isovue 300. CT DLP: 1427.[address] CTDI: mGy Automated exposure control for dose reduction was used. FINDINGS: There has been interval development of a small left pleural effusion and [id number] right pleural effusion. There is mild adjacent bibasilar lung consolidation possibly compressive atel ectasis secondary to the effusions. Pneumonic infiltrates not excluded. There are multiple gallstones and ill definition of the gallbladder wall. The right lobe of the liver adjacent to the gallbladder there is a focal area of ill-defined decreased density which could repre sent edema or infectious process related to the gallbladder there is no biliary ductal dilatation. Th ere is marked pancreatic atrophy. There is no splenic mass or adrenal mass There is no focal mass or organomegaly involving the liver, pancreas, spleen or adrenal glands. There is no solid renal mass or hydronephrosis and there is homogeneous contrast enhancement of the r enal parenchyma. There is a table multiloculated cyst right kidney with thin septations and a few sca ttered septal calcifications. The caliber the abdominal aorta is normal is no retroperitoneal adenopathy or hemorrhage. The bowel loops are normal in caliber and there is no evidence of dilatation or obstruction. No infla mmatory changes are identified in the bowel wall or mesentery. There is no free intraperitoneal air or fluid. There has been a small interval decrease in the large left rectus sheath hematoma which has decrease d in the interval from 17.5 x 7.1 cm to approximately 17.3 x 5.5 cm sheath. There is a drainage catheter entering the right abdomen and terminating in the left upper quadrant of the abdomen beneath but not entering the hematoma. There are postsurgical changes of radical prostatectomy. There is no pelvic mass or free fluid or abs cess. There is small amount of air within the urinary bladder possibly from recent Coy catheter chasidy cement There has been interval development of moderate anasarca of the subcutaneous soft tissues. No focal osseous lesions are seen. IMPRESSION: 1. Interval development of bilateral pleural effusions and bibasilar infiltrates or atelectasis as de scribed above. 2. Gallstones but interval development of ill definition of the gallbladder wall and possible focal e nicki within the adjacent liver parenchyma raising the question of acute cholecystitis. 3. Mild decrease in the large left rectus sheath hematoma. 4 interval development of moderate anasarca of the subcutaneous soft tissues. 5. Air within the urinary bladder. Question recent Coy catheter placement. 6. Medical prostatectomy 7. Drainage catheter within the abdomen is described above. 8. Bosniak type II septated cyst of the right kidney as described above. [facility], , 09/22/2024 3:37 PM
[2024-09-22] MEDS: BENZOCAINE/MENTHOL LOZENG 1 EACH LOZENGE MUCOUS MEM PRN (16:55)
[2024-09-23] MEDS: PIPERACILLIN-TAZOBACTAM 3.375 GM in SODIUM CHLORIDE 0.9% 100 ML IVPB SCH (00:41)
[2024-09-23 06:52] LABS: Basophils # (A) 0.05 10*3/uL (0.00-0.10); Basophils % (A) 0.3 %; Eosinophils # (A) 0.06 10*3/uL (0.04-0.35); Eosinophils % (A) 0.3 %; HCT 34.3 % (39.6-50.0); HGB 11.4 g/dL (13.0-17.0); Lymphocytes # (A) 0.33 10*3/uL (0.90-5.00); Lymphocytes % (A) 1.7 %; MCH 33.7 pg (27.0-32.0); MCHC 33.2 g/dL (32.0-37.0); MCV 101.5 fL (80.0-97.0); Mean Platelet Volume 11.4 fL (9.5-12.2); Monocytes # (A) 0.48 10*3/uL (0.20-1.00); Monocytes % (A) 2.4 %; Neutrophils % (A) 94.1 %; Platelet Count 432 10*3/uL (140-440); RBC 3.38 10*6/uL (4.40-5.60); WBC 19.75 10*3/uL (4.50-10.00)
[2024-09-23 06:58] LABS: Glucose,Whole Blood 95 mg/dL (70-110)
[2024-09-23 07:16] LABS: ALT 14 U/L (4-49); AST 26 U/L (17-59); African American GFR (CKD) >90 (>60 ml/min/1.73 sqM); Albumin 2.3 g/dL (3.5-5.0); Alkaline Phosphatase 196 U/L (38-126); Anion Gap 5 mmol/L; Blood Urea Nitrogen 8 mg/dL (9-20); Carbon Dioxide 26 mmol/L (22-30); Chloride 100 mmol/L (98-107); Glucose 68 mg/dL (74-99); Non-African American GFR(CKD) >90 (>60 ml/min/1.73 sqM); Sodium 131 mmol/L (137-145); Total Bilirubin 1.6 mg/dL (0.2-1.3); Total Protein 4.7 g/dL (6.3-8.2)
--- NOTE | 2024-09-23 07:56 | CT ---
EXAMINATION TYPE: CT brain wo con DATE OF EXAM: 09/23/2024 7:47 AM COMPARISON: 09/14/2024 CLINICAL INDICATION: Male, 79 years old with history of Fell and hit head, fall, pain TECHNIQUE: Examination was done in axial plane without intravenous contrast. Coronal and sagittal r econstructions performed. CT DLP: 1126.4 mGycm, Automated exposure control for dose reduction was used. FINDINGS: There is no evidence of acute intracranial hemorrhage, acute ischemic changes, mass, mass-effect, or extra-axial fluid collection. There is no effacement of cerebral sulci or basal subarachnoid cister ns. There is no hydrocephalus. There is no midline shift. Caceres-white matter distinction is preserv ed. Mild to moderate generalized supratentorial volume loss. Secondary mild prominence to the ventricular system is unchanged. Atherosclerotic calcifications of the carotid siphons Rightward nasal septal deviation. Scattered trace mucosal thickening throughout the paranasal sinuses . Mastoid air cells well pneumatized. Some postresection changes redemonstrated right mastoid process . Orbits and globes appear intact. No calvarial fracture. IMPRESSION: Mild to moderate generalized cerebral atrophy. No acute intracranial abnormality seen. [facility], Workstation: Maria [email or web address]-[email or web address], 09/23/2024 7:54 AM
--- NOTE | 2024-09-23 08:17 | CT ---
EXAMINATION TYPE: CT abdomen pelvis wo con DATE OF EXAM: 09/23/2024 7:47 AM COMPARISON: 09/22/2024 CLINICAL INDICATION: Male, 79 years old with history of Fell and now visible bruising on the right fl ank.; fall TECHNIQUE: CT of the abdomen and pelvis without IV or oral contrast. Coronal and sagittal reconstruct ions performed. CT DLP: 784 mGycm, Automated exposure control for dose reduction was used. FINDINGS: Redemonstrated marked generalized anasarca change in large intramuscular hematoma along the anterior left abdominal wall musculature measuring up to 16.2 cm wide, 6.0 cm thick, and 17.2 cm craniocaudal. Some subcutaneous emphysema along the lateral aspect of the right lower chest wall is unchanged. Mode rate right and small left pleural effusions with adjacent atelectasis are unchanged. Heart remains normal size with scattered coronary artery calcifications. Seminal elevated right hemid iaphragm. Similar mild perihepatic ascites at the dome of the liver below the hemidiaphragm. There appears to be a fluid collection within the cul-de-sac measuring 6.0 x 3.8 cm versus 6.2 x 2.6 cm, previously. Not significantly changed. Administered IV contrast material collected within the olga dder. Surgical clips related to prior prostatectomy with multiple surgical clips along the pelvic brook ewalls as well. Small amount of intraluminal bladder air is redemonstrated. Complex cysts of the right kidney measuring up to 4.5 cm redemonstrated. Some underlying gallstones measuring up to 1 cm redemonstrated. A right-sided surgical drain remains in place. Otherwise, noncontrast appearance of the liver, adrenal glands, left kidney, pancreas, and spleen nalini w no gross abnormality. Skin ronan related to anterior laparotomy incision. Scattered left-sided colonic diverticulosis. Mildly redundant sigmoid colon. Scattered mild stool. No nobstructive bowel gas pattern. No free air is seen. Moderate degenerative disc disease throughout the visualized spine and hypertrophic facet arthropathy mid to lower lumbar spine again noted. IMPRESSION: 1. Marked generalized anasarca changes redemonstrated along with moderate right and small left pleura l effusions with adjacent atelectasis and/or consolidation. 2. Perihepatic ascites at the dome of the liver redemonstrated. 3. Large left anterior abdominal wall intramuscular hematoma redemonstrated measuring up to 17.2 x 16 .2 x 6.0 cm. Not significantly changed. No new focal hematoma clearly identified. 4. A focal fluid collection within the central pelvis measuring 6.0 x 3.8 cm, not significantly reed ed from prior. Postoperative seroma and infected fluid are both in the differential. 5. Postprostatectomy and lymph node dissection changes redemonstrated. Right-sided surgical drain in place. [facility], , 09/23/2024 8:15 AM
[2024-09-23] MEDS: FLUCONAZOLE 100 MG TAB PO SCH (08:22)
[2024-09-23] MEDS: METOPROLOL TARTRATE 50 MG TAB PO STA (09:44)
--- NOTE | 2024-09-23 11:32 | P.PN ---
Subjective Progress Note Date: 09/23/24 SURGICAL PROGRESS NOTE CHIEF COMPLAINT: Fall HISTORY OF PRESENT ILLNESS: Postop day #8 status post robotic cholecystectomy with exploratory laparotomy with washout. Patient had a fall early this morning while getting up to the bathroom. Patient reports having bowel movements and flatus. His pain is controlled. MADDIE drain 20 mL serous output. Patient is tachycardic. Per nursing he is in A-fib. White count is trending up from 14- 19. Hemoglobin stable at 11.4. Total bilirubin 1.[address] scan abdomen pelvis from 09/23/2024 repeated after fall reports marked generalized anasarca changes redemonstrated along with moderate right and small left pleural effusions atelectasis and/or consolidation. Perihepatic ascites at the dome of the liver redemonstrated. Large left anterior abdominal wall intramuscular hematoma measuring 17.2 x 16.2 x 6.0 cm. Not significantly changed. No new focal hematoma. A focal fluid collection within the central pelvis measuring 6.0 x 3.8 cm. Not significant change from prior. Postoperative seroma and infected fluid are both in the differential. CT scan of pelvis from 09/22/2024 reports interval development of bilateral pleural effusions and basilar infiltrates or atelectasis. Gallstones but interval development of ill-definition of the gallbladder wall and focal edema within the adjacent liver parenchyma raising question for acute cholecystitis. Mild decrease in the large left rectus sheath hematoma. Moderate anasarca of the subcutaneous soft tissues. PHYSICAL EXAM: VITAL SIGNS: Reviewed. Head: small area swelling and bruise left side of head GENERAL: Well-developed in no acute distress. ABDOMEN: Soft. Nondistended. Dressing clean dry and intact NEUROLOGIC: Alert and oriented. Cranial nerves II through XII grossly intact. ASSESSMENT: 1. Acute cholecystitis 2. Abdominal ileus improved 3. Fluid collection noted in the pelvis on CT. Possible postoperative seroma versus infected fluid collection PLAN: -Reviewed both CT scan abdomen pelvis findings and pathology findings from gallbladder surgery with Dr. Grant. Patient's gallbladder has been completely removed. Likely gallbladder findings are from fluid collection in the gallbladder fossa. -Consult IR service for possible drainage of fluid collection in the pelvis -Continue antibiotics per ID service -Repeat CBC in a.m. -Consult cardiology service for A-fib RVR -Hold Eliquis for possible IR drain placement. Discussed with nurse -Patient having falls. Recommend ECF at discharge -Continue heart healthy diet -Continue pain management -DVT prophylaxis on Eliis Physician Pacs Administrator note has been reviewed by physician. Signing provider agrees with the documented findings, assessment, and plan of care. Attestation Patient seen and examined at bedside. Apparently fell early this morning while trying to turn to get onto the toilet. Secondary to this, other service did order CT of the head along with repeat CT of the abdomen and pelvis. Patient has now had 2 CTs of the abdomen and pelvis within the last 24 hours. Patient is noted to have fluid collection in the central pelvis with postoperative seroma versus infected fluid in the differential. No air within this fluid is noted. Patient is on IV antibiotics. Will have IR evaluate for drainage if amenable. Otherwise, CT did mention cholecystitis, however patient has already undergone cholecystectomy. Pathology of the gallbladder was reviewed with finding of cystic duct noted in the pathology. This would infer that the entire gallbladder has been removed. Patient may have some retained stones in the gallbladder fossa, likely secondary to gallbladder rupture during procedure due to severe cholecystitis. Continue IV antibiotics per ID service. Patient is also noted to have pleural effusions. She is in atrial fibrillation with RVR. Cardiology service to be reconsulted. Adilene Grant, Objective - Vital Signs Vital signs: Vital Signs Temp 97.9 F 09/23/24 11:04 Pulse 80 09/23/24 11:04 Resp 18 09/23/24 11:04 BP 102/71 09/23/24 11:04 Pulse Ox 96 09/23/24 11:04 FiO2 Intake & Output 09/22/24 09/23/24 09/23/24 18:59 06:59 18:59 Intake Total 720 250 Output Total 1070 120 100 Balance -350 -120 150 Weight 88 kg Intake: IV 10 Invasive Line 4 10 Oral 720 240 Output: Drainage 20 20 Right Medial Abdomen 20 20 Urine 1050 100 100 Other: Voiding Method Toilet Toilet Toilet Urinal Urinal Urinal - Labs CBC & Chem 7: 09/23/24 05:41 09/23/24 05:41 Labs: Abnormal Lab Results - Last 24 Hours (Table) 09/23/24 09/23/24 Range/Units 05:41 05:41 WBC 19.75 H (4.50-10.00) 10*3/uL RBC 3.38 L (4.40-5.60) 10*6/uL Hgb 11.4 L (13.0-17.0) g/dL Hct 34.3 L (39.6-50.0) % MCV 101.5 H (80.0-97.0) fL MCH 33.7 H (27.0-32.0) pg Immature Gran # 0.23 H (0.00-0.04) 10*3/uL Neutrophils # 18.60 H (1.80-7.70) 10*3/uL Lymphocytes # 0.33 L (0.90-5.00) 10*3/uL Sodium 131 L (137-145) mmol/L BUN 8 L (9-20) mg/dL Creatinine 0.52 L (0.66-1.25) mg/dL Glucose 68 L (74-99) mg/dL Calcium 8.0 L (8.4-10.2) mg/dL Total Bilirubin 1.6 H (0.2-1.3) mg/dL Alkaline Phosphatase 196 H (38-126) U/L Total Protein 4.7 L (6.3-8.2) g/dL Albumin 2.3 L (3.5-5.0) g/dL
--- NOTE | 2024-09-23 11:42 | XR ---
EXAMINATION TYPE: XR knee complete LT DATE OF EXAM: 09/23/2024 11:34 AM INDICATION: Patient age:Male; 79 years old; Reason for study: bruising post fall.; PHH. pain COMPARISON: None. TECHNIQUE: The Left knee(s) was examined in Frontal, lateral and oblique projections. FINDINGS: No evidence of any acute osseous pathology, soft tissue swelling, or joint effusion is no travon. No significant joint space narrowing or osteophytosis. Vascular sclerosis. IMPRESSION: No acute osseous pathology. [facility], , 09/23/2024 11:40 AM
--- NOTE | 2024-09-23 12:10 | P.PN ---
Subjective Progress Note Date: 09/23/24 Patient is eval today in follow-up on the medical floor. Patient is postoperative day #5 cholecystectomy. MADDIE drain remains in place with 35 mL of output documented in last 24 hours. Patient has been up ambulating without difficulty. NG tube has been discontinued. He is on a full liquid diet and currently tolerating. States that he is passing gas but not having a bowel movement yet no other acute complaints at this time. Labs today reveal a white blood cell count of 1.97, hemoglobin 13.0, sodium 134, potassium 4.0, BUN of 9 creatinine 0.49. 09/21/2024 Patient seen and examined at bedside. Postop day 6 cholecystectomy. MADDIE drain in place with serosanguineous output. He is ambulating well. Full liquid diet, advance as tolerated. He has not had a bowel movement yet, but is passing gas. WBC 13.8, hemoglobin 11.1, sodium 132, creatinine 0.52, ALP 137. Chest x-ray with decreased small right-sided pleural effusion. 09/22/2024 Patient seen and examined at bedside. Patient is postop day 7. MADDIE drain still in place with serosanguineous output 20 mL. He attests to passing gas and bowel movement. He is able to tolerate soft diet without nausea or vomiting. Advance diet as tolerated. Discussed need for rehab facility, however patient declined and would prefer to go home with home health services. Labs today WBC 14.6, hemoglobin 10.3, sodium 133, potassium 3.4, total bilirubin 1.4, ALP 146,, UA negative, chest x-ray no acute process. 09/23/2024 Patient seen and examined at bedside. This morning this patient had a fall while attempting to use restroom. Patient hit the posterior right side of his head and his lower back. Imaging ordered. He is tolerating his diet well. Con tinues to pass gas. Labs today WBC 19.7, hemoglobin 11.4, sodium 131, BUN 8, creatinine 0.52, glucose 68, total bili 1.6, ALP 196. CT brain no acute abnormality post fall. CT abdomen pelvis with moderate right and small left pleural effusions with adjacent atelectasis/consolidation,, otherwise similar to previous CT. Knee x-ray with no acute osseous pathology. All inpatient medications were reviewed and appropriate changes in these medications as dictated in the interval history and assessment and plan. PHYSICAL EXAMINATION: Vitals reviewed GENERAL: The patient is alert and oriented x3, not in any acute distress. Well developed, well nourished. CARDIOVASCULAR: S1 and S2 present. No murmurs, rubs, or gallops. PULMONARY: Chest is clear to auscultation, no wheezing or crackles. ABDOMEN: Soft, nontender, nondistended, normoactive bowel sounds. No palpable organomegaly. Abdominal dressing intact, MADDIE drain in place MUSCULOSKELETAL: No joint swelling or deformity. EXTREMITIES: No cyanosis, clubbing, or pedal edema. NEUROLOGICAL: Gross neurological examination did not reveal any focal deficits. Generalized weakness Assessment and plan Presyncope without loss of consciousness Recurrent falls due to the hypotension Acute cholecystitis status post open cholecystectomy Left rectus sheath hematoma with a arterial extravasation and angioembolization on August 23 Persistent atrial fibrillation currently rate controlled patient does continue to have episodes of RVR Leukocytosis Hypothyroidism Alcohol use disorder Macrocytic anemia on thiamine and folate supplementation Anxiety/depression Arthritis DVT prophylaxis No code Continue current cardiac medications on oral Cardizem, oral metoprolol. Pain management in place with IV morphine and oral [place]. Patient is anticoagulated with Eliquis Patient continues on IV Zosyn, continue Diflucan Heart healthy diet Continue to encourage incentive spirometry 10 times an hour while awake Continue IV fluids Given 1 dose of Lasix for pleural effusion Senokot added Likely discharge to home with home health tomorrow Dr. Bronson seen patient with resident, present during exam, and agreed with findings. Objective - Vital Signs Vital signs: Vital Signs Temp 98.6 F 09/23/24 03:41 Pulse 136 H 09/23/24 06:45 Resp 16 09/23/24 03:41 BP 115/76 09/23/24 06:45 Pulse Ox 98 09/23/24 06:45 FiO2 Intake & Output 09/22/24 09/23/24 09/23/24 18:59 06:59 18:59 Intake Total 720 10 Output Total 1070 120 Balance -350 -120 10 Weight 88 kg Intake: IV 10 Invasive Line 4 10 Oral 720 Output: Drainage 20 20 Right Medial Abdomen 20 20 Urine 1050 100 Other: Voiding Method Toilet Toilet Urinal Urinal - Labs CBC & Chem 7: 09/23/24 05:41 09/23/24 05:41 Labs: Abnormal Lab Results - Last 24 Hours (Table) 09/23/24 09/23/24 Range/Units 05:41 05:41 WBC 19.75 H (4.50-10.00) 10*3/uL RBC 3.38 L (4.40-5.60) 10*6/uL Hgb 11.4 L (13.0-17.0) g/dL Hct 34.3 L (39.6-50.0) % MCV 101.5 H (80.0-97.0) fL MCH 33.7 H (27.0-32.0) pg Immature Gran # 0.23 H (0.00-0.04) 10*3/uL Neutrophils # 18.60 H (1.80-7.70) 10*3/uL Lymphocytes # 0.33 L (0.90-5.00) 10*3/uL Sodium 131 L (137-145) mmol/L BUN 8 L (9-20) mg/dL Creatinine 0.52 L (0.66-1.25) mg/dL Glucose 68 L (74-99) mg/dL Calcium 8.0 L (8.4-10.2) mg/dL Total Bilirubin 1.6 H (0.2-1.3) mg/dL Alkaline Phosphatase 196 H (38-126) U/L Total Protein 4.7 L (6.3-8.2) g/dL Albumin 2.3 L (3.5-5.0) g/dL
[2024-09-23] MEDS: FUROSEMIDE 10 MG/ML 4 ML VIAL IV STA (12:48)
--- NOTE | 2024-09-23 13:56 | P.PN ---
Subjective HISTORY OF PRESENT ILLNESS: The patient is an 79-year-old male who presented with abdominal discomfort, had a recent left rectus sheath hematoma with arterial extravasation underwent angioembolization on August 23 was diagnosed with acute cholecystitis and underwent cholecystectomy yesterday. He is extubated and feels better today. He continues to have some abdominal discomfort but improved. He continues to be in atrial fibrillation, on IV Cardizem, with controlled ventricular response. He denies any dyspnea, dizziness or palpitations. He has an NG tube in place. He denies any nausea or vomiting. His echocardiogram showed a preserved systolic function with mild mitral and tricuspid regurgitation. He is off anticoagulation because of the recent bleed. He has a prior history of alcohol intake but has not had any drink for over 10 days. September 17: The patient is feeling better today, he has some dryness in the throat. He continues to be in atrial fibrillation on IV Cardizem and his rate is controlled. He denies any chest discomfort, dizziness or palpitations. He denies any nausea or vomiting. He has no flatus yet. He was up in the chair yesterday. He is on no vasopressors. He continues to be on IV Cardizem 5 mg an hour drip. 09/18 Patient has been transferred out of the intensive care unit and seen today on the cardiac stepdown unit. He continues to have NG tube in place. He states he is passing gas. He denies chest pain or chest pressure. Shortness of breath is stable. He states he has not been out of bed. Blood pressure 131/91, heart rate 106, pulse ox 100% on 3 L nasal cannula. Repeat blood work reveals hemoglobin 9.5, BUN 22 creatinine 0.58, sodium 139 and potassium 4. Yesterday IV Cardizem was discontinued patient started on oral. General surgery has cleared the patient to start anticoagulation. 09/19/2024 Patient examined this morning at the bedside. Patient is sitting up in the chair. Patient currently denies chest pain or pressure. He denies shortness of breath. He remains in atrial fibrillation with a heart rate around 110. 09/20/2024 Patient examined this morning at the bedside. Patient is currently sitting up in the chair. Patient denies chest pain or pressure. He denies shortness of breath. He reports he is passing gas but has not yet had a bowel movement. He remains in atrial fibrillation with heart rates in the 80s. Blood pressure is stable. 09/21/2024 Patient examined this morning at the bedside. Patient denies chest pain or pressure. Reports mild shortness of breath. Patient has been using his incentive spirometer. Telemetry reveals atrial fibrillation with controlled ventricular rate. 09/23/2024 Cardiology was reconsulted secondary to A-fib with RVR. Patient was in atrial fibrillation with RVR this morning. He received an additional dose of met oprolol. Heart rates are currently in the 70s at the time of examination. He denies chest pain or pressure. Reports shortness of breath. Blood pressure 102/71. PHYSICAL EXAM: VITAL SIGNS: Reviewed. GENERAL: Well-developed in no acute distress. NECK: Supple. No JVD or thyromegaly LUNGS: Respirations even and unlabored. Lungs essentially clear to auscultation bilaterally. HEART: Irregular rate and rhythm. S1 and S2 heard. Systolic murmur noted. EXTREMITIES: Normal range of motion. No clubbing or cyanosis. Peripheral pulses intact. Minimal lower extremity edema ASSESSMENT: 1. Status post open cholecystectomy 2. Persistent atrial fibrillation with episodes of rapid ventricular response 3. Recent rectus sheath hematoma with angioembolization, following a fall. 4. Prior history of alcohol intake PLAN: Continue current cardiac medications including Eliquis, Cardizem, and metoprolol Increase metoprolol to 3 times a day dosing Continue telemetry monitoring Patient is currently stable from a cardiac standpoint Further recommendations pending patient course Nurse practitioner note has been reviewed by physician. Signing provider agrees with the documented findings, assessment, and plan of care documented by FOOD CLERK as a scribe. Objective - Vital Signs Vital signs: Vital Signs Temp 97.9 F 09/23/24 11:04 Pulse 80 09/23/24 11:04 Resp 18 09/23/24 11:04 BP 102/71 09/23/24 11:04 Pulse Ox 96 09/23/24 11:04 FiO2 Intake & Output 09/22/24 09/23/24 09/23/24 18:59 06:59 18:59 Intake Total 720 250 Output Total 1070 120 100 Balance -350 -120 150 Weight 88 kg Intake: IV 10 Invasive Line 4 10 Oral 720 240 Output: Drainage 20 20 Right Medial Abdomen 20 20 Urine 1050 100 100 Other: Voiding Method Toilet Toilet Toilet Urinal Urinal Urinal - Labs CBC & Chem 7: 09/23/24 05:41 09/23/24 05:41 Labs: Abnormal Lab Results - Last 24 Hours (Table) 09/23/24 09/23/24 Range/Units 05:41 05:41 WBC 19.75 H (4.50-10.00) 10*3/uL RBC 3.38 L (4.40-5.60) 10*6/uL Hgb 11.4 L (13.0-17.0) g/dL Hct 34.3 L (39.6-50.0) % MCV 101.5 H (80.0-97.0) fL MCH 33.7 H (27.0-32.0) pg Immature Gran # 0.23 H (0.00-0.04) 10*3/uL Neutrophils # 18.60 H (1.80-7.70) 10*3/uL Lymphocytes # 0.33 L (0.90-5.00) 10*3/uL Sodium 131 L (137-145) mmol/L BUN 8 L (9-20) mg/dL Creatinine 0.52 L (0.66-1.25) mg/dL Glucose 68 L (74-99) mg/dL Calcium 8.0 L (8.4-10.2) mg/dL Total Bilirubin 1.6 H (0.2-1.3) mg/dL Alkaline Phosphatase 196 H (38-126) U/L Total Protein 4.7 L (6.3-8.2) g/dL Albumin 2.3 L (3.5-5.0) g/dL
--- NOTE | 2024-09-23 14:03 | P.PN ---
Subjective Progress Note Date: 09/23/24 Principal diagnosis: Atrial fibrillation, acute cholecystitis. Patient is an 79-year-old male with past medical history significant for gout, prostate cancer, hypothyroidism, and alcohol abuse. Patient does follow-up with Dr. Mascorro for his primary care needs. Patient has been suffering from frequent falls, was evaluated emergency department back on 08/21/2024, found to have a traumatic large left rectus sheath hematoma. He was also found to be in new onset atrial fibrillation at this time. Transferred to [facility] for vascular embolization. Patient was discharged home on metoprolol and Xarelto. He was seen by Dr. Mascorro on 09/01/2024 in follow-up. CT of the abdomen and pelvis showing increasing size of large left rectus sheath hematoma without visualized active extravasation. Dr. Mascorro advised the patient to stop his Xarelto. Patient had a subsequent fall on 09/14/2024. Reportedly dizzy which caused him to fall. Also, endorsed some right-sided chest and abdominal pain. Appetite has been poor. Abdominal/pelvis CT showing cholelithiasis with gall bladder wall thickening concerning for acute cholecystitis. Redemonstration of the large left abdominal wall intramuscular hematoma measuring approximately 11.6 x 15.3 x 5.3 cm. No indication of active bleeding. Diverticulosis without acute diverticulitis. No small bowel obstructions. No free intraperitoneal air. Follow-up MRCP demonstrated prominent gallbladder with gallstones and circumferential wall thickening. Borderline dilated extrahepatic biliary ducts no evidence of choledocholithiasis. Last night patient was taken for robotic assisted cholecystectomy converted to open procedure with a large amount of bilious fluid collection. Did briefly require vasopressor support in the op erating room. Patient was extubated in the postanesthesia care unit and transferred to the intensive care unit. Patient currently being evaluated in room 265. He is awake and alert. Heart rhythm is atrial fibrillation with rapid ventricular response ranging from 100 to 120 bpm. Cardizem is infusing at 5 mg/h. Blood pressure is normotensive. He did receive a 1 L LR bolus earlier. Normal saline continues at 75 mm/h. No longer requiring any vasopressor support. Endorsing some incisional abdominal pain, rated 7 on a 10 point numerical scale. There is a midline abdominal incision with some additional laparoscopic incisions. Right upper quadrant MADDIE drain with small amount of serosanguineous output. Patient is on 2 L/min nasal cannula. Resting comfortably not in any respiratory distress. Chest x-ray with low lung volumes, right lateral chest wall subcutaneous emphysema extending the right clavicular region in the setting of recent laparoscopic procedure. No discrete pneumothora x. No pleural effusions. No focal consolidations. CBC: WBC count 6, hemoglobin 12, platelets 236. CMP: Sodium 135, potassium 4.1, chloride 106, serum bicarb 21, BUN 34, creatinine 1.21, glucose 107. Total bilirubin 2.8. AST 24, ALT 11, ALP 56. Troponin elevated 0.054. Patient empirically covered on Zosyn. Current vital signs: Afebrile, heart rate 108 bpm, blood pressure 108/74 mmHg, nontach ypneic, on 2 L/min nasal cannula, SpO2 reading 97% on bedside monitor. Patient was seen today on 09/17/2024, remains in the ICU, patient is feeling better today compared to yesterday and the day prior. No shortness of breath, complaining mostly of dry sore throat, continues to have nasogastric tube in place, patient was transition from IV Cardizem to oral Cardizem, his atrial fibrillation seems to be controlled. Rate is in the 80s. Patient remains on CIWA protocol for his history of alcoholism. Overall I believe the patient is doing well, and I will plan to transfer the patient out of the ICU to a monitored bed and selective. WBC count is 7.4 hemoglobin 10.8, basic metabolic profile is normal renal profile is normal Patient was seen today on 09/18/2024, doing well, continues to have nasogastric tube in place, does not seem to be in any distress, remains on the CIWA protocol. Patient is passing some gas, however no bowel movements yet, nasogastric tube is being addressed by surgery on the case, I believe he will be started on clear liquid diet today, and the nasogastric tube will likely be removed today, he is also on oral [place] for pain, he is compliant with incentive spirometry, and he remains on antibiotics as per ID on the case. No active pulmonary symptoms no cough no wheezing no shortness of breath. WBC count is 8.13 hemoglobin 11.5 electrolytes are normal renal profile is normal Patient was seen today on 09/19/2024, his nasogastric tube was removed yesterday, patient is doing much better today, he is generally weak, remains on CIWA protocol, denies any significant abdominal pain, patient denies any shortness of breath or cough or wheezing. Labs today were reviewed WBC count is 8 hemoglobin 11.1 electrolytes are normal potassium 3.4 BUN is 11 creatinine 0.51 The patient is seen today September 20, 2024 in follow-up on the selective care unit. He is currently up ambulating in his room with assistance. He took a shower this morning. He is maintaining good O2 saturations in the 90s on room air. He denies any worsening shortness of breath, cough or congestion. Blood culture revealed no growth. Urine culture revealed no growth. White count 11.9. Hemoglobin 13.0. Platelets 378. Sodium 134. Potassium 4.0. Bicarb 26. BUN 9. Creatinine 0.49. Glucose 100. He is anticoagulated with Eliquis. Remains on Zosyn. Tolerating a full liquid diet. The patient is seen today September 21, 2024 and follow-up on the selective care unit. He is currently sitting up in bed. Awake and alert in no acute distress. Maintaining O2 saturations in the upper 90s on room air. He has been afebrile. Hemodynamically stable. Chest x-ray shows improvement in the right pleural effusion. Urine culture revealed no growth. Blood culture revealed no growth. White count 13.8. Hemoglobin 11.1. Platelets 348. Sodium 132. Potassium 3.7. Bicarb 29. BUN 9. Creatinine 0.52. Glucose 83. He is anticoagulated with Eliquis. Remains on Zosyn. Remains on normal saline at 75 mL/h. The patient is seen today September 22, 2024 in follow-up on the selective care u nit. He is currently up in a chair at the bedside. Awake and alert in no acute distress. Denies any worsening shortness of breath, cough or congestion. Maintaining good O2 saturations in the 90s on room air. Blood and urine cultures revealed no growth. White count 14.6. Hemoglobin 10.3. Platelets 400. Sodium 133. Potassium 3.4. Bicarb 27. BUN 8. Creatinine 0.49. Glucose 84. Urinalysis clean. Viral screen again negative. He is anticoagulated with Eliquis. Remains on Diflucan. Remains on Zosyn. Continued on normal saline at 75 mL/h. Progress note dated September 23, 2024. 79-year-old male seen today in room 379. He is currently sitting in the chair next to his bed. He is not receiving any supplemental oxygen. He is getting saline at 75 cc an hour, and he continues on Zosyn. The patient is awake and alert. No distress. He denies any shortness of breath, cough or chest congestion. Current labs include a white count of 19.8, hemoglobin 11.4, hematocrit 34.3, 32,000. Sodium 131, potassium 4, chlorides 100, CO2 26, BUN 8, and creatinine 0.52. Calcium is 8. Bilirubin 1.6. N-terminal proBNP is 4320. Glucose is 95. Objective - Vital Signs Vital signs: Vital Signs Temp 97.9 F 09/23/24 11:04 Pulse 80 09/23/24 11:04 Resp 18 09/23/24 11:04 BP 102/71 09/23/24 11:04 Pulse Ox 96 09/23/24 11:04 FiO2 Intake & Output 09/22/24 09/23/24 09/23/24 18:59 06:59 18:59 Intake Total 720 250 Output Total 1070 120 100 Balance -350 -120 150 Weight 88 kg Intake: IV 10 Invasive Line 4 10 Oral 720 240 Output: Drainage 20 20 Right Medial Abdomen 20 20 Urine 1050 100 100 Other: Voiding Method Toilet Toilet Toilet Urinal Urinal Urinal - Exam No acute distress, oriented 3. No respiratory distress. Currently on room air. HEENT examination is grossly unremarkable. Mucous membranes are moist. No oral lesions. Neck supple. Full range of motion. No adenopathy thyromegaly or neck vein distention. Cardiovascular examination reveals regular rhythm rate. S1-S2 normal. No S3 or S4. No discernible murmur noted. Lungs reveal clear breath sounds. Her sounds are equal bilaterally. No adventitious lung sounds including wheezes rhonchi or crackles. Abdomen soft, with bowel sounds. Surgical incision clean and dry, and well- approximated. Extremities are intact. No cyanosis clubbing or edema. Skin is without rash or lesion. Neurologic examination is brief but nonfocal. - Labs CBC & Chem 7: 09/23/24 05:41 09/23/24 05:41 Labs: Abnormal Lab Results - Last 24 Hours (Table) 09/23/24 09/23/24 Range/Units 05:41 05:41 WBC 19.75 H (4.50-10.00) 10*3/uL RBC 3.38 L (4.40-5.60) 10*6/uL Hgb 11.4 L (13.0-17.0) g/dL Hct 34.3 L (39.6-50.0) % MCV 101.5 H (80.0-97.0) fL MCH 33.7 H (27.0-32.0) pg Immature Gran # 0.23 H (0.00-0.04) 10*3/uL Neutrophils # 18.60 H (1.80-7.70) 10*3/uL Lymphocytes # 0.33 L (0.90-5.00) 10*3/uL Sodium 131 L (137-145) mmol/L BUN 8 L (9-20) mg/dL Creatinine 0.52 L (0.66-1.25) mg/dL Glucose 68 L (74-99) mg/dL Calcium 8.0 L (8.4-10.2) mg/dL Total Bilirubin 1.6 H (0.2-1.3) mg/dL Alkaline Phosphatase 196 H (38-126) U/L Total Protein 4.7 L (6.3-8.2) g/dL Albumin 2.3 L (3.5-5.0) g/dL Assessment and Plan Assessment: Acute complicated cholecystitis, S/P robotic assisted cholecystectomy converted to open procedure and evacuation of large amount of bilious drainage in the right upper quadrant on September 15, 2024. Atrial fibrillation with rapid ventricular response. Large left rectus sheath hematoma redemonstrated and measuring approximately 11.6 x 15.3 x 5.3 cm. Frequent falls. Acute hypoxemic respiratory failure, currently on room air, chest x-ray showing low lung volumes, right lateral chest wall subcutaneous emphysema extending the right clavicular region in the setting of recent laparoscopic procedure. No discrete pneumothorax. No pleural effusions. No focal consolidations. History of gout. History of prostate cancer. History of hypothyroidism. History of alcohol abuse. Anxiety/depression. Plan: Plan dated September 23, 2024. The patient is seen today in room 379. The patient appears relatively stable. He is on room air. He is receiving saline at 75 cc an hour, and he continues on Zosyn. All labs, x-rays, and medications are reviewed. The patient's overall prognosis remains guarded. We will continue to follow the patient, make recommendations along the way. Dictation was produced using [employer] dictation software. Please excuse any grammatical, word or spelling errors. Time with Patient: Less than 30
[2024-09-23] MEDS: SENNOSIDES-DOCUSATE SODIUM 1 EACH TAB PO SCH (15:00)
[2024-09-23] MEDS: METOPROLOL TARTRATE 50 MG TAB PO SCH (16:40)
[2024-09-24 06:54] LABS: Basophils # (A) 0.05 10*3/uL (0.00-0.10); Basophils % (A) 0.4 %; Eosinophils # (A) 0.26 10*3/uL (0.04-0.35); Eosinophils % (A) 1.9 %; HCT 31.4 % (39.6-50.0); HGB 10.6 g/dL (13.0-17.0); Lymphocytes # (A) 0.52 10*3/uL (0.90-5.00); Lymphocytes % (A) 3.8 %; MCH 34.4 pg (27.0-32.0); MCHC 33.8 g/dL (32.0-37.0); MCV 101.9 fL (80.0-97.0); Mean Platelet Volume 11.3 fL (9.5-12.2); Monocytes # (A) 0.88 10*3/uL (0.20-1.00); Monocytes % (A) 6.4 %; Neutrophils % (A) 86.5 %; Platelet Count 447 10*3/uL (140-440); RBC 3.08 10*6/uL (4.40-5.60); RDW 17.6 % (11.5-14.5); WBC 13.85 10*3/uL (4.50-10.00)
[2024-09-24 07:11] LABS: ALT 13 U/L (4-49); AST 24 U/L (17-59); African American GFR (CKD) >90 (>60 ml/min/1.73 sqM); Albumin 2.1 g/dL (3.5-5.0); Alkaline Phosphatase 175 U/L (38-126); Anion Gap 3 mmol/L; Blood Urea Nitrogen 11 mg/dL (9-20); Calcium 8.1 mg/dL (8.4-10.2); Carbon Dioxide 29 mmol/L (22-30); Chloride 100 mmol/L (98-107); Glucose 81 mg/dL (74-99); Non-African American GFR(CKD) >90 (>60 ml/min/1.73 sqM); Potassium 3.5 mmol/L (3.5-5.1); Sodium 132 mmol/L (137-145); Total Bilirubin 1.1 mg/dL (0.2-1.3); Total Protein 4.3 g/dL (6.3-8.2)
[2024-09-24] MEDS: bisacodyL 10 MG SUPP RECTAL SCH (11:17)
--- NOTE | 2024-09-24 11:28 | P.PN ---
Subjective Progress Note Date: 09/24/24 Patient is an 79-year-old male with past medical history significant for gout, prostate cancer, hypothyroidism, and alcohol abuse. Patient does follow-up with Dr. Mascorro for his primary care needs. Patient has been suffering from frequent falls, was evaluated emergency department back on 08/21/2024, found to have a traumatic large left rectus sheath hematoma. He was also found to be in new onset atrial fibrillation at this time. Transferred to [facility] for vascular embolization. Patient was discharged home on metoprolol and Xarelto. He was seen by Dr. Mascorro on 09/01/2024 in follow-up. CT of the abdomen and pelvis showing increasing size of large left rectus sheath hematoma without vis ualized active extravasation. Dr. Mascorro advised the patient to stop his Xarelto. Patient had a subsequent fall on 09/14/2024. Reportedly dizzy which caused him to fall. Also, endorsed some right-sided chest and abdominal pain. Appetite has been poor. Abdominal/pelvis CT showing cholelithiasis with gallbladder wall thickening concerning for acute cholecystitis. Redemonstration of the large left abdominal wall intramuscular hematoma measuring approximately 11.6 x 15.3 x 5.3 cm. No indication of active bleeding. Diverticulosis without acute diverticulitis. No small bowel obstructions. No free intraperitoneal air. Follow-up MRCP demonstrated prominent gallbladder with gallstones and circumferential wall thickening. Borderline dilated extrahepatic biliary ducts no evidence of choledocholithiasis. Last night patient was taken for robotic assisted cholecystectomy converted to open procedure with a large amount of bilious fluid collection. Did briefly require vasopressor support in the operating room. Patient was extubated in the postanesthesia care unit and transferred to the intensive care unit. Patient currently being evaluated in room 265. He is awake and alert. Heart rhythm is atrial fibrillation with rapid ventricular response ranging from 100 to 120 bpm. Cardizem is infusing at 5 mg/h. Blood pressure is normotensive. He did receive a 1 L LR bolus earlier. Normal saline continues at 75 mm/h. No longer requiring any vasopressor support. Endorsing some incisional abdominal pain, rated 7 on a 10 point numerical scale. There is a midline abdominal incision with some additional laparoscopic incisions. Right upper quadrant MADDIE drain with small amount of s erosanguineous output. Patient is on 2 L/min nasal cannula. Resting comfortably not in any respiratory distress. Chest x-ray with low lung volumes, right lateral chest wall subcutaneous emphysema extending the right clavicular region in the setting of recent laparoscopic procedure. No discrete p neumothorax. No pleural effusions. No focal consolidations. CBC: WBC count 6, hemoglobin 12, platelets 236. CMP: Sodium 135, potassium 4.1, chloride 106, serum bicarb 21, BUN 34, creatinine 1.21, glucose 107. Total bilirubin 2.8. AST 24, ALT 11, ALP 56. Troponin elevated 0.054. Patient empirically covered on Zosyn. Current vital signs: Afebrile, heart rate 108 bpm, blood pressure 108/74 mmHg, nontachypneic, on 2 L/min nasal cannula, SpO2 reading 97% on bedside monitor. Patient was seen today on 09/17/2024, remains in the ICU, patient is feeling better today compared to yesterday and the day prior. No shortness of breath, complaining mostly of dry sore throat, continues to have nasogastric tube in place, patient was transition from IV Cardizem to oral Cardizem, his atrial fibrillation seems to be controlled. Rate is in the 80s. Patient remains on CIWA protocol for his history of alcoholism. Overall I believe the patient is doing well, and I will plan to transfer the patient out of the ICU to a monitored bed and selective. WBC count is 7.4 hemoglobin 10.8, basic metabolic profile is normal renal profile is normal Patient was seen today on 09/18/2024, doing well, continues to have nasogastric tube in place, does not seem to be in any distress, remains on the CIWA protoco l. Patient is passing some gas, however no bowel movements yet, nasogastric tube is being addressed by surgery on the case, I believe he will be started on clear liquid diet today, and the nasogastric tube will likely be removed today, he is also on oral [place] for pain, he is compliant with incentive spirometry, and he remains on antibiotics as per ID on the case. No active pulmonary symptoms no cough no wheezing no shortness of breath. WBC count is 8.13 hemoglobin 11.5 electrolytes are normal renal profile is normal Patient was seen today on 09/19/2024, his nasogastric tube was removed yesterday, patient is doing much better today, he is generally weak, remains on CIWA protocol, denies any significant abdominal pain, patient denies any shortness of breath or cough or wheezing. Labs today were reviewed WBC count is 8 hemoglobin 11.1 electrolytes are normal potassium 3.4 BUN is 11 creatinine 0.51 The patient is seen today September 20, 2024 in follow-up on the selective care unit. He is currently up ambulating in his room with assistance. He took a shower this morning. He is maintaining good O2 saturations in the 90s on room air. He denies any worsening shortness of breath, cough or congestion. Blood culture revealed no growth. Urine culture revealed no growth. White count 11.9. Hemoglobin 13.0. Platelets 378. Sodium 134. Potassium 4.0. Bicarb 26. BUN 9. Creatinine 0.49. Glucose 100. He is anticoagulated with Eliquis. Remains on Zosyn. Tolerating a full liquid diet. The patient is seen today September 21, 2024 and follow-up on the selective care unit. He is currently sitting up in bed. Awake and alert in no acute distress. Maintaining O2 saturations in the upper 90s on room air. He has been afebrile. Hemodynamically stable. Chest x-ray shows improvement in the right pleural effusion. Urine culture revealed no growth. Blood culture revealed no growth. White count 13.8. Hemoglobin 11.1. Platelets 348. Sodium 132. Potassium 3.7. Bicarb 29. BUN 9. Creatinine 0.52. Glucose 83. He is anticoagulated with Eliquis. Remains on Zosyn. Remains on normal saline at 75 mL/h. The patient is seen today September 22, 2024 in follow-up on the selective care unit. He is currently up in a chair at the bedside. Awake and alert in no acute distress. Denies any worsening shortness of breath, cough or congestion. Maintaining good O2 saturations in the 90s on room air. Blood and urine cultures revealed no growth. White count 14.6. Hemoglobin 10.3. Platelets 400. Sodium 133. Potassium 3.4. Bicarb 27. BUN 8. Creatinine 0.49. Glucose 84. Urinalysis clean. Viral screen again negative. He is anticoagulated with Eliquis. Remains on Diflucan. Remains on Zosyn. Continued on normal saline at 75 mL/h. The patient is seen today September 24, 2024 in follow-up on the selective care unit. He is awake and alert in no acute distress. Maintaining good O2 saturations in the 90s on room air. He is currently sitting up in a chair. He remains afebrile. Hemodynamically stable. Blood and urine cultures revealed no growth. Yesterday he sustained a fall. CT scan of the brain revealed no acute process. CT scan of the abdomen pelvis revealed marked generalized anasarca along with moderate right and small left pleural effusions with adjacent atelectasis. Perihepatic ascites. Large left anterior abdominal wall intramuscular hematoma redemonstrated. X-ray of the right knee ruled out fracture. White count 13.8. Hemoglobin 10.6. Platelets 447. Sodium 132. Potassium 3.5. Bicarb 29. BUN 11. Creatinine 0.59. Glucose 81. He is anticoagulated with Eliquis. He remains on Zosyn. Objective - Vital Signs Vital signs: Vital Signs Temp 98.1 F 09/24/24 07:49 Pulse 80 09/24/24 07:49 Resp 18 09/24/24 07:49 BP 107/67 09/24/24 07:49 Pulse Ox 96 09/24/24 07:49 FiO2 Intake & Output 09/23/24 09/24/24 09/24/24 18:59 06:59 18:59 Intake Total 1730 600 Output Total 1275 515 475 Balance 455 85 -475 Weight 89 kg Intake: IV 1010 Invasive Line 4 10 Piperacillin-Tazobactam 3 100 .375 gm In Sodium Chloride 0.9% 100 ml @ 25 mls/hr IVPB Q8H PENNIE Rx#: [id number] Sodium Chloride 0.9% 1, 900 000 ml @ 75 mls/hr IV . [id number] PENNIE Rx#:[id number] Oral 720 600 Output: Drainage 15 Right Medial Abdomen 15 Urine 1275 500 475 Other: Voiding Method Toilet Toilet Toilet Urinal Urinal Urinal Diaper Diaper # Voids 1 - Exam GENERAL EXAM: Alert, frail 79-year-old male, up in a chair, on room air, comfortable in no apparent distress. HEAD: Normocephalic. EYES: Normal reaction of pupils, equal size. NOSE: Clear with pink turbinates. THROAT: No erythema or exudates. NECK: No masses, no JVD. CHEST: No chest wall deformity. LUNGS: Equal air entry with no crackles, wheeze, rhonchi or dullness. CVS: S1 and S2 normal with no audible murmur, regular rhythm. ABDOMEN: Surgical incision clean dry and well-approximated. Ecchymosis noted. Normal bowel sounds, no guarding or rigidity. SPINE: No scoliosis or deformity SKIN: No rashes CENTRAL NERVOUS SYSTEM: No focal deficits, tone is normal in all 4 extremities. EXTREMITIES: There is no peripheral edema. No clubbing, no cyanosis. Peripheral pulses are intact. - Labs CBC & Chem 7: 09/24/24 06:11 09/24/24 06:11 Labs: Abnormal Lab Results - Last 24 Hours (Table) 09/24/24 09/24/24 Range/Units 06:11 06:11 WBC 13.85 H (4.50-10.00) 10*3/uL RBC 3.08 L (4.40-5.60) 10*6/uL Hgb 10.6 L (13.0-17.0) g/dL Hct 31.4 L (39.6-50.0) % MCV 101.9 H (80.0-97.0) fL MCH 34.4 H (27.0-32.0) pg Plt Count 447 H (140-440) 10*3/uL Immature Gran # 0.14 H (0.00-0.04) 10*3/uL Neutrophils # 12.00 H (1.80-7.70) 10*3/uL Lymphocytes # 0.52 L (0.90-5.00) 10*3/uL Sodium 132 L (137-145) mmol/L Creatinine 0.59 L (0.66-1.25) mg/dL Calcium 8.1 L (8.4-10.2) mg/dL Alkaline Phosphatase 175 H (38-126) U/L Total Protein 4.3 L (6.3-8.2) g/dL Albumin 2.1 L (3.5-5.0) g/dL Assessment and Plan Assessment: Acute complicated cholecystitis status post robotic assisted cholecystectomy converted to open procedure and evacuation of large amount of bilious drainage in the right upper quadrant on September 15, 2024 Atrial fibrillation with rapid ventricular response, on oral Cardizem, rate seems to be better controlled Large left rectus sheath hematoma redemonstrated and measuring approximately 11.6 x 15.3 x 5.3 cm. No indication of active bleeding. [facility] Frequent falls including a fall here on 09/23/2024. CT scan of the brain revealed no acute process. Acute hypoxemic respiratory failure, currently on 2 L/min nasal cannula, chest x-ray showing low lung volumes, right lateral chest wall subcutaneous emphysema extending the right clavicular region in the setting of recent laparoscopic procedure. No discrete pneumothorax. No pleural effusions. No focal consolidations. History of gout History of prostate cancer History of hypothyroidism History of alcohol abuse, last reported drink approximately 11 days ago Anxiety/depression Plan: The patient was seen and evaluated Labs and medications reviewed Stable and on room air oxygen Anticoagulated with Eliquis Remains on Protonix Remains on Zosyn Tolerating a heart healthy diet Increase his activity as tolerated We will continue to follow I have personally seen and examined the patient, performed the documentation and the assessment and plan as written. Number of minutes spent on the visit: 10 Dictation was produced using [employer] dictation software. Please excuse any grammatical, word or spelling errors.
[2024-09-24 11:36] VITALS: BMI 26.6
--- NOTE | 2024-09-24 12:03 | CT ---
EXAMINATION TYPE: CT brain wo con CT DLP: 1230.4 mGycm, Automated exposure control for dose reduction was used. DATE OF EXAM: 09/24/2024 11:58 AM COMPARISON: CT brain 09/23/2024 CLINICAL INDICATION:Male, 79 years old with history of Fall., fall. Pain TECHNIQUE: Brain: Multiple axial CT images of the brain were obtained without IV contrast. . Coronal and sagitta l reformats reviewed. FINDINGS: Brain: Extra-axial spaces: No abnormal extra-axial fluid collections. Ventricular system: Within normal limits Cerebral parenchyma: Cerebral atrophy. No acute intraparenchymal hemorrhage or mass effect. The russo -white junction is well differentiated. Scattered hypoattenuating areas are seen within the periventr icular white matter. Cerebellum: Unremarkable. Mass effect: No evidence of midline shift. Intracranial vasculature: Atherosclerotic calcifications of the intracranial vessels. Soft tissues: Normal. Calvarium/osseous structures: No depressed skull fracture. Paranasal sinuses and mastoid air cells: Trace mucosal thickening throughout the paranasal sinuses. T he mastoid air cells are clear. Postsurgical changes of the right mastoid process. Visualized orbits: Orbital contents are intact. IMPRESSION: 1. No acute intracranial process. 2. Nonspecific white matter changes, likely secondary to chronic small vessel ischemic disease. [facility], , 09/24/2024 12:01 PM
--- NOTE | 2024-09-24 12:55 | P.PN ---
Subjective Progress Note Date: 09/24/24 SURGICAL PROGRESS NOTE CHIEF COMPLAINT: Fall HISTORY OF PRESENT ILLNESS: Postop day #9 status post robotic cholecystectomy with exploratory laparotomy with washout. Patient sitting at bedside chair comfortably. Does report some abdominal bloating. He had no bowel movement yesterday. He is having flatus. MADDIE drain with 15 mL serous output yesterday. The fluid collection noted on CAT scan in the pelvic area was evaluated by IR service. They are unable to access that fluid to drain due to bowel being in the way. Afebrile. WBC is down from 19.7-13.8 Hgb 10.6. Total bilirubin down from 1.6-1.1 LFTs normal. Patient does report taking a Dulcolax suppository daily at home. Patient received a dose of IV Lasix yesterday for pleural effusions. PHYSICAL EXAM: VITAL SIGNS: Reviewed. Head: small bruise left side of head GENERAL: Well-developed in no acute distress. ABDOMEN: Soft. Nondistended. Midline incision clean dry and intact. MADDIE drain serous fluid NEUROLOGIC: Alert and oriented. Cranial nerves II through XII grossly intact. ASSESSMENT: 1. Acute cholecystitis status post Robotic cholecystectomy with exploratory laparotomy with washout 2. Abdominal ileus improved 3. Fluid collection noted in the pelvis on CT likely a postoperative seroma. IR service unable to drain PLAN: -Dulcolax suppository ordered daily for constipation. Patient does take suppository daily at home. -Continue regular diet -Antibiotics per ID service -DVT prophylaxis on Eliquis Physician [employer] Lever Tender note has been reviewed by physician. Signing provider agrees with the documented findings, assessment, and plan of care. Attestation Patient seen and examined at bedside. States that he feels a bit bloated today. Leukocytosis improved from yesterday. Having bowel function. Will plan for Dulcolax suppository for constipation. Continue diet. Antibiotics per ID service. Adilene Grant DO Objective - Vital Signs Vital signs: Vital Signs Temp 98.5 F 09/24/24 12:36 Pulse 76 09/24/24 12:36 Resp 18 09/24/24 12:36 BP 111/77 09/24/24 12:36 Pulse Ox 95 09/24/24 12:36 FiO2 Intake & Output 09/23/24 09/24/24 09/24/24 18:59 06:59 18:59 Intake Total 1730 600 Output Total 1275 515 475 Balance 455 85 -475 Weight 89 kg 89 kg Intake: IV 1010 Invasive Line 4 10 Piperacillin-Tazobactam 3 100 .375 gm In Sodium Chloride 0.9% 100 ml @ 25 mls/hr IVPB Q8H [facility] Rx#: [id number] Sodium Chloride 0.9% 1, 900 000 ml @ 75 mls/hr IV . [id number] [facility] Rx#:[id number] Oral 720 600 Output: Drainage 15 Right Medial Abdomen 15 Urine 1275 500 475 Other: Voiding Method Toilet Toilet Toilet Urinal Urinal Urinal Diaper Diaper # Voids 1 - Labs CBC & Chem 7: 09/24/24 06:11 09/24/24 06:11 Labs: Abnormal Lab Results - Last 24 Hours (Table) 09/24/24 09/24/24 Range/Units 06:11 06:11 WBC 13.85 H (4.50-10.00) 10*3/uL RBC 3.08 L (4.40-5.60) 10*6/uL Hgb 10.6 L (13.0-17.0) g/dL Hct 31.4 L (39.6-50.0) % MCV 101.9 H (80.0-97.0) fL MCH 34.4 H (27.0-32.0) pg Plt Count 447 H (140-440) 10*3/uL Immature Gran # 0.14 H (0.00-0.04) 10*3/uL Neutrophils # 12.00 H (1.80-7.70) 10*3/uL Lymphocytes # 0.52 L (0.90-5.00) 10*3/uL Sodium 132 L (137-145) mmol/L Creatinine 0.59 L (0.66-1.25) mg/dL Calcium 8.1 L (8.4-10.2) mg/dL Alkaline Phosphatase 175 H (38-126) U/L Total Protein 4.3 L (6.3-8.2) g/dL Albumin 2.1 L (3.5-5.0) g/dL
--- NOTE | 2024-09-24 12:57 | P.PN ---
Subjective HISTORY OF PRESENT ILLNESS: The patient is an 79-year-old male who presented with abdominal discomfort, had a recent left rectus sheath hematoma with arterial extravasation underwent angioembolization on August 23 was diagnosed with acute cholecystitis and underwent cholecystectomy yesterday. He is extubated and feels better today. He continues to have some abdominal discomfort but improved. He continues to be in atrial fibrillation, on IV Cardizem, with controlled ventricular response. He denies any dyspnea, dizziness or palpitations. He has an NG tube in place. He denies any nausea or vomiting. His echocardiogram showed a preserved systolic function with mild mitral and tricuspid regurgitation. He is off anticoagulation because of the recent bleed. He has a prior history of alcohol intake but has not had any drink for over 10 days. September 17: The patient is feeling better today, he has some dryness in the throat. He continues to be in atrial fibrillation on IV Cardizem and his rate is controlled. He denies any chest discomfort, dizziness or palpitations. He denies any nausea or vomiting. He has no flatus yet. He was up in the chair yesterday. He is on no vasopressors. He continues to be on IV Cardizem 5 mg an hour drip. 09/18 Patient has been transferred out of the intensive care unit and seen today on the cardiac stepdown unit. He continues to have NG tube in place. He states he is passing gas. He denies chest pain or chest pressure. Shortness of breath is stable. He states he has not been out of bed. Blood pressure 131/91, heart rate 106, pulse ox 100% on 3 L nasal cannula. Repeat blood work reveals hemoglobin 9.5, BUN 22 creatinine 0.58, sodium 139 and potassium 4. Yesterday IV Cardizem was discontinued patient started on oral. General surgery has cleared the patient to start anticoagulation. 09/19/2024 Patient examined this morning at the bedside. Patient is sitting up in the chair. Patient currently denies chest pain or pressure. He denies shortness of breath. He remains in atrial fibrillation with a heart rate around 110. 09/20/2024 Patient examined this morning at the bedside. Patient is currently sitting up in the chair. Patient denies chest pain or pressure. He denies shortness of breath. He reports he is passing gas but has not yet had a bowel movement. He remains in atrial fibrillation with heart rates in the 80s. Blood pressure is stable. 09/21/2024 Patient examined this morning at the bedside. Patient denies chest pain or pressure. Reports mild shortness of breath. Patient has been using his incentive spirometer. Telemetry reveals atrial fibrillation with controlled ventricular rate. 09/23/2024 Cardiology was reconsulted secondary to A-fib with RVR. Patient was in atrial fibrillation with RVR this morning. He received an additional dose of met oprolol. Heart rates are currently in the 70s at the time of examination. He denies chest pain or pressure. Reports shortness of breath. Blood pressure 102/71. 09/24/2024 Patient examined this morning to bedside. Patient currently denies chest pain or pressure. He denies shortness of breath. Telemetry reveals atrial fibrillation with controlled ventricular rates. PHYSICAL EXAM: VITAL SIGNS: Reviewed. GENERAL: Well-developed in no acute distress. NECK: Supple. No JVD or thyromegaly LUNGS: Respirations even and unlabored. Lungs essentially clear to auscultation bilaterally. HEART: Irregular rate and rhythm. S1 and S2 heard. Systolic murmur noted. EXTREMITIES: Normal range of motion. No clubbing or cyanosis. Peripheral pulses intact. Minimal lower extremity edema ASSESSMENT: 1. Status post open cholecystectomy 2. Persistent atrial fibrillation with episodes of rapid ventricular response 3. Recent rectus sheath hematoma with angioembolization, following a fall. 4. Prior history of alcohol intake PLAN: Continue current cardiac medications including Eliquis, Cardizem, and metoprolol Continue telemetry monitoring Patient is currently stable from a cardiac standpoint We will sign off. Please reconsult if needed. Nurse practitioner note has been reviewed by physician. Signing provider agrees with the documented findings, assessment, and plan of care documented by MEDICAL NURSE as a scribe. Objective - Vital Signs Vital signs: Vital Signs Temp 98.1 F 09/24/24 07:49 Pulse 80 09/24/24 07:49 Resp 18 09/24/24 07:49 BP 107/67 09/24/24 07:49 Pulse Ox 96 09/24/24 07:49 FiO2 Intake & Output 09/23/24 09/24/24 09/24/24 18:59 06:59 18:59 Intake Total 1730 600 Output Total 1275 515 Balance 455 85 Weight 89 kg Intake: IV 1010 Invasive Line 4 10 Piperacillin-Tazobactam 3 100 .375 gm In Sodium Chloride 0.9% 100 ml @ 25 mls/hr IVPB Q8H [facility] Rx#: [id number] Sodium Chloride 0.9% 1, 900 000 ml @ 75 mls/hr IV . [id number] [facility] Rx#:[id number] Oral 720 600 Output: Drainage 15 Right Medial Abdomen 15 Urine 1275 500 Other: Voiding Method Toilet Toilet Urinal Urinal Diaper # Voids 1 - Labs CBC & Chem 7: 09/24/24 06:11 09/24/24 06:11 Labs: Abnormal Lab Results - Last 24 Hours (Table) 09/24/24 09/24/24 Range/Units 06:11 06:11 WBC 13.85 H (4.50-10.00) 10*3/uL RBC 3.08 L (4.40-5.60) 10*6/uL Hgb 10.6 L (13.0-17.0) g/dL Hct 31.4 L (39.6-50.0) % MCV 101.9 H (80.0-97.0) fL MCH 34.4 H (27.0-32.0) pg Plt Count 447 H (140-440) 10*3/uL Immature Gran # 0.14 H (0.00-0.04) 10*3/uL Neutrophils # 12.00 H (1.80-7.70) 10*3/uL Lymphocytes # 0.52 L (0.90-5.00) 10*3/uL Sodium 132 L (137-145) mmol/L Creatinine 0.59 L (0.66-1.25) mg/dL Calcium 8.1 L (8.4-10.2) mg/dL Alkaline Phosphatase 175 H (38-126) U/L Total Protein 4.3 L (6.3-8.2) g/dL Albumin 2.1 L (3.5-5.0) g/dL
--- NOTE | 2024-09-24 14:20 | P.PN ---
Subjective Progress Note Date: 09/24/24 Patient is eval today in follow-up on the medical floor. Patient is postoperative day #5 cholecystectomy. MADDIE drain remains in place with 35 mL of output documented in last 24 hours. Patient has been up ambulating without difficulty. NG tube has been discontinued. He is on a full liquid diet and currently tolerating. States that he is passing gas but not having a bowel movement yet no other acute complaints at this time. Labs today reveal a white blood cell count of 1.97, hemoglobin 13.0, sodium 134, potassium 4.0, BUN of 9 creatinine 0.49. 09/21/2024 Patient seen and examined at bedside. Postop day 6 cholecystectomy. MADDIE drain in place with serosanguineous output. He is ambulating well. Full liquid diet, advance as tolerated. He has not had a bowel movement yet, but is passing gas. WBC 13.8, hemoglobin 11.1, sodium 132, creatinine 0.52, ALP 137. Chest x-ray with decreased small right-sided pleural effusion. 09/22/2024 Patient seen and examined at bedside. Patient is postop day 7. MADDIE drain still in place with serosanguineous output 20 mL. He attests to passing gas and bowel movement. He is able to tolerate soft diet without nausea or vomiting. Advance diet as tolerated. Discussed need for rehab facility, however patient declined and would prefer to go home with home health services. Labs today WBC 14.6, hemoglobin 10.3, sodium 133, potassium 3.4, total bilirubin 1.4, ALP 146,, UA negative, chest x-ray no acute process. 09/23/2024 Patient seen and examined at bedside. This morning this patient had a fall while attempting to use restroom. Patient hit the posterior right side of his head and his lower back. Imaging ordered. He is tolerating his diet well. Con tinues to pass gas. Labs today WBC 19.7, hemoglobin 11.4, sodium 131, BUN 8, creatinine 0.52, glucose 68, total bili 1.6, ALP 196. CT brain no acute abnormality post fall. CT abdomen pelvis with moderate right and small left pleural effusions with adjacent atelectasis/consolidation,, otherwise similar to previous CT. Knee x-ray with no acute osseous pathology. 09/24/2024 Patient seen and examined at bedside. He continues eating well. Ambulating. Repeat CT was ordered for fall yesterday with stable findings. IR unable to drain fluid collection noted on CT scan and pelvic area. Afebrile. Will need PICC line with IV antibiotics on discharge, likely tomorrow. MADDIE drain in place with 15 mL of output yesterday. Labs WBC 13.5, hemoglobin 10.6, platelets 447, sodium 132. All inpatient medications were reviewed and appropriate changes in these medications as dictated in the interval history and assessment and plan. PHYSICAL EXAMINATION: Vitals reviewed GENERAL: The patient is alert and oriented x3, not in any acute distress. Well developed, well nourished. CARDIOVASCULAR: S1 and S2 present. No murmurs, rubs, or gallops. PULMONARY: Chest is clear to auscultation, no wheezing or crackles. ABDOMEN: Soft, nontender, nondistended, normoactive bowel sounds. No palpable organomegaly. Abdominal dressing intact, MADDIE drain in place MUSCULOSKELETAL: No joint swelling or deformity. EXTREMITIES: No cyanosis, clubbing, or pedal edema. NEUROLOGICAL: Gross neurological examination did not reveal any focal deficits. Generalized weakness Assessment and plan Presyncope without loss of consciousness Recurrent falls due to the hypotension Acute cholecystitis status post open cholecystectomy Left rectus sheath hematoma with a arterial extravasation and angioembolization on August 23 Persistent atrial fibrillation currently rate controlled patient does continue to have episodes of RVR Leukocytosis Hypothyroidism Alcohol use disorder Macrocytic anemia on thiamine and folate supplementation Anxiety/depression Arthritis DVT prophylaxis No code Continue current cardiac medications on oral Cardizem, oral metoprolol. Pain management in place with IV morphine and oral [place]. Patient is anticoagulated with Eliquis Patient continues on IV Zosyn, continue Diflucan Heart healthy diet Continue to encourage incentive spirometry 10 times an hour while awake Continue IV fluids Senokot added Likely discharge to home with home health tomorrow Dr. Bronson seen patient with resident, present during exam, and agreed with findings. Objective - Vital Signs Vital signs: Vital Signs Temp 98.5 F 09/24/24 12:36 Pulse 76 09/24/24 12:36 Resp 18 09/24/24 12:36 BP 111/77 09/24/24 12:36 Pulse Ox 95 09/24/24 12:36 FiO2 Intake & Output 09/23/24 09/24/24 09/24/24 18:59 06:59 18:59 Intake Total 1730 600 Output Total 1275 515 475 Balance 455 85 -475 Weight 89 kg 89 kg Intake: IV 1010 Invasive Line 4 10 Piperacillin-Tazobactam 3 100 .375 gm In Sodium Chloride 0.9% 100 ml @ 25 mls/hr IVPB Q8H [facility] Rx#: [id number] Sodium Chloride 0.9% 1, 900 000 ml @ 75 mls/hr IV . [id number] [facility] Rx#:[id number] Oral 720 600 Output: Drainage 15 Right Medial Abdomen 15 Urine 1275 500 475 Other: Voiding Method Toilet Toilet Toilet Urinal Urinal Urinal Diaper Diaper # Voids 1 # Bowel Movements 1 - Labs CBC & Chem 7: 09/24/24 06:11 09/24/24 06:11 Labs: Abnormal Lab Results - Last 24 Hours (Table) 09/24/24 09/24/24 Range/Units 06:11 06:11 WBC 13.85 H (4.50-10.00) 10*3/uL RBC 3.08 L (4.40-5.60) 10*6/uL Hgb 10.6 L (13.0-17.0) g/dL Hct 31.4 L (39.6-50.0) % MCV 101.9 H (80.0-97.0) fL MCH 34.4 H (27.0-32.0) pg Plt Count 447 H (140-440) 10*3/uL Immature Gran # 0.14 H (0.00-0.04) 10*3/uL Neutrophils # 12.00 H (1.80-7.70) 10*3/uL Lymphocytes # 0.52 L (0.90-5.00) 10*3/uL Sodium 132 L (137-145) mmol/L Creatinine 0.59 L (0.66-1.25) mg/dL Calcium 8.1 L (8.4-10.2) mg/dL Alkaline Phosphatase 175 H (38-126) U/L Total Protein 4.3 L (6.3-8.2) g/dL Albumin 2.1 L (3.5-5.0) g/dL
--- NOTE | 2024-09-24 14:41 | P.PN ---
Subjective Progress Note Date: 09/23/24 Principal diagnosis: Reason for follow-up is acute ruptured cholecystitis and peritonitis Patient is a 79-year-old male with a past medical history significant for prostate cancer hypothyroidism, who was brought into the hospital after the patient did have a fall at home patient has been diagnosed with a ruptured cholecystitis status post cholecystectomy. On today's evaluation that is 09/23/2024,the patient denies any fever or any chills, patient is breathing comfortably on room air, the patient denies chest pain shortness of breath and no significant cough, patient denies nausea vomiting some abdominal discomfort. Patient white count is up to 19.75 creatinine 0.52 Objective - Vital Signs Vital signs: Vital Signs Temp 97.9 F 09/23/24 11:04 Pulse 80 09/23/24 11:04 Resp 18 09/23/24 11:04 BP 102/71 09/23/24 11:04 Pulse Ox 96 09/23/24 11:04 FiO2 Intake & Output 09/22/24 09/23/24 09/23/24 18:59 06:59 18:59 Intake Total 720 250 Output Total 1070 120 100 Balance -350 -120 150 Weight 88 kg Intake: IV 10 Invasive Line 4 10 Oral 720 240 Output: Drainage 20 20 Right Medial Abdomen 20 20 Urine 1050 100 100 Other: Voiding Method Toilet Toilet Toilet Urinal Urinal Urinal - Exam GENERAL DESCRIPTION: An elderly male lying in bed in no distress RESPIRATORY SYSTEM: Unlabored breathing , decreased breath sounds at bases HEART: S1 S2 regular rate and rhythm , ABDOMEN: Soft , no tenderness EXTREMITIES: No edema feet - Labs CBC & Chem 7: 09/24/24 06:11 09/24/24 06:11 Labs: Abnormal Lab Results - Last 24 Hours (Table) 09/23/24 09/23/24 Range/Units 05:41 05:41 WBC 19.75 H (4.50-10.00) 10*3/uL RBC 3.38 L (4.40-5.60) 10*6/uL Hgb 11.4 L (13.0-17.0) g/dL Hct 34.3 L (39.6-50.0) % MCV 101.5 H (80.0-97.0) fL MCH 33.7 H (27.0-32.0) pg Immature Gran # 0.23 H (0.00-0.04) 10*3/uL Neutrophils # 18.60 H (1.80-7.70) 10*3/uL Lymphocytes # 0.33 L (0.90-5.00) 10*3/uL Sodium 131 L (137-145) mmol/L BUN 8 L (9-20) mg/dL Creatinine 0.52 L (0.66-1.25) mg/dL Glucose 68 L (74-99) mg/dL Calcium 8.0 L (8.4-10.2) mg/dL Total Bilirubin 1.6 H (0.2-1.3) mg/dL Alkaline Phosphatase 196 H (38-126) U/L Total Protein 4.7 L (6.3-8.2) g/dL Albumin 2.3 L (3.5-5.0) g/dL Assessment and Plan (1) Peritonitis Current Visit: Yes Status: Acute Code(s): K65.9 - PERITONITIS, UNSPECIFIED SNOMED Code(s): 74619986 (2) Acute cholecystitis Current Visit: Yes Status: Acute Code(s): K81.0 - ACUTE CHOLECYSTITIS SNOMED Code(s): 81591229 Plan: 1patient presented to hospital with weakness and a fall on a workup did have evidence of acute cholecystitis that was seen on the CT as well as MRCP in this patient who is status post cholecystectomy completed on 09/15/2024 with operative report mention perforated acute cholecystitis no operative culture. 2- patient is afebrile and white count is trending up and there was evidence of abdominal fluid collection concerning for possible abscess IR has been consulted for drainage of this abscess fluid should be sent for culture continue Zosyn and Diflucan Dictation was produced using [employer] dictation software. please excuse any grammatical, word or spelling errors. Time with Patient: Less than 30
--- NOTE | 2024-09-24 14:42 | P.PN ---
Subjective Progress Note Date: 09/24/24 Principal diagnosis: Reason for follow-up is acute ruptured cholecystitis and peritonitis Patient is a 79-year-old male with a past medical history significant for prostate cancer hypothyroidism, who was brought into the hospital after the patient did have a fall at home patient has been diagnosed with a ruptured cholecystitis status post cholecystectomy. On today's evaluation that is 09/24/2024,the patient remains to be afebrile, patient is on room air not requiring supplemental oxygen and denies any shortness of breath no chest pain or cough.Patient denies having any nausea or vomiting, no abdominal pain did have some diarrhea. Patient white count is down to 13.85, creatinine 0.59 Objective - Vital Signs Vital signs: Vital Signs Temp 98.5 F 09/24/24 12:36 Pulse 76 09/24/24 12:36 Resp 18 09/24/24 12:36 BP 111/77 09/24/24 12:36 Pulse Ox 95 09/24/24 12:36 FiO2 Intake & Output 09/23/24 09/24/24 09/24/24 18:59 06:59 18:59 Intake Total 1730 600 Output Total 1275 515 475 Balance 455 85 -475 Weight 89 kg 89 kg Intake: IV 1010 Invasive Line 4 10 Piperacillin-Tazobactam 3 100 .375 gm In Sodium Chloride 0.9% 100 ml @ 25 mls/hr IVPB Q8H [facility] Rx#: [id number] Sodium Chloride 0.9% 1, 900 000 ml @ 75 mls/hr IV . [id number] [facility] Rx#:[id number] Oral 720 600 Output: Drainage 15 Right Medial Abdomen 15 Urine 1275 500 475 Other: Voiding Method Toilet Toilet Toilet Urinal Urinal Urinal Diaper Diaper # Voids 1 - Exam GENERAL DESCRIPTION: An elderly male lying in bed in no distress RESPIRATORY SYSTEM: Unlabored breathing , decreased breath sounds at bases HEART: S1 S2 regular rate and rhythm , ABDOMEN: Soft , no tenderness EXTREMITIES: No edema feet - Labs CBC & Chem 7: 09/24/24 06:11 09/24/24 06:11 Labs: Abnormal Lab Results - Last 24 Hours (Table) 09/24/24 09/24/24 Range/Units 06:11 06:11 WBC 13.85 H (4.50-10.00) 10*3/uL RBC 3.08 L (4.40-5.60) 10*6/uL Hgb 10.6 L (13.0-17.0) g/dL Hct 31.4 L (39.6-50.0) % MCV 101.9 H (80.0-97.0) fL MCH 34.4 H (27.0-32.0) pg Plt Count 447 H (140-440) 10*3/uL Immature Gran # 0.14 H (0.00-0.04) 10*3/uL Neutrophils # 12.00 H (1.80-7.70) 10*3/uL Lymphocytes # 0.52 L (0.90-5.00) 10*3/uL Sodium 132 L (137-145) mmol/L Creatinine 0.59 L (0.66-1.25) mg/dL Calcium 8.1 L (8.4-10.2) mg/dL Alkaline Phosphatase 175 H (38-126) U/L Total Protein 4.3 L (6.3-8.2) g/dL Albumin 2.1 L (3.5-5.0) g/dL Assessment and Plan (1) Peritonitis Current Visit: Yes Status: Acute Code(s): K65.9 - PERITONITIS, UNSPECIFIED SNOMED Code(s): 38378385 (2) Acute cholecystitis Current Visit: Yes Status: Acute Code(s): K81.0 - ACUTE CHOLECYSTITIS SNOM ED Code(s): 63068940 Plan: 1patient presented to hospital with weakness and a fall on a workup did have evidence of acute cholecystitis that was seen on the CT as well as MRCP in this patient who is status post cholecystectomy completed on 09/15/2024 with operative report mention perforated acute cholecystitis no operative culture. 2- patient is afebrile and white count is trending up and there was evidence of abdominal fluid collection concerning for possible abscess IR was unable to drain this fluid 3with concern for possible abscess/infected seroma fluid that has not been drained will recommend PICC line and a 2-week course of IV Zosyn and oral D iflucan prescription provided to the case aide and discussed with the resident physician Dictation was produced using [employer] software. please excuse any grammatical, word or spelling errors. Time with Patient: Less than 30
[2024-09-24] MEDS: POTASSIUM CHLORIDE ER 20 MEQ TAB.ER PO STA (15:14)
[2024-09-25] MEDS: MELATONIN 3 MG TABLET PO STA (00:37)
[2024-09-25 06:32] LABS: HGB 10.2 g/dL (13.0-17.0); MCH 34.5 pg (27.0-32.0); MCV 101.4 fL (80.0-97.0); Mean Platelet Volume 11.1 fL (9.5-12.2); Platelet Count 498 10*3/uL (140-440); RBC 2.96 10*6/uL (4.40-5.60); RDW 17.6 % (11.5-14.5); WBC 13.92 10*3/uL (4.50-10.00)
[2024-09-25 06:54] LABS: ALT 12 U/L (4-49); AST 21 U/L (17-59); African American GFR (CKD) >90 (>60 ml/min/1.73 sqM); Albumin 2.1 g/dL (3.5-5.0); Alkaline Phosphatase 153 U/L (38-126); Anion Gap 2 mmol/L; Blood Urea Nitrogen 11 mg/dL (9-20); Calcium 8.1 mg/dL (8.4-10.2); Carbon Dioxide 28 mmol/L (22-30); Chloride 101 mmol/L (98-107); Glucose 86 mg/dL (74-99); Non-African American GFR(CKD) >90 (>60 ml/min/1.73 sqM); Potassium 3.7 mmol/L (3.5-5.1); Sodium 131 mmol/L (137-145); Total Protein 4.4 g/dL (6.3-8.2)
--- NOTE | 2024-09-25 10:37 | XR ---
EXAMINATION TYPE: XR chest 1V portable DATE OF EXAM: 09/25/2024 10:29 AM COMPARISON: Chest radiographs from 09/21/2024. TECHNIQUE: XR chest 1V portable Portable AP radiograph of the chest. CLINICAL INDICATION:Male, 79 years old with history of picc placement; FINDINGS: Lungs/Pleura: There is no evidence of pleural effusion, focal consolidation, or pneumothorax. Chroni c elevation the right hemidiaphragm. Pulmonary vascularity: Unremarkable. Heart/mediastinum: Cardiomediastinal silhouette is prominent in size. Atherosclerotic calcifications are seen in the aorta. Musculoskeletal: No acute osseous pathology. Other findings: Resolution of previously demonstrated right chest wall subcutaneous emphysema. Lines/Tubes: Interval placement of right PICC line with distal tip at the superior cavoatrial junction. IMPRESSION: Interval placement of right PICC line with distal tip at the superior cavoatrial junction. No pneumot horax. [facility], , 09/25/2024 10:35 AM
--- NOTE | 2024-09-25 11:45 | P.PN ---
Subjective Progress Note Date: 09/25/24 Principal diagnosis: Atrial fibrillation, acute cholecystitis. Patient is an 79-year-old male with past medical history significant for gout, prostate cancer, hypothyroidism, and alcohol abuse. Patient does follow-up with Dr. Mascorro for his primary care needs. Patient has been suffering from frequent falls, was evaluated emergency department back on 08/21/2024, found to have a traumatic large left rectus sheath hematoma. He was also found to be in new onset atrial fibrillation at this time. Transferred to [facility] for vascular embolization. Patient was discharged home on metoprolol and Xarelto. He was seen by Dr. Mascorro on 09/01/2024 in follow-up. CT of the abdomen and pelvis showing increasing size of large left rectus sheath hematoma without visualized active extravasation. Dr. Mascorro advised the patient to stop his Xarelto. Patient had a subsequent fall on 09/14/2024. Reportedly dizzy which caused him to fall. Also, endorsed some right-sided chest and abdominal pain. Appetite has been poor. Abdominal/pelvis CT showing cholelithiasis with gall bladder wall thickening concerning for acute cholecystitis. Redemonstration of the large left abdominal wall intramuscular hematoma measuring approximately 11.6 x 15.3 x 5.3 cm. No indication of active bleeding. Diverticulosis without acute diverticulitis. No small bowel obstructions. No free intraperitoneal air. Follow-up MRCP demonstrated prominent gallbladder with gallstones and circumferential wall thickening. Borderline dilated extrahepatic biliary ducts no evidence of choledocholithiasis. Last night patient was taken for robotic assisted cholecystectomy converted to open procedure with a large amount of bilious fluid collection. Did briefly require vasopressor support in the op erating room. Patient was extubated in the postanesthesia care unit and transferred to the intensive care unit. Patient currently being evaluated in room 265. He is awake and alert. Heart rhythm is atrial fibrillation with rapid ventricular response ranging from 100 to 120 bpm. Cardizem is infusing at 5 mg/h. Blood pressure is normotensive. He did receive a 1 L LR bolus earlier. Normal saline continues at 75 mm/h. No longer requiring any vasopressor support. Endorsing some incisional abdominal pain, rated 7 on a 10 point numerical scale. There is a midline abdominal incision with some additional laparoscopic incisions. Right upper quadrant MADDIE drain with small amount of serosanguineous output. Patient is on 2 L/min nasal cannula. Resting comfortably not in any respiratory distress. Chest x-ray with low lung volumes, right lateral chest wall subcutaneous emphysema extending the right clavicular region in the setting of recent laparoscopic procedure. No discrete pneumothora x. No pleural effusions. No focal consolidations. CBC: WBC count 6, hemoglobin 12, platelets 236. CMP: Sodium 135, potassium 4.1, chloride 106, serum bicarb 21, BUN 34, creatinine 1.21, glucose 107. Total bilirubin 2.8. AST 24, ALT 11, ALP 56. Troponin elevated 0.054. Patient empirically covered on Zosyn. Current vital signs: Afebrile, heart rate 108 bpm, blood pressure 108/74 mmHg, nontach ypneic, on 2 L/min nasal cannula, SpO2 reading 97% on bedside monitor. Patient was seen today on 09/17/2024, remains in the ICU, patient is feeling better today compared to yesterday and the day prior. No shortness of breath, complaining mostly of dry sore throat, continues to have nasogastric tube in place, patient was transition from IV Cardizem to oral Cardizem, his atrial fibrillation seems to be controlled. Rate is in the 80s. Patient remains on CIWA protocol for his history of alcoholism. Overall I believe the patient is doing well, and I will plan to transfer the patient out of the ICU to a monitored bed and selective. WBC count is 7.4 hemoglobin 10.8, basic metabolic profile is normal renal profile is normal Patient was seen today on 09/18/2024, doing well, continues to have nasogastric tube in place, does not seem to be in any distress, remains on the CIWA protocol. Patient is passing some gas, however no bowel movements yet, nasogastric tube is being addressed by surgery on the case, I believe he will be started on clear liquid diet today, and the nasogastric tube will likely be removed today, he is also on oral [place] for pain, he is compliant with incentive spirometry, and he remains on antibiotics as per ID on the case. No active pulmonary symptoms no cough no wheezing no shortness of breath. WBC count is 8.13 hemoglobin 11.5 electrolytes are normal renal profile is normal Patient was seen today on 09/19/2024, his nasogastric tube was removed yesterday, patient is doing much better today, he is generally weak, remains on CIWA protocol, denies any significant abdominal pain, patient denies any shortness of breath or cough or wheezing. Labs today were reviewed WBC count is 8 hemoglobin 11.1 electrolytes are normal potassium 3.4 BUN is 11 creatinine 0.51 The patient is seen today September 20, 2024 in follow-up on the selective care unit. He is currently up ambulating in his room with assistance. He took a shower this morning. He is maintaining good O2 saturations in the 90s on room air. He denies any worsening shortness of breath, cough or congestion. Blood culture revealed no growth. Urine culture revealed no growth. White count 11.9. Hemoglobin 13.0. Platelets 378. Sodium 134. Potassium 4.0. Bicarb 26. BUN 9. Creatinine 0.49. Glucose 100. He is anticoagulated with Eliquis. Remains on Zosyn. Tolerating a full liquid diet. The patient is seen today September 21, 2024 and follow-up on the selective care unit. He is currently sitting up in bed. Awake and alert in no acute distress. Maintaining O2 saturations in the upper 90s on room air. He has been afebrile. Hemodynamically stable. Chest x-ray shows improvement in the right pleural effusion. Urine culture revealed no growth. Blood culture revealed no growth. White count 13.8. Hemoglobin 11.1. Platelets 348. Sodium 132. Potassium 3.7. Bicarb 29. BUN 9. Creatinine 0.52. Glucose 83. He is anticoagulated with Eliquis. Remains on Zosyn. Remains on normal saline at 75 mL/h. The patient is seen today September 22, 2024 in follow-up on the selective care u nit. He is currently up in a chair at the bedside. Awake and alert in no acute distress. Denies any worsening shortness of breath, cough or congestion. Maintaining good O2 saturations in the 90s on room air. Blood and urine cultures revealed no growth. White count 14.6. Hemoglobin 10.3. Platelets 400. Sodium 133. Potassium 3.4. Bicarb 27. BUN 8. Creatinine 0.49. Glucose 84. Urinalysis clean. Viral screen again negative. He is anticoagulated with Eliquis. Remains on Diflucan. Remains on Zosyn. Continued on normal saline at 75 mL/h. Progress note dated September 23, 2024. 79-year-old male seen today in room 379. He is currently sitting in the chair next to his bed. He is not receiving any supplemental oxygen. He is getting saline at 75 cc an hour, and he continues on Zosyn. The patient is awake and alert. No distress. He denies any shortness of breath, cough or chest congestion. Current labs include a white count of 19.8, hemoglobin 11.4, hematocrit 34.3, 32,000. Sodium 131, potassium 4, chlorides 100, CO2 26, BUN 8, and creatinine 0.52. Calcium is 8. Bilirubin 1.6. N-terminal proBNP is 4320. Glucose is 95. The patient is seen today September 24, 2024 in follow-up on the selective care unit. He is awake and alert in no acute distress. Maintaining good O2 saturations in the 90s on room air. He is currently sitting up in a chair. He remains afebrile. Hemodynamically stable. Blood and urine cultures revealed no growth. Yesterday he sustained a fall. CT scan of the brain revealed no acute process. CT scan of the abdomen pelvis revealed marked generalized anasarca along with moderate right and small left pleural effusions with adjacent atelect asis. Perihepatic ascites. Large left anterior abdominal wall intramuscular hematoma redemonstrated. X-ray of the right knee ruled out fracture. White count 13.8. Hemoglobin 10.6. Platelets 447. Sodium 132. Potassium 3.5. Bicarb 29. BUN 11. Creatinine 0.59. Glucose 81. He is anticoagulated with Eliquis. He remains on Zosyn. Progress note dated September 25, 2024. 79-year-old male seen today in room 379. He remains on room air. The patient is hoping to be discharged home today. He is not receiving any IV fluids. He does continue on Zosyn. He denies any difficulty breathing, coughing, wheezing, chest tightness, or phlegm production. Current laboratory data includes a white count of 13.9, hemoglobin 10.2, hematocrit 30, platelet count 498,000. Sodium 131, potassium 3.7, chlorides 101, CO2 28, BUN 11, creatinine 0.6. Calcium is 8.1. Albumin is 2.1. A chest x-ray, shows placement of a PICC line. Objective - Vital Signs Vital signs: Vital Signs Temp 97.8 F 09/25/24 08:00 Pulse 91 09/25/24 08:00 Resp 16 09/25/24 08:00 BP 105/70 09/25/24 08:00 Pulse Ox 97 09/25/24 08:00 FiO2 Intake & Output 09/24/24 09/25/24 09/25/24 18:59 06:59 18:59 Intake Total 240 0 Output Total 475 600 370 Balance -475 -360 -370 Weight 89 kg 89.1 kg Intake: Oral 240 0 Output: Drainage 20 Right Medial Abdomen 20 Urine 475 600 350 Other: Voiding Method Toilet Toilet Toilet Urinal Urinal Urinal Diaper Diaper Diaper # Bowel Movements 1 - Exam No acute distress, oriented 3. No respiratory distress. Currently on room air. HEENT examination is grossly unremarkable. Mucous membranes are moist. No oral lesions. Neck supple. Full range of motion. No adenopathy thyromegaly or neck vein distention. Cardiovascular examination reveals regular rhythm rate. S1-S2 normal. No S3 or S4. No discernible murmur noted. Lungs reveal clear breath sounds. Her sounds are equal bilaterally. No adventitious lung sounds including wheezes rhonchi or crackles. Abdomen soft, with bowel sounds. Surgical incision clean and dry, and well- approximated. Extremities are intact. No cyanosis clubbing or edema. Skin is without rash or lesion. Neurologic examination is brief but nonfocal. - Labs CBC & Chem 7: 09/25/24 05:46 09/25/24 05:46 Labs: Abnormal Lab Results - Last 24 Hours (Table) 09/25/24 09/25/24 Range/Units 05:46 05:46 WBC 13.92 H (4.50-10.00) 10*3/uL RBC 2.96 L (4.40-5.60) 10*6/uL Hgb 10.2 L (13.0-17.0) g/dL Hct 30.0 L (39.6-50.0) % MCV 101.4 H (80.0-97.0) fL MCH 34.5 H (27.0-32.0) pg Plt Count 498 H (140-440) 10*3/uL Sodium 131 L (137-145) mmol/L Creatinine 0.60 L (0.66-1.25) mg/dL Calcium 8.1 L (8.4-10.2) mg/dL Alkaline Phosphatase 153 H (38-126) U/L Total Protein 4.4 L (6.3-8.2) g/dL Albumin 2.1 L (3.5-5.0) g/dL Assessment and Plan Assessment: Acute complicated cholecystitis, S/P robotic assisted cholecystectomy converted to open procedure and evacuation of large amount of bilious drainage in the right upper quadrant on September 15, 2024. Atrial fibrillation with rapid ventricular response. Large left rectus sheath hematoma redemonstrated and measuring approximately 11.6 x 15.3 x 5.3 cm. Frequent falls. Acute hypoxemic respiratory failure, currently on room air, chest x-ray showing low lung volumes, right lateral chest wall subcutaneous emphysema extending the right clavicular region in the setting of recent laparoscopic procedure. No discrete pneumothorax. No pleural effusions. No focal consolidations. History of gout. History of prostate cancer. History of hypothyroidism. History of alcohol abuse. Anxiety/depression. Plan: Plan dated September 23, 2024. The patient is seen today in room 379. The patient appears relatively stable. He is on room air. He is receiving saline at 75 cc an hour, and he continues on Zosyn. All labs, x-rays, and medications are reviewed. The patient's overall prognosis remains guarded. We will continue to follow the patient, make recommendations along the way. Dictation was produced using [employer] software. Please excuse any grammatical, word or spelling errors. Plan dated September 25, 2024. The patient seen today in room 379. The patient is on room air. The patient is not receiving any additional IV fluids. The patient continues on Zosyn. Labs, x-rays, and all medications are reviewed. The plan is to discharge the patient home later today. We will continue to follow should the patient not be discharged. Clinically, he appears very stable. He is a DO NOT RESUSCITATE patient. All labs, x-rays, and medications are reviewed. Dictation was produced using [employer] software. Please excuse any grammatical, word or spelling errors. Time with Patient: Less than 30
--- NOTE | 2024-09-25 12:23 | P.PN ---
Progress Note - Text Progress Note Date: 09/25/24 CHIEF COMPLAINT: Fall HISTORY OF PRESENT ILLNESS: Postop day #10 status post robotic cholecystectomy with exploratory laparotomy with washout. No acute events overnight. Patient having bowel function. WBC is stable. PHYSICAL EXAM: VITAL SIGNS: Reviewed. Head: small bruise left side of head GENERAL: Well-developed in no acute distress. ABDOMEN: Soft. Nondistended. Midline incision clean dry and intact. MADDIE drain serous fluid NEUROLOGIC: Alert and oriented. Cranial nerves II through XII grossly intact. ASSESSMENT: 1. Acute cholecystitis status post Robotic cholecystectomy with exploratory laparotomy with washout 2. Abdominal ileus improved 3. Fluid collection noted in the pelvis on CT likely a postoperative seroma. IR service unable to drain PLAN: -Dulcolax suppository ordered daily for constipation. Patient does take suppository daily at home. -Continue regular diet -Antibiotics per ID service -DVT prophylaxis on Eliquyoshi [facility] [phone]
--- NOTE | 2024-09-25 14:17 | P.DS ---
Providers Date of admission: 09/14/24 05:02 Expected date of discharge: 09/25/24 Attending physician: Ofe Mckeon Consults: 09/14/24 04:33 Consult Physician Urgent Consulting Provider: Adilene Grant Consult Reason/Comments: Acute cholecystitis Do you want consulting provider notified?: Already Contacted 09/15/24 15:47 Consult Physician Routine Consulting Provider: Marilou Delgado Consult Reason/Comments: PCP Do you want consulting provider notified?: Yes 09/15/24 18:40 Consult Physician Urgent Consulting Provider: Jimi Cortés Consult Reason/Comments: sepsis? Do you want consulting provider notified?: Yes Primary care physician: Marilou Delgado Hospital Course: Discharge diagnoses; Recurrent falls due to the hypotension Acute cholecystitis status post open cholecystectomy Left rectus sheath hematoma with a arterial extravasation and angioembolization on August 23 Persistent atrial fibrillation Acute hypoxemic respiratory failure Leukocytosis Hypothyroidism Alcohol use disorder Macrocytic anemia Anxiety/depression Arthritis Hospital course; History of present illness; Patient is an 79-year-old male with history of alcohol use disorder, hypothyroidism, anxiety depression, A-fib with RVR who presents after a fall. Patient states that yesterday he fell on his right shoulder after reaching for his medication while seated in his chair. He felt dizzy and lightheaded but reports he did not lose consciousness. He had no other symptoms at that time. He discontinued blood thinners roughly 1 month ago. He does admit to wanting a walker but only uses it intermittently. He also admits to having a poor appetite for some time since his last fall 1 month ago when he was transferred from this hospital to [facility]. He also notes that he began to have r ight-sided abdominal pain which he first noticed after he fell yesterday. He also states that he has roughly 8 beers daily, however has not had drink for the last 10 days. During hospital stay patient was treated for acute cholecystitis and is status post open cholecystectomy. He was also treated for alcohol withdrawal. He was seen by physical therapy for recurrent falls. He also was seen by cardiology for persistent A-fib with RVR. He was also seen by infectious disease for persistent leukocytosis likely from abdominal fluid collection which could not be drained. Patient discharged in stable to condition to home with home health care with [facility]. Patient is continue IV Zosyn and oral Diflucan. He has been started on Eliquis, Cardizem, Lopressor by cardiology. He has a follow-up with infectious disease and his PCP. PHYSICAL EXAMINATION: Vitals reviewed GENERAL: The patient is alert and oriented x3, not in any acute distress. Well developed, well nourished. CARDIOVASCULAR: S1 and S2 present. No murmurs, rubs, or gallops. PULMONARY: Chest is clear to auscultation, no wheezing or crackles. ABDOMEN: Soft, nontender, nondistended, normoactive bowel sounds. No palpable organomegaly. Abdominal dressing intact, MADDIE drain in place MUSCULOSKELETAL: No joint swelling or deformity. EXTREMITIES: No cyanosis, clubbing, or pedal edema. NEUROLOGICAL: Gross neurological examination did not reveal any focal deficits. Generalized weakness Dr. Bronson seen patient with resident, present during exam, and agreed with findings. Dictation was produced using [employer] dictation software. please excuse any grammatical, word or spelling errors. Patient Condition at Discharge: Stable Plan - Discharge Summary New Discharge Prescriptions: New Fluconazole [Diflucan] 100 mg PO DAILY #14 tab Apixaban [Eliquis] 5 mg PO BID #60 tab Folic Acid 1 mg PO DAILY #30 tab Piperacillin-Tazobactam [Zosyn] 3.375 gm IVPB Q8HR #42 each Diltiazem Oral [Cardizem*] 60 mg PO TID #90 tab Metoprolol Tartrate [Lopressor] 50 mg PO TID tab Thiamine [Vitamin B-1] 100 mg PO DAILY #30 tab Continue allopurinoL [Zyloprim] 300 mg PO DAILY Lysine 1,000 mg PO DAILY Ibuprofen [Motrin] 800 mg PO BID PRN PRN Reason: Pain Cyanocobalamin (Vitamin B-12) [Vitamin B-12] 5,000 mcg PO WEEKLY clonazePAM [KlonoPIN] 1 mg PO HS Ferrous Sulfate [Feosol] 325 mg PO BID Ascorbic Acid [Vitamin C] 250 mg PO BID Cholecalciferol (Vitamin D3) [Vitamin D3 (3000 Iu)] 75 mcg PO DAILY Escitalopram [Lexapro] 10 mg PO DAILY Acetaminophen Tab [Tylenol] 1,000 mg PO Q6H PRN PRN Reason: Fever And/ Or Pain Levothyroxine Sodium [Synthroid] 75 mcg PO DAILY Discontinued Metoprolol Tartrate [Lopressor] 50 mg PO BID Discharge Medication List allopurinoL [Zyloprim] 300 mg PO DAILY 01/18/14 [History] Lysine 1,000 mg PO DAILY 06/29/16 [History] Ibuprofen [Motrin] 800 mg PO BID PRN 03/17/18 [History] Acetaminophen Tab [Tylenol] 1,000 mg PO Q6H PRN 09/14/24 [History] Ascorbic Acid [Vitamin C] 250 mg PO BID 09/14/24 [History] Cholecalciferol (Vitamin D3) [Vitamin D3 (3000 Iu)] 75 mcg PO DAILY 09/14/24 [History] Cyanocobalamin (Vitamin B-12) [Vitamin B-12] 5,000 mcg PO WEEKLY 09/14/24 [History] Escitalopram [Lexapro] 10 mg PO DAILY 09/14/24 [History] Ferrous Sulfate [Feosol] 325 mg PO BID 09/14/24 [History] Levothyroxine Sodium [Synthroid] 75 mcg PO DAILY 09/14/24 [History] clonazePAM [KlonoPIN] 1 mg PO HS 09/14/24 [History] Piperacillin-Tazobactam [Zosyn] 3.375 gm IVPB Q8HR #42 each 09/24/24 [Rx] Apixaban [Eliquis] 5 mg PO BID #60 tab 09/25/24 [Rx] Diltiazem Oral [Cardizem*] 60 mg PO TID #90 tab 09/25/24 [Rx] Fluconazole [Diflucan] 100 mg PO DAILY #14 tab 09/25/24 [Rx] Folic Acid 1 mg PO DAILY #30 tab 09/25/24 [Rx] Metoprolol Tartrate [Lopressor] 50 mg PO TID tab 09/25/24 [Rx] Thiamine [Vitamin B-1] 100 mg PO DAILY #30 tab 09/25/24 [Rx] Follow up Appointment(s)/Referral(s): Marilou Delgado MD [Primary Care Provider] - 1-2 days (CALL AND MAKE MAYA!) [facility], [NON-STAFF] - 09/26/24 (Nurse will be out Saturday morning to educate/demonstrate on IV abx.) [facility], [REFERRING] - 09/25/24 (Will deliver [facility] between 6-8PM) Jimi Cortés MD [STAFF PHYSICIAN] - 1 Week (CALL AND MAKE MAYA!) Ambulatory/Diagnostic Orders: Miscellaneous Radiology Order [RAD.AMB] Location: None Selected Patient Instructions/Handouts: A-fib (Atrial Fibrillation) (DC), Cholecystitis (GEN), Exploratory Laparotomy (DC) Activity/Diet/Wound Care/Special Instructions: Per Dr. Cortés please repeat CT in 2 weeks to reevaluate size. Discharge/Stand Alone Forms: Who Do I Call?
[2024-09-25 15:53] VITALS: BP 100/64; PULSE 93; RESP 16; TEMP 97.7
--- NOTE | 2024-09-25 15:59 | P.PN ---
Subjective Progress Note Date: 09/25/24 Principal diagnosis: Reason for follow-up is acute ruptured cholecystitis and peritonitis Patient is a 79-year-old male with a past medical history significant for prostate cancer hypothyroidism, who was brought into the hospital after the patient did have a fall at home patient has been diagnosed with a ruptured cholecystitis status post cholecystectomy. On today's evaluation that is 09/25/2024, the patient continues to be afebrile, the patient is on room air and breathing comfortably, the Pt denies having any chest pain or cough, the patient denies having any abdominal pain no vomiting or any diarrhea. Patient 13.9, creatinine of 0.60 blood culture has been negative. Objective - Vital Signs Vital signs: Vital Signs Temp 97.8 F 09/25/24 08:00 Pulse 91 09/25/24 08:00 Resp 16 09/25/24 08:00 BP 105/70 09/25/24 08:00 Pulse Ox 97 09/25/24 08:00 FiO2 Intake & Output 09/24/24 09/25/24 09/25/24 18:59 06:59 18:59 Intake Total 240 0 Output Total 475 600 370 Balance -475 360 -370 Weight 89 kg 89.1 kg Intake: Oral 240 0 Output: Drainage 20 Right Medial Abdomen 20 Urine 475 600 350 Other: Voiding Method Toilet Toilet Toilet Urinal Urinal Urinal Diaper Diaper Diaper # Bowel Movements 1 - Exam GENERAL DESCRIPTION: An elderly male lying in bed in no distress RESPIRATORY SYSTEM: Unlabored breathing , decreased breath sounds at bases HEART: S1 S2 regular rate and rhythm , ABDOMEN: Soft , no tenderness EXTREMITIES: No edema feet - Labs CBC & Chem 7: 09/25/24 05:46 09/25/24 05:46 Labs: Abnormal Lab Results - Last 24 Hours (Table) 09/25/24 09/25/24 Range/Units 05:46 05:46 WBC 13.92 H (4.50-10.00) 10*3/uL RBC 2.96 L (4.40-5.60) 10*6/uL Hgb 10.2 L (13.0-17.0) g/dL Hct 30.0 L (39.6-50.0) % MCV 101.4 H (80.0-97.0) fL MCH 34.5 H (27.0-32.0) pg Plt Count 498 H (140-440) 10*3/uL Sodium 131 L (137-145) mmol/L Creatinine 0.60 L (0.66-1.25) mg/dL Calcium 8.1 L (8.4-10.2) mg/dL Alkaline Phosphatase 153 H (38-126) U/L Total Protein 4.4 L (6.3-8.2) g/dL Albumin 2.1 L (3.5-5.0) g/dL Assessment and Plan (1) Peritonitis Current Visit: Yes Status: Acute Code(s): K65.9 - PERITONITIS, UNSPECIFIED SNOMED Code(s): 63965715 (2) Acute cholecystitis Current Visit: Yes Status: Acute Code(s): K81.0 - ACUTE CHOLECYSTITIS SNOMED Code(s): 48292785 Plan: 1patient presented to hospital with weakness and a fall on a workup did have evidence of acute cholecystitis that was seen on the CT as well as MRCP in this patient who is status post cholecystectomy completed on 09/15/2024 with operative report mention perforated acute cholecystitis no operative culture. 2- patient is afebrile and white count is trending up and there was evidence of abdominal fluid collection concerning for possible abscess IR was unable to drain this fluid 3with concern for possible abscess/infected seroma fluid that has not been drained, PICC line has been placed plan is for 2-week course of IV Zosyn and oral Diflucan on discharge and repeating a CAT scan before completion of his antibiotic therapy to make sure resolution of the abscess before distribution of antibiotic Dictation was produced using [employer] dictation software. please excuse any grammatical, word or spelling errors. Time with Patient: Less than 30
== END 2024-09-25 16:48 | disposition home health service (06) | DRG 414 ==
LOC: EC → 3SCARD 05:02 → 2SICU 09-15 19:00 → 3SCARD 09-17 18:35
PROVIDERS: ADMIT Hospitalist; ATTEND Hospitalist
PROC: 0FJ44ZZ Inspection of Gallbladder, Percutaneous Endoscopic Approach (ICD-10-PCS; 2024-09-15)
PROC: 8E0W0CZ Robotic Assisted Procedure of Trunk Region, Open Approach (ICD-10-PCS; 2024-09-15)
PROC: 0FT40ZZ Resection of Gallbladder, Open Approach (ICD-10-PCS; principal; 2024-09-15 07:30)
DX: K80.00 Calculus of gallbladder with acute cholecystitis without obstruction (principal); J96.01 Acute respiratory failure with hypoxia; K65.9 Peritonitis, unspecified; J90 Pleural effusion, not elsewhere classified; K56.7 Ileus, unspecified; R18.8 Other ascites; Z66 Do not resuscitate; D53.9 Nutritional anemia, unspecified; S30.1XXA Contusion of abdominal wall, initial encounter; F10.239 Alcohol dependence with withdrawal, unspecified; E03.9 Hypothyroidism, unspecified; F32.A Depression, unspecified; I08.1 Rheumatic disorders of both mitral and tricuspid valves; I48.19 Other persistent atrial fibrillation; E56.9 Vitamin deficiency, unspecified; E87.6 Hypokalemia; I95.1 Orthostatic hypotension; R29.6 Repeated falls; I45.10 Unspecified right bundle-branch block; R79.89 Other specified abnormal findings of blood chemistry; K57.30 Diverticulosis of large intestine without perforation or abscess without bleeding; Z53.31 Laparoscopic surgical procedure converted to open procedure; T81.82XA Emphysema (subcutaneous) resulting from a procedure, initial encounter; K21.9 Gastro-esophageal reflux disease without esophagitis; F41.9 Anxiety disorder, unspecified; R33.9 Retention of urine, unspecified; M19.90 Unspecified osteoarthritis, unspecified site; W07.XXXA Fall from chair, initial encounter; Y92.009 Unspecified place in unspecified non-institutional (private) residence as the place of occurrence of the external cause; Z79.890 Hormone replacement therapy; Z79.899 Other long term (current) drug therapy; Z85.46 Personal history of malignant neoplasm of prostate; Z87.891 Personal history of nicotine dependence; Z96.651 Presence of right artificial knee joint
CPT/HCPCS: 36415; 36573; 70450; 71045; 71260; 72125; 74176; 74177; 74181; 80048; 80053; 80076; 81001; 81003; 82248; 83735; 83880; 84439; 84443; 84484; 85025; 85027; 85610; 87040; 87086; 87636; 88304; 93005; 96365; 96366; 96368; 96375; 99285

== ENCOUNTER → 2024-10-12 | Outpatient (CLI) | payer MEDICARE ==
--- NOTE | 2024-10-12 12:23 | CT ---
EXAMINATION TYPE: CT abdomen pelvis w con CT DLP: 1362 mGycm, Automated exposure control for dose reduction was used. DATE OF EXAM: 10/12/2024 12:02 PM COMPARISON: Chest radiograph 10/12/2024, CT abdomen and pelvis 09/23/2024, 09/22/2024 CLINICAL INDICATION:Male, 79 years old with history of K65.1 PERITONEAL ABSCESS; peritoneal abscess TECHNIQUE: Standard CT of the abdomen and pelvis following the administration of 100 cc of Isovue 3 00 IV contrast material and oral contrast. Coronal and sagittal reformats were performed. FINDINGS: LOWER CHEST: Small to moderate-sized bilateral pleural effusions with associated atelectasis. Migrain ous calcifications. Coronary artery calcifications. Small aortic valvular calcifications. Few bilater al pleural base calcified pleural plaques. Correlate for prior asbestosis exposure. ABDOMEN LIVER: Unremarkable GALLBLADDER AND BILE DUCTS: Gas is identified within the region of the gallbladder. No surgical clips identified in this region. PANCREAS: Moderate atrophy of the pancreas. SPLEEN: Unremarkable. ADRENAL GLANDS: Unremarkable. KIDNEYS AND URETERS: No evidence of hydronephrosis or renal calculus. The kidneys enhance symmetrical ly. Multiseptated thin-walled cystic lesion within the lower pole of the right kidney measuring gross ly 4.4 x 3.9 cm with thin enhancing septation. Contrast is demonstrated within both collecting system s and proximal ureters on the delayed phase. PELVIS BLADDER: Incompletely distended but grossly unremarkable. REPRODUCTIVE: Postsurgical changes from prostatectomy. ABDOMEN & PELVIS STOMACH AND BOWEL: Stomach and duodenum are unremarkable. Distal colonic diverticulosis without evide nce for acute diverticulitis. Enteric contrast reaches the splenic flexure. No focal bowel wall thick ening. No evidence of bowel obstruction. PERITONEUM: No evidence of pneumoperitoneum or free fluid. Previously seen fluid collection within th e cul-de-sac is no longer visualized. VASCULATURE: No evidence of aortic aneurysm. MUSCULOSKELETAL: No acute osseous abnormalities. Moderate multilevel degenerative disc disease. LYMPH NODES: No evidence for lymphadenopathy. Surgical changes from lymph node dissection within the bilateral iliac chain regions. SOFT TISSUE/ABDOMINAL WALL: Small fat filled umbilical hernia. Supraumbilical incisional fat-containi ng hernia. Left rectus wall heterogenous mildly hyperdense fluid bilaterally region measuring grossly 12.4 x 4.5 x 9.6 cm. This is mildly decreased in size from prior exam. IMPRESSION: 1. Mildly decreased size of left rectus sheath hematoma. 2. Resolution of previously demonstrated cul-de-sac fluid collection. 3. Regions of gas identified within the gallbladder region which may represent gas-filled gallstones versus intraluminal gas. Consider further evaluation with ultrasound as clinically indicated. 4. Similar complex cysts within the right renal lower pole with thin enhancing septation. Recommend f urther evaluation with outpatient renal ultrasound. 5. Colonic diverticulosis without evidence for acute diverticulosis. 6. Small to moderate-sized bilateral pleural effusions with associated atelectasis. [facility], , 10/12/2024 12:21 PM
== END | disposition home or self-care (01) ==
LOC: RADPROMAIN 09:58
PROVIDERS: ATTEND Internal Medicine Infectious Disease
DX: S30.1XXA Contusion of abdominal wall, initial encounter (principal); K65.1 Peritoneal abscess; K57.30 Diverticulosis of large intestine without perforation or abscess without bleeding; J90 Pleural effusion, not elsewhere classified; J98.11 Atelectasis; N28.1 Cyst of kidney, acquired
CPT/HCPCS: 74177; 36415; Q9967

== ENCOUNTER → 2024-11-27 | Outpatient (CLI) | payer MEDICARE ==
[2024-11-27 15:44] LABS: HCT 46.7 % (39.6-50.0); HGB 14.8 g/dL (13.0-17.0); MCH 33.4 pg (27.0-32.0); MCHC 31.7 g/dL (32.0-37.0); MCV 105.4 FL (80.0-97.0); Mean Platelet Volume 11.4 FL (9.5-12.2); NRBC Per 100 WBC 0 X 10*3/uL (0.00-0.01); Platelet Count 356 X 10*3/uL (140-440); RBC 4.43 X 10*6/uL (4.40-5.60); RDW 15.2 % (11.5-14.5); WBC 7.03 X 10*3/uL (4.50-10.00)
[2024-11-27 16:43] LABS: NT-Pro-B-Type Natriuretic Pept 4754 pg/mL (0-450)
[2024-11-27 17:09] LABS: ALT 15 U/L (10-49); AST 31 U/L (14-35); Alkaline Phosphatase 140 U/L (41-126); BUN/Creat Ratio 12.38 Ratio (12.00-20.00); Blood Urea Nitrogen 9.9 mg/dL (9.0-27.0); Calcium 9.6 mg/dL (8.7-10.3); Carbon Dioxide 25.7 mmol/L (21.6-31.8); Chloride 106 mmol/L (96-109); Chol/HDL Ratio 2.03 Ratio; Glucose 97 mg/dL (70-110); Potassium 4.8 mmol/L (3.5-5.5); Sodium 150 mmol/L (135-145); Total Bilirubin 0.6 mg/dL (0.3-1.2); Total Protein 6.9 g/dL (6.2-8.2)
[2024-11-27 17:10] LABS: Albumin 3.8 g/dL (3.8-4.9); Albumin/Globulin Ratio 1.23 Ratio (1.60-3.17); Globulin 3.1 g/dL (1.6-3.3)
== END | disposition home or self-care (01) ==
LOC: LABWHC1 09:35
PROVIDERS: ATTEND Internal Medicine
DX: I48.11 Longstanding persistent atrial fibrillation (principal); E78.3 Hyperchylomicronemia; R60.0 Localized edema; R06.09 Other forms of dyspnea
CPT/HCPCS: 36415; 80053; 80061; 83880; 85027

== ENCOUNTER → 2024-12-10 | Outpatient (CLI) | payer MEDICARE ==
[2024-12-10 11:58] LABS: Anion Gap 11.20 mmol/L (4.00-12.00); BUN/Creat Ratio 15.75 Ratio (12.00-20.00); Blood Urea Nitrogen 12.6 mg/dL (9.0-27.0); Calcium 9.3 mg/dL (8.7-10.3); Carbon Dioxide 27.8 mmol/L (21.6-31.8); Chloride 102 mmol/L (96-109); Glucose 98 mg/dL (70-110); Potassium 4.7 mmol/L (3.5-5.5); Sodium 141 mmol/L (135-145)
[2024-12-10 12:02] LABS: NT-Pro-B-Type Natriuretic Pept 4580 pg/mL (0-450)
== END | disposition home or self-care (01) ==
LOC: LABWHC1 08:58
PROVIDERS: ATTEND Nurse Practitioner Adult Health
DX: I50.32 Chronic diastolic (congestive) heart failure (principal)
CPT/HCPCS: 36415; 80048; 83880

== ENCOUNTER → 2025-01-05 | Outpatient (CLI) | payer MEDICARE ==
[2025-01-05 15:05] LABS: HCT 43.6 % (39.6-50.0); HGB 13.8 g/dL (13.0-17.0); MCH 32.8 pg (27.0-32.0); MCHC 31.7 g/dL (32.0-37.0); MCV 103.6 FL (80.0-97.0); NRBC Per 100 WBC 0 X 10*3/uL (0.00-0.01); Platelet Count 298 X 10*3/uL (140-440); RBC 4.21 X 10*6/uL (4.40-5.60); RDW 14.4 % (11.5-14.5); WBC 6.57 X 10*3/uL (4.50-10.00)
[2025-01-05 15:20] LABS: Anion Gap 10.90 mmol/L (4.00-12.00); Blood Urea Nitrogen 13.0 mg/dL (9.0-27.0); Carbon Dioxide 27.1 mmol/L (21.6-31.8); Chloride 103 mmol/L (96-109); Potassium 4.5 mmol/L (3.5-5.5); Sodium 141 mmol/L (135-145)
== END | disposition home or self-care (01) ==
LOC: LABPAT 08:53
PROVIDERS: ATTEND Internal Medicine Interventional Cardiology
DX: Z01.812 Encounter for preprocedural laboratory examination (principal); R94.39 Abnormal result of other cardiovascular function study
CPT/HCPCS: 80051; 82565; 84520; 85027